=== PATIENT | female | born 1955 | race Caucasian/White ===

== ENCOUNTER 2017-03-09 17:21 | Emergency (ER) | payer MEDICARE, MEDICAID ==
[~2017-03-09] VITALS: Ht 165.1 cm; Wt 68.9 kg
[~2017-03-09 17:21] MED LIST: AMLO10TA PO; ASPI-586 PO; BACL10TA PO; BUME2TAB3 PO; CARV25TA PO; CLON0.1T PO; DIAZ5TAB PO; FOLI0.8T7 PO; HYDR-3923 PO; HYDR25TA4 PO; LEVO25TA5 PO; LEVO75TA6 PO; LOSA50TA6 PO; OXYC-197 PO; PANT40TA3 PO; PRAV40TA2 PO; PRD20T PO; SEVE800T7 PO; SIMV20TA3 PO; SIMV5TAB6 PO; VIT1TABL52 PO
[2017-03-09] MEDS ORDERED: RT-ALBUTEROL/IPRATROPIUM 3 ML (DUONEB) VIAL INH ONE ×2 (17:30)
--- NOTE | 2017-03-09 17:35 | ED General ---
General Stated Complaint: SOA Source of Information: Patient Exam Limitations: No Limitations History of Present Illness Time Seen by Provider: 17:20 Initial Comments Here with report of shortness of air, fever, cough and difficulty with breathing. This started this morning. She woke up and noted her oxygen saturation was at 64 percent. She did a breathing treatment and use her oxygen and this did improve. She saw her Dr. today at 1030 and he put her on some sort of antibiotic. She is not sure what that is. Had increasing respiratory difficulty this afternoon and EMS was called and ultimately brought her to the ER. She does have end-stage renal disease and she is on dialysis on Monday/ Monday and Monday. Her Dr. for renal problems in his "[place]" at [facility] in [place], [place]. Timing/Duration: 12-24 Hours Severity: Moderate Associated Systoms: No Chest Pain, Cough, Fever/Chills, No Nausea/Vomiting, Shortness of Air, Weakness Allergies and Home Medications Allergies Coded Allergies: morphine (Verified Allergy, Severe, swelling, 01/11/16) Home Medications Amlodipine Besylate 10 Mg Tablet, 10 MG PO DAILY, (Reported) Carvedilol 25 Mg Tablet, 25 MG PO BID, (Reported) Clonidine HCl 0.1 Mg Tablet, 0.1 MG PO DAILY, (Reported) Furosemide 80 Mg Tablet, 80 MG PO BID, (Reported) Hydralazine HCl 25 Mg Tablet, 25 MG PO TID, (Reported) Levofloxacin 500 Mg Tablet, 500 MG PO Q48H, (Reported) Levothyroxine Sodium 25 Mcg Tablet, 25 MCG PO DAILY, (Reported) Oxycodone HCl/Acetaminophen 1 Each Tablet, 1-2 EACH PO Q4H PRN for PAIN, #10 Prescribed by: EDUIN BIRD on 08/12/16 1048 Pravastatin Sodium 40 Mg Tablet, 40 MG PO DAILY, (Reported) Prednisone 20 Mg Tab, 40 MG PO DAILY, #10 Ref 0 Prescribed by: AKASH PINEDA on 03/09/17 1827 Vitamin B Comp W-C/FA/Zn Cit 1 Each Tablet, 1 EACH PO DAILY, (Reported) Constitutional: see HPI, chills, fever, weakness EENTM: nose congestion, No throat pain Respiratory: cough, dyspnea on exertion, phlegm, short of breath Cardiovascular: no symptoms reported Gastrointestinal: No abdominal pain, No nausea, No vomiting Genitourinary: no symptoms reported Musculoskeletal: no symptoms reported Skin: no symptoms reported All Other Systems Reviewed Negative Unless Noted: Yes Past Retiywv-Vdckxc-Ferovb Hx Patient Social History Alcohol Use: Denies Use Recreational Drug Use: No Smoking Status: Current Everyday Smoker Type Used: Cigarettes Recent Hopitalizations: Yes (at [facility]) Immunizations Up To Date Tetanus Booster (TDap): Unknown Seasonal Allergies Seasonal Allergies: No Surgeries HX Surgeries: Yes (BACK) Respiratory Hx Respiratory Disorders: Yes (tobaccoism, chronic hypoxia on 2 L by nasal cannula) Cardiovascular Hx Cardiac Disorders: Yes Cardiac Disorders: Hypertension Neurological Hx Neurological Disorders: No Reproductive System Hx Reproductive Disorders: No Sexually Transmitted Disease: No HIV/AIDS: No Genitourinary Hx Genitourinary Disorders: Yes Genitourinary Disorders: Renal Failure, Dialysis Gastrointestinal Hx Gastrointestinal Disorders: No Musculoskeletal Hx Musculoskeletal Disorders: Yes Musculoskeletal Disorders: Back Injury, Chronic Back Pain Endocrine Hx Endocrine Disorders: No HEENT HX ENT Disorders: No Cancer Hx Cancer: No Psychosocial Hx Psychiatric Problems: Yes Behavioral Health Disorders: Depression Integumentary HX Skin/Integumentary Disorder: No Blood Transfusions Hx Blood Disorders: No Adverse Reaction to a Blood Tr: No Reviewed Nursing Assessment Reviewed/Agree w Nursing PMH: Yes Family Medical History Significant Family History: No Pertinent Family Hx Family Medial History: Cardiovascular disease 19 MOTHER, Onset:Unknown Diabetes mellitus 19 MOTHER, Onset:Unknown FH: COPD (chronic obstructive pulmonary disease) G8 SISTER, Onset:Unknown Physical Exam-Suspected Sepsis Physical Exam Vital Signs Vital Sign - Last 12Hours 03/09/17 03/09/17 17:21 17:42 Temp 100.5 Pulse 96 Resp 24 B/P (MAP) 173/69 Pulse Ox 97 O2 Delivery Simple Mask O2 Flow Rate 10.00 FiO2 99 Capillary Refill : General Appearance: No Apparent Distress, WD/WN HEENT: PERRL/EOMI, Pharynx Normal Neck: Non Tender, Supple Respiratory: Expiration, Wheezing Cardiovascular: Regular Rate, Rhythm, No Murmur Gastrointestinal: Non Tender, Soft Back: Normal Inspection, No CVA Tenderness, No Vertebral Tenderness Extremity: Normal Range of Motion, Non Tender Neurologic/Psychiatric: Alert, Oriented x3 Skin: normal color, warm/dry Focused Exam Lactic Acid Level Laboratory Tests Test 03/09/17 17:25 Lactic Acid Level 0.61 MMOL/L (0.50-2.00) Progress/Results/Core Measures Suspected Sepsis SIRS Temperature: Pulse: Respiratory Rate: Laboratory Tests 03/09/17 17:25: White Blood Count 6.5 Blood Pressure / Mean: Laboratory Tests 03/09/17 17:25: Creatinine 3.16H, INR Comment 1.6H, Platelet Count 205, Total Bilirubin 1.0 Results/Orders Lab Results Laboratory Tests Test 03/09/17 17:25 Range/Units White Blood Count 6.5 4.3-11.0 10^3/uL Red Blood Count 3.96 L 4.35-5.85 10^6/uL Hemoglobin 11.9 11.5-16.0 G/DL Hematocrit 37 35-52 % Mean Corpuscular Volume 93 80-99 FL Mean Corpuscular Hemoglobin 30 25-34 PG Mean Corpuscular Hemoglobin Concent 32 32-36 G/DL Red Cell Distribution Width 15.5 H 10.0-14.5 % Platelet Count 205 130-400 10^3/uL Mean Platelet Volume 11.4 H 7.4-10.4 FL Neutrophils (%) (Auto) 61 42-75 % Lymphocytes (%) (Auto) 18 12-44 % Monocytes (%) (Auto) 19 H 0-12 % Eosinophils (%) (Auto) 1 0-10 % Basophils (%) (Auto) 1 0-10 % Neutrophils # (Auto) 3.9 1.8-7.8 X 10^3 Lymphocytes # (Auto) 1.2 1.0-4.0 X 10^3 Monocytes # (Auto) 1.3 H 0.0-1.0 X 10^3 Eosinophils # (Auto) 0.1 0.0-0.3 10^3/uL Basophils # (Auto) 0.0 0.0-0.1 10^3/uL Neutrophils % (Manual) 65 % Lymphocytes % (Manual) 30 % Monocytes % (Manual) 2 % Eosinophils % (Manual) 1 % Basophils % (Manual) 1 % Band Neutrophils 1 % Blood Morphology Comment NORMAL Prothrombin Time 18.3 H 12.2-14.7 SEC INR Comment 1.6 H 0.8-1.4 Activated Partial Thromboplast Time 38 H 24-35 SEC Sodium Level 136 135-145 MMOL/L Potassium Level 4.5 3.6-5.0 MMOL/L Chloride Level 97 L 98-107 MMOL/L Carbon Dioxide Level 26 21-32 MMOL/L Anion Gap 13 5-14 MMOL/L Blood Urea Nitrogen 35 H 7-18 MG/DL Creatinine 3.16 H 0.60-1.30 MG/DL Estimat Glomerular Filtration Rate 15 BUN/Creatinine Ratio 11 Glucose Level 92 70-105 MG/DL Lactic Acid Level 0.61 0.50-2.00 MMOL/L Calcium Level 8.8 8.5-10.1 MG/DL Total Bilirubin 1.0 0.1-1.0 MG/DL Aspartate Amino Transf (AST/SGOT) 54 H 5-34 U/L Alanine Aminotransferase (ALT/SGPT) 36 0-55 U/L Alkaline Phosphatase 188 H 40-136 U/L Total Protein 6.9 6.4-8.2 G/DL Albumin 3.8 3.2-4.5 G/DL My Orders Orders - AKASH PINEDA MD Cbc With Automated Diff (03/09/17 17:) Comprehensive Metabolic Panel (03/09/17 17:27) Lactic Acid Analyzer (03/09/17 17:27) Blood Culture (03/09/17 17:27) Sputum Culture (03/09/17 17:27) Ua Culture If Indicated (03/09/17:27) Protime With Inr (03/09/17 17:27) Partial Thromboplastin Time (03/09/17 17:27) Chest 1 View, Ap/Pa Only (03/09/17:27) O2 (03/09/17 17:27) Saline Lock/Iv-Start (03/09/17 17:27) Saline Lock/Iv-Start (03/09/17 17:27) Vital Signs Adult Sepsis Patie Q1HR (03/09/17 17:27) Remove Rings In Anticipation O (03/09/17 17:27) Albuterol/Ipra Inhalation Soln (Duoneb I (03/09/17 17:30) Svn Sm Volume Nebulizer Rt-Rfs (03/09/17 17:26) Albuterol/Ipra Inhalation Soln (Duoneb I (03/09/17 17:30) Svn Sm Volume Nebulizer Rt-Rfs (03/09/17 17:27) Manual Differential (03/09/17 17:25) Acetaminophen Tablet (Tylenol Tablet) (03/09/17 18:00) Prednisone Tablet (Deltasone Tablet) (03/09/17 18:30) Medications Given in ED Current Medications Medications Dose Ordered Sig/Martin Route Start Time Stop Time Status Last Admin Dose Admin Acetaminophen 1,000 mg ONCE ONCE PO 03/09/17 18:00 03/09/17 18:01 DC 03/09/17 18:07 1,000 MG Albuterol/ Ipratropium 3 ml ONCE ONCE INH 03/09/17 17:30 03/09/17 17:31 DC 03/09/17 17:28 3 ML Vital Signs/I&O Vital Sign - Last 12Hours 03/09/17 03/09/17 03/09/17 03/09/17 17:21 17:29 17:42 18:07 Temp 100.5 100.8 Pulse 96 Resp 24 B/P (MAP) 173/69 Pulse Ox 97 99 O2 Delivery Simple Mask Nonrebreather O2 Flow Rate 10.00 4.00 10.00 FiO2 99 Capillary Refill : Progress Note : Progress Note Seen and evaluated. IV by EMS. Labs, chest x-ray, blood cultures and lactic acid ordered. Duo neb ordered. Monitor patient. Patient did receive Solu- Medrol 125 mg IV by EMS as well as an albuterol neb. 1735: Patient states that she is having shortness of breath and O2 sats are declining on nasal cannula that was increased to 5 L. Placed on facemask nonrebreather and O2 sats did improve to 99 percent. Monitor patient. Patient eventually moved to [facility] and states that this has made a significant difference for her. Monitor patient. 1815: Patient is doing much better. Labs and x-ray reviewed. No significant findings other than expected related to her end-stage renal disease. Patient would like to try return to her nasal cannula and see if she tolerates this because ultimately she would like to go home. She is on Levaquin. We will add steroids orally and have her continue her current regimen of dialysis and antibiotics if she tolerates. 1829: Patient states that she is feeling much better and would like to go home. Redness on 40 mg by mouth. Her sister is going to get her oxygen take. Discharged home with return precautions. Patient verbalize understanding instructions and agreement with plan. Departure Impression Impression: Primary Impression: COPD with acute exacerbation Departure-Patient Inst. Referrals: WILVER SIMENTAL MD (PCP/Family) Primary Care Physician Patient Instructions: Chronic Bronchitis (DC) Add. Discharge Instructions: Continue home medications as directed. Follow-up with your Dr. in a few days for recheck. Continue dialysis as scheduled. Return for worse pain, fever, vomiting, weakness, rhythm problems or other concerns as needed. Scripts Prednisone (Prednisone) 20 Mg Tab 40 MG PO DAILY, #10 TAB 0 Refills Prov: AKASH PINEDA MD 03/09/17 AKASH PINEDA MD Mar 09, 2017 17:35
[2017-03-09 17:36] LABS: BASOPHILS % (AUTO) 1 % (0-10); EOSINOPHILS # (AUTO) 0.1 10^3/uL (0.0-0.3); EOSINOPHILS % (AUTO) 1 % (0-10); LYMPHOCYTES # (AUTO) 1.2 X 10^3 (1.0-4.0); LYMPHOCYTES % (AUTO) 18 % (12-44); MEAN CORPUSCULAR HEMOGLOBIN 30 PG (25-34); MEAN CORPUSCULAR HGB CONC 32 G/DL (32-36); MEAN CORPUSCULAR VOLUME 93 FL (80-99); MEAN PLATELET VOLUME 11.4 FL (7.4-10.4); MONOCYTES # (AUTO) 1.3 X 10^3 (0.0-1.0); MONOCYTES % (AUTO) 19 % (0-12); NEUTROPHILS # (AUTO) 3.9 X 10^3 (1.8-7.8); NEUTROPHILS % (AUTO) 61 % (42-75); PLATELET COUNT 205 10^3/uL (130-400); RED BLOOD COUNT 3.96 10^6/uL (4.35-5.85); RED CELL DISTRIBUTION WIDTH 15.5 % (10.0-14.5); WHITE BLOOD COUNT 6.5 10^3/uL (4.3-11.0)
[2017-03-09 17:53] LABS: INR 1.6 (0.8-1.4); PROTHROMBIN TIME PATIENT 18.3 SEC (12.2-14.7)
[2017-03-09] MEDS ORDERED: FURO80TA3 PO (17:56)
[2017-03-09] MEDS ORDERED: LEVO500T80 PO (17:56)
--- NOTE | 2017-03-09 17:57 | Diagnostic Imaging Report ---
INDICATION: Congestive failure. Comparison with 08/07/2016. FINDINGS: Bilateral alveolar infiltrates are noted throughout both lungs, more prominent in the lung bases. There are bilateral pleural effusions. The heart is enlarged. No evidence of pneumothorax. There is bilateral pleural effusion, larger on the left. IMPRESSION: Findings are similar to previous exam with overall pattern consistent with congestive failure. Dictated by: Dictated on workstation # [id number]
[2017-03-09 17:58] LABS: BAND NEUTROPHILS 1 %; BASOPHILS % (MANUAL) 1 %; EOSINOPHILS % (MANUAL) 1 %; LYMPHOCYTES % (MANUAL) 30 %; NEUTROPHILS % (MANUAL) 65 %
[2017-03-09 18:00] LABS: ALBUMIN 3.8 G/DL (3.2-4.5); CALCIUM 8.8 MG/DL (8.5-10.1); CREATININE SERUM 3.16 MG/DL (0.60-1.30); POTASSIUM 4.5 MMOL/L (3.6-5.0); TOTAL PROTEIN 6.9 G/DL (6.4-8.2)
[2017-03-09] MEDS ORDERED: ACETAMINOPHEN 500 MG TAB (TYLENOL) PO ONE (18:00)
[2017-03-09] MEDS ORDERED: PRD20T PO (18:27)
[2017-03-09] MEDS ORDERED: predniSONE 20 MG TAB PO ONE (18:30)
[2017-03-09 19:00] VITALS: BP 150/63
== END 2017-03-09 19:00 | disposition home or self-care (01) ==
LOC: EDUNIT# 17:21 → ER 17:24
DX: J44.1 Chronic obstructive pulmonary disease with (acute) exacerbation (principal); I12.0 Hypertensive chronic kidney disease with stage 5 chronic kidney disease or end stage renal disease; N18.6 End stage renal disease; F17.210 Nicotine dependence, cigarettes, uncomplicated; Z99.81 Dependence on supplemental oxygen
CPT/HCPCS: 36415; 71010; 80053; 83605; 85007; 85027; 85610; 85730; 87040; 94640

== ENCOUNTER → 2017-07-21 | Outpatient (CLI) | payer MEDICARE, MEDICAID ==
[~2017-07-21] MED LIST changes: +FURO80TA3 PO; +LEVO500T80 PO
--- NOTE | 2017-07-21 14:20 | Diagnostic Imaging Report ---
PROCEDURE: CT chest without contrast. TECHNIQUE: Multiple contiguous axial images were obtained through the chest without the use of intravenous contrast. INDICATION: History of chronic restrictive lung disease. Renal failure. COMPARISON: 11/01/2016. FINDINGS: There is a small left basilar pleural effusion today. No significant effusion is seen on the right. Mild ground-glass infiltrate noted bilaterally. There is interstitial lung disease present bilaterally as well, more prominent on the left. There is loculated fluid in the major fissure. No masses have developed. No evidence of bronchiectasis. No evidence of cystic bullous changes. The aorta is atherosclerotic without evidence of aneurysm. The aortic root measures 3.6 cm. No obvious mediastinal or hilar adenopathy of pathologic size, though lack of IV contrast limits sensitivity. No bony lesions demonstrated. IMPRESSION: 1. There has been decrease in pleural effusions with small residual left basilar effusion. 2. Decrease in infiltrates previously reported with mild interstitial lung disease and mild ground-glass appearance remaining. 3. Continued cardiomegaly and atherosclerotic change of the aorta. In light of the patient's history, mild chronic pulmonary edema is likely. No findings to indicate acute infiltrates. Dictated by: Dictated on workstation # [id number]
== END ==
LOC: RAD 11:28
PROVIDERS: ATTEND Nurse Practitioner Family
DX: J90 Pleural effusion, not elsewhere classified (principal); I51.7 Cardiomegaly; I70.0 Atherosclerosis of aorta; N19 Unspecified kidney failure
CPT/HCPCS: 71250

== ENCOUNTER 2018-04-08 18:23 | Emergency (ER) | payer MEDICARE, MEDICAID ==
[~2018-04-08] VITALS: Ht 160 cm; Wt 63.5 kg
--- OUTSIDE RECORDS SUMMARY | 2018-04-08 18:29 | XMS REPORT ---
Author Author WILVER SIMENTAL Organization [facility] Address [address] [place] [address] Care Team Providers Care Credit Associate Name Role Phone WILVER SIMENTAL Unavailable PROBLEMS Type Condition ICD9-CM Code ENX33-BF Code Onset Dates Condition Status SNOMED Code Problem Neuropathy G62.9 Active 114186771 Problem Hypothyroidism, unspecified type E03.9 Active 25293463 Problem Restrictive lung disease J98.4 Active 49395570 Problem Kidney failure N19 Active 28003269 Problem Chronic kidney disease, stage 4, severely decreased GFR N18.4 Active 275029421 Problem Pain in right leg M79.604 Active 15162952 ALLERGIES No Information ENCOUNTERS Encounter Location Date Diagnosis [place] [id number] [place] [address] 01791- 6998 March, [place] [id number] [place] [address] 01371- 7652 Feb, Restrictive lung disease J98.4 ; Hypothyroidism, unspecified type E03.9 and Neuropathy G62.9 [facility] [id number] [place] [address] 82278- 5474 Nov, Pain in right leg M79.604 [facility] [id number] [place] [address] 76970- 4776 Nov, [facility] [id number] [place] [address] 87651- 8751 Nov, Dysuria R30.0 and Acute cystitis without hematuria N30.00 [place] [id number] [place] [address] 26195- 0842 Nov, Pain in right leg M79.604 [place] [address] [address]- [address] Sep, [facility] [id number] [place] [address] 21113- 4576 Jul, Neuropathy G62.9 [facility] [id number] [place] [address] 00504- 4407 14 Jul, 2017 Pain in right leg M79.604 [facility] [id number] [place] [address] 13663- 2453 Jul, [facility] [id number] [place] [address] 59199- 8997 Apr, [facility] [id number] [place] [address] 87659- 1269 Feb, Bronchitis J40 and Chronic kidney disease, stage 4, severely decreased GFR N18.4 [facility] [id number] [place] [address] 93990- 9068 Jan, Nausea and vomiting, intractability of vomiting not specified, unspecified vomiting type R11.2 [facility] [id number] [place] [address] 39204- 3458 Jan, Pain in right leg M79.604 [facility] [id number] [place] [address] 28184- 6906 Jan, Hypothyroidism, unspecified type E03.9 [facility] [id number] [place] [address] 08055- 9270 Jan, Pain in right leg M79.604 [facility] [id number] [place] [address] 46982- 4524 Dec, Acute non-recurrent maxillary sinusitis J01.00 [facility] [id number] [place] [address] 70862- 7546 Dec, [facility] [id number] [place] [address] 05675- 3558 Dec, Chronic kidney disease, stage 4, severely decreased GFR N18.4 [facility] [address] [address]- 4181 Oct, [facility] [id number] [place] [address] 97819 -4548 Oct, Shortness of breath R06.02 [facility] [id number] [place] [address] 59978- 6419 Oct, [facility] [id number] [place] [address] 42514- 5657 Oct, [facility] [id number] [place] [address] 24871- 2307 Sep, Pain in right leg M79.604 and Restrictive lung disease J98.4 [facility] [id number] [place] [address] 51915- 0770 Sep, [facility] [id number] [place] [address] 34737- 0330 Aug, Restrictive lung disease J98.4 and Acute left eye pain H57.12 [facility] [id number] [place] [address] 06257- 0105 Aug, [facility] [id number] [place] [address] 02994- 4319 Aug, [facility] [address] [address]- 6998 Jun, [facility] [address] [address]- 1377 Jun, [facility] [id number] [place] [address] 27155- 4158 Jun, [facility] [id number] [place] [address] 20441- 6589 Jun, [facility] [address] [address]- 7024 Jun, Restrictive lung disease J98.4 and Pain in right leg M79.604 [facility] [address] [facility] [id number] [place] [address]- 0788 Jun, [facility] [address] [facility] [id number] [place] [address]- 8066 Jun, [facility] [address] [place] [address] [id number] [place] [address]- 0017 May, Restrictive lung disease J98.4 and Kidney failure N19 [facility] [address] [facility] [id number] [place] [address]- 1198 May, [facility] [address] [facility] [id number] [place] [address], [place] [address]- 4102 May, [facility] [address] [place] [id number] [place] [address]- 4473 Apr, [facility] [id number] [place] [address], [place] [address]- 1861 Dec, [facility] [id number] [place] [address]- 9788 Dec, [facility] [address] [place] [place] [address]- 0488 Aug, [facility] [id number] [place] [address]- 0894 14 Feb, 2015 [facility] [address] [place] [place] [address]- 5327 Feb, [facility] [address] [facility] [id number] [address]- 1557 18 Jan, 2015 [facility] [id number] [place] [place] [address]- 2282 18 Jan, 2015 [facility] [address] [facility] [id number] [place] [address]- 3466 17 Jan, 2015 [facility] [address] 4723 14 Jan, 2015 [facility] [place] [facility] [address] [id number] [place] [address]- 4067 13 Jan, 2015 [facility] [place] [facility] [address] [id number] [place] [address]- 2149 13 Jan, 2015 [facility] [place] [facility] [address] [id number] [place] [address]- 9620 11 Jan, 2015 [facility] [place] [facility] [address] [id number] [place] [address]- 0848 11 Jan, 2015 [facility] [place] [facility] [address] [id number] [place] [address]- 4019 10 Jan, 2015 [facility] [place] [facility] [address] [id number] [place] [address]- 5888 10 Jan, 2015 [facility] [place] [facility] [address] [facility] [id number] [place] [address]- 0000 Jan, [facility] [place] [facility] [address] [id number] [place] [address]- 0892 Dec, [facility] [place] [facility] [address] [id number] [place] [address]- 1251 Dec, [facility] [place] [facility] [address] [id number] [place] [address]- 8346 Dec, [facility] [place] [facility] [address] [id number] [place] [address]- 9974 Dec, [facility] [place] [facility] [address] [id number] [place] [address]- 1466 Dec, [facility] [place] [facility] [address] [id number] [place] [address]- 7347 Dec, [facility] [place] [facility] [address] [id number] [place] [address]- 1030 Nov, [facility] [place] [facility] [address] [id number] [place] [address]- 1577 Nov, [facility] [place] [facility] [address] [id number] [place] [address]- 0758 Oct, [facility] [place] [facility] [address] [id number] [place] [address]- 3098 Oct, [facility] [place] [facility] [address] [id number] [place] [address]- 1236 Oct, [facility] [place] [facility] [address] [id number] [place] [address]- 1896 Oct, [facility] [place] [facility] [address] [id number] [place] [address]- 5146 Oct, [facility] [place] [facility] [address] [id number] [place] [address]- 8439 Oct, [facility] [place] [facility] [address] [id number] [place] [address]- 4295 Oct, [facility] [place] [facility] [address] [id number] [place] [address]- 7306 Oct, [facility] [place] [facility] [address] [id number] [place] [address]- 0352 Jul, [facility] [place] [facility] [address] [id number] [place] [address]- 2816 Jul, [facility] [place] [facility] [address] [id number] [place] [address]- 6781 Jul, [facility] [place] [facility] [address] [id number] [place] [address] 2546 Jul, [facility] [place] [facility] [address] [id number] [place] [address]- 4156 Jul, [facility] [place] [facility] [address] [id number] [place] [address]- 1721 Jun, [facility] [place] [facility] [address] [id number] [place] [address]- 6086 May, [facility] [place] [facility] [address] [id number] [place] [address]- 8776 May, [facility] [place] [facility] [address] [id number] [place] [address]- 0679 May, [facility] [place] [facility] [address] [id number] [place] [address]- 4379 Feb, [facility] [place] [facility] [address] [id number] [place] 0434 Feb, [facility] [place] [facility] [address] [id number] [place] [address]- 2310 Feb, [facility] [place] [facility] [address] [id number] [place] [address]- 6454 Feb, [facility] [place] [facility] [address] [id number] [place] [address]- 0325 Feb, [facility] [place] [facility] [address] [id number] [place] [address]- 0542 Feb, [facility] [place] [facility] [address] [id number] [place] [address]- 2827 Feb, [facility] [place] [facility] [address] [id number] [place] [address]- 4146 Feb, [facility] [place] [facility] [address] [id number] [place] [address]- 4728 Feb, [facility] [place] [facility] [address] [id number] [place] [address]- 3307 Feb, [facility] [place] [facility] [address] [id number], [place] [address]- 6514 Aug, [facility] [place] [facility] [address] [id number] [place] [address]- 0648 Aug, [facility] [place] [facility] [address] [id number] [place] [address]- 1476 Aug, [facility] [place] [facility] [address] [id number] [address]- 0426 Aug, [facility] [place] [facility] [address] [id number], [place] [address]- 4738 Jan, [facility] [address] [id number] [place] [address]- 5862 Dec, [facility] [place] [facility] [address] [facility] [id number] [place] [address]- 6688 Aug, [facility] [place] [facility] [address] [facility] [id number] [place] [address]- 5277 May, [facility] [place] [facility] [address] [id number] [place] [address]- 7679 Apr, [facility] [place] [facility] [address] [facility] [id number] [place] [address], [place] [address]- 4672 Apr, [facility] [place] [facility] [address] [facility] [id number] [place] [address]- 7998 Apr, [facility] [address] [address]- 5653 Apr, [facility] [place] [facility] [address] [facility] [id number] [place] [address]- 6610 Nov, [facility] [place] [facility] [id number] [place] [place] [address]- 4311 Oct, [facility] [place] [facility] [id number] [place] [place] [address]- 1617 Oct, [facility] [place] [facility] [id number] [address]- 2593 Oct, [facility] [place] [facility] [address] [facility] [id number], [place] [address]- 9864 Sep, [facility] [place] [facility] [address] [facility] [id number] [place] [address]- 7176 Sep, [facility] [place] [facility] [address] [facility] [id number] [place] [address]- 8039 Sep, [facility] [place] [facility] [id number] [place] [place] [address]- 7234 Apr, [facility] [place] [facility] [address] [facility] [id number] [place] [address]- 6816 Sep, [facility] [address] [facility] [id number], [place] [address]- 0475 Jan, [facility] [id number] [address]- 8110 Aug, [facility] [address] [facility] [id number], [place] [address]- 6280 Aug, [facility] [address] [facility] [id number][place]- 6080 May, IMMUNIZATIONS No Known Immunizations SOCIAL HISTORY Never Assessed REASON FOR VISIT Requests return call PLAN OF CARE VITAL SIGNS MEDICATIONS Unknown Medications RESULTS No Results PROCEDURES No Known procedures INSTRUCTIONS MEDICATIONS ADMINISTERED No Known Medications MEDICAL (GENERAL) HISTORY Type Description Date Medical History kidney failure-dialysis Medical History hypertension Surgical History tracheotomy Surgical History fistula left wrist Surgical History back surgery Surgical History port right chest Hospitalization History pneumonia Hospitalization History fluid around lungs 2015
--- OUTSIDE RECORDS SUMMARY | 2018-04-08 18:30 | XMS REPORT ---
Author Author SEFERINO EGAN [facility] Address [address] [place] [address] Care Team Providers Care Customer Support Engineer Name Role Phone JIGNESHSEFERINO Unavailable PROBLEMS Type Condition ICD9-CM Code PEM07-HZ Code Onset Dates Condition Status SNOMED Code Problem Neuropathy G62.9 Active 481592575 Problem Hypothyroidism, unspecified type E03.9 Active 54877291 Problem Restrictive lung disease J98.4 Active 13256117 Problem Kidney failure N19 Active 44651977 Problem Chronic kidney disease, stage 4, severely decreased GFR N18.4 Active 735756423 Problem Pain in right leg M79.604 Active 00279916 ALLERGIES No Information ENCOUNTERS Encounter Location Date Diagnosis [place] [id number] [place] [address]- [address] March, [place] [address] [address] Feb, Restrictive lung disease J98.4 ; Hypothyroidism, unspecified type E03.9 and Neuropathy G62.9 [facility] [id number] [place] [address] 26412- 1019 Nov, Pain in right leg M79.604 [facility] [id number] [place] [address] 20562- 2162 Nov, [facility] [id number] [place] [address] 35715- 2235 Nov, Dysuria R30.0 and Acute cystitis without hematuria N30.00 [facility] [id number] [place] [address] 03959- 6563 Nov, Pain in right leg M79.604 [place] [address] [address]- 49[address] Sep, [facility] [id number] [place] [address] 04079- 3746 Jul, Neuropathy G62.9 [facility] [id number] [place] [address] 89643- 6287 14 Jul, 2017 Pain in right leg M79.604 [facility] [address] [address]- 8432 Jul, [facility] [address] 45888- 7615 Apr, [facility] [address] [address]- 3028 Feb, Bronchitis J40 and Chronic kidney disease, stage 4, severely decreased GFR N18.4 [facility] [address] [address]- 4430 Jan, Nausea and vomiting, intractability of vomiting not specified, unspecified vomiting type R11.2 [facility] [address] 8[address]- 5753 Jan, Pain in right leg M79.604 [facility] [address] 0[address]77- 9635 Jan, Hypothyroidism, unspecified type E03.9 [facility] [id number] [place] [address] 47294- 0320 Jan, Pain in right leg M79.604 [facility] [id number] [place] [address] 70675- 7090 Dec, Acute non-recurrent maxillary sinusitis J01.00 [facility] [address] 50431- 0742 Dec, [facility] [id number] [place] [address] 90927- 3131 Dec, Chronic kidney disease, stage 4, severely decreased GFR N18.4 [facility] [address] [facility] [id number] [address] Oct, [facility] [id number] [place] [address] 08516 -4016 Oct, Shortness of breath R06.02 [facility] [address] [address] 4786 Oct, [facility] [id number] [place] [address] 92261- 9012 Oct, [facility] [id number] [place] [address] 26806- 2163 Sep, Pain in right leg M79.604 and Restrictive lung disease J98.4 [facility] [id number] [place] [address] 58987- 0737 Sep, [facility] [id number] [place] [address] 10366- 1135 Aug, Restrictive lung disease J98.4 and Acute left eye pain H57.12 [facility] [id number] [place] [address] 73469- 6058 Aug, [facility] [address] [address] 8387 Aug, [facility] [address] [address]- 5279 Jun, [facility] [address] [address]- 2580 Jun, [facility] [address] [address]- 6163 Jun, [facility] [address] [address]- 0206 Jun, [facility] [address] [address]- 4806 Jun, Restrictive lung disease J98.4 and Pain in right leg M79.604 [facility] [address] [place] [address]- 2012 Jun, [facility] [address] [place] [address]- 9856 Jun, [facility] [id number] [place] [address]- 4859 May, 2016 Restrictive lung disease J98.4 and Kidney failure N19 [facility] [id number] [place] [address], [place] [address]- 7243 May, [facility] [id number] [place] [address], [place] [address]- 7279 May, 2015 [facility] [id number] [place] [address]- 2446 Apr, [facility] [id number] [place] [address], [place] [address]- 8914 Dec, [facility] [address] [place] [address]- 2294 Dec, [facility] [id number] [place] [address], [place] [address]- 1875 Aug, [facility] [address] [place] [address]- 6721 14 Feb, 2015 [facility] [address] [place] [address]- 9018 Feb, [facility] [address] [address]- 3199 18 Jan, 2015 [facility] [id number] [place] [address]- 8046 18 Jan, 2015 [facility] [address] [place] [address]- 0599 17 Jan, 2015 [facility] [address] [address]- 5591 14 Jan, 2015 [facility] [place] [facility] [address] [id number] [place] [address]- 8252 13 Jan, 2015 [facility] [place] [facility] [address] [id number] [place] [address]- 6506 13 Jan, 2015 [facility] [place] [facility] [address] [id number] [place] [address]- 1452 11 Jan, 2015 [facility] [place] [facility] [address] [id number] [place] [address]- 0526 11 Jan, 2015 [facility] [place] [facility] [address] [id number] [place] [address]- 8815 10 Jan, 2015 [facility] [place] [facility] [address] [id number] [place] [address]- 4386 10 Jan, 2015 [facility] [place] [facility] [address] [facility] [id number] [place] [address]- 7906 Jan, [facility] [place] [facility] [address] [id number] [place] [address]- 7553 Dec, [facility] [place] [facility] [address] [id number] [place] [address]- 7967 Dec, [facility] [place] [facility] [address] [id number] [place] [address]- 6001 Dec, [facility] [place] [facility] [address] [id number] [place] [address]- 9036 Dec, [facility] [place] [facility] [address] [id number] [place] [address]- 4986 Dec, [facility] [place] [facility] [address] [id number] [place] [address]- 6496 Dec, [facility] [place] [facility] [address] [id number] [place] [address]- 3026 Nov, [facility] [place] [facility] [address] [id number] [place] [address]- 6706 Nov, [facility] [place] [facility] [address] [id number] [place] [address]- 2182 Oct, [facility] [place] [facility] [address] [id number] [place] [address]- 0606 Oct, [facility] [place] [facility] [address] [id number] [place] [address]- 3566 Oct, [facility] [place] [facility] [address] [id number] [place] [address]- 5981 Oct, [facility] [place] [facility] [address] [id number] [place] [address]- 5941 Oct, [facility] [place] [facility] [address] [id number] [place] [address]- 9370 Oct, [facility] [place] [facility] [address] [id number] [place] [address]- 2583 Oct, [facility] [place] [facility] [address] [id number] [place] [address]- 9812 Oct, [facility] [place] [facility] [address] [id number] [place] [address]- 3863 Jul, [facility] [place] [facility] [address] [id number] [place] [address]- 5634 Jul, [facility] [place] [facility] [address] [id number] [place] [address]- 7726 Jul, [facility] [place] [facility] [address] [id number] [place] [address] 2546 Jul, [facility] [place] [facility] [address] [id number] [place] [address]- 4270 29 Jul, 2014 [facility] [place] [facility] [address] [id number] [place] [address]- 2103 Jun, [facility] [place] [facility] [address] [id number] [place] [address]- 4387 May, [facility] [place] [facility] [address] [id number] [place] [address]- 3503 May, [facility] [place] [facility] [address] [id number] [place] [address]- 3362 May, [facility] [place] [facility] [address] [id number] [place] [address]14 Feb, [facility] [place] [facility] [address] [id number] [place] [address]- 9934 Feb, [facility] [place] [facility] [address] [id number] [place] [address]- 6180 Feb, [facility] [place] [facility] [address] [id number] [place] [address]- 3690 Feb, [facility] [place] [facility] [address] [id number] [place] [address]- 6678 Feb, [facility] [place] [facility] [address] [id number] [place] [address]- 2041 Feb, [facility] [place] [facility] [address] [id number] [place] [address]- 3646 Feb, [facility] [place] [facility] [address] [id number] [place] [address]- 3607 Feb, [facility] [place] [facility] [address] [id number] [place] [address]- 4604 Feb, [facility] [place] [facility] [address] [id number] [place] [address]- 4752 Feb, [facility] [place] [facility] [address] [id number] [place] [address]- 3105 Aug, [facility] [place] [facility] [address] [id number] [place] [address]- 4399 Aug, [facility] [place] [facility] [address] [id number] [place] [address]- 9079 Aug, [facility] [place] [facility] [address] [id number] [place] [address]- 9422 Aug, [facility] [place] [facility] [address] [id number] [address]- 9723 Jan, [facility] [place] [facility] [address] [id number] [place] [address]- 1302 Dec, [facility] [place] [facility] [address] [id number] [place] [address]- 2895 Aug, [facility] [place] [facility] [address] [id number] [place] [address]- 2484 May, [facility] [place] [facility] [address] [id number] [place] [address]- 0175 Apr, [facility] [place] [facility] [address] [id number] [place] [address]- 8540 Apr, [facility] [place] [facility] [address] [id number] [place] [address]- 2864 Apr, [facility] [place] [facility] [address] [facility] [id number] [place] [address]- 2888 Apr, [facility] [place] [facility] [address] [facility] [id number] [place] [address]- 4438 Nov, [facility] [place] [facility] [address] [id number] [place] [address]- 9916 Oct, [facility] [place] [facility] [address] [facility] [id number] [place] [address]- 9886 Oct, [facility] [place] [facility] [address] [facility] [id number] [place] [address]- 8517 Oct, [facility] [place] [facility] [address] [id number] [place] [address]- 2832 Sep, [facility] [place] [facility] [address] [id number] [place] [address]- 4525 Sep, [facility] [place] [facility] [address] [facility] [id number] [place] [address]- 5593 Sep, [facility] [place] [facility] [address] [facility] [id number] [place] [address]- 5479 Apr, [facility] [place] [facility] [address] [facility] [id number] [place] [address]- 2546 Sep, [facility] [address] [facility] [id number] [place] [address]- 5456 Jan, [facility] [id number] [address]- 2546 Aug, [facility] [address] [facility] [id number] [place] [address]- 2546 Aug, [facility] [address] [facility] [id number] [place] [address]- 4394 May, IMMUNIZATIONS No Known Immunizations SOCIAL HISTORY Never Assessed REASON FOR VISIT Requesting return call PLAN OF CARE VITAL SIGNS MEDICATIONS Medication Instructions Dosage Frequency Start Date End Date Duration Status Oxycodone HCl 20 mg Orally every 6 hrs as needed 1 tablet Jul, 28 days Active RESULTS No Results PROCEDURES No Known procedures INSTRUCTIONS MEDICATIONS ADMINISTERED No Known Medications MEDICAL (GENERAL) HISTORY Type Description Date Medical History kidney failure-dialysis Medical History hypertension Surgical History tracheotomy Surgical History fistula left wrist Surgical History back surgery Surgical History port right chest Hospitalization History pneumonia Hospitalization History fluid around lungs 2015
--- OUTSIDE RECORDS SUMMARY | 2018-04-08 18:30 | XMS REPORT ---
Author Author WILVER SIMENTAL [facility] Address [address] [place] [address] Care Team Providers Care Body Repairer Name Role Phone WILVER SIMENTAL Unavailable PROBLEMS Type Condition ICD9-CM Code [id number] Code Onset Dates Condition Status SNOMED Code Problem Hypothyroidism, unspecified type E03.9 Active 94487258 Problem Chronic kidney disease, stage 4, severely decreased GFR N18.4 Active 855725553 Problem Kidney failure N19 Active 66529233 Problem Pain in right leg M79.604 Active 14820128 Problem Restrictive lung disease J98.4 Active 07371211 ALLERGIES Substance Reaction Event Type Date Status Morphine Sulfate Unknown Drug Allergy Dec, Active SOCIAL HISTORY Never Assessed PLAN OF CARE Activity Details Follow Up prn Reason: VITAL SIGNS Height 67 in 2016-12-15 Weight 150.35 lbs 2016-12-15 Temperature 97.9 degrees Fahrenheit 2016-12-15 Heart Rate 80 bpm 2016-12-15 Respiratory Rate 24 2016-12-15 BMI 23.55 kg/m2 2016-12-15 Blood pressure systolic 170 mmHg 2016-12-15 Blood pressure diastolic 70 mmHg 2016-12-15 MEDICATIONS Medication Instructions Dosage Frequency Start Date End Date Duration Status Clonidine HCl 0.1 MG Orally Once a day 1 tablet 24h 30 Active Pravachol 40 mg Orally -MUST SEE DR. SIMENTAL FOR REFILLS Once a day 1 tablet 24h 30 Active Oxygen 2 L/NC as directed May, Active HydrALAZINE HCl 25 MG TAKE ONE TABLET BY MOUTH EVERY 8 HOURS 30 Active HydrOXYzine HCl 25 MG Orally every 6 hr prn itching 1 tablet as needed Active Nephro-Karina 0.8 MG Orally Once a day 1 tablet 24h Apr, Active Carvedilol 25 MG TAKE ONE TABLET BY MOUTH TWICE DAILY 30 Active Advair Diskus 250-50 MCG/DOSE Inhalation Twice a day 1 puff 12h Active Furosemide 80 MG Orally Once a day 1 tablet 24h Active tramadol 50 mg take 1 tablet (50 mg) by oral route every 4-6 hours as needed PRN pain 13 Jan, 2015 Active Amoxicillin 500 MG Orally 3 times a day 1 capsule 8h Dec, Dec, 07 days Active Carvedilol 25 Orally 2 times a day 1 tablet 12h Active Renvela 800 MG Orally Three times a day 1 tablet with meals 8h Active Valium 5 mg Orally Twice a day 1 tablet as needed 12h 23 Apr, 2016 Active Amlodipine Besylate 10 mg Orally Once a day 1 tablet 24h 30 Active Pantoprazole Sodium 40 MG TAKE ONE TABLET BY MOUTH ONCE DAILY BEFORE BREAKFAST 30 Active Oxycodone HCl 20 mg Orally every 6 hrs 1 tablet as needed 6h Active Cefuroxime Axetil 250 MG Orally Twice a day 1 tablet 12h Active Levothyroxine Sodium 25 MCG Orally Once a day 1 tablet 24h 30 Active RESULTS No Results PROCEDURES Procedure Date Ordered Result Body Site [facility] VISIT ESTABLISHED PATIENT Dec 15, 2016 IMMUNIZATIONS No Known Immunizations MEDICAL (GENERAL) HISTORY Type Description Date Medical History kidney failure-dialysis Medical History hypertension Surgical History tracheotomy Surgical History fistula left wrist Surgical History back surgery Surgical History port right chest Hospitalization History pneumonia Hospitalization History fluid around lungs 2015
--- OUTSIDE RECORDS SUMMARY | 2018-04-08 18:30 | XMS REPORT ---
Author Author WILVER SIMENTAL [facility] Address [address] [place] [address] Care Team Providers Care Air Conditioning Mechanic Name Role Phone WILVER SIMENTAL Unavailable PROBLEMS Type Condition ICD9-CM Code [id number] Code Onset Dates Condition Status SNOMED Code Problem Hypothyroidism, unspecified type E03.9 Active 88005205 Problem Chronic kidney disease, stage 4, severely decreased GFR N18.4 Active 990009476 Problem Kidney failure N19 Active 02818884 Problem Pain in right leg M79.604 Active 91953524 Problem Restrictive lung disease J98.4 Active 98833347 ALLERGIES Unknown Allergies SOCIAL HISTORY No smoking Hx information available PLAN OF CARE VITAL SIGNS MEDICATIONS Unknown Medications RESULTS No Results PROCEDURES No Known procedures IMMUNIZATIONS No Known Immunizations
--- OUTSIDE RECORDS SUMMARY | 2018-04-08 18:30 | XMS REPORT ---
Author Author WILVER SIEMNTAL [facility] Address [address] [place] [address] Care Team Providers Care Keyliner Name Role Phone WILVER SIMENTAL Unavailable PROBLEMS Type Condition ICD9-CM Code [id number] Code Onset Dates Condition Status SNOMED Code Problem Neuropathy G62.9 Active 896794693 Problem Hypothyroidism, unspecified type E03.9 Active 44458610 Problem Restrictive lung disease J98.4 Active 15803196 Problem Kidney failure N19 Active 46859318 Problem Chronic kidney disease, stage 4, severely decreased GFR N18.4 Active 755127973 Problem Pain in right leg M79.604 Active 15285108 ALLERGIES No Information SOCIAL HISTORY Never Assessed PLAN OF CARE VITAL SIGNS MEDICATIONS Medication Instructions Dosage Frequency Start Date End Date Duration Status Levothyroxine Sodium 25 MCG Orally Once a day 1 tablet 24h 30 Active Clonidine HCl 0.1 MG Orally Once a day 1 tablet 24h 30 Active RESULTS No Results PROCEDURES No Known procedures IMMUNIZATIONS No Known Immunizations MEDICAL (GENERAL) HISTORY Type Description Date Medical History kidney failure-dialysis Medical History hypertension Surgical History tracheotomy Surgical History fistula left wrist Surgical History back surgery Surgical History port right chest Hospitalization History pneumonia Hospitalization History fluid around lungs 2015
--- OUTSIDE RECORDS SUMMARY | 2018-04-08 18:30 | XMS REPORT ---
Author Author WILVER SIMENTAL [facility] Address [address] [place] [address] Care Team Providers Care Border Patrol Officer Name Role Phone WILVER SIMENTAL Unavailable PROBLEMS Type Condition ICD9-CM Code [id number] Code Onset Dates Condition Status SNOMED Code Problem Neuropathy G62.9 Active 049669785 Problem Hypothyroidism, unspecified type E03.9 Active 39201971 Problem Restrictive lung disease J98.4 Active 15245402 Problem Kidney failure N19 Active 46722128 Problem Chronic kidney disease, stage 4, severely decreased GFR N18.4 Active 362057487 Problem Pain in right leg M79.604 Active 48765011 ALLERGIES Substance Reaction Event Type Date Status Morphine Sulfate Unknown Drug Allergy Jul, Active ENCOUNTERS Encounter Location Date Diagnosis [place] [id number] [address] March, [place] [address] [address] Feb, Restrictive lung disease J98.4 ; Hypothyroidism, unspecified type E03.9 and Neuropathy G62.9 [place] [address] [place] [id number] [place] [address]- 4441 Nov, Pain in right leg M79.604 [facility] [address] [place] [id number] [place] [address] 28107- 3029 Nov, [facility] [address] [address] Nov, Dysuria R30.0 and Acute cystitis without hematuria N30.00 [facility] [address] [place] [id number] [place] [address] 20940- 5050 Nov, Pain in right leg M79.604 [facility] [address] [place] [id number] [place] [address] 83796- 5920 Sep, [facility] [address] [address]- [address] 25 Jul, 2017 Neuropathy G62.9 [facility] [address] [address]- [address] 14 Jul, 2017 Pain in right leg M79.604 [facility] [address] [address]- [address] Jul, [facility] [address] [address]- [address] Apr, [facility] [address] [address]- [address] Feb, Bronchitis J40 and Chronic kidney disease, stage 4, severely decreased GFR N18.4 [facility] [address] 04[address]- 58[address] Jan, Nausea and vomiting, intractability of vomiting not specified, unspecified vomiting type R11.2 [facility] [address] [address]- 2699 Jan, Pain in right leg M79.604 [facility] [address] [place] [id number] [place] [address] 72176- 7869 Jan, Hypothyroidism, unspecified type E03.9 [facility] [address] [place] [id number] [place] [address] 51339- 9225 Jan, Pain in right leg M79.604 [facility] [address] [place] [id number] [place] [address] 58351- 2687 Dec, Acute non-recurrent maxillary sinusitis J01.00 [facility] [address] [place] [id number] [place] [address] 82052- 3759 Dec, [facility] [address] 33874- [address] Dec, Chronic kidney disease, stage 4, severely decreased GFR N18.4 [facility] [id number] [place] [address] 56975- 5345 Oct, [facility] [id number] [place] [address] 47631 -4349 Oct, Shortness of breath R06.02 [facility] [address] [place] [id number] [place] [address] 80912- 6211 Oct, [facility] [address] [place] [id number] [place] [address] 91821- 4414 Oct, [facility] [address] [place] [id number] [place] [address] 60250- 1256 Sep, Pain in right leg M79.604 and Restrictive lung disease J98.4 [facility] [address] [place] [id number] [place] [address] 88069- 5655 Sep, [facility] [address] [place] [id number] [place] [address] 06298- 0829 Aug, Restrictive lung disease J98.4 and Acute left eye pain H57.12 [facility] [address] [place] [id number] [place] [address] 46481- 4007 Aug, [facility] [id number] [place] [address] 07448- 8343 Aug, [facility] [id number] [place] [address] 97856- 4051 Jun, [facility] [address] [place] [id number] [place] [address] 68617- 9548 Jun, [facility] [address] [place] [id number] [place] [address] 77693- 1623 Jun, [facility] [id number] [place] [address] 03037- 0255 Jun, [facility] [address] [place] [id number] [place] [address] 28851- 0151 Jun, Restrictive lung disease J98.4 and Pain in right leg M79.604 [facility] [address] [address] 6[address] Jun, [facility] [address] [address] 9[address] Jun, [facility] [address] [place] [id number] [place] [address] 32454- 4479 May, Restrictive lung disease J98.4 and Kidney failure N19 [facility] [address] [place] [id number] [place] [address] 42353- 8890 May, [facility] [address] [place] [id number] [place] [address] 12128- 8087 May, [facility] [address] [place] [id number] [place] [address] 18222- 3942 Apr, [facility] [address] [place] [id number] [place] [address] 42312- 8867 Dec, [facility] [address] [address]- 7333 Dec, [facility] [address] [address]- 5140 Aug, [facility] [address] [address]- 1370 14 Feb, 2015 [facility] [address] [address]- 0561 Feb, [facility] [address] [place] [id number] [address]- 0290 Jan, [facility] [address] [place] [id number] [address] 5[address] 18 Jan, 2015 [facility] [address] [address]- 1770 17 Jan, 2015 [facility] [address] [place] [id number] [place] [address]- 7008 14 Jan, 2015 [facility] [place] [facility] [address] [id number] [place] [address]- 3447 13 Jan, 2015 [facility] [place] [facility] [address] [id number] [place] [address]- 6866 13 Jan, 2015 [facility] [place] [facility] [address] [id number] [place] [address]- 7606 11 Jan, 2015 [facility] [place] [facility] [address] [id number] [place] [address]- 6646 11 Jan, 2015 [facility] [place] [facility] [address] [id number] [place] [address]- 5192 10 Jan, 2015 [facility] [place] [facility] [address] [id number] [place] [address]- 8257 10 Jan, 2015 [facility] [place] [facility] [address] [id number] [place] [address]- 2870 03 Jan, 2015 [facility] [place] [facility] [address] [id number] [place] [address]- 6152 Dec, [facility] [place] [facility] [address] [id number] [place] [address]- 8975 Dec, [facility] [place] [facility] [address] [facility] [id number] [place] [address]- 0690 Dec, [facility] [place] [facility] [address] [id number] [place] [address] 2546 Dec, [facility] [place] [facility] [address] [id number] [place] [address] 2543 Dec, [facility] [place] [facility] [address] [id number] [place] [address]- 4021 Dec, [facility] [place] [facility] [address] [id number] [place] [address]- 7606 Nov, [facility] [place] [facility] [address] [id number] [place] [address] Nov, [facility] [place] [facility] [address] [id number] [place] [address]- 4101 Oct, [facility] [place] [facility] [address] [id number] [place] [address]- 8771 Oct, [facility] [place] [facility] [address] [id number] [place] [address]- 2402 Oct, [facility] [place] [facility] [address] [id number] [place] [address]- 1455 Oct, [facility] [place] [facility] [address] [id number] [place] [address]- 8493 Oct, [facility] [place] [facility] [address] [id number] [place] [address]- 1212 Oct, [facility] [place] [facility] [address] [id number] [place] [address]- 3891 Oct, [facility] [place] [facility] [address] [id number] [place] [address]- 0669 Oct, [facility] [place] [facility] [address] [id number] [place] [address]- 6792 Jul, [facility] [place] [facility] [address] [id number] [place] [address]- 0178 Jul, [facility] [place] [facility] [address] [id number] [place] [address]- 3660 Jul, [facility] [place] [facility] [address] [id number] [place] [address]- 2180 Jul, [facility] [place] [facility] [address] [id number] [place] [address]- 0207 Jul, [facility] [place] [facility] [address] [id number] [place] [address]- 9428 Jun, [facility] [place] [facility] [address] [id number] [place] [address]- 4934 May, [facility] [place] [facility] [address] [id number] [place] [address]- 7764 May, [facility] [place] [facility] [address] [id number] [place] [address]- 3210 May, [facility] [place] [facility] [address] [id number] [place] [address]- 8149 Feb, [facility] [place] [facility] [address] [id number] [place] [address]- 9897 Feb, [facility] [place] [facility] [address] [id number] [place] [address]- 7308 Feb, [facility] [place] [facility] [address] [id number] [place] [address]- 7001 Feb, [facility] [place] [facility] [address] [id number] [place] [address]- 4140 Feb, [facility] [place] [facility] [address] [id number] [place] [address]- 4997 Feb, [facility] [place] [facility] [address] [id number] [place] [address]- 7317 Feb, [facility] [place] [facility] [address] [id number] [place] [address]- 9961 Feb, [facility] [place] [facility] [address] [id number] [place] [address]- 7367 Feb, [facility] [place] [facility] [address] [id number] [place] [address]- 3590 Feb, [facility] [place] [facility] [address] [id number] [place] [address]- 4485 Aug, [facility] [place] [facility] [address] [id number] [place] [address]- 7683 Aug, [facility] [place] [facility] [address] [id number] [place] [address]- 3702 Aug, [facility] [place] [facility] [address] [id number] [place] [address]- 3833 Aug, [facility] [place] [facility] [address] [id number] [place] [address]- 7372 Jan, [facility] [place] [facility] [address] [id number] [place] [address]- 8787 Dec, [facility] [place] [facility] [address] [id number] [place] [address]- 0543 Aug, [facility] [place] [facility] [address] [id number] [place] [address]- 1381 May, [facility] [place] [facility] [address] [id number] [place] [address]- 1756 Apr, [facility] [place] [facility] [address] [id number] [place] [address]- 7513 Apr, [facility] [place] [facility] [address] [id number] [place] [address]- 3817 Apr, [facility] [place] [facility] [address] [id number] [place] [address]- 0976 Apr, [facility] [place] [facility] [address] [id number] [place] [address]- 3135 Nov, [facility] [place] [facility] [address] [id number] [place] [address]- 5415 Oct, [facility] [place] [facility] [address] [id number] [place] [address]- 1301 Oct, [facility] [place] [facility] [address] [id number] [place] [address]- 5156 Oct, [facility] [place] [facility] [address] [id number] [place] [address]- 9038 Sep, [facility] [place] [facility] [address] [id number] [place] [address]- 8717 Sep, [facility] [place] [facility] [address] [id number] [place] [address]- 5362 Sep, [facility] [place] [facility] [address] [id number] [place] [address]- 7974 Apr, [facility] [address] [facility] [id number] [place] [address]- 8716 Sep, [facility] [address] [facility] [id number] [address]- 8816 Jan, [facility] [address] [facility] [id number], [place] [address]- 9976 Aug, [facility] [address] [facility] [id number], [place] [address]- 0426 Aug, [facility] [address] [facility] [id number], [place] [address]- 5101 May, IMMUNIZATIONS No Known Immunizations SOCIAL HISTORY Never Assessed REASON FOR VISIT Pain management (chronic) needs refill on oxycodone, having numbness in zara legs since last year, reports getting worse., CBrumbackRN PLAN OF CARE Activity Details Follow Up 4 Months Reason: VITAL SIGNS Height 67 in 2017-08-07 Weight 172.0 lbs 2017-08-07 Temperature 98.6 degrees Fahrenheit 2017-08-07 Heart Rate 76 bpm 2017-08-07 Respiratory Rate 22 2017-08-07 BMI 26.94 kg/m2 2017-08-07 Blood pressure systolic 176 mmHg 2017-08-07 Blood pressure diastolic 76 mmHg 2017-08-07 MEDICATIONS Medication Instructions Dosage Frequency Start Date End Date Duration Status Clonidine HCl 0.1 TAKE ONE TABLET BY MOUTH DAILY 30 Active Zofran ODT 4 MG Orally every 4 hrs 1 tablet on the tongue and allow to dissolve 4h Jan, 30 day(s) Active Advair Diskus 250-50 MCG/DOSE Inhalation Twice a day 1 puff 12h Active Carvedilol 25 TAKE ONE TABLET BY MOUTH TWICE A DAY 30 Active Nephro-Karina 0.8 MG Orally Once a day 1 tablet 24h Apr, Active Carvedilol 25 MG TAKE ONE TABLET BY MOUTH TWICE DAILY 30 Active Albuterol Sulfate (2.5 MG/3ML) 0.083% Inhalation Three times a day 3 ml 8h Feb, 0 days Active Pantoprazole Sodium 40 MG TAKE ONE TABLET BY MOUTH ONCE DAILY BEFORE BREAKFAST 30 Active Cefuroxime Axetil 250 MG Orally Twice a day 1 tablet 12h Active Pravachol 40 mg Orally -MUST SEE DR. SIMENTAL FOR REFILLS Once a day 1 tablet 24h 30 Active Furosemide 80 MG Orally Once a day 1 tablet 24h Active Oxygen 2 L/NC as directed May, Active HydrALAZINE HCl 25 TAKE ONE TABLET BY MOUTH EVERY 8 HOURS 30 Active Levothyroxine Sodium 25 MCG Orally Once a day 1 tablet 24h 30 Active Oxycodone HCl 20 mg Orally every 6 hrs as needed 1 tablet 15 Jul, 2017 28 days Active Amlodipine Besylate 10 TAKE ONE TABLET BY MOUTH DAILY 30 Active HydrOXYzine HCl 25 MG Orally every 6 hr prn itching 1 tablet as needed Active Valium 5 mg Orally Twice a day 1 tablet as needed 12h Apr, 30 days Active Pravastatin Sodium 40 TAKE ONE TABLET BY MOUTH DAILY 30 Active Renvela 800 MG Orally Three times a day 1 tablet with meals 8h Active RESULTS No Results PROCEDURES Procedure Date Ordered Result Body Site [facility] VISIT ESTABLISHED PATIENT Aug 07, 2017 INSTRUCTIONS MEDICATIONS ADMINISTERED No Known Medications MEDICAL (GENERAL) HISTORY Type Description Date Medical History kidney failure-dialysis Medical History hypertension Surgical History tracheotomy Surgical History fistula left wrist Surgical History back surgery Surgical History port right chest Hospitalization History pneumonia Hospitalization History fluid around lungs 2015
--- OUTSIDE RECORDS SUMMARY | 2018-04-08 18:30 | XMS REPORT ---
Author Author WILVER SIMENTAL Organization [facility] Address [address] [place] [address] Care Team Providers Care Shank Sorter Name Role Phone WILVER SIMENTAL Unavailable PROBLEMS Type Condition ICD9-CM Code [id number] Code Onset Dates Condition Status SNOMED Code Problem Neuropathy G62.9 Active 075775616 Problem Hypothyroidism, unspecified type E03.9 Active 79646689 Problem Restrictive lung disease J98.4 Active 72841969 Problem Kidney failure N19 Active 89931739 Problem Chronic kidney disease, stage 4, severely decreased GFR N18.4 Active 853969231 Problem Pain in right leg M79.604 Active 50712671 ALLERGIES No Information SOCIAL HISTORY Never Assessed PLAN OF CARE VITAL SIGNS MEDICATIONS Medication Instructions Dosage Frequency Start Date End Date Duration Status Valium 5 mg Orally Twice a day 1 tablet as needed 12h Apr, 30 days Active Oxycodone HCl 20 mg Orally every 6 hrs 1 tablet as needed 6h Jan, Jan, 28 days Active RESULTS No Results PROCEDURES No Known procedures IMMUNIZATIONS No Known Immunizations MEDICAL (GENERAL) HISTORY Type Description Date Medical History kidney failure-dialysis Medical History hypertension Surgical History tracheotomy Surgical History fistula left wrist Surgical History back surgery Surgical History port right chest Hospitalization History pneumonia Hospitalization History fluid around lungs 2015
--- OUTSIDE RECORDS SUMMARY | 2018-04-08 18:31 | XMS REPORT ---
Author Author WILVER SIMENTAL [facility] Address [address] [place] [address] Care Team Providers Care Road Oiling Truck Driver Name Role Phone WILVER SIMENTAL Unavailable PROBLEMS Type Condition ICD9-CM Code [id number] Code Onset Dates Condition Status SNOMED Code Problem Hypothyroidism, unspecified type E03.9 Active 85856884 Problem Chronic kidney disease, stage 4, severely decreased GFR N18.4 Active 145596246 Problem Kidney failure N19 Active 77984353 Problem Pain in right leg M79.604 Active 69017246 Problem Restrictive lung disease J98.4 Active 57517854 ALLERGIES Unknown Allergies SOCIAL HISTORY No smoking Hx information available PLAN OF CARE VITAL SIGNS MEDICATIONS Medication Instructions Dosage Frequency Start Date End Date Duration Status Amlodipine Besylate 10 mg Orally Once a day 1 tablet 24h 30 Active HydrOXYzine HCl 25 MG Orally every 6 hr prn itching 1 tablet as needed Active RESULTS No Results PROCEDURES No Known procedures IMMUNIZATIONS No Known Immunizations
--- OUTSIDE RECORDS SUMMARY | 2018-04-08 18:31 | XMS REPORT ---
Author Author WILVER SIMENTAL Organization [facility] Address [address] [place] [address] Care Team Providers Care Flight Attendant Ramp Name Role Phone WILVER SIMENTAL Unavailable PROBLEMS Type Condition ICD9-CM Code [id number] Code Onset Dates Condition Status SNOMED Code Problem Neuropathy G62.9 Active 404577826 Problem Hypothyroidism, unspecified type E03.9 Active 35199362 Problem Restrictive lung disease J98.4 Active 76767831 Problem Kidney failure N19 Active 54628660 Problem Chronic kidney disease, stage 4, severely decreased GFR N18.4 Active 033195322 Problem Pain in right leg M79.604 Active 87657177 ALLERGIES No Information SOCIAL HISTORY Never Assessed PLAN OF CARE VITAL SIGNS MEDICATIONS Medication Instructions Dosage Frequency Start Date End Date Duration Status Zofran ODT 4 MG Orally every 4 hrs 1 tablet on the tongue and allow to dissolve 4h Jan, 30 day(s) Active RESULTS No Results PROCEDURES No Known procedures IMMUNIZATIONS No Known Immunizations MEDICAL (GENERAL) HISTORY Type Description Date Medical History kidney failure-dialysis Medical History hypertension Surgical History tracheotomy Surgical History fistula left wrist Surgical History back surgery Surgical History port right chest Hospitalization History pneumonia Hospitalization History fluid around lungs 2015
--- OUTSIDE RECORDS SUMMARY | 2018-04-08 18:31 | XMS REPORT ---
Author Author WILVER SIMENTAL Organization [facility] Address [address] [place] [address] Care Team Providers Care Candle Molder Name Role Phone WILVER SIMENTAL Unavailable PROBLEMS Type Condition ICD9-CM Code [id number] Code Onset Dates Condition Status SNOMED Code Problem Neuropathy G62.9 Active 106691790 Problem Hypothyroidism, unspecified type E03.9 Active 61890522 Problem Restrictive lung disease J98.4 Active 06710945 Problem Kidney failure N19 Active 91060492 Problem Chronic kidney disease, stage 4, severely decreased GFR N18.4 Active 044099219 Problem Pain in right leg M79.604 Active 61521258 ALLERGIES No Information SOCIAL HISTORY Never Assessed PLAN OF CARE VITAL SIGNS MEDICATIONS Medication Instructions Dosage Frequency Start Date End Date Duration Status Oxycodone HCl 20 mg Orally every 6 hrs 1 tablet as needed 6h 28 days Active Valium 5 mg Orally Twice a day 1 tablet as needed 12h Apr, 30 days Active RESULTS No Results PROCEDURES No Known procedures IMMUNIZATIONS No Known Immunizations MEDICAL (GENERAL) HISTORY Type Description Date Medical History kidney failure-dialysis Medical History hypertension Surgical History tracheotomy Surgical History fistula left wrist Surgical History back surgery Surgical History port right chest Hospitalization History pneumonia Hospitalization History fluid around lungs 2015
--- OUTSIDE RECORDS SUMMARY | 2018-04-08 18:31 | XMS REPORT ---
Author Author WILVER SIMENTAL [facility] Address [address] [place] [address] Care Team Providers Care Jacker Name Role Phone WILVER SIMENTAL Unavailable PROBLEMS Type Condition ICD9-CM Code [id number] Code Onset Dates Condition Status SNOMED Code Problem Neuropathy G62.9 Active 399371882 Problem Hypothyroidism, unspecified type E03.9 Active 81499467 Problem Restrictive lung disease J98.4 Active 44974128 Problem Kidney failure N19 Active 91095859 Problem Chronic kidney disease, stage 4, severely decreased GFR N18.4 Active 995696952 Problem Pain in right leg M79.604 Active 23800015 ALLERGIES No Information SOCIAL HISTORY Never Assessed PLAN OF CARE VITAL SIGNS MEDICATIONS No Known Medications RESULTS No Results PROCEDURES No Known procedures IMMUNIZATIONS No Known Immunizations MEDICAL (GENERAL) HISTORY Type Description Date Medical History kidney failure-dialysis Medical History hypertension Surgical History tracheotomy Surgical History fistula left wrist Surgical History back surgery Surgical History port right chest Hospitalization History pneumonia Hospitalization History fluid around lungs 2015
--- NOTE | 2018-04-08 18:39 | ED Dyspnea ---
General Stated Complaint: SOA Source of Information: Patient, Old Records (ALL PMH IS FROM OLD RECORDS, PT IS NOT ANSWERING QUESTIONS) History of Present Illness Date Seen by Provider: April 08, 2018 Time Seen by Provider: 18:25 Initial Comments PT ARRIVES VIA EMS FROM HOME C/O SHORTNESS OF BREATH X 3 DAYS PT IS ON DIALYSIS AND HAD DIALYSIS ON MONDAY NO CHEST PAIN NO FEVER/SWEATS/CHILLS MILD NON-PRODUCTIVE COUGH PT NORMALLY WEARS O2 AT 3L/NC, EMS PLACED ON NRB AND [facility] NEB TREATMENT IS IN PROGRESS. PT STATES HER LAST NEB TREATMENT WAS AT 1400 TODAY 1826--PT IS REFUSING ALL CARE, REFUSES VITALS AND DEMANDS TO BE TRANSFERRED TO [facility]. PT IS REFUSING TO ANSWER ANY OTHER QUESTIONS. PT EXTREMELY HOSTILE , BELLIGERENT AND YELLING, AND STATES THIS IS A "[facility]" AND "NOBODY KNOWS WHAT THEY ARE DOING HERE" "THEY DON'T HAVE REAL DOCTORS HERE" 1827--CALLING [facility]. THEY WILL CALL BACK 1832--PT NOW SIGNING OUT AMA, STATES HER SON IS HERE AND HE WILL DRIVE HER TO [facility] 1835--[facility] ABOVE PCP: DR. SIMENTAL, [facility] Allergies and Home Medications Allergies Coded Allergies: morphine (Verified Allergy, Severe, swelling, 01/11/16) Home Medications Amlodipine Besylate 10 Mg Tablet, 10 MG PO DAILY, (Reported) Carvedilol 25 Mg Tablet, 25 MG PO BID, (Reported) Clonidine HCl 0.1 Mg Tablet, 0.1 MG PO DAILY, (Reported) Furosemide 80 Mg Tablet, 80 MG PO BID, (Reported) Hydralazine HCl 25 Mg Tablet, 25 MG PO TID, (Reported) Levofloxacin 500 Mg Tablet, 500 MG PO Q48H, (Reported) Levothyroxine Sodium 25 Mcg Tablet, 25 MCG PO DAILY, (Reported) Oxycodone HCl/Acetaminophen 1 Each Tablet, 1-2 EACH PO Q4H PRN for PAIN Prescribed by: EDUIN BIRD on 08/12/16 1048 Pravastatin Sodium 40 Mg Tablet, 40 MG PO DAILY, (Reported) Prednisone 20 Mg Tab, 40 MG PO DAILY Prescribed by: AKASH PINEDA on 03/09/171826 Vitamin B Comp W-C/FA/Zn Cit 1 Each Tablet, 1 EACH PO DAILY, (Reported) Patient Home Medication List Home Medication List Reviewed: Yes Constitutional: other (UNABLE TO OBTAIN) Past Ltzhqjm-Ujfyyd-Zlqvvy Hx Patient Social History Type Used: Cigarettes Former Smoker, Quit: Jan 10, 2016 Recent Hopitalizations: Yes (at [facility] in [place]) Immunizations Up To Date Tetanus Booster (TDap): Unknown Seasonal Allergies Seasonal Allergies: No Past Medical History Tracheostomy Hypertension Reproductive Disorders: No Sexually Transmitted Disease: No HIV/AIDS: No Renal Failure, Dialysis Back Injury, Chronic Back Pain Depression Adverse Reaction/Blood Tranf: No Family Medical History Cardiovascular disease 19 MOTHER, Onset:Unknown Diabetes mellitus 19 MOTHER, Onset:Unknown FH: COPD (chronic obstructive pulmonary disease) G8 SISTER, Onset:Unknown No Pertinent Family Hx Physical Exam Vital Signs Vital Signs - First Documented 04/08/18 18:25 Pulse 100 Resp 30 Pulse Ox 94 O2 Delivery Simple Mask Capillary Refill : General Appearance: WD/WN, Mild Distress (MILDLY DYSPNEIC, TALKING IN 3-5 WORD SENTENCES. PT VERY HOSTILE ON ARRIVAL. PT IS REFUSING ALL CARE, RIPPED OFF BP CUFF AND REFUSING EVEN VITAL SIGNS) Respiratory: Accessory Muscle Use, Decreased Breath Sounds (IN BASES), Respiratory Distress (MILD) Cardiovascular: Regular Rate, Rhythm, No Murmur Progress/Results/Core Measures Results/Orders Vital Signs/I&O 04/08/18 18:25 Pulse 100 Resp 30 B/P (MAP) Pulse Ox 94 O2 Delivery Simple Mask Departure Impression Primary Impression: LEFT AMA Disposition: 07 AGAINST MEDICAL ADVICE Condition: Against Medical Advice Departure-Patient Inst. Referrals: WILVER SIMENTAL MD (PCP/Family) Primary Care Physician ZIGGY NIX DO April 08, 2018 18:39
== END 2018-04-08 18:34 | disposition left against medical advice (07) ==
LOC: EDUNIT# 18:23 → ER 18:24
DX: R06.02 Shortness of breath (principal); I12.0 Hypertensive chronic kidney disease with stage 5 chronic kidney disease or end stage renal disease; N18.6 End stage renal disease; F32.9 Major depressive disorder, single episode, unspecified; Z99.2 Dependence on renal dialysis; Z87.891 Personal history of nicotine dependence; Z79.52 Long term (current) use of systemic steroids; Z88.5 Allergy status to narcotic agent
CPT/HCPCS: 99283

== ENCOUNTER → 2018-07-13 | Outpatient (CLI) | payer MEDICARE, MEDICAID ==
[~2018-07-13] MED LIST changes: -OXYC-197 PO; +OXYC1TAB87 PO
== END ==
LOC: PULM 09:52
PROVIDERS: ATTEND Nurse Practitioner Family
DX: J43.9 Emphysema, unspecified (principal)
CPT/HCPCS: 94761

== ENCOUNTER → 2018-07-18 | Outpatient (CLI) | payer MEDICARE, MEDICAID ==
--- NOTE | 2018-07-18 17:31 | Diagnostic Imaging Report ---
PROCEDURE: CT chest without contrast. TECHNIQUE: Multiple contiguous axial images were obtained through the chest without the use of intravenous contrast. INDICATION: Hypoxemia. FINDINGS: There are emphysematous changes in the lungs. There is some consolidation in the right middle lobe that could be atelectasis versus infiltrate. There is some linear atelectasis in the lingular segment of the left upper lobe. There is minimal linear atelectasis at the left lateral lung base. There is a tiny left pleural effusion. There is calcific atherosclerosis of the aorta. There is no hilar or mediastinal lymphadenopathy. There are some tiny stones layering in the dependent portion of the gallbladder, and there is bilateral renal atrophy. IMPRESSION: COPD. Scattered areas of atelectasis. Atherosclerosis. No acute abnormality is seen. Dictated by: Dictated on workstation # [id number]
== END ==
LOC: RAD 11:24
PROVIDERS: ATTEND Nurse Practitioner Family
DX: J43.9 Emphysema, unspecified (principal); I70.0 Atherosclerosis of aorta; J98.4 Other disorders of lung
CPT/HCPCS: 71250

== ENCOUNTER 2018-10-01 10:21 | Outpatient (RCR) | payer MEDICARE, MEDICAID ==
[~2018-10-01] VITALS: Ht 165.1 cm; Wt 83.9 kg
[2018-10-01 10:38] VITALS: BP 130/60
--- NOTE | 2018-10-01 11:32 | Pulmonary Rehab Eval/Txmt Plan ---
Pulmonary Rehab Initial Eval Information Paper Evaluation Completed: No Date: Oct 01, 2018 Therapist: SAVAGE AYOUB Diagnosis: RLD/EMPHYSEMA Referring Physician: TERESITA GALARZA APRN Primary Insurance: MEDICARE Secondary Insurance: MEDICAID Chief Complaint: SOA Marital Status: Pulmonary Rehab Treatment Plan Treatment P Treatment Periord: Initial Diagnosis Diagnosis: EMPHYSEMA/RLD Date: Oct 01, 2018 Barriers to Learning Barriers: None Assessment/Problems Exercise: Deconditioning, Decreased Exer Tolerance, No Regular Exercise, Sedentary Type: AEROBIC Frequency: 2 X WEEK Duration: 1 HR, EXERCISE PER PTS MAVERICK Barriers to Exercise: PT HAS BACK PAIN; HX OF BACK SURGERY Initial MET Level: 1 Aerobic Exercise/Goals Freq: time per week minus WI: 2 Intensity: 1 Type: Arm Ergometry, Bike, Scifi/Nustep, Treadmill, Walking KATIE SOLANO DO Oct 01, 2018 11:32
[2018-11-01 10:00] VITALS: BP 130/50
[2018-11-01 10:32] VITALS: BP 145/55
[2018-11-15 09:45] VITALS: BP 150/70
[2018-11-15 10:30] VITALS: BP 147/78
[2018-11-27 09:55] VITALS: BP 130/60
[2018-11-27 10:25] VITALS: BP 139/60
== END 2018-12-30 | disposition home or self-care (01) ==
LOC: PULM 10:21
PROVIDERS: ATTEND Nurse Practitioner Family
DX: J18.9 Pneumonia, unspecified organism (principal); J43.9 Emphysema, unspecified; R06.00 Dyspnea, unspecified; R09.02 Hypoxemia; J98.4 Other disorders of lung; N19 Unspecified kidney failure

== ENCOUNTER → 2018-10-01 | Outpatient (CLI) | payer MEDICARE, MEDICAID ==
--- NOTE | 2018-10-01 12:54 | Diagnostic Imaging Report ---
EXAMINATION: PA and lateral Chest at 11:56 a.m. INDICATION: Pneumonia. FINDINGS: The prior CT chest exam of 07/18/2018 noted chronic pulmonary disease and scattered areas of atelectasis. On this exam, there still appears to be a few patchy alveolar/interstitial infiltrates involving both lungs, particularly the left upper lobe, right middle lobe, and left lung base. These findings may well be chronic. There is also long-standing blunting of the left costophrenic angle. This is probably related to pleural thickening. There is no acute abnormality identified. The mediastinum is not widened. The heart is enlarged but stable. The osseous structures are intact. There is a metallic Life Alert badge overlying the mid thorax on the initial PA view. IMPRESSION: 1. There is chronic pulmonary disease, but there is no sign of an acute cardiopulmonary abnormality. 2. If clinical concern regarding an acute abnormality persists and further imaging is desired, then repeat CT chest exam would be recommended. Dictated by: Dictated on workstation # [id number]
== END ==
LOC: RAD 10:27
PROVIDERS: ATTEND Nurse Practitioner Family
DX: J18.9 Pneumonia, unspecified organism (principal); J98.4 Other disorders of lung; J43.9 Emphysema, unspecified; N19 Unspecified kidney failure
CPT/HCPCS: 71046

== ENCOUNTER → 2019-03-04 | Outpatient (CLI) | payer MEDICARE, MEDICAID ==
[~2019-03-04] MED LIST changes: +RT-ALBUTEROL SULF 2.5 MG/3 ML PRE-MIX VIAL INH ONE
--- NOTE | 2019-03-04 13:28 | Diagnostic Imaging Report ---
PROCEDURE: CT chest without contrast. TECHNIQUE: Multiple contiguous axial images were obtained through the chest without the use of intravenous contrast. Auto Exposure Controls were utilized during the CT exam to meet ALARA standards for radiation dose reduction. INDICATION: Difficulty breathing. COMPARISON: Comparison is made with prior CT chest from 07/18/2018. FINDINGS: No axillary lymphadenopathy is seen. Hilar and mediastinal evaluation is limited without intravenous contrast. There appear to be prominent lymph nodes in the mediastinum AP window and right paratracheal region. There may also be some mild subcarinal fullness. CT chest with contrast would be useful for further evaluation. There are coronary arterial calcifications. No pericardial or pleural fluid is seen on today's exam. There are regions of parenchymal scarring or atelectasis in the left upper lobe and lingula as well as the right middle lobe and left lower lobe. No parenchymal mass or nodule is seen. There are some centrilobular emphysematous changes in both lungs. Upper abdomen does show some small stones in the gallbladder. IMPRESSION: 1. Findings suggestive of mediastinal lymphadenopathy, similar to prior CT from 07/18/2018. This is difficult to characterize without intravenous contrast. Postcontrast study would be useful if patient is clinically able. 2. Areas of parenchymal scarring or atelectasis as well as background emphysematous changes. No other significant abnormality is seen. Dictated by: Dictated on workstation # [id number]
== END ==
LOC: RT 11:14
PROVIDERS: ATTEND Nurse Practitioner Family
DX: J43.9 Emphysema, unspecified (principal); R09.02 Hypoxemia; R06.00 Dyspnea, unspecified; J98.4 Other disorders of lung; N19 Unspecified kidney failure
CPT/HCPCS: 71250; 94060; 94729

== ENCOUNTER 2019-03-18 14:21 | Emergency (ER) | payer MEDICARE, MEDICAID ==
[~2019-03-18] VITALS: Ht 165.1 cm; Wt 83.5 kg
[~2019-03-18 14:21] MED LIST changes: -RT-ALBUTEROL SULF 2.5 MG/3 ML PRE-MIX VIAL INH ONE
--- OUTSIDE RECORDS SUMMARY | 2019-03-18 14:25 | XMS REPORT | Clinical Summary ---
Author Author [facility] Organization [facility] Address Unknown Phone Unavailable Care Team Providers Care Hot Pipe Gauger Name Role Phone Fermín Salmon MD PCP Allergies Active Allergy Reactions Severity Noted Date Comments Morphine Anaphylaxis High 01/13/2016 Current Medications Prescription Sig. Disp. Refills Start End Date Status Date multiple vitamins B Take 1 tablet by mouth Active complex with C every evening. (NEPHRO-ITALIA) 0.8 mg tablet hydrALAZINE (APRESOLINE) Take 25 mg by mouth 2 Active 25 MG tablet (two) times a day. cloNIDine HCl (CATAPRES) Take 0.1 mg by mouth Active 0.1 mg tablet daily. amLODIPine (NORVASC) 10 Take 10 mg by mouth Active MG tablet daily. carvedilol (COREG) 25 MG Take 25 mg by mouth 2 Active tablet (two) times a day with meals. furosemide (LASIX) 80 MG Take 80 mg by mouth 2 Active tablet (two) times a day. pravastatin (PRAVACHOL) Take 40 mg by mouth Active 40 MG tablet daily. levothyroxine (SYNTHROID, Take 25 mcg by mouth Active LEVOTHROID) 25 MCG tablet daily. oxyCODONE (ROXICODONE) 20 Take 20 mg by mouth every Active mg immediate release 6 (six) hours as needed tablet for pain. hydrOXYzine (ATARAX) 25 Take 25 mg by mouth every Active MG tablet 8 (eight) hours as needed for itching. tiotropium (SPIRIVA) 18 Place 18 mcg into inhaler Active mcg inhalation capsule and inhale daily. budesonide-formoterol Inhale 2 puffs 2 (two) Active (SYMBICORT) 160-4.5 times a day. mcg/actuation inhaler Active Problems Patient Care Coordination Note Ms. Schumacher is a 60 year old female admitted on 01/12/2016 with acute respiratory failure for V-V ECMO evaluation 12/15 influenza A. She has had a prolonged and complicated course detailed below: Respiratory: Initially transferred intubated, however she continued to have worsening respiratory status requiring being placed in prone position. Gradually , oxygenation status improved and V-V ECMO not required. Flolan initiated. Gradually, oxygenation status improved and was able to be placed in a supine position and flolan weaned off. Failed multiple SBT's requiring tracheostomy on 01/28/16. It is thought her difficulty weaning from the vent was related to ARDS as well as volume overload, for which dialysis was effective. She also had a L thoracentesis on 03/25 (1400ml) and R on 03/27 (800ml) which helped. Anxiety has also been a barrier and scheduled benzodiazepines were added. The patient had her trach downsized and was decanulated 04/16 w/o complication. The trach site looked to be healing well. CV: pt did experience cardiac arrest on 02/23 after she pulled out her trach. She achieved ROSC and the trach was replaced. Echo obtained on 03/24 was normal. Following the code event she had some duskiness to her great toe and 5th toe on the L. Her 5th toe has been black and necrotic, though is well demarcated with no evidence of cellulitis. Renal: On 01/14/16 she developed acute on chronic renal failure and HD was initiated. She was discontinued on HD after some time, in hopes that her renal function would be adequate, however she developed worsening edema and uremia, and was resumed on HD on 03/20. She currently has a temporary HD catheter in her R IJ placed by IR on 03/19, pulled On 04/11 as a tunneled line was placed 04/12. She is now ESRD and will continue dialysis as outpatient. She underwent AV fistula placement on 04/13, per vascular. ID: She completed her course of Tamiflu. The week of 02/08/2016, she developed worsening leukocytosis. Sputum cultures sent and antibiotics initiated. Cultures have remained negative but antibiotics were continued for a full 7 days. Following her cardiac arrest on 02/23 and transfer to ICU, she remained hypotensive and she appeared to be in septic shock requiring aggressive fluid replacement and subsequent vasopressor therapy.She has been treated for multiple infections including E. Coli UTI, shyam UTI, and MDR enterobacter pneumonia, as well as culture negative VAP. On 03/28 she developed hypoxia and leukocytosis, and was again treated with broad spectrum antibiotics for suspected VAP. Cultures were negative. Antibiotics have since been discontinued and she continues to show no evidence of infection. GI: peg tube was placed on 02/14 by GI and she had been tolerating goal feeds of nepro at 35ml/hr continuous. She does have some loose stools because of the TF. C diff was tested in early March and was negative, diarrhea was likely related to TF and has since resolved. On 04/08 she passed a swallow study, and per pulm she is allowed to eat if she is alert and oriented, and should remain NPO after 4pm. As of 04/09, she had been refusing TF, so will start a calorie count and reassess the need for TF over the next few days. Her tube feeds have been discontinued and she is taking a PO now. Psych: had been quite frustrated and anxious with not being able to wean from vent or communicate. She is on zoloft, and initially xanax was PRN, however pt was having significant panic attacks while off CMV contributing to SBT failures. We scheduled xanax and she improved greatly, and on 04/08 we switched xanax to scheduled diazepam for a longer-acting effect. She is now anxious to discharge from the hospital and has been unrealistic in her expectations: she needs to be accepted to an outpatient dialysis center and needs to be stronger before that can be accomplished on an outpatient basis. Heme: received 2 units PRBCs on 02/23 for acute blood loss anemia due to hemoperitoneum, likely from spleen lac following CPR. Surgery was consulted and managed conservatively given her co-morbidities. She continues on epo per nephrology for anemia of chronic disease/ESRD Ophtho- consulted for L eye pain and saw ophtho on 02/21. She was diagnosed with HSV epthelitis, and completed a course of acyclovir for this. Endo- thyroid studies done on 03/17 showed a TSH of 16. Endo was consulted, thought it was likely sick euthyroid, and to follow TFTs. TFTs were again repeated on 03/31 and showed TSH of 22 and normal FT4. A trial of levothyroxine was started, given her difficulty weaning the vent. Repeat TFTs showed improvement on levothyroxine. She is currently on 37.5mcg daily IV (Tube feeds interfere with absorption) ; studies were normal on 04/15 and follow up is recommended in 1 month. Will be discharged to the Rehab floor. Problem Noted Date Acquired hypothyroidism 11/28/2017 Discharge planning issues 04/18/2016 Elevated TSH 03/31/2016 Last Assessment & Plan: Sick-euthyroid Continue levothyroxine 75 mcg qd; recheck TFTs in 1 month Lt4 tablet should be administered 2 hours after TF are switched off and she should not eat for 30 min after tablet is ingested to allow adequate absorption. Trash foot ([facility]) 03/07/2016 Last Assessment & Plan: Small necrotic area on 5th toe, L. Minimal duskiness to great toe also Continue to monitor Anxiety 03/07/2016 Last Assessment & Plan: Continues to have intermittent anxiety and delirium. Continue zyprexa Continue fluoxetine. The scheduled benzodiazapine will make only at night and as needed Hypertension 03/07/2016 Last Assessment & Plan: Will increase amlodipine to 10 mg. Continue coreg 25 mg BID for now ESRD (end stage renal disease) on dialysis ([facility]) 02/28/2016 Last Assessment & Plan: - Temp hemodialysis cath placed 03/19 and she received dialysis since then. 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 Continue epo per nephrology Acute respiratory failure with hypoxia ([facility]) 01/12/2016 Last Assessment & Plan: Her Tracheostomy is off, she was On trach shield and later on Nasal Canula Resolved Problems Problem Noted Date Resolved Date G tube feedings ([facility]) 04/08/2016 04/18/2016 VAP (ventilator-associated pneumonia) ([facility]) 03/18/2016 04/11/2016 Last Assessment & Plan: improving Started vanc/haylie/cipro on 03/23, narrowed to levaquin, d/c on 03/30 due to rash. Wbc conitnues to trend down Candidal urinary tract infection 03/12/2016 04/04/2016 Rash 03/11/2016 03/14/2016 Last Assessment & Plan: - Unclear source of rash - Possibly from cipro, last day yesterday - Appears to be resolving - gonzalo Wheeler prn - Monitor Delirium 03/09/2016 04/12/2016 Hyponatremia 03/07/2016 04/12/2016 Last Assessment & Plan: Volume overload vs diuretics vs SIADH Improving steadily Abdominal pain 02/26/2016 03/07/2016 Bradycardia 02/25/2016 02/25/2016 Hemoperitoneum 02/25/2016 03/07/2016 Hypertension 02/25/2016 03/07/2016 E. coli UTI 02/24/2016 03/12/2016 Hypotension 02/24/2016 02/25/2016 Sepsis ([facility]) 02/24/2016 04/12/2016 Lactic acidosis 02/24/2016 02/25/2016 Hyperglycemia 02/24/2016 02/25/2016 Leukocytosis 02/21/2016 04/18/2016 Last Assessment & Plan: Encephalopathy, metabolic 02/09/2016 03/07/2016 Last Assessment & Plan: Continue Zypexa nightly improving Influenza, pneumonia 01/13/2016 02/24/2016 Hypervolemia 01/13/2016 02/24/2016 Oliguria 01/13/2016 02/24/2016 ARDS (adult respiratory distress syndrome) ([facility]) 01/13/2016 02/24/2016 Sepsis ([facility]) 01/13/2016 02/20/2016 Last Assessment & Plan: Finish 10 day course of vanc / zosyn D 10 today Thrombocytopenia ([facility]) 01/13/2016 02/24/2016 Community acquired pneumonia 01/12/2016 02/21/2016 Last Assessment & Plan: Completed 10 day course of zosyn Completed tamiflu course Family History Medical History Relation Name Comments Diabetes type II Brother Heart attack Maternal Grandfather Diabetes type II Maternal Grandmother Diabetes type II Mother COPD Sister Emphysema Sister Relation Name Status Comments Brother Alive Brother Alive Father Alive unknown health history Maternal Grandfather Maternal Grandmother Mother Paternal Grandfather unknown health history Paternal Grandmother unknown health history Sister Alive Sister Son Social History Tobacco Use Types Packs/Day Years Used Date Former Smoker Cigarettes 0.5 45 1970 - 01/12/2016 Smokeless Tobacco: Never Used Tobacco Cessation: Counseling Given: No Alcohol Use Drinks/Week oz/Week Comments No 0 Standard 0.0 drinks or equivalent Sex Assigned at Date Recorded Not on file Last Filed Vital Signs Vital Sign Reading Time Taken Blood Pressure 155/72 11/28/2017 10:02 AM GLACIOLOGIST Pulse 70 11/28/2017 10:02 AM GLACIOLOGIST Temperature 36.1 C (97 F) 11/28/2017 10:02 AM GLACIOLOGIST Respiratory Rate 18 11/28/2017 10:02 AM GLACIOLOGIST Oxygen Saturation 95% 11/28/2017 10:02 AM GLACIOLOGIST Inhaled Oxygen - - Concentration Weight 82.1 kg (181 lb) 11/28/2017 10:02 AM GLACIOLOGIST Height 168.9 cm (5' 6.5") 11/28/2017 10:02 AM GLACIOLOGIST Body Mass Index 28.78 11/28/2017 10:02 AM GLACIOLOGIST Plan of Treatment Health Maintenance Due Date Last Done Comments Medicare Annual Wellness 1955 Td # 1955 Cervical Cancer Screening 1976 via Pap Smear Colorectal Screening via 2005 Colonoscopy Mammogram Screening 2005 Zoster Vaccine# (1 of 2) 2005 Influenza Vaccine (Season 09/13/2019 Ended) Hepatitis C Screen Completed 03/08/2016 Implants Implanted Type Area Fisher Lobster Device Expiration Model / Identifier Date Serial / Lot Implant Tube Trach 8.0mm Cuffed Low Non-Tissue COVIDIEN 07/12/2020 8DCT / Pressure Disp Cannula Zacarias (Bx/1) Implant MALLINCKRODT / 8dct - [id number] [id number] Implanted: Qty: 1 on 01/28/2016 by Dayana Mathew MD Implant Catheter Dialysis Dl Non-Tissue COVIDIEN [id number] Palindrome Precision Sapphire Implant P / 14.5fr 19cm [id number] - [id number] / Implanted: Qty: 1 on 02/04/2016 Peg Ponsky Kit Safety 20fr Pull Non-Tissue BARD 05/12/2017 [id number] / Method W/Snare [id number] - [id number] Implant PERIPHERIAL [id number] / Implanted: Qty: 1 on 02/15/2016 by VASCULAR [id number] Brittni Mcneil MD Implant Catheter Dialysis Dl Non-Tissue COVIDIEN [id number] Palindrome Precision Sapphire Implant P / 14.5fr 19cm [id number] - [id number] / Implanted: Qty: 1 on 04/12/2016 Results Not on filefrom Last 3 Months
--- OUTSIDE RECORDS SUMMARY | 2019-03-18 14:26 | XMS REPORT ---
Author Author Migration, Doctor Organization [facility] Address Unknown Phone Unavailable Care Team Providers Care Pump Servicer Name Role Phone Migration, Doctor Unavailable Unavailable PROBLEMS Type Condition ICD9-CM Code GHF35-YV Code Onset Dates Condition Status SNOMED Code Problem Kidney failure N19 Active 16806219 Problem Neuropathy G62.9 Active 078071863 Problem Essential hypertension I10 Active 79954752 Problem Restrictive lung disease J98.4 Active 29346488 Problem Pain in right leg M79.604 Active 93949495 Problem Chronic kidney disease, stage 4, severely decreased GFR N18.4 Active 909900714 Problem Hypothyroidism, unspecified type E03.9 Active [id number] ALLERGIES No Information ENCOUNTERS Encounter Location Date Diagnosis [facility] [id number] [place] [address] 93633- 7316 Feb, [facility] [id number] [place] [address] 86792- 9244 Jan, [facility] [id number] [place] [address] 93969- 7309 Jan, Neuropathy G62.9 [facility] [id number] [place] [address] 82344- 9784 Nov, Neuropathy G62.9 [facility] [id number] [place] [address] 26468- 8103 Oct, Neuropathy G62.9 [facility] [id number] [place] [address] 06587- 8125 Sep, [facility] [id number] [place] [address] 20017- 9647 Aug, [facility] [id number] [place] [address] 08624- 4425 Aug, Kidney failure N19 [facility] [id number] [place] [address] 4574 Jul, Kidney failure N19 ; Restrictive lung disease J98.4 ; Neuropathy G62.9 and Essential hypertension I10 [facility] [id number] [place] [address] 47595- 1543 Jun, Restrictive lung disease J98.4 [facility] [id number] [place] [address] 28287- 4250 Jun, [facility] [id number] [place] [address] 68643- 2069 Jun, [facility] [id number] [place] [address] 19774- 6854 May, [facility] [id number] [place] [address] 28771- 1533 May, [facility] [id number] [place] [address] 20448- 0145 May, Nausea and vomiting, intractability of vomiting not specified, unspecified vomiting type R11.2 [facility] [id number] [place] [address] 93586- 4270 May, Restrictive lung disease J98.4 [facility] [id number] [place] [address] 10743- 8066 May, [facility] [id number] [place] [address] 38484- 4306 May, [facility] [id number] [place] [address] 09333- 2803 Apr, Chronic kidney disease, stage 4, severely decreased GFR N18.4 and Essential hypertension I10 [facility] [id number] [place] [address] 99136- 0691 March, [facility] [id number] [place] [address] 27312- 8846 March, [facility] [id number] [place] [address] 28290- 7280 March, Medicare annual wellness visit, initial Z00.00 ; Chronic kidney disease, stage 4, severely decreased GFR N18.4 ; Hypothyroidism, unspecified type E03.9 and Neuropathy G62.9 [facility] [id number] [place] [address] 36678- 6335 Feb, Restrictive lung disease J98.4 ; Hypothyroidism, unspecified type E03.9 and Neuropathy G62.9 [address] [address] 46314- 7762 Nov, Pain in right leg M79.604 [address] 78686- 4010 Nov, [address] [address] 52649- 9706 Nov, Dysuria R30.0 and Acute cystitis without hematuria N30.00 [address] [address] 82220- 2771 Nov, Pain in right leg M79.604 [address] [place] [address] 78613- 8779 Sep, [facility] [id number] [place] [address] 37384- 9085 Jul, Neuropathy G62.9 [facility] [id number] [place] [address] 07847- 2126 Jul, Pain in right leg M79.604 [facility] [facility] [id number] [place] [address] 72055- 3203 Jul, [address] [address] 38492- 8395 Apr, [facility] [facility] [id number] [place] [address] 04805- 4082 Feb, Bronchitis J40 and Chronic kidney disease, stage 4, severely decreased GFR N18.4 [facility] [facility] [id number] [place] [address] 17646- 9515 Jan, Nausea and vomiting, intractability of vomiting not specified, unspecified vomiting type R11.2 [facility] [facility] [id number] [place] [address] 96045- 7169 Jan, Pain in right leg M79.604 [address] [place] [address] 10721- 2147 Jan, Hypothyroidism, unspecified type E03.9 [facility] [id number] [place] [address] 65721- 9209 Jan, Pain in right leg M79.604 [address] [place] [address] 06310- 3893 Dec, Acute non-recurrent maxillary sinusitis J01.00 [address] [address] 28351- 7171 Dec, [facility] [id number] [place] [address] 81294- 7485 Dec, Chronic kidney disease, stage 4, severely decreased GFR N18.4 [facility] [facility] [id number] [place] [address] 39704- 6281 Oct, [facility] [id number] [place] [address] 37648 -0392 Oct, Shortness of breath R06.02 [address] [id number] [place] [address] 72354- 4477 Oct, [address] [address] 25927- 4479 Oct, [facility] [facility] [id number] [place] [address] 88451- 8614 Sep, Pain in right leg M79.604 and Restrictive lung disease J98.4 [address] [address] 85574- 0835 Sep, [facility] [address] [address]- 3159 Aug, Restrictive lung disease J98.4 and Acute left eye pain H57.12 [facility] [address] [address]- 8929 Aug, [facility] [id number] [place] [address] 69252- 5121 Aug, [facility] [address] [address]- 7769 Jun, [facility] [id number] [place] [address], [place] [address]- 6093 Jun, [facility] [address], [place] [address]- 3204 Jun, [facility] [id number] [place] [address] 24869- 3379 Jun, [facility] [address] [address]- 4796 Jun, Restrictive lung disease J98.4 and Pain in right leg M79.604 [facility] [address] [address]- 0422 Jun, [facility] [address] [address]- 3948 Jun, [facility] [address], [place] [address]- 7312 May, Restrictive lung disease J98.4 and Kidney failure N19 [facility] [address] [address]- 1628 May, [facility] [address] [place] [address]- 9904 May, [facility] [address] [address]- 5412 Apr, [facility] [place] [facility] [address] [id number] [place] [address]- 4084 Dec, [facility] [place] [facility] [address] [id number] [place] [address]- 8914 Dec, [facility] [place] [facility] [address] [id number] [place] [address]- 3466 08 Aug, 2015 [facility] [place] [facility] [address] [id number] [place] [address]- 9838 14 Feb, 2015 [facility] [place] [facility] [address] [id number] [place] [address]- 0260 Feb, [facility] [place] [facility] [address] [id number] [place] [address]- 2716 18 Jan, 2015 [facility] [place] [facility] [address] [id number] [place] [address]- 5594 18 Jan, 2015 [facility] [place] [facility] [address] [id number] [place] [address]- 6226 17 Jan, 2015 [facility] [place] [facility] [address] [id number] [place] [address]- 2420 14 Jan, 2015 [facility] [place] [facility] [address] [id number] [place] [address]- 0905 13 Jan, 2015 [facility] [place] [facility] [address] [id number] [place] [address]- 7583 13 Jan, 2015 [facility] [place] [facility] [address] [id number] [place] [address]- 1911 11 Jan, 2015 [facility] [place] [facility] [address] [id number] [place] [address]- 2820 11 Jan, 2015 [facility] [place] [facility] [address] [id number] [place] [address]- 3138 10 Jan, 2015 [facility] [place] [facility] [address] [id number] [place] [address]- 4123 10 Jan, 2015 [facility] [place] [facility] [address] [id number] [place] [address]- 2026 Jan, [facility] [place] [facility] [address] [id number] [place] [address]- 1536 Dec, 2014 [facility] [place] [facility] [address] [id number] [place] [address] 2546 Dec, 2014 [facility] [place] [facility] [address] [id number] [place] [address]- 4976 Dec, 2014 [facility] [place] [facility] [address] [id number] [place] [address]- 3346 Dec, [facility] [place] [facility] [address] [id number] [place] [address]- 3516 Dec, [facility] [place] [facility] [address] [facility] [id number] [place] [address]- 8096 Dec, [facility] [place] [facility] [address] [facility] [id number] [place] [address]- 9213 Nov, [facility] [place] [facility] [address] [id number] [place] [address]- 0438 Nov, [facility] [place] [facility] [address] [facility] [id number] [place] [address]- 0033 Oct, [facility] [place] [facility] [address] [facility] [id number] [place] [address]- 3736 Oct, [facility] [place] [facility] [address] [id number] [place] [address]- 8326 Oct, [facility] [place] [facility] [address] [id number] [place] [address] 2546 Oct, [facility] [place] [facility] [address] [id number] [place] [address]- 9186 Oct, [facility] [place] [facility] [address] [facility] [id number] [place] [address]- 2546 Oct, [facility] [place] [facility] [address] [facility] [id number] [place] [address]- 0158 Oct, [facility] [place] [facility] [address] [id number] [place] [address]- 9866 Oct, [facility] [place] [facility] [address] [id number] [place] [address]- 5415 Jul, [facility] [place] [facility] [address] [id number] [place] [address]- 0898 Jul, [facility] [place] [facility] [address] [id number] [place] [address]- 2035 Jul, [facility] [place] [facility] [address] [id number] [place] [address]- 5011 Jul, [facility] [place] [facility] [address] [id number] [place] [address]- 9513 Jul, [facility] [place] [facility] [address] [id number] [place] [address]- 9118 Jun, [facility] [place] [facility] [address] [id number] [place] [address]- 8736 May, [facility] [place] [facility] [address] [id number] [place] [address]- 6647 May, [facility] [place] [facility] [address] [id number] [place] [address]- 1197 May, [facility] [place] [facility] [address] [id number] [place] [address]- 7385 Feb, [facility] [place] [facility] [address] [id number] [address]- 3331 Feb, [facility] [place] [facility] [address] [id number] [place] [address]- 2466 Feb, [facility] [place] [facility] [address] [id number] [place] [address]- 3204 Feb, [facility] [place] [facility] [address] [id number] [place] [address]- 3052 Feb, [facility] [place] [facility] [address] [id number] [place] [address]- 6319 Feb, [facility] [place] [facility] [address] [id number] [place] [address]- 6440 Feb, [facility] [place] [facility] [address] [id number] [place] [address]- 9979 Feb, [facility] [place] [facility] [address] [id number] [place] [address]- 8181 Feb, [facility] [place] [facility] [address] [id number] [place] [address]- 1151 Feb, [facility] [place] [facility] [address] [id number] [place] 8232 Aug, [facility] [place] [facility] [address] [id number] [place] [address]- 0484 Aug, [facility] [place] [facility] [address] [id number] [place] [address]- 7835 Aug, [facility] [place] [facility] [address] [id number] [place] [address]- 7220 Aug, [facility] [place] [facility] [address] [id number] [place] [address]- 7491 Jan, [facility] [place] [facility] [address] [facility] [id number] [place] [address]- 9050 Dec, [facility] [place] [facility] [address] [id number] [place] [address]- 0608 Aug, [facility] [place] [facility] [address] [id number] [place] [address]- 8040 May, [facility] [place] [facility] [address] [id number] [place] [address]- 8953 Apr, [facility] [place] [facility] [address] [id number] [place] [address]- 5424 Apr, [facility] [place] [facility] [address] [id number] [place] [address]- 6354 Apr, [facility] [address], [place] [address]- 4064 Apr, [facility] [address], [place] [address]- 8040 Nov, [facility] [address], [place] [address]- 7290 Oct, [facility] [id number] [place] [address] 30290- 3308 Oct, [facility] [address], [place] [address]- 5729 Oct, [facility] [id number] [place] [address] 54377- 6066 Sep, [facility] [address], [place] [address]- 9064 Sep, [facility] [address], [place] [address]- 1608 Sep, [facility] [address], [place] [address]- 3292 Apr, [facility] [address], [place] [address]- 5985 Sep, [facility] [address], [place] [address]- 9588 Jan, [facility] [address] [address]- 6778 Aug, [facility] [id number] [address]- 4440 Aug, [facility] [address] 4944 May, IMMUNIZATIONS No Known Immunizations SOCIAL HISTORY Never Assessed REASON FOR VISIT [place] [place] VITAL SIGNS MEDICATIONS Unknown Medications RESULTS No Results PROCEDURES No Known procedures INSTRUCTIONS MEDICATIONS ADMINISTERED No Known Medications MEDICAL (GENERAL) HISTORY Type Description Date Medical History kidney failure-dialysis Medical History hypertension Medical History Pneumonia 2018 Surgical History tracheotomy Surgical History fistula left wrist Surgical History back surgery Surgical History port right chest Hospitalization History pneumonia Hospitalization History fluid around lungs 2015 Hospitalization History [place] 04/16-04/17 Hospitalization History pneumomia and infection 07/31
--- OUTSIDE RECORDS SUMMARY | 2019-03-18 14:26 | XMS REPORT ---
Author Author Migration, Doctor Organization [facility] Address Unknown Phone Unavailable Care Team Providers Care Construction Equipment Operator Name Role Phone Migration, Doctor Unavailable Unavailable PROBLEMS Type Condition ICD9-CM Code MLT46-VA Code Onset Dates Condition Status SNOMED Code Problem Kidney failure N19 Active 53881045 Problem Neuropathy G62.9 Active 773647813 Problem Essential hypertension I10 Active 83388217 Problem Restrictive lung disease J98.4 Active 22523150 Problem Pain in right leg M79.604 Active 15938563 Problem Chronic kidney disease, stage 4, severely decreased GFR N18.4 Active 956662537 Problem Hypothyroidism, unspecified type E03.9 Active 04214374 ALLERGIES No Information ENCOUNTERS Encounter Location Date Diagnosis [facility] [id number] [place] [address] 14720- 7129 Feb, [facility] [id number] [place] [address] 49288- 9993 Jan, [facility] [id number] [place] [address] 52444- 2556 Jan, Neuropathy G62.9 [facility] [id number] [place] [address] 11220- 4302 Nov, Neuropathy G62.9 [facility] [id number] [place] [address] 88666- 0241 Oct, Neuropathy G62.9 [facility] [id number] [place] [address] 53403- 6169 Sep, [facility] [id number] [place] [address] 72469- 5119 Aug, [facility] [id number] [place] [address] 83849- 9161 Aug, Kidney failure N19 [facility] [id number] [place] [address]- 8025 Jul, Kidney failure N19 ; Restrictive lung disease J98.4 ; Neuropathy G62.9 and Essential hypertension I10 [facility] [id number] [place] [address] 36802- 2093 Jun, Restrictive lung disease J98.4 [facility] [id number] [place] [address] 16572- 6330 Jun, [facility] [id number] [place] [address] 35341- 2512 Jun, [facility] [id number] [place] [address] 37477- 4681 May, [facility] [id number] [place] [address] 97521- 0065 May, [facility] [id number] [place] [address] 84160- 4316 May, Nausea and vomiting, intractability of vomiting not specified, unspecified vomiting type R11.2 [facility] [id number] [place] [address] 21441- 5054 May, Restrictive lung disease J98.4 [facility] [id number] [place] [address] 68866- 2039 May, [facility] [id number] [place] [address] 89701- 9676 May, [facility] [id number] [place] [address] 57020- 4593 Apr, Chronic kidney disease, stage 4, severely decreased GFR N18.4 and Essential hypertension I10 [facility] [id number] [place] [address] 37670- 6298 March, [facility] [id number] [place] [address] 01402- 0481 March, [facility] [id number] [place] [address] 04677- 8698 March, Medicare annual wellness visit, initial Z00.00 ; Chronic kidney disease, stage 4, severely decreased GFR N18.4 ; Hypothyroidism, unspecified type E03.9 and Neuropathy G62.9 [facility] [id number] [place] [address] 33854- 5029 Feb, Restrictive lung disease J98.4 ; Hypothyroidism, unspecified type E03.9 and Neuropathy G62.9 [address] 53476- 9669 Nov, Pain in right leg M79.604 [address] 57592- 1580 Nov, [address] 85680- 8507 Nov, Dysuria R30.0 and Acute cystitis without hematuria N30.00 [address] 47107- 4501 Nov, Pain in right leg M79.604 [address] 81894- 7548 Sep, [id number] [place] [address] 11764- 1213 Jul, Neuropathy G62.9 [address] [id number] [place] [address] 69698- 7103 Jul, Pain in right leg M79.604 [place] [id number] [place] [address] 89062- 3887 Jul, [address] 86450- 3067 Apr, [id number] [place] [address] 12353- 3792 Feb, Bronchitis J40 and Chronic kidney disease, stage 4, severely decreased GFR N18.4 [address] [id number] [place] [address] 62516- 4312 Jan, Nausea and vomiting, intractability of vomiting not specified, unspecified vomiting type R11.2 [place] [id number] [place] [address] 24103- 1439 Jan, Pain in right leg M79.604 [address] 55727- 1543 Jan, Hypothyroidism, unspecified type E03.9 [address] [id number] [place] [address] 78767- 3143 Jan, Pain in right leg M79.604 [address] 12387- 1972 Dec, Acute non-recurrent maxillary sinusitis J01.00 [address] 29449- 5726 Dec, [id number] [place] [address] 12899- 0565 Dec, Chronic kidney disease, stage 4, severely decreased GFR N18.4 [address] [id number] [place] [address] 29759- 3807 Oct, [facility] [id number] [place] [address] 85982 -0943 Oct, Shortness of breath R06.02 [address] [id number] [place] [address] 24310- 6482 Oct, [address] 79113- 7504 Oct, [id number] [place] [address] 53426- 5334 Sep, Pain in right leg M79.604 and Restrictive lung disease J98.4 [address] 71414- 3652 Sep, [facility] [address] [place] [address]- 0728 Aug, Restrictive lung disease J98.4 and Acute left eye pain H57.12 [facility] [address] [place] [address]- 3402 Aug, [facility] [id number] [place] [address] 85737- 2277 Aug, [facility] [address], [place] [address]- 3298 Jun, [facility] [id number] [place] [address], [place] [address]- 5926 Jun, [facility] [address], [place] [address]- 4251 Jun, [facility] [id number] [place] [address] 96198- 4722 Jun, [facility] [address], [place] [address]- 7892 Jun, Restrictive lung disease J98.4 and Pain in right leg M79.604 [facility] [address], [place] [address]- 2916 Jun, [facility] [address], [place] [address]- 1255 Jun, [facility] [address], [place] [address]- 5040 May, Restrictive lung disease J98.4 and Kidney failure N19 [facility] [address] [place] [address]- 1140 May, [facility] [address] [place] [address]- 7360 May, [facility] [address], [place] [address]- 9610 Apr, [facility] [place] [facility] [address] [id number] [place] [address]- 3396 Dec, [facility] [place] [facility] [address] [id number] [place] [address]- 3718 Dec, [facility] [place] [facility] [address] [id number] [place] [address]- 9320 08 Aug, 2015 [facility] [place] [facility] [address] [id number] [place] [address]- 3641 14 Feb, 2015 [facility] [place] [facility] [address] [id number] [place] [address]- 4331 Feb, [facility] [place] [facility] [address] [id number] [place] [address]- 1269 18 Jan, 2015 [facility] [place] [facility] [address] [id number] [place] [address]- 0505 18 Jan, 2015 [facility] [place] [facility] [address] [id number] [place] [address]- 3428 17 Jan, 2015 [facility] [place] [facility] [address] [id number] [place] [address]- 1360 14 Jan, 2015 [facility] [place] [facility] [address] [id number] [place] [address]- 3597 13 Jan, 2015 [facility] [place] [facility] [address] [id number] [place] [address]- 4265 13 Jan, 2015 [facility] [place] [facility] [address] [id number] [place] [address]- 7538 11 Jan, 2015 [facility] [place] [facility] [address] [id number] [place] [address]- 4027 11 Jan, 2015 [facility] [place] [facility] [address] [id number] [place] [address]- 9194 10 Jan, 2015 [facility] [place] [facility] [address] [id number] [place] [address]- 7773 10 Jan, 2015 [facility] [place] [facility] [address] [id number] [place] [address]- 0006 Jan, [facility] [place] [facility] [address] [id number] [place] [address]- 9286 Dec, 2014 [facility] [place] [facility] [address] [id number] [place] [address] 2546 Dec, 2014 [facility] [place] [facility] [address] [id number] [place] [address]- 3706 Dec, 2014 [facility] [place] [facility] [address] [id number] [place] [address]- 7776 Dec, [facility] [place] [facility] [address] [id number] [place] [address]- 5956 Dec, [facility] [place] [facility] [address] [facility] [id number] [place] [address]- 2556 Dec, [facility] [place] [facility] [address] [facility] [id number] [place] [address]- 5820 Nov, [facility] [place] [facility] [address] [id number] [place] [address]- 6734 Nov, [facility] [place] [facility] [address] [facility] [id number] [place] [address]- 7982 Oct, [facility] [place] [facility] [address] [facility] [id number] [place] [address]- 6646 Oct, [facility] [place] [facility] [address] [id number] [place] [address]- 5696 Oct, [facility] [place] [facility] [address] [id number] [place] [address] 2546 Oct, [facility] [place] [facility] [address] [id number] [place] [address]- 9826 Oct, [facility] [place] [facility] [address] [facility] [id number] [place] [address]- 2546 Oct, [facility] [place] [facility] [address] [facility] [id number] [place] [address]- 4624 Oct, [facility] [place] [facility] [address] [id number] [place] [address]- 0041 Oct, [facility] [place] [facility] [address] [id number] [place] [address]- 3585 Jul, [facility] [place] [facility] [address] [id number] [place] [address]- 8306 Jul, [facility] [place] [facility] [address] [id number] [place] [address]- 8534 Jul, [facility] [place] [facility] [address] [id number] [place] [address]- 9961 Jul, [facility] [place] [facility] [address] [id number] [place] [address]- 7317 Jul, [facility] [place] [facility] [address] [id number] [place] [address]- 6572 Jun, [facility] [place] [facility] [address] [id number] [place] [address]- 9128 May, [facility] [place] [facility] [address] [id number] [place] [address]- 5505 May, [facility] [place] [facility] [address] [id number] [place] [address]- 8539 May, [facility] [place] [facility] [address] [id number] [place] [address]- 6529 Feb, [facility] [place] [facility] [address] [id number] [address]- 2383 Feb, [facility] [place] [facility] [address] [id number] [place] [address]- 5083 Feb, [facility] [place] [facility] [address] [id number] [place] [address]- 8016 Feb, [facility] [place] [facility] [address] [id number] [place] [address]- 1971 Feb, [facility] [place] [facility] [address] [id number] [place] [address]- 5583 Feb, [facility] [place] [facility] [address] [id number] [place] [address]- 5273 Feb, [facility] [place] [facility] [address] [id number] [place] [address]- 0722 Feb, [facility] [place] [facility] [address] [id number] [place] [address]- 0608 Feb, [facility] [place] [facility] [address] [id number] [place] [address]- 1243 Feb, [facility] [place] [facility] [address] [id number] [place] 7440 Aug, [facility] [place] [facility] [address] [id number] [place] [address]- 1506 Aug, [facility] [place] [facility] [address] [id number] [place] [address]- 9419 Aug, [facility] [place] [facility] [address] [id number] [place] [address]- 8691 Aug, [facility] [place] [facility] [address] [id number] [place] [address]- 7400 Jan, [facility] [place] [facility] [address] [facility] [id number] [place] [address]- 8453 Dec, [facility] [place] [facility] [address] [id number] [place] [address]- 4212 Aug, [facility] [place] [facility] [address] [id number] [place] [address]- 9715 May, [facility] [place] [facility] [address] [id number] [place] [address]- 7352 Apr, [facility] [place] [facility] [address] [id number] [place] [address]- 2278 Apr, [facility] [place] [facility] [address] [id number] [place] [address]- 8615 Apr, [facility] [address] [facility] [id number], [place] [address]- 7604 Apr, [facility] [address] [facility] [id number], [place] [address]- 8163 Nov, [facility] [address] [facility] [id number], [place] [address]- 3822 Oct, [facility] [id number] [place] [address] 01243- 1988 Oct, [facility] [address] [facility] [id number], [place] [address]- 7625 Oct, [facility] [address], [place] [address]- 2635 Sep, [facility] [address], [place] [address]- 1644 Sep, [facility] [address], [place] [address]- 4956 Sep, [facility] [address], [place] [address]- 8197 Apr, [facility] [address], [place] [address]- 0475 Sep, [facility] [address], [place] [address]- 4068 Jan, [facility] [address], [place] [address]- 3603 Aug, [facility] [id number], [place] [address]- 9861 Aug, [facility] [address] 3818 May, IMMUNIZATIONS No Known Immunizations SOCIAL HISTORY Never Assessed REASON FOR VISIT EMR-[facility] [place] PLAN OF CARE VITAL SIGNS MEDICATIONS Medication Instructions Dosage Frequency Start Date End Date Duration Status Amoxicillin 500 mg 1 capsule by Oral route 3 times per day for 10 days Aug, Active PredniSONE 20 mg 1 tablet by Oral route 2 times per day for 5 day(s) Aug, Active tramadol 50 mg take 1 tablet (50 mg) by oral route every 4-6 hours as needed PRN pain Jan, Active RESULTS No Results PROCEDURES No Known procedures INSTRUCTIONS MEDICATIONS ADMINISTERED No Known Medications MEDICAL (GENERAL) HISTORY Type Description Date Medical History kidney failure-dialysis Medical History hypertension Medical History Pneumonia 2017 Surgical History tracheotomy Surgical History fistula left wrist Surgical History back surgery Surgical History port right chest Hospitalization History pneumonia Hospitalization History fluid around lungs 2015 Hospitalization History [place] 04/16-04/17 Hospitalization History pneumomia and infection 07/31
--- OUTSIDE RECORDS SUMMARY | 2019-03-18 14:26 | XMS REPORT ---
Author Author Migration, Doctor Organization [facility] Address Unknown Phone Unavailable Care Team Providers Care Route Inspector Name Role Phone Migration, Doctor Unavailable Unavailable PROBLEMS Type Condition ICD9-CM Code IME15-BA Code Onset Dates Condition Status SNOMED Code Problem Kidney failure N19 Active 59629526 Problem Restrictive lung disease J98.4 Active 87330772 Problem Essential hypertension I10 Active 65209661 Problem Dependence on renal dialysis Z99.2 Active 536537325 Problem Pain in right leg M79.604 Active 26204887 Problem Chronic kidney disease, stage 4, severely decreased GFR N18.4 Active 605119896 Problem Hypothyroidism, unspecified type E03.9 Active 76715569 Problem Neuropathy G62.9 Active [id number] ALLERGIES No Information ENCOUNTERS Encounter Location Date Diagnosis [facility] [id number] [place] [address] 04361- 9488 March, [facility] [id number] [place] [address] 12154- 1705 Feb, Neuropathy G62.9 and Dependence on renal dialysis Z99.2 [facility] [id number] [place] [address] 61660- 1167 Jan, [facility] [id number] [place] [address] 80550- 6589 Jan, Neuropathy G62.9 [facility] [id number] [place] [address] 03949- 4770 Nov, Neuropathy G62.9 [facility] [id number] [place] [address] 30024- 6652 Oct, Neuropathy G62.9 [facility] [id number] [place] [address] 45047- 3243 Sep, [facility] [id number] [place] [address] 80165- 0210 Aug, [facility] [id number] [place] [address] 52422- 6991 Aug, Kidney failure N19 [facility] [id number] [place] [address] 26791- 2807 Jul, Kidney failure N19 ; Restrictive lung disease J98.4 ; Neuropathy G62.9 and Essential hypertension I10 [facility] [id number] [place] [address] 18644- 3976 Jun, Restrictive lung disease J98.4 [facility] [id number] [place] [address] 16507- 4170 Jun, [facility] [id number] [place] [address] 78283- 3233 Jun, [facility] [id number] [place] [address] 89527- 7093 May, [facility] [id number] [place] [address] 23751- 5833 May, [facility] [id number] [place] [address] 92240- 5498 May, Nausea and vomiting, intractability of vomiting not specified, unspecified vomiting type R11.2 [facility] [id number] [place] [address] 24084- 7607 May, Restrictive lung disease J98.4 [facility] [id number] [place] [address] 98095- 4498 May, [facility] [id number] [place] [address] 67437- 3345 May, [facility] [id number] [place] [address] 04049- 2183 Apr, Chronic kidney disease, stage 4, severely decreased GFR N18.4 and Essential hypertension I10 [facility] [id number] [place] [address] 19873- 7054 March, [facility] [id number] [place] [address] 38293- 7750 March, [facility] [id number] [place] [address] 25619- 0990 March, Medicare annual wellness visit, initial Z00.00 ; Chronic kidney disease, stage 4, severely decreased GFR N18.4 ; Hypothyroidism, unspecified type E03.9 and Neuropathy G62.9 [facility] [id number] [place] [address] 76825- 3053 Feb, Restrictive lung disease J98.4 ; Hypothyroidism, unspecified type E03.9 and Neuropathy G62.9 [facility] [id number] [place] [address] 04485- 0527 Nov, Pain in right leg M79.604 [facility] [id number] [place] [address] 48969- 4105 Nov, [facility] [id number] [place] [address] 41974- 2312 Nov, Dysuria R30.0 and Acute cystitis without hematuria N30.00 [facility] [id number] [place] [address] 80859- 1056 Nov, Pain in right leg M79.604 [facility] [id number] [place] [address] 19305- 8757 Sep, [facility] [id number] [place] [address] 93292- 2962 Jul, Neuropathy G62.9 [facility] [id number] [place] [address] 43417- 2577 Jul, Pain in right leg M79.604 [facility] [id number] [place] [address] 16576- 2887 Jul, [facility] [id number] [place] [address] 20218- 6460 Apr, [facility] [id number] [place] [address] 16954- 7473 Feb, Bronchitis J40 and Chronic kidney disease, stage 4, severely decreased GFR N18.4 [facility] [id number] [place] [address] 18789- 0678 Jan, Nausea and vomiting, intractability of vomiting not specified, unspecified vomiting type R11.2 [facility] [id number] [place] [address] 08079- 0613 Jan, Pain in right leg M79.604 [facility] [address] 40714- 8615 Jan, Hypothyroidism, unspecified type E03.9 [facility] [id number] [place] [address] 01501- 4136 Jan, Pain in right leg M79.604 [facility] [id number] [place] [address] 16167- 6745 Dec, Acute non-recurrent maxillary sinusitis J01.00 [facility] [id number] [place] [address] 32729- 8397 Dec, [facility] [id number] [place] [address] 60651- 8862 Dec, Chronic kidney disease, stage 4, severely decreased GFR N18.4 [facility] [id number] [place] [address] 28316- 7903 Oct, [facility] [id number] [place] [address] 05118 -4975 Oct, Shortness of breath R06.02 [facility] [id number] [place] [address] 04576- 2737 Oct, [facility] [id number] [place] [address] 90878- 6141 Oct, [facility] [address] [address]- 3507 Sep, Pain in right leg M79.604 and Restrictive lung disease J98.4 [facility] [address] [address] 2546 Sep, [facility] [id number] [place] [address] 49330 2546 Aug, Restrictive lung disease J98.4 and Acute left eye pain H57.12 [facility] [address] [facility] [id number] [address]- 7910 Aug, [facility] [id number] [place] [address] 19752- 3025 Aug, [facility] [id number] [place] [address] 24271- 0716 Jun, [facility] [id number] [place] [address] 10098- 4160 Jun, [facility] [id number] [place] [address] 27488 2548 Jun, [facility] [address] [place] [address] 11005- 0809 Jun, [facility] [id number] [address]- 3862 Jun, Restrictive lung disease J98.4 and Pain in right leg M79.604 [facility] [address] [address] 2547 Jun, [facility] [id number] [address] 2540 Jun, [facility] [id number] [address]- 2541 May, Restrictive lung disease J98.4 and Kidney failure N19 [facility] [id number] [place] [address] 63439- 5342 May, [facility] [place] [facility] [address] [id number] [place] [address]- 1975 May, [facility] [place] [facility] [address] [id number] [place] [address]- 1459 Apr, [facility] [place] [facility] [address] [id number] [place] [address]- 4336 Dec, [facility] [place] [facility] [address] [id number] [place] [address]- 3250 Dec, [facility] [place] [facility] [address] [id number] [place] [address]- 1102 08 Aug, 2015 [facility] [place] [facility] [address] [id number] [place] [address]- 9353 14 Feb, 2015 [facility] [place] [facility] [address] [id number] [place] [address]- 0365 Feb, [facility] [place] [facility] [address] [id number] [place] [address]- 0896 18 Jan, 2015 [facility] [place] [facility] [address] [id number] [place] [address]- 4525 18 Jan, 2015 [facility] [place] [facility] [address] [id number] [place] [address]- 7414 17 Jan, 2015 [facility] [place] [facility] [address] [id number] [place] [address]- 2801 14 Jan, 2015 [facility] [place] [facility] [address] [id number] [place] [address]- 4058 13 Jan, 2015 [facility] [place] [facility] [address] [id number] [place] [address]- 7354 13 Jan, 2015 [facility] [place] [facility] [address] [id number] [place] [address]- 5526 11 Jan, 2015 [facility] [place] [facility] [address] [id number] [place] [address]- 6494 11 Jan, 2014 [facility] [place] [facility] [address] [id number] [place] [address]- 9611 Jan, [facility] [place] [facility] [address] [id number] [place] [address]- 3112 Jan, [facility] [place] [facility] [address] [id number] [place] [address]- 4433 Jan, [facility] [place] [facility] [address] [id number] [place] [address]- 1076 Dec, 2014 [facility] [place] [facility] [address] [id number] [place] [address]- 6237 Dec, [facility] [place] [facility] [address] [id number] [place] [address]- 8522 Dec, 2014 [facility] [place] [facility] [address] [id number] [place] [address]- 5550 Dec, [facility] [place] [facility] [address] [id number] [place] [address]- 5444 Dec, [facility] [place] [facility] [address] [id number] [place] [address]- 2808 Dec, [facility] [place] [facility] [id number] [place] [address]- 5129 Nov, [facility] [place] [facility] [address] [facility] [id number] [place] [address]- 0994 Nov, [facility] [place] [facility] [address] [id number] [place] [address]- 4524 Oct, [facility] [place] [facility] [address] [id number] [place] [address]- 0816 Oct, [facility] [place] [facility] [address] [id number] [place] [address]- 6621 Oct, [facility] [place] [facility] [address] [id number] [place] [address]- 6694 Oct, [facility] [place] [facility] [address] [facility] [id number] [place] [address]- 2215 Oct, [facility] [place] [facility] [address] [id number] [place] [address]- 2300 Oct, [facility] [place] [facility] [address] [id number] [place] [address]- 4275 Oct, [facility] [place] [facility] [address] [id number] [place] [address]- 9440 Oct, [facility] [place] [facility] [address] [id number] [place] [address]- 8719 Jul, [facility] [place] [facility] [address] [id number] [place] [address]- 9034 Jul, [facility] [place] [facility] [address] [id number] [place] [address]- 8665 Jul, [facility] [place] [facility] [address] [id number] [place] [address]- 8703 Jul, [facility] [place] [facility] [address] [id number] [place] [address]- 4625 Jul, [facility] [place] [facility] [address] [id number] [place] [address]- 4571 Jun, [facility] [place] [facility] [address] [id number] [place] [address]- 9057 May, [facility] [place] [facility] [address] [id number] [place] [address]- 1409 May, [facility] [place] [facility] [address] [id number] [address]- 6995 May, [facility] [place] [facility] [address] [id number] [place] [address]- 0808 Feb, [facility] [place] [facility] [address] [id number] [place] [address]- 4388 Feb, [facility] [place] [facility] [address] [id number] [place] [address]- 9355 Feb, [facility] [place] [facility] [address] [id number] [place] [address]- 1208 Feb, [facility] [place] [facility] [address] [id number] [place] [address]- 8043 Feb, [facility] [place] [facility] [address] [id number] [place] [address]- 1506 Feb, [facility] [place] [facility] [address] [id number] [place] [address]- 3349 Feb, [facility] [place] [facility] [address] [id number] [place] [address]- 8064 Feb, [facility] [place] [facility] [address] [id number] [place] [address]- 8476 Feb, [facility] [place] [facility] [address] [id number] [place] [address]- 8255 Feb, [facility] [place] [facility] [address] [id number] [place] [address]- 6788 Aug, [facility] [place] [facility] [address] [id number] [place] [address]- 5381 Aug, [facility] [place] [facility] [address] [facility] [id number] [place] [address]- 1857 Aug, [facility] [place] [facility] [address] [facility] [id number] [place] [address]- 5129 Aug, [facility] [place] [facility] [address] [id number] [place] [address]- 5602 Jan, [facility] [place] [facility] [address] [id number] [place] [address]- 5697 Dec, [facility] [place] [facility] [address] [id number] [place] [address]- 5969 Aug, [facility] [place] [facility] [address] [facility] [id number] [place] [address]- 7914 May, [facility] [place] [facility] [address] [facility] [id number] [place] [address]- 7417 Apr, [facility] [place] [facility] [address] [id number] [place] [address]- 2633 Apr, [facility] [place] [facility] [address] [id number] [place] [address]- 1499 Apr, [facility] [place] [facility] [address] [id number] [place] [address]- 5869 Apr, [facility] [place] [facility] [address] [id number] [place] [address]- 7756 Nov, [facility] [place] [facility] [address] [id number] [place] [address]- 3186 Oct, [facility] [place] [facility] [address] [id number] [place] [address]- 8071 Oct, [facility] [place] [facility] [address] [id number] [place] 2583 Oct, [facility] [place] [facility] [address] [id number] [place] [address]- 8425 Sep, [facility] [place] [facility] [address] [id number] [place] [address]- 0355 Sep, [facility] [place] [facility] [address] [id number] [place] [address]- 1768 Sep, [facility] [place] [facility] [address] [id number] [place] [address]- 4230 Apr, [facility] [place] [facility] [address] [id number] [place] [address]- 5151 Sep, [facility] [place] [facility] [address] [id number] [place] [address]- 2594 Jan, [facility] [place] [facility] [address] [id number] [place] [address]- 5269 Aug, [facility] [place] [facility] [address] [id number] [place] [address]- 2794 Aug, [facility] [place] [facility] [address] [id number] [place] [address]- 7267 May, IMMUNIZATIONS No Known Immunizations SOCIAL HISTORY Never Assessed REASON FOR VISIT EMR-[facility] PLAN OF CARE VITAL SIGNS MEDICATIONS Unknown [...] fluid around lungs 2015 Hospitalization History Pneumonia [facility] [place] 04/16-04/17 Hospitalization History pneumomia and infection 07/31
--- OUTSIDE RECORDS SUMMARY | 2019-03-18 14:27 | XMS REPORT ---
Author Author WILVER SIMENTAL Organization [facility] Address [address] [place] [address] Care Team Providers Care Manager Strategic Partnerships Name Role Phone WILVER SIMENTAL Unavailable PROBLEMS Type Condition ICD9-CM Code LNR02-KR Code Onset Dates Condition Status SNOMED Code Problem Kidney failure N19 Active 41508064 Problem Essential hypertension I10 Active 00258828 Problem Neuropathy G62.9 Active 352007211 Problem Pain in right leg M79.604 Active 43838092 Problem Restrictive lung disease J98.4 Active 02778901 Problem Hypothyroidism, unspecified type E03.9 Active 57900728 Problem Chronic kidney disease, stage 4, severely decreased GFR N18.4 Active [id number] ALLERGIES No Information ENCOUNTERS Encounter Location Date Diagnosis [facility] [id number] [place] [address] 62679- 1908 Aug, [facility] [id number] [place] [address] 50508- 9517 Aug, Kidney failure N19 [facility] [id number] [place] [address] 80942- 5936 Jul, Kidney failure N19 ; Restrictive lung disease J98.4 ; Neuropathy G62.9 and Essential hypertension I10 [facility] [id number] [place] [address] 49882- 9860 Jun, Restrictive lung disease J98.4 [facility] [id number] [place] [address] 58318- 0403 Jun, [facility] [id number] [place] [address] 16448- 3643 Jun, [facility] [id number] [place] [address] 07823- 9855 May, [place] [address] [address] 59[address] May, [facility] [id number] [place] [address] 17517- 5640 May, Nausea and vomiting, intractability of vomiting not specified, unspecified vomiting type R11.2 [facility] [id number] [place] [address] 76360- 8582 May, Restrictive lung disease J98.4 [facility] [id number] [place] [address] 57728- 4798 May, [place] [id number] [place] [address] 94760- 9300 May, [place] [id number] [place] [address] 66030- 2874 Apr, Chronic kidney disease, stage 4, severely decreased GFR N18.4 and Essential hypertension I10 [facility] [id number] [address] 4958 March, [facility] [id number] [place] [address] 55183- 0223 March, [facility] [id number] [place] [address] 81379- 0140 March, Medicare annual wellness visit, initial Z00.00 ; Chronic kidney disease, stage 4, severely decreased GFR N18.4 ; Hypothyroidism, unspecified type E03.9 and Neuropathy G62.9 [place] [address], [place] [address] 9217 Feb, Restrictive lung disease J98.4 ; Hypothyroidism, unspecified type E03.9 and Neuropathy G62.9 [place] [address], [place] [address] 7481 Nov, Pain in right leg M79.604 [place] [id number] [place] [address] 23520- 8781 Nov, [facility] [id number] [place] [address] 27989- 0870 Nov, Dysuria R30.0 and Acute cystitis without hematuria N30.00 [facility] [id number] [place] [address] 57673- 3054 Nov, Pain in right leg M79.604 [facility] [id number] [place] [address] 66702- 4831 Sep, [facility] [id number] [place] [address] 38726- 8015 Jul, Neuropathy G62.9 [facility] [id number] [place] [address] 35522- 3641 14 Jul, 2017 Pain in right leg M79.604 [facility] [id number] [place] [address] 84824- 0281 Jul, [facility] [id number] [place] [address] 26637- 7929 Apr, [facility] [id number] [place] [address] 55198- 5998 Feb, Bronchitis J40 and Chronic kidney disease, stage 4, severely decreased GFR N18.4 [facility] [id number] [place] [address] 55431- 1167 Jan, Nausea and vomiting, intractability of vomiting not specified, unspecified vomiting type R11.2 [facility] [id number] [place] [address] 65932- 2316 Jan, Pain in right leg M79.604 [facility] [id number] [place] [address] 17020- 6758 Jan, Hypothyroidism, unspecified type E03.9 [facility] [id number] [place] [address] 42900- 8053 Jan, Pain in right leg M79.604 [facility] [id number] [place] [address] 89988- 5481 Dec, Acute non-recurrent maxillary sinusitis J01.00 [facility] [id number] [place] [address] 97760- 5463 Dec, [facility] [id number] [place] [address] 88681- 2927 Dec, Chronic kidney disease, stage 4, severely decreased GFR N18.4 [facility] [id number] [place] [address] 31056- 4532 Oct, [facility] [id number] [place] [address] 68191 -3398 Oct, Shortness of breath R06.02 [facility] [id number] [place] [address] 56368- 9008 Oct, [facility] [id number] [place] [address] 10470- 5500 Oct, [facility] [id number] [place] [address] 82033- 1767 Sep, Pain in right leg M79.604 and Restrictive lung disease J98.4 [facility] [address] [place] [address] 20832- 9457 Sep, [facility] [id number] [place] [address] 20381- 2955 Aug, Restrictive lung disease J98.4 and Acute left eye pain H57.12 [facility] [id number] [place] [address] 45335- 9646 Aug, [facility] [id number] [place] [address] 94701- 0589 Aug, [facility] [id number] [place] [address] 19181- 0651 Jun, [facility] [id number] [place] [address] 88486- 5790 Jun, [facility] [address] [facility] [id number] [address]- [address] Jun, [facility] [address] [facility] [id number], [place] [address]- 5665 Jun, [facility] [address], [place] [address]- 2233 Jun, Restrictive lung disease J98.4 and Pain in right leg M79.604 [facility] [address] [facility] [id number], [place] [address]- [address] Jun, [facility] [address] [facility] [id number] [place] [address] 98986- 7012 Jun, [facility] [address], [place] [address]- 4589 May, Restrictive lung disease J98.4 and Kidney failure N19 [facility] [address], [place] [address]- [address] May, [facility] [id number], [place] [address]- [address] May, [facility] [address], [place] [address]- [address] Apr, [facility] [id number] [address]- [address]285 Dec, [facility] [id number] [address]- [address] Dec, [facility] [address] [facility] [id number], [place] [address]- [address] Aug, [facility] [address], [place] [address]- 0[address] Feb, [facility] [address], [place] [address]- 7467 Feb, [facility] [id number] [place] [address]- 7520 18 Jan, 2014 [facility] [place] [facility] [address] [id number] [place] [address]- 4015 18 Jan, 2014 [facility] [place] [facility] [address] [id number] [place] [address]- 2345 17 Jan, 2014 [facility] [place] [facility] [address] [id number] [place] [address]- 8379 14 Jan, 2014 [facility] [place] [facility] [address] [id number] [place] [address]- 7920 13 Jan, 2014 [facility] [place] [facility] [address] [id number] [place] [address]- 1672 13 Jan, 2014 [facility] [place] [facility] [address] [id number] [place] [address]- 8757 11 Jan, 2014 [facility] [place] [facility] [address] [id number] [place] [address]- 4761 11 Jan, 2014 [facility] [place] [facility] [address] [id number] [place] [address]- 5254 10 Jan, 2015 [facility] [place] [facility] [address] [id number] [place] [address]- 3844 10 Jan, 2014 [facility] [place] [facility] [address] [facility] [id number] [place] [address]- 4130 03 Jan, 2014 [facility] [place] [facility] [address] [id number] [place] [address]- 0684 26 Dec, 2014 [facility] [place] [facility] [address] [facility] [id number] [place] [address]- 8751 Dec, 2014 [facility] [place] [facility] [address] [id number] [place] [address]- 6226 23 Dec, 2014 [facility] [place] [facility] [address] [facility] [id number] [place] [address]- 4859 23 Dec, 2014 [facility] [place] [facility] [address] [facility] [id number] [place] 0027 Dec, [facility] [place] [facility] [address] [id number] [place] [address]- 8629 Dec, [facility] [place] [facility] [address] [id number] [place] [address]- 9521 Nov, [facility] [place] [facility] [address] [id number] [place] [address]- 6423 Nov, [facility] [place] [facility] [address] [id number] [place] [address]- 7659 Oct, [facility] [place] [facility] [address] [id number] [place] [address]- 1827 Oct, [facility] [place] [facility] [address] [id number] [place] [address]- 6515 Oct, [facility] [place] [facility] [address] [id number] [place] [address]- 9004 Oct, [facility] [place] [facility] [address] [id number] [place] [address]- 6923 Oct, [facility] [place] [facility] [address] [id number] [place] [address]- 4854 Oct, [facility] [place] [facility] [address] [id number] [place] [address]- 3431 Oct, [facility] [place] [facility] [address] [id number] [place] [address]- 7352 Oct, [facility] [place] [facility] [address] [id number], [place] [address]- 8312 Jul, [facility] [place] [facility] [address] [id number] [place] [address]- 3504 Jul, [facility] [place] [facility] [address] [id number] [place] [address]- 8019 Jul, [facility] [place] [facility] [address] [id number] [place] [address]- 4770 Jul, [facility] [place] [facility] [address] [id number] [place] [address]- 2493 Jul, [facility] [place] [facility] [address] [id number] [place] [address]- 5343 Jun, [facility] [place] [facility] [address] [id number] [place] [address]- 4591 May, [facility] [place] [facility] [address] [id number] [place] [address]- 7928 May, [facility] [place] [facility] [address] [id number] [place] [address]- 3829 May, [facility] [place] [facility] [address] [id number] [place] [address]- 4350 Feb, [facility] [place] [facility] [address] [id number] [place] [address]- 7612 Feb, [facility] [place] [facility] [address] [id number] [place] [address]- 3213 Feb, [facility] [place] [facility] [address] [id number] [place] [address]- 7871 Feb, [facility] [place] [facility] [address] [id number] [place] [address]- 6518 Feb, [facility] [place] [facility] [address] [id number] [place] [address]- 9101 Feb, [facility] [place] [facility] [address] [id number] [place] [address]- 4928 Feb, [facility] [place] [facility] [address] [id number] [place] [address]- 7313 Feb, [facility] [place] [facility] [address] [id number] [place] [address]- 5009 Feb, [facility] [place] [facility] [address] [id number] [place] [address]- 4228 Feb, [facility] [place] [facility] [address] [id number] [place] [address]- 8360 Aug, [facility] [place] [facility] [address] [id number] [place] [address]- 5492 Aug, [facility] [place] [facility] [address] [id number] [place] [address]- 3544 Aug, [facility] [place] [facility] [address] [id number] [place] [address]- 0302 Aug, [facility] [place] [facility] [address] [id number] [place] [address]- 7102 Jan, [facility] [place] [facility] [address] [id number] [place] [address]- 6949 Dec, [facility] [place] [facility] [address] [id number] [place] [address]- 7670 Aug, [facility] [place] [facility] [address] [id number] [place] [address]- 3570 May, [facility] [place] [facility] [address] [id number] [place] [address]- 9897 Apr, [facility] [place] [facility] [address] [id number] [place] [address]- 4117 Apr, [facility] [place] [facility] [address] [id number] [place] [address]- 3511 Apr, [facility] [place] [facility] [address] [id number] [place] [address]- 4152 Apr, [facility] [place] [facility] [address] [id number] [place] [address]- 1905 Nov, [facility] [place] [facility] [address] [id number] [place] [address]- 3274 Oct, [facility] [place] [facility] [address] [id number] [place] [address]- 4504 Oct, [facility] [place] [facility] [address] [id number] [place] [address]- 3121 Oct, [facility] [place] [facility] [address] [id number], [place] [address]- 9316 Sep, [facility] [id number], [place] [address]- 2074 Sep, [facility] [address], [place] [address]- 2546 Sep, [facility] [address], [place] [address] 2546 Apr, [facility] [address], [place] [address]- 2546 Sep, [facility] [address], [place] [address]- 9469 Jan, [facility] [address], [place] [address] 2546 Aug, [facility] [address], [place] [address]- 4976 Aug, [facility] [id number], [place] [address]- 4275 May, IMMUNIZATIONS No Known Immunizations SOCIAL HISTORY Never Assessed REASON FOR VISIT Medication refill request PLAN OF CARE VITAL SIGNS MEDICATIONS Medication Instructions Dosage Frequency Start Date End Date Duration Status HydrALAZINE HCl 25 TAKE ONE TABLET BY MOUTH EVERY 8 HOURS 30 Active Pantoprazole Sodium 40 MG TAKE ONE TABLET BY MOUTH ONCE DAILY BEFORE BREAKFAST 30 Active RESULTS No Results PROCEDURES No Known procedures INSTRUCTIONS MEDICATIONS ADMINISTERED No Known Medications MEDICAL (GENERAL) HISTORY Type Description Date Medical History kidney failure-dialysis Medical History hypertension Medical History Pneumonia 2017 Surgical History tracheotomy Surgical History fistula left wrist Surgical History back surgery Surgical History port right chest Hospitalization History pneumonia Hospitalization History fluid around lungs 2015 Hospitalization History [place] 04/16-04/17 Hospitalization History pneumomia and infection 07/31
--- OUTSIDE RECORDS SUMMARY | 2019-03-18 14:27 | XMS REPORT ---
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 Name Role Phone WILVER SIMENTAL Unavailable PROBLEMS Type Condition ICD9-CM Code OML03-YZ Code Onset Dates Condition Status SNOMED Code Problem Kidney failure N19 Active 02560912 Problem Essential hypertension I10 Active 57734323 Problem Neuropathy G62.9 Active 091714486 Problem Pain in right leg M79.604 Active 84639362 Problem Restrictive lung disease J98.4 Active 55029151 Problem Hypothyroidism, unspecified type E03.9 Active 95365265 Problem Chronic kidney disease, stage 4, severely decreased GFR N18.4 Active [id number] ALLERGIES No Information ENCOUNTERS Encounter Location Date Diagnosis [facility] [id number] [place] [address] 05076- 3810 Aug, [facility] [id number] [place] [address] 77682- 3315 Aug, Kidney failure N19 [facility] [id number] [place] [address] 18043- 6163 Jul, Kidney failure N19 ; Restrictive lung disease J98.4 ; Neuropathy G62.9 and Essential hypertension I10 [facility] [id number] [place] [address] 10526- 6947 Jun, Restrictive lung disease J98.4 [facility] [id number] [place] [address] 06805- 8341 Jun, [facility] [id number] [place] [address] 05495- 0289 Jun, [facility] [id number] [place] [address] 06241- 0026 May, [place] [address] [address] 1725 May, [facility] [id number] [place] [address] 18037- 4295 May, Nausea and vomiting, intractability of vomiting not specified, unspecified vomiting type R11.2 [facility] [id number] [place] [address] 62421- 6299 May, Restrictive lung disease J98.4 [facility] [id number] [place] [address] 38600- 6466 May, [place] [id number] [place] [address] 73074- 9855 May, [place] [id number] [place] [address] 55512- 9289 Apr, Chronic kidney disease, stage 4, severely decreased GFR N18.4 and Essential hypertension I10 [facility] [id number] [address] 0492 March, [facility] [id number] [place] [address] 50167- 6010 March, [facility] [id number] [place] [address] 09977- 0479 March, Medicare annual wellness visit, initial Z00.00 ; Chronic kidney disease, stage 4, severely decreased GFR N18.4 ; Hypothyroidism, unspecified type E03.9 and Neuropathy G62.9 [place] [address] [address] 7827 Feb, Restrictive lung disease J98.4 ; Hypothyroidism, unspecified type E03.9 and Neuropathy G62.9 [place] [address] [address]- 8346 Nov, Pain in right leg M79.604 [place] [address] [place] [address] 45641- 9130 Nov, [facility] [id number] [place] [address] 33886- 4032 Nov, Dysuria R30.0 and Acute cystitis without hematuria N30.00 [facility] [id number] [place] [address] 97402- 9071 Nov, Pain in right leg M79.604 [facility] [id number] [place] [address] 28293- 5050 Sep, [facility] [id number] [place] [address] 39144- 1274 Jul, Neuropathy G62.9 [facility] [id number] [place] [address] 72645- 4866 14 Jul, 2017 Pain in right leg M79.604 [facility] [id number] [place] [address] 28987- 7625 Jul, [facility] [id number] [place] [address] 79447- 1805 Apr, [facility] [id number] [place] [address] 32042- 7246 Feb, Bronchitis J40 and Chronic kidney disease, stage 4, severely decreased GFR N18.4 [facility] [id number] [place] [address] 88776- 7019 Jan, Nausea and vomiting, intractability of vomiting not specified, unspecified vomiting type R11.2 [facility] [id number] [place] [address] 24465- 0000 Jan, Pain in right leg M79.604 [facility] [id number] [place] [address] 39362- 3961 Jan, Hypothyroidism, unspecified type E03.9 [facility] [address] [place] [address] 17741- 4633 Jan, Pain in right leg M79.604 [facility] [id number] [place] [address] 28462- 0801 Dec, Acute non-recurrent maxillary sinusitis J01.00 [facility] [id number] [place] [address] 34788- 8686 Dec, [facility] [id number] [place] [address] 23798- 3991 Dec, Chronic kidney disease, stage 4, severely decreased GFR N18.4 [facility] [id number] [place] [address] 67679- 2670 Oct, [facility] [id number] [place] [address] 00984 -3056 Oct, Shortness of breath R06.02 [facility] [id number] [place] [address] 21650- 2790 Oct, [facility] [id number] [place] [address] 00182- 0039 Oct, [facility] [id number] [place] [address] 29260- 9819 Sep, Pain in right leg M79.604 and Restrictive lung disease J98.4 [facility] [address] [place] [address] 35848- 0484 Sep, [facility] [id number] [place] [address] 77842- 3782 Aug, Restrictive lung disease J98.4 and Acute left eye pain H57.12 [facility] [id number] [place] [address] 49189- 9316 Aug, [facility] [id number] [place] [address] 84252- 6024 Aug, [facility] [address] [place] [address] 25946- 6241 Jun, [facility] [id number] [place] [address] 92263- 2512 Jun, [facility] [address] [facility] [id number] [address]- 7722 Jun, [facility] [address] [facility]] [id number] [address]- 4667 Jun, [facility] [address] [address]- 3286 Jun, Restrictive lung disease J98.4 and Pain in right leg M79.604 [facility] [address] [facility]] [id number] [address]- 0074 Jun, [facility] [address] [facility]] [id number] [place] [address] 52779- 5081 Jun, [facility] [address], [place] [address]- 4454 May, Restrictive lung disease J98.4 and Kidney failure N19 [facility] [address] [address]- 8730 May, [facility] [id number] [address]- 8100 May, [facility] [address], [place] [address]- 2085 Apr, [facility] [id number] [address]- 4745 Dec, [facility] [id number] [address]- 6390 Dec, [facility] [address] [facility] [id number], [place] [address]- 6431 Aug, [facility] [address] [address]- 8134 Feb, [facility] [address] [address]- 6001 Feb, [facility] [id number] [address]- 3469 18 Jan, 2014 [facility] [place] [facility] [address] [id number] [place] [address]- 1276 18 Jan, 2014 [facility] [place] [facility] [address] [id number] [place] [address]- 5776 17 Jan, 2014 [facility] [place] [facility] [address] [id number] [place] [address]- 1415 14 Jan, 2014 [facility] [place] [facility] [address] [id number] [place] [address]- 5463 13 Jan, 2014 [facility] [place] [facility] [address] [id number] [place] [address]- 8556 13 Jan, 2014 [facility] [place] [facility] [address] [id number] [place] [address]- 4173 11 Jan, 2014 [facility] [place] [facility] [address] [id number] [place] [address]- 1912 11 Jan, 2014 [facility] [place] [facility] [address] [id number] [place] [address]- 8772 10 Jan, 2015 [facility] [place] [facility] [address] [id number] [place] [address]- 6173 10 Jan, 2014 [facility] [place] [facility] [address] [facility]] [id number] [place] [address]- 8427 03 Jan, 2014 [facility] [place] [facility] [address] [id number] [place] [address]- 5330 26 Dec, 2014 [facility] [place] [facility] [address] [facility] [id number] [place] [address]- 2690 Dec, 2014 [facility] [place] [facility] [address] [id number] [place] [address]- 7431 23 Dec, 2014 [facility] [place] [facility] [address] [facility] [id number] [place] [address]- 2821 23 Dec, 2014 [facility] [place] [facility] [address] [facility] [id number] [place] 5677 Dec, [facility] [place] [facility] [address] [id number] [place] [address]- 1335 Dec, [facility] [place] [facility] [address] [id number] [place] [address]- 1003 Nov, [facility] [place] [facility] [address] [id number] [place] [address]- 7118 Nov, [facility] [place] [facility] [address] [id number] [place] [address]- 4305 Oct, [facility] [place] [facility] [address] [id number] [place] [address]- 8980 Oct, [facility] [place] [facility] [address] [id number] [place] [address]- 7517 Oct, [facility] [place] [facility] [address] [id number] [place] [address]- 4398 Oct, [facility] [place] [facility] [address] [id number] [place] [address]- 9946 Oct, [facility] [place] [facility] [address] [id number] [place] [address]- 8328 Oct, [facility] [place] [facility] [address] [id number] [place] [address]- 4111 Oct, [facility] [place] [facility] [address] [id number] [place] [address]- 4127 Oct, [facility] [place] [facility] [address] [id number], [place] [address]- 8547 Jul, [facility] [place] [facility] [address] [id number] [place] [address]- 1895 Jul, [facility] [place] [facility] [address] [id number] [place] [address]- 2901 Jul, [facility] [place] [facility] [address] [id number] [place] [address]- 5999 Jul, [facility] [place] [facility] [address] [id number] [place] [address]- 9672 Jul, [facility] [place] [facility] [address] [id number] [place] [address]- 7071 Jun, [facility] [place] [facility] [address] [id number] [place] [address]- 1361 May, [facility] [place] [facility] [address] [id number] [place] [address]- 7497 May, [facility] [place] [facility] [address] [id number] [place] [address]- 0489 May, [facility] [place] [facility] [address] [id number] [place] [address]- 3854 Feb, [facility] [place] [facility] [address] [id number] [place] [address]- 4776 Feb, [facility] [place] [facility] [address] [id number] [place] [address]- 5474 Feb, [facility] [place] [facility] [address] [id number] [place] [address]- 7587 Feb, [facility] [place] [facility] [address] [id number] [place] [address]- 7856 Feb, [facility] [place] [facility] [address] [id number] [place] [address]- 3614 Feb, [facility] [place] [facility] [address] [id number] [place] [address]- 8583 Feb, [facility] [place] [facility] [address] [id number] [place] [address]- 4260 Feb, [facility] [place] [facility] [address] [id number] [place] [address]- 4241 Feb, [facility] [place] [facility] [address] [id number] [place] [address]- 6077 Feb, [facility] [place] [facility] [address] [id number] [place] [address]- 9332 Aug, [facility] [place] [facility] [address] [id number] [place] [address]- 2520 Aug, [facility] [place] [facility] [address] [id number] [place] [address]- 5058 Aug, [facility] [place] [facility] [address] [id number] [place] [address]- 0661 Aug, [facility] [place] [facility] [address] [id number] [place] [address]- 0003 Jan, [facility] [place] [facility] [address] [id number] [place] [address]- 6723 Dec, [facility] [place] [facility] [address] [id number] [place] [address]- 5994 Aug, [facility] [place] [facility] [address] [id number] [place] [address]- 8121 May, [facility] [place] [facility] [address] [id number] [place] [address]- 3841 Apr, [facility] [place] [facility] [address] [id number] [place] [address]- 3446 Apr, [facility] [place] [facility] [address] [id number] [place] [address]- 2719 Apr, [facility] [place] [facility] [address] [id number] [place] [address]- 4407 Apr, [facility] [place] [facility] [address] [id number] [place] [address]- 4966 Nov, [facility] [place] [facility] [address] [id number] [place] [address]- 6166 Oct, [facility] [place] [facility] [address] [id number] [place] [address]- 1925 Oct, [facility] [place] [facility] [address] [id number] [place] [address]- 0037 Oct, [facility] [place] [facility] [address] [id number], [place] [address]- 6886 Sep, [facility] [id number] [address]- 2575 Sep, [facility] [address], [place] [address] 2546 Sep, [facility] [address], [place] [address]- 7009 Apr, [facility] [address] [address]- 8211 Sep, [facility] [address] [address]- 9770 Jan, [facility] [address] [address]- 1764 Aug, [facility] [address] [address]- 8487 Aug, [facility] [id number] [address]- 9000 May, IMMUNIZATIONS No Known Immunizations SOCIAL HISTORY Never Assessed REASON FOR VISIT Requests return call PLAN OF CARE VITAL SIGNS MEDICATIONS Medication Instructions Dosage Frequency Start Date End Date Duration Status Amlodipine Besylate 10 MG TAKE ONE TABLET BY MOUTH DAILY Active RESULTS No Results PROCEDURES No Known procedures INSTRUCTIONS MEDICATIONS ADMINISTERED No Known Medications MEDICAL (GENERAL) HISTORY Type Description Date Medical History kidney failure-dialysis Medical History hypertension Medical History Pneumonia 2017 Surgical History tracheotomy Surgical History fistula left wrist Surgical History back surgery Surgical History port right chest Hospitalization History pneumonia Hospitalization History fluid around lungs 2015 Hospitalization History [place] 04/16-04/17 Hospitalization History pneumomia and infection 07/31
--- OUTSIDE RECORDS SUMMARY | 2019-03-18 14:27 | XMS REPORT ---
Author Author WILVER SIMENTAL Organization [facility] Address [address] [place] [address] Care Team Providers Care Area Secretary Name Role Phone WILVER SIMENTAL Unavailable PROBLEMS Type Condition ICD9-CM Code MRR31-BZ Code Onset Dates Condition Status SNOMED Code Problem Kidney failure N19 Active 26954506 Problem Essential hypertension I10 Active 79173799 Problem Neuropathy G62.9 Active 959463445 Problem Pain in right leg M79.604 Active 32659994 Problem Restrictive lung disease J98.4 Active 43554716 Problem Hypothyroidism, unspecified type E03.9 Active 55795762 Problem Chronic kidney disease, stage 4, severely decreased GFR N18.4 Active [id number] ALLERGIES No Information ENCOUNTERS Encounter Location Date Diagnosis [facility] [id number] [place] [address] 33795- 7552 Sep, [facility] [address] [address]- 3074 Aug, [facility] [id number] [place] [address] 84119- 8455 Aug, Kidney failure N19 [facility] [id number] [place] [address] 13583- 6624 Jul, Kidney failure N19 ; Restrictive lung disease J98.4 ; Neuropathy G62.9 and Essential hypertension I10 [facility] [id number] [place] [address] 25883- 7400 Jun, Restrictive lung disease J98.4 [facility] [id number] [place] [address] 03684- 9441 Jun, [facility] [id number] [place] [address] 89718- 4731 Jun, [place] [address] [address] 7076 May, [facility] [id number] [place] [address] 02990- 5623 May, [facility] [id number] [place] [address] 60279- 9286 May, Nausea and vomiting, intractability of vomiting not specified, unspecified vomiting type R11.2 [facility] [id number] [place] [address] 19240- 7858 May, Restrictive lung disease J98.4 [facility] [id number] [place] [address] 66003- 2387 May, [facility] [id number] [place] [address] 29258- 4283 May, [facility] [id number] [place] [address] 20437- 9601 Apr, Chronic kidney disease, stage 4, severely decreased GFR N18.4 and Essential hypertension I10 [facility] [id number] [place] [address] 60707- 2707 March, [facility] [id number] [place] [address] 62218- 2127 March, [facility] [id number] [place] [address] 26167- 5230 March, Medicare annual wellness visit, initial Z00.00 ; Chronic kidney disease, stage 4, severely decreased GFR N18.4 ; Hypothyroidism, unspecified type E03.9 and Neuropathy G62.9 [facility] [id number] [place] [address] 30835- 1718 Feb, Restrictive lung disease J98.4 ; Hypothyroidism, unspecified type E03.9 and Neuropathy G62.9 [facility] [address], [place] [address] 7024 Nov, Pain in right leg M79.604 [facility] [id number] [place] [address] 77227- 1979 Nov, [facility] [address] 22666- 5736 Nov, Dysuria R30.0 and Acute cystitis without hematuria N30.00 [facility] [address] 12781- 3233 Nov, Pain in right leg M79.604 [facility] [id number] [place] [address] 02458- 6352 Sep, [facility] [address] 07635- 6628 Jul, Neuropathy G62.9 [facility] [address] 45677- 8604 Jul, Pain in right leg M79.604 [facility] [id number] [place] [address] 68491- 6514 Jul, [facility] [id number] [place] [address] 46811- 9868 Apr, [facility] [id number] [place] [address] 85508- 9512 Feb, Bronchitis J40 and Chronic kidney disease, stage 4, severely decreased GFR N18.4 [facility] [id number] [place] [address] 85716- 6039 Jan, Nausea and vomiting, intractability of vomiting not specified, unspecified vomiting type R11.2 [facility] [id number] [place] [address] 10814- 2589 Jan, Pain in right leg M79.604 [facility] [id number] [place] [address] 00222- 7809 Jan, Hypothyroidism, unspecified type E03.9 [facility] [address] 21819- 9952 Jan, Pain in right leg M79.604 [facility] [id number] [place] [address] 00539- 8961 Dec, Acute non-recurrent maxillary sinusitis J01.00 [facility] [id number] [place] [address] 21590- 6431 Dec, [facility] [id number] [place] [address] 27017- 7499 Dec, Chronic kidney disease, stage 4, severely decreased GFR N18.4 [facility] [id number] [place] [address] 40657- 5411 Oct, [facility] [id number] [place] [address] 45962 -3806 Oct, Shortness of breath R06.02 [facility] [id number] [place] [address] 67269- 9532 Oct, [facility] [id number] [place] [address] 04193- 5197 Oct, [facility] [id number] [place] [address] 72284- 4841 Sep, Pain in right leg M79.604 and Restrictive lung disease J98.4 [facility] [id number] [place] [address] 65835- 2570 Sep, [facility] [id number] [place] [address] 87055- 0701 Aug, Restrictive lung disease J98.4 and Acute left eye pain H57.12 [facility] [id number] [place] [address] 58103- 3296 Aug, [facility] [id number] [place] [address] 23056- 2911 Aug, [facility] [id number] [place] [address] 81814- 0800 Jun, [facility] [address] [facility] [id number] [address] Jun, [facility] [address] [facility] [id number] [address]- 7523 Jun, [facility] [address], [place] [address]- 7023 Jun, [facility] [id number] [place] [address] 74212- 5066 Jun, Restrictive lung disease J98.4 and Pain in right leg M79.604 [facility] [id number] [place] [address] 19107- 1559 Jun, [facility] [id number] [place] [address] 54954- 9578 Jun, [facility] [id number] [place] [address] 85944- 5331 May, Restrictive lung disease J98.4 and Kidney failure N19 [facility] [address] [address]- 7325 May, [facility] [address] [address]- 3643 May, [facility] [address] [address]- 6461 Apr, [facility] [address], [place] [address]- 8717 Dec, [facility] [id number] [address]- 0327 Dec, [facility] [address], [place] [address]- 9051 Aug, [facility] [address] [address]- 0829 Feb, [facility] [id number] [place] [address]- 8178 13 Feb, 2014 [facility] [place] [facility] [address] [id number] [place] [address]- 9017 18 Jan, 2015 [facility] [place] [facility] [address] [id number] [place] 1279 18 Jan, 2014 [facility] [place] [facility] [address] [id number] [place] [address]- 2614 17 Jan, 2014 [facility] [place] [facility] [address] [id number] [place] [address]- 8953 14 Jan, 2015 [facility] [place] [facility] [address] [id number] [place] [address]- 4955 13 Jan, 2015 [facility] [place] [facility] [address] [id number] [place] [address]- 8968 13 Jan, 2015 [facility] [place] [facility] [address] [id number] [place] [address]- 5004 11 Jan, 2015 [facility] [place] [facility] [address] [id number] [place] [address]- 9222 11 Jan, 2015 [facility] [place] [facility] [address] [id number] [place] [address]- 7462 10 Jan, 2014 [facility] [place] [facility] [address] [facility] [id number] [place] [address]- 1055 10 Jan, 2015 [facility] [place] [facility] [address] [id number] [place] 9780 03 Jan, 2015 [facility] [place] [facility] [address] [id number] [place] [address]- 7063 Dec, [facility] [place] [facility] [address] [id number] [place] [address]- 5323 Dec, 2014 [facility] [place] [facility] [address] [id number] [place] [address]- 3680 Dec, [facility] [place] [facility] [address] [id number] [place] [address]- 2764 Dec, [facility] [place] [facility] [address] [id number] [place] [address]- 0365 Dec, [facility] [place] [facility] [address] [id number] [place] [address]- 0145 Dec, [facility] [place] [facility] [address] [id number] [place] [address]- 7048 Nov, [facility] [place] [facility] [address] [id number] [place] [address]- 0575 Nov, [facility] [place] [facility] [address] [id number] [place] [address]- 2945 Oct, [facility] [place] [facility] [address] [id number] [place] [address]- 6255 Oct, [facility] [place] [facility] [address] [id number] [place] [address]- 8158 Oct, [facility] [place] [facility] [address] [id number] [place] [address]- 6397 Oct, [facility] [place] [facility] [address] [id number] [place] [address]- 0719 Oct, [facility] [place] [facility] [address] [id number] [place] [address]- 2253 Oct, [facility] [place] [facility] [address] [id number] [place] [address]- 3654 Oct, [facility] [place] [facility] [address] [id number] [place] [address]- 9310 Oct, [facility] [place] [facility] [address] [id number] [place] [address]- 5495 Jul, [facility] [place] [facility] [address] [id number] [place] [address]- 4754 Jul, [facility] [place] [facility] [address] [id number] [place] [address]- 4668 Jul, [facility] [place] [facility] [address] [id number] [place] [address]- 0739 29 Jul, 2014 [facility] [place] [facility] [address] [id number] [place] [address]- 8027 29 Jul, 2014 [facility] [place] [facility] [address] [id number] [place] [address]- 4216 Jun, [facility] [place] [facility] [address] [id number] [place] [address]- 6827 May, [facility] [place] [facility] [address] [id number] [place] [address]- 8955 May, [facility] [place] [facility] [address] [id number] [place] [address]- 3753 May, [facility] [place] [facility] [address] [id number] [place] [address]- 6000 Feb, [facility] [place] [facility] [address] [id number] [place] [address]- 9861 Feb, [facility] [place] [facility] [address] [id number] [place] [address]- 9449 Feb, [facility] [place] [facility] [address] [id number] [place] [address]- 9128 Feb, [facility] [place] [facility] [address] [id number] [place] [address]- 2918 Feb, [facility] [place] [facility] [address] [id number] [place] [address]- 3241 Feb, [facility] [place] [facility] [address] [id number] [place] [address]- 2066 Feb, [facility] [place] [facility] [address] [id number] [place] [address]- 0554 Feb, [facility] [place] [facility] [address] [id number] [place] [address]- 0907 Feb, [facility] [place] [facility] [address] [id number] [place] [address]- 0657 Feb, [facility] [place] [facility] [address] [id number] [place] [address]- 1757 Aug, [facility] [place] [facility] [address] [id number] [place] [address]- 8674 Aug, [facility] [place] [facility] [address] [id number] [place] [address]- 0759 Aug, [facility] [place] [facility] [address] [id number] [place] [address]- 2110 Aug, [facility] [place] [facility] [address] [id number] [place] [address]- 0437 Jan, [facility] [place] [facility] [address] [id number] [place] [address]- 0506 Dec, [facility] [place] [facility] [address] [id number] [place] 2900 Aug, [facility] [place] [facility] [address] [id number] [place] [address]- 4781 May, [facility] [place] [facility] [address] [id number] [place] [address]- 8427 Apr, [facility] [place] [facility] [address] [id number] [place] [address]- 7857 Apr, [facility] [place] [facility] [address] [id number] [place] [address]- 9007 Apr, [facility] [place] [facility] [address] [id number] [place] [address]- 1664 Apr, [facility] [place] [facility] [address] [id number] [place] [address]- 3558 Nov, [facility] [place] [facility] [address] [id number] [place] [address]- 9008 Oct, [facility] [place] [facility] [address] [id number] [place] [address]- 4274 Oct, [facility] [place] [facility] [address] [id number] [address]- 6556 Oct, [facility] [id number] [address]- 7151 Sep, [facility] [address], [place] [address]- 2546 Sep, [facility] [address], [place] [address]- 2546 Sep, [facility] [address], [place] [address]- 2546 Apr, [facility] [address] [address]- 2546 Sep, [facility] [id number] [place] [address] 49437- 2546 Jan, [facility] [address], [place] [address]- 2546 Aug, [facility] [address], [place] [address]- 2546 Aug, [facility] [id number] [address]- 0895 May, IMMUNIZATIONS No Known Immunizations SOCIAL HISTORY Never Assessed REASON FOR VISIT Refill request PLAN OF CARE VITAL SIGNS MEDICATIONS Medication Instructions Dosage Frequency Start Date End Date Duration Status Clonidine HCl 0.1 MG Orally Twice a day 1 tablet 12h 30 days Active RESULTS No Results PROCEDURES No Known procedures INSTRUCTIONS MEDICATIONS ADMINISTERED No Known Medications MEDICAL (GENERAL) HISTORY Type Description Date Medical History kidney failure-dialysis Medical History hypertension Medical History Pneumonia 2018 Surgical History tracheotomy Surgical History fistula left wrist Surgical History back surgery Surgical History port right chest Hospitalization History pneumonia Hospitalization History fluid around lungs 2016 Hospitalization History [place] 04/16-04/17 Hospitalization History pneumomia and infection 07/31
--- OUTSIDE RECORDS SUMMARY | 2019-03-18 14:27 | XMS REPORT ---
Author Author WILVER SIMENTAL Organization [facility] Address [address] [place] [address] Care Team Providers Care Packing And Wrapping Supervisor Name Role Phone WILVER SIMENTAL Unavailable PROBLEMS Type Condition ICD9-CM Code JYD50-VY Code Onset Dates Condition Status SNOMED Code Problem Kidney failure N19 Active 09514609 Problem Essential hypertension I10 Active 18632634 Problem Neuropathy G62.9 Active 644940153 Problem Pain in right leg M79.604 Active 28007747 Problem Restrictive lung disease J98.4 Active 70648752 Problem Hypothyroidism, unspecified type E03.9 Active 50496129 Problem Chronic kidney disease, stage 4, severely decreased GFR N18.4 Active [id number] ALLERGIES No Information ENCOUNTERS Encounter Location Date Diagnosis [facility] [id number] [place] [address]136- 3644 Oct, Neuropathy G62.9 [facility] [address] [address] Sep, [facility] [id number] [place] [address] 88209- 2708 Aug, [facility] [id number] [place] [address] 87370- 5672 Aug, Kidney failure N19 [facility] [id number] [place] [address] 89266- 0817 Jul, Kidney failure N19 ; Restrictive lung disease J98.4 ; Neuropathy G62.9 and Essential hypertension I10 [facility] [id number] [place] [address] 73686- 0954 Jun, Restrictive lung disease J98.4 [facility] [id number] [place] [address] 35795- 7643 Jun, [facility] [address] [address] 7[address] Jun, [facility] [id number] [address] 74[address] May, [facility] [address] [address] 7[address] May, [facility] [id number] [place] [address] 17627- 6634 May, Nausea and vomiting, intractability of vomiting not specified, unspecified vomiting type R11.2 [facility] [id number] [place] [address] 47544- 8576 May, Restrictive lung disease J98.4 [facility] [address] [address] 59[address] May, [facility] [id number] [place] [address] 05178- 5947 May, [facility] [id number] [place] [address] 33468- 7358 Apr, Chronic kidney disease, stage 4, severely decreased GFR N18.4 and Essential hypertension I10 [facility] [address] [address] 97[address] March, [facility] [address] [address] March, [facility] [address] [address] March, Medicare annual wellness visit, initial Z00.00 ; Chronic kidney disease, stage 4, severely decreased GFR N18.4 ; Hypothyroidism, unspecified type E03.9 and Neuropathy G62.9 [facility] [id number] [address] Feb, Restrictive lung disease J98.4 ; Hypothyroidism, unspecified type E03.9 and Neuropathy G62.9 [facility] [id number] [place] [address] 36157- 1507 Nov, Pain in right leg M79.604 [facility] [id number] [place] [address] 44154- 5717 Nov, [facility] [id number] [place] [address] 91280- 3046 Nov, Dysuria R30.0 and Acute cystitis without hematuria N30.00 [facility] [id number] [place] [address] 86960- 1606 Nov, Pain in right leg M79.604 [facility] [address] 67014- 9866 Sep, [facility] [address] 84203- 8623 Jul, Neuropathy G62.9 [facility] [address] 88924- 2642 14 Jul, 2017 Pain in right leg M79.604 [facility] [id number] [place] [address] 54288- 8754 Jul, [facility] [id number] [place] [address] 86465- 7750 Apr, [facility] [id number] [place] [address] 37045- 9038 Feb, Bronchitis J40 and Chronic kidney disease, stage 4, severely decreased GFR N18.4 [facility] [id number] [place] [address] 72881- 7336 Jan, Nausea and vomiting, intractability of vomiting not specified, unspecified vomiting type R11.2 [facility] [id number] [place] [address] 21877- 4198 Jan, Pain in right leg M79.604 [facility] [address] 53208- 8474 Jan, Hypothyroidism, unspecified type E03.9 [facility] [id number] [place] [address] 51006- 2009 Jan, Pain in right leg M79.604 [facility] [id number] [place] [address] 84841- 5450 Dec, Acute non-recurrent maxillary sinusitis J01.00 [facility] [address] 51801- 0828 Dec, [facility] [address] 60257- 2942 Dec, Chronic kidney disease, stage 4, severely decreased GFR N18.4 [facility] [id number] [place] [address] 30197- 9773 Oct, [facility] [address] 6[address] -[address]3 Oct, Shortness of breath R06.02 [facility] [id number] [place] [address] 55636- 1230 Oct, [facility] [id number] [place] [address] 09438- 4183 Oct, [facility] [id number] [place] [address] 45881- 7983 Sep, Pain in right leg M79.604 and Restrictive lung disease J98.4 [facility] [id number] [place] [address] 94628- 7665 Sep, [facility] [id number] [place] [address] 82959- 4900 Aug, Restrictive lung disease J98.4 and Acute left eye pain H57.12 [facility] [id number] [place] [address] 62302- 2027 Aug, [facility] [id number] [place] [address] 84568- 2261 Aug, [facility] [address] [address]- 4664 Jun, [facility] [address] [address]- 8946 Jun, [facility] [address] [address]- 9153 Jun, [facility] [id number] [place] [address] 97756- 7448 Jun, [facility] [address] [place] [address] 26375- 5318 Jun, Restrictive lung disease J98.4 and Pain in right leg M79.604 [facility] [address] [address]- 2638 Jun, [facility] [address] [address]- 8494 Jun, [facility] [address] [address]- 6917 May, Restrictive lung disease J98.4 and Kidney failure N19 [facility] [address] [address]- 2719 May, [facility] [address] [address]- 4451 May, [facility] [address], [place] [address]- 3254 Apr, [facility] [address] [address]- 1397 Dec, [facility] [address] [address]- 3123 Dec, [facility] [address] [address]- 5338 Aug, [facility] [place] [facility] [id number] [place] [address]- 1661 14 Feb, 2014 [facility] [place] [facility] [address] [id number] [place] [address]- 3003 13 Feb, 2015 [facility] [place] [facility] [address] [id number] [place] [address]- 7571 18 Jan, 2015 [facility] [place] [facility] [address] [id number] [place] [address]- 6579 18 Jan, 2015 [facility] [place] [facility] [address] [id number] [place] [address]- 0554 17 Jan, 2015 [facility] [place] [facility] [address] [id number] [place] [address]- 4629 14 Jan, 2015 [facility] [place] [facility] [address] [id number] [place] [address]- 6093 13 Jan, 2015 [facility] [place] [facility] [address] [id number] [place] [address]- 6190 13 Jan, 2015 [facility] [place] [facility] [address] [id number] [place] [address]- 9629 11 Jan, 2015 [facility] [place] [facility] [address] [id number] [place] [address]- 0807 11 Jan, 2015 [facility] [place] [facility] [address] [id number] [place] [address]- 8821 10 Jan, 2015 [facility] [place] [facility] [address] [id number] [place] [address]- 3479 10 Jan, 2015 [facility] [place] [facility] [address] [id number] [place] [address]- 6694 03 Jan, 2015 [facility] [place] [facility] [address] [id number] [place] [address]- 4622 26 Dec, 2014 [facility] [place] [facility] [address] [id number] [place] [address]- 0346 26 Dec, 2014 [facility] [place] [facility] [address] [id number] [place] [address]- 3622 Dec, [facility] [place] [facility] [address] [id number] [place] [address]- 5917 Dec, [facility] [place] [facility] [address] [id number] [place] [address]- 0916 Dec, [facility] [place] [facility] [address] [id number] [place] [address]- 4636 Dec, [facility] [place] [facility] [address] [id number] [place] [address]- 8561 Nov, [facility] [place] [facility] [address] [id number] [place] [address]- 9927 Nov, [facility] [place] [facility] [address] [id number] [place] [address]- 8766 Oct, [facility] [place] [facility] [address] [id number] [place] [address]- 8371 Oct, [facility] [place] [facility] [address] [id number] [place] [address]- 8107 Oct, [facility] [place] [facility] [address] [id number] [place] [address]- 5804 Oct, [facility] [place] [facility] [address] [id number] [place] [address]- 5165 Oct, [facility] [place] [facility] [address] [id number] [place] [address]- 4987 Oct, [facility] [place] [facility] [address] [id number] [place] [address]- 0020 Oct, [facility] [place] [facility] [address] [id number] [place] [address]99 Oct, [facility] [place] [facility] [address] [id number] [place] [address] Jul, [facility] [place] [facility] [address] [id number] [place] [address]- 8758 Jul, [facility] [place] [facility] [address] [id number] [place] [address]- 4636 29 Jul, 2014 [facility] [address] [id number] [place] [address]- 9009 Jul, [facility] [place] [facility] [address] [id number] [place] [address]- 4506 29 Jul, 2014 [facility] [address] [id number] [place] [address]- 9552 Jun, [facility] [place] [facility] [address] [id number] [place] [address]- 0734 May, [facility] [address] [id number] [place] [address]- 9528 May, [facility] [address] [id number] [place] [address]- 6586 May, [facility] [place] [facility] [address] [id number] [place] [address]- 8644 Feb, [facility] [place] [facility] [address] [id number] [place] [address]- 4178 Feb, [facility] [place] [facility] [address] [id number] [place] [address]- 3764 Feb, [facility] [address] [id number] [place] [address]- 5868 Feb, [facility] [place] [facility] [address] [id number] [place] [address]- 5359 Feb, [facility] [place] [facility] [address] [id number] [place] [address]- 1675 Feb, [facility] [place] [facility] [address] [id number] [place] [address]- 4154 Feb, [facility] [place] [facility] [address] [id number] [place] [address]- 6032 Feb, [facility] [place] [facility] [address] [id number] [place] [address]- 7662 Feb, [facility] [place] [facility] [address] [id number] [place] [address]- 5193 Feb, [facility] [place] [facility] [address] [id number] [place] [address]- 5160 Aug, [facility] [place] [facility] [address] [id number] [place] [address]- 4624 Aug, [facility] [place] [facility] [address] [id number] [place] [address]- 5632 Aug, [facility] [place] [facility] [address] [id number] [place] [address]- 6947 Aug, [facility] [place] [facility] [address] [id number] [place] [address]- 0476 Jan, [facility] [place] [facility] [address] [facility] [id number] [place] [address]- 4228 Dec, [facility] [place] [facility] [address] [id number] [place] [address]- 7116 Aug, [facility] [place] [facility] [address] [id number] [place] [address]- 6181 May, [facility] [place] [facility] [address] [facility] [id number] [address]- 9336 Apr, [facility] [place] [facility] [address] [id number], [place] [address]- 9456 Apr, [facility] [place] [facility] [address] [id number] [address]- 7949 Apr, [facility] [place] [facility] [address] [id number] [place] [address]- 6124 Apr, [facility] [place] [facility] [address] [id number], [place] [address]- 6866 Nov, [facility] [place] [facility] [address] [facility] [id number], [place] [address]- 6836 Oct, [facility] [place] [facility] [address] [id number], [place] [address] 2546 Oct, [facility] [id number] [address]- 0956 Oct, [facility] [address] [address]- 6136 Sep, [facility] [address] [address]- 8126 Sep, [facility] [address], [place] [address]- 2546 Sep, [facility] [address] [address]- 1536 Apr, [facility] [address], [place] [address]- 2546 Sep, [facility] [address], [place] [address]- 9419 Jan, [facility] [address] [address]- 2069 Aug, [facility] [id number] [address]- 8429 Aug, [facility] [id number] [address]- 0261 May, IMMUNIZATIONS No Known Immunizations SOCIAL HISTORY Never Assessed REASON FOR VISIT Controlled refill PLAN OF CARE VITAL SIGNS MEDICATIONS Medication Instructions Dosage Frequency Start Date End Date Duration Status Oxycodone HCl 20 mg Orally every 6 hrs as needed 1 tablet Oct, 28 days Active RESULTS No Results PROCEDURES No Known procedures INSTRUCTIONS MEDICATIONS ADMINISTERED No Known Medications MEDICAL (GENERAL) HISTORY Type Description Date Medical History kidney failure-dialysis Medical History hypertension Medical History Pneumonia 2017 Surgical History tracheotomy Surgical History fistula left wrist Surgical History back surgery Surgical History port right chest Hospitalization History pneumonia Hospitalization History fluid around lungs 2015 Hospitalization History [place]neum[place] 04/16-04/17 Hospitalization History pneumomia and infection 07/31
--- OUTSIDE RECORDS SUMMARY | 2019-03-18 14:28 | XMS REPORT ---
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 Mechanic Name Role Phone WILVER SIMENTAL Unavailable PROBLEMS Type Condition ICD9-CM Code ATY27-QK Code Onset Dates Condition Status SNOMED Code Problem Kidney failure N19 Active 36679282 Problem Essential hypertension I10 Active 80896440 Problem Neuropathy G62.9 Active 015044414 Problem Pain in right leg M79.604 Active 43742156 Problem Restrictive lung disease J98.4 Active 16708900 Problem Hypothyroidism, unspecified type E03.9 Active 77207449 Problem Chronic kidney disease, stage 4, severely decreased GFR N18.4 Active 507493640 ALLERGIES Substance Reaction Event Type Date Status Morphine Sulfate Unknown Drug Allergy Jun, Active ENCOUNTERS Encounter Location Date Diagnosis [facility] [id number] [place] [address] 04998- 2829 Jul, Kidney failure N19 ; Restrictive lung disease J98.4 ; Neuropathy G62.9 and Essential hypertension I10 [facility] [id number] [place] [address] 52740- 4003 Jun, Restrictive lung disease J98.4 [facility] [id number] [place] [address] 33117- 0800 Jun, [facility] [id number] [place] [address] 55986- 3962 Jun, [facility] [id number] [place] [address] 52041- 7401 May, [facility] [id number] [place] [address] 50979- 5961 May, [facility] [id number] [place] [address] 04688- 6975 May, Nausea and vomiting, intractability of vomiting not specified, unspecified vomiting type R11.2 [facility] [id number] [place] [address] 58403- 5629 May, Restrictive lung disease J98.4 [facility] [id number] [place] [address] 77972- 7709 May, [facility] [id number] [place] [address] 46860- 4169 May, [facility] [id number] [place] [address] 77910- 9802 Apr, Chronic kidney disease, stage 4, severely decreased GFR N18.4 and Essential hypertension I10 [facility] [id number] [place] [address] 74693- 2990 March, [facility] [id number] [place] [address] 83062- 1172 March, [facility] [id number] [place] [address] 72257- 1976 March, Medicare annual wellness visit, initial Z00.00 ; Chronic kidney disease, stage 4, severely decreased GFR N18.4 ; Hypothyroidism, unspecified type E03.9 and Neuropathy G62.9 [facility] [id number] [place] [address] 50282- 8741 Feb, Restrictive lung disease J98.4 ; Hypothyroidism, unspecified type E03.9 and Neuropathy G62.9 [facility] [id number] [place] [address] 86736- 9851 Nov, Pain in right leg M79.604 [facility] [id number] [place] [address] 25038- 5101 Nov, [facility] [id number] [place] [address] 84709- 1355 Nov, Dysuria R30.0 and Acute cystitis without hematuria N30.00 [facility] [id number] [place] [address] 28869- 5733 Nov, Pain in right leg M79.604 [facility] [id number] [place] [address] 47561- 9051 Sep, [facility] [id number] [place] [address] 83796- 4937 Jul, Neuropathy G62.9 [facility] [id number] [place] [address] 22573- 4482 14 Jul, 2017 Pain in right leg M79.604 [facility] [id number] [place] [address] 22479- 2322 Jul, [facility] [id number] [place] [address] 60951- 8793 Apr, [facility] [address] 36366- 3869 Feb, Bronchitis J40 and Chronic kidney disease, stage 4, severely decreased GFR N18.4 [facility] [id number] [place] [address] 85365- 1448 Jan, Nausea and vomiting, intractability of vomiting not specified, unspecified vomiting type R11.2 [facility] [id number] [place] [address] 86678- 8876 Jan, Pain in right leg M79.604 [facility] [id number] [place] [address] 44703- 3540 Jan, Hypothyroidism, unspecified type E03.9 [facility] [id number] [place] [address] 49859- 9143 Jan, Pain in right leg M79.604 [facility] [id number] [place] [address] 86282- 5725 Dec, Acute non-recurrent maxillary sinusitis J01.00 [facility] [id number] [place] [address] 53284- 8354 Dec, [facility] [address] [address]- 2208 Dec, Chronic kidney disease, stage 4, severely decreased GFR N18.4 [facility] [address] [address]- 7806 Oct, [facility] [id number] [place] [address] 71564 -6620 Oct, Shortness of breath R06.02 [facility] [address] [place] [address] 53319- 3803 Oct, [facility] [id number] [place] [address] 38344- 7300 Oct, [facility] [id number] [place] [address] 48767- 5021 Sep, Pain in right leg M79.604 and Restrictive lung disease J98.4 [facility] [address] [address]- 9674 Sep, [facility] [id number] [place] [address] 28624- 8162 Aug, Restrictive lung disease J98.4 and Acute left eye pain H57.12 [facility] [address] [address]- 5574 Aug, [facility] [id number] [place] [address] 08341- 8671 Aug, [facility] [address] [address]- 2678 Jun, [facility] [id number] [place] [address] 90616- 7963 Jun, [facility] [address] [address]- 5884 Jun, [facility] [id number] [address]- 0221 Jun, [facility] [address] [place] [address]- 7868 Jun, Restrictive lung disease J98.4 and Pain in right leg M79.604 [facility] [id number] [address] 2546 Jun, [facility] [address] [address]- 8897 Jun, [facility] [id number] [address]- 1045 May, Restrictive lung disease J98.4 and Kidney failure N19 [facility] [address] [address]- 1176 May, [facility] [address] [address]- 8377 May, [facility] [address] [address]- 0011 Apr, [facility] [address] [address]- 8555 Dec, [facility] [address] [address]- 7381 Dec, [facility] [address] [address]- 6477 Aug, [facility] [address] [address]- 2541 Feb, [facility] [address] [address]- 7270 Feb, [facility] [id number] 6061 Jan, [facility] [address] 9770 Jan, [facility] [place] [facility] [address] [id number] [place] [address]- 1163 17 Jan, 2014 [facility] [place] [facility] [address] [id number] [place] [address]- 3990 14 Jan, 2014 [facility] [place] [facility] [address] [id number] [place] [address]- 3198 13 Jan, 2015 [facility] [place] [facility] [address] [id number] [place] [address]- 0554 13 Jan, 2014 [facility] [place] [facility] [address] [id number] [place] [address]- 6880 11 Jan, 2015 [facility] [place] [facility] [address] [id number] [place] [address]- 6994 11 Jan, 2015 [facility] [place] [facility] [address] [facility] [id number] [place] [address]- 2670 10 Jan, 2015 [facility] [place] [facility] [address] [id number] [place] [address]- 5555 10 Jan, 2015 [facility] [place] [facility] [address] [id number] [place] [address]- 7244 03 Jan, 2015 [facility] [place] [facility] [address] [id number] [place] [address]- 7214 26 Dec, 2014 [facility] [place] [facility] [address] [facility] [id number] [place] [address]- 8830 Dec, 2014 [facility] [place] [facility] [address] [id number] [place] [address]- 3397 Dec, 2014 [facility] [place] [facility] [address] [id number] [place] [address]- 4077 Dec, 2014 [facility] [place] [facility] [address] [id number] [place] [address]- 4404 Dec, 2014 [facility] [place] [facility] [address] [id number] [place] [address]- 1322 Dec, 2014 [facility] [place] [facility] [address] [id number] [place] [address]- 7092 Nov, [facility] [place] [facility] [address] [id number] [place] [address]- 9579 Nov, [facility] [place] [facility] [address] [id number] [place] [address]- 9198 Oct, [facility] [place] [facility] [address] [facility] [id number] [place] [address]- 7876 Oct, [facility] [place] [facility] [address] [id number] [place] [address]- 2372 Oct, [facility] [place] [facility] [address] [id number] [place] [address]- 2620 Oct, [facility] [place] [facility] [address] [id number] [place] [address]- 7852 Oct, [facility] [place] [facility] [id number] [address]- 1697 Oct, [facility] [place] [facility] [address] [id number] [place] [address]- 9793 Oct, [facility] [place] [facility] [address] [id number] [place] [address]- 0663 Oct, [facility] [place] [facility] [address] [facility] [id number] [place] [address]- 4427 Jul, [facility] [place] [facility] [address] [id number] [place] [address]- 7835 Jul, [facility] [place] [facility] [address] [id number] [address]- 3410 29 Jul, 2014 [facility] [place] [facility] [address] [id number] [place] [address]- 0319 Jul, [facility] [place] [facility] [address] [facility] [id number] [place] [address]- 9568 Jul, [facility] [place] [facility] [address] [facility] [id number] [place] [address]- 4095 Jun, [facility] [place] [facility] [address] [id number] [place] [address]- 8666 May, [facility] [place] [facility] [address] [id number] [place] [address]- 9647 May, [facility] [place] [facility] [address] [id number] [place] [address]- 6002 May, [facility] [place] [facility] [address] [id number] [place] [address]- 2170 Feb, [facility] [place] [facility] [address] [id number] [place] [address]- 9825 Feb, [facility] [place] [facility] [address] [id number] [place] [address]- 9510 Feb, [facility] [place] [facility] [address] [id number] [place] [address]- 9276 Feb, [facility] [place] [facility] [address] [id number] [place] [address]- 8293 Feb, [facility] [place] [facility] [address] [id number] [place] [address]- 9048 Feb, [facility] [place] [facility] [address] [id number] [place] [address]- 0136 Feb, [facility] [place] [facility] [address] [id number] [place] [address]- 5410 Feb, [facility] [place] [facility] [address] [id number] [place] [address]- 8970 Feb, [facility] [place] [facility] [address] [id number] [place] [address]- 7510 Feb, [facility] [place] [facility] [address] [id number] [place] [address]- 7240 Aug, [facility] [place] [facility] [address] [id number] [place] [address]- 5971 Aug, [facility] [place] [facility] [address] [id number] [place] [address]- 7146 Aug, [facility] [place] [facility] [address] [id number] [place] [address]- 9714 Aug, [facility] [place] [facility] [address] [id number] [place] [address]- 9184 Jan, [facility] [place] [facility] [address] [facility] [id number] [place] [address]- 3533 Dec, [facility] [place] [facility] [address] [id number] [place] [address]- 6213 Aug, [facility] [place] [facility] [address] [id number] [place] [address]- 5978 May, [facility] [place] [facility] [address] [id number] [place] [address]- 0673 Apr, [facility] [place] [facility] [address] [id number] [place] [address]- 4026 Apr, [facility] [place] [facility] [address] [id number] [place] [address]- 2626 Apr, [facility] [place] [facility] [address] [id number] [place] [address]- 9476 Apr, [facility] [place] [facility] [address] [facility] [id number] [place] [address]- 0481 Nov, [facility] [place] [facility] [address] [id number] [place] [address]- 2551 Oct, [facility] [place] [facility] [address] [id number], [place] [address]- 5315 Oct, [facility] [place] [facility] [address] [id number] [place] [address]- 3492 Oct, [facility] [place] [facility] [address] [facility] [id number] [place] [address]- 6204 Sep, [facility] [place] [facility] [address] [facility] [id number] [place] [address]- 9381 Sep, [facility] [place] [facility] [address] [facility] [id number] [place] [address]- 8516 Sep, [facility] [address] [facility] [id number], [place] [address]- 7125 Apr, [facility] [id number] [address]- 7991 Sep, [facility] [address] [facility] [id number], [place] [address]- 7135 Jan, [facility] [address] [facility] [id number], [place] [address]- 3854 Aug, [facility] [address] [facility] [id number] 1243 Aug, [facility] [address] [facility] [id number], [place] [address]- 8261 May, IMMUNIZATIONS No Known Immunizations SOCIAL HISTORY Never Assessed REASON FOR VISIT PT states that "messed up, and now he has to fix it". Refused jorge Fung PLAN OF CARE Activity Details Follow Up prn Reason: VITAL SIGNS MEDICATIONS Medication Instructions Dosage Frequency Start Date End Date Duration Status Albuterol Sulfate (2.5 MG/3ML) 0.083% Inhalation Three times a day 3 ml 8h Feb, 0 days Active Carvedilol 25 MG TAKE ONE TABLET BY MOUTH TWICE DAILY 30 Active Amlodipine Besylate 10 TAKE ONE TABLET BY MOUTH DAILY 30 Active Valium 5 mg Orally Twice a day 1 tablet as needed 12h Apr, 30 days Active Oxygen 2 L/NC as directed May, Active Levothyroxine Sodium 25 TAKE ONE TABLET BY MOUTH DAILY 30 Active HydrALAZINE HCl 25 TAKE ONE TABLET BY MOUTH EVERY 8 HOURS 30 Active Advair Diskus 250-50 MCG/DOSE Inhalation Twice a day 1 puff 12h Active Carvedilol 25 TAKE ONE TABLET BY MOUTH TWICE A DAY 30 Active Furosemide 80 MG Orally Once a day 2 tablet 24h Active Pravastatin Sodium 40 TAKE ONE TABLET BY MOUTH DAILY 90 Active Symbicort 160-4.5 MCG/ACT Inhalation Twice a day 2 puffs 12h Active Diazepam & Diet Manage Prod 5 MG Active HydrALAZINE HCl 25 MG Orally Three times a day 1 tablet with food 8h Active Pantoprazole Sodium 40 MG TAKE ONE TABLET BY MOUTH ONCE DAILY BEFORE BREAKFAST 30 Active Zofran ODT 4 MG Orally every 6 hrs 1 tablet on the tongue and allow to dissolve as needed 6h May, Active Oxycodone HCl 20 mg Orally every 6 hrs as needed 1 tablet Jul, 28 days Active Levothyroxine Sodium 25 MCG Orally Once a day 1 tablet 24h 30 Active Oxygen as directed May, Active HydrOXYzine HCl 25 MG Orally every 6 hr prn itching 1 tablet as needed Active Pravachol 40 mg Orally -MUST SEE DR. SIMENTAL FOR REFILLS Once a day 1 tablet 24h 30 Active Nephro-Karina 0.8 MG Orally Once a day 1 tablet 24h Apr, Active Clonidine HCl 0.1 Orally Twice a day 1 tablet 12h 30 Active RESULTS No Results PROCEDURES Procedure Date Ordered Result Body Site [facility] V[facility]IT ESTABLISHED PATIENT Jul 10, 2018 INSTRUCTIONS MEDICATIONS ADMINISTERED No Known Medications MEDICAL (GENERAL) HISTORY Type Description Date Medical History kidney failure-dialysis Medical History hypertension Medical History Pneumonia 2017 Surgical History tracheotomy Surgical History fistula left wrist Surgical History back surgery Surgical History port right chest Hospitalization History pneumonia Hospitalization History fluid around lungs 2015 Hospitalization History [place] 04/16-04/17 Hospitalization History pneumomia and infection 07/31
--- OUTSIDE RECORDS SUMMARY | 2019-03-18 14:28 | XMS REPORT ---
Author Author WILVER SIMENTAL Organization [facility] Address [address] [place] [address] Care Team Providers Care Ap Operator Name Role Phone WILEVR SIMENTAL Unavailable PROBLEMS Type Condition ICD9-CM Code QAY88-KN Code Onset Dates Condition Status SNOMED Code Problem Kidney failure N19 Active 14870188 Problem Essential hypertension I10 Active 07330493 Problem Neuropathy G62.9 Active 278511528 Problem Pain in right leg M79.604 Active 24647514 Problem Restrictive lung disease J98.4 Active 11054028 Problem Hypothyroidism, unspecified type E03.9 Active 32913769 Problem Chronic kidney disease, stage 4, severely decreased GFR N18.4 Active 287000736 ALLERGIES Substance Reaction Event Type Date Status Morphine Sulfate Unknown Drug Allergy Jul, Active ENCOUNTERS Encounter Location Date Diagnosis [facility] [id number] [place] [address] 15179- 8436 Jul, Kidney failure N19 ; Restrictive lung disease J98.4 ; Neuropathy G62.9 and Essential hypertension I10 [facility] [id number] [place] [address] 86138- 5454 Jun, Restrictive lung disease J98.4 [facility] [id number] [place] [address] 70257- 5472 Jun, [facility] [id number] [place] [address] 73471- 0863 Jun, [facility] [id number] [place] [address] 70326- 2464 May, [facility] [id number] [place] [address] 35920- 8202 May, [facility] [id number] [place] [address] 01194- 5520 May, Nausea and vomiting, intractability of vomiting not specified, unspecified vomiting type R11.2 [facility] [id number] [place] [address] 88125- 1242 May, Restrictive lung disease J98.4 [facility] [id number] [place] [address] 45420- 3466 May, [facility] [id number] [place] [address] 61087- 6558 May, [facility] [id number] [place] [address] 67685- 5785 Apr, Chronic kidney disease, stage 4, severely decreased GFR N18.4 and Essential hypertension I10 [facility] [id number] [place] [address] 72062- 6692 March, [facility] [id number] [place] [address] 95731- 6616 March, [facility] [id number] [place] [address] 51227- 0834 March, Medicare annual wellness visit, initial Z00.00 ; Chronic kidney disease, stage 4, severely decreased GFR N18.4 ; Hypothyroidism, unspecified type E03.9 and Neuropathy G62.9 [facility] [id number] [place] [address] 07603- 7046 Feb, Restrictive lung disease J98.4 ; Hypothyroidism, unspecified type E03.9 and Neuropathy G62.9 [facility] [id number] [place] [address] 84035- 3117 Nov, Pain in right leg M79.604 [facility] [id number] [place] [address] 78760- 4069 Nov, [facility] [id number] [place] [address] 44857- 7735 Nov, Dysuria R30.0 and Acute cystitis without hematuria N30.00 [facility] [id number] [place] [address] 77004- 0851 Nov, Pain in right leg M79.604 [facility] [id number] [place] [address] 52641- 1539 Sep, [facility] [id number] [place] [address] 12790- 2482 Jul, Neuropathy G62.9 [facility] [id number] [place] [address] 68219- 7542 14 Jul, 2017 Pain in right leg M79.604 [facility] [id number] [place] [address] 84917- 7312 Jul, [facility] [id number] [place] [address] 54222- 8775 Apr, [facility] [address] 92387- 6055 Feb, Bronchitis J40 and Chronic kidney disease, stage 4, severely decreased GFR N18.4 [facility] [id number] [place] [address] 12054- 6464 Jan, Nausea and vomiting, intractability of vomiting not specified, unspecified vomiting type R11.2 [facility] [id number] [place] [address] 93815- 1482 Jan, Pain in right leg M79.604 [facility] [id number] [place] [address] 30659- 3523 Jan, Hypothyroidism, unspecified type E03.9 [facility] [id number] [place] [address] 89066- 5205 Jan, Pain in right leg M79.604 [facility] [id number] [place] [address] 21010- 7107 Dec, Acute non-recurrent maxillary sinusitis J01.00 [facility] [id number] [place] [address] 92894- 9516 Dec, [facility] [address] [address]- 4457 Dec, Chronic kidney disease, stage 4, severely decreased GFR N18.4 [facility] [address] [address]- 0402 Oct, [facility] [id number] [place] [address] 62370 -7127 Oct, Shortness of breath R06.02 [facility] [id number] [place] [address] 04259- 8749 Oct, [facility] [id number] [place] [address] 76729- 1110 Oct, [facility] [id number] [place] [address] 76231- 5427 Sep, Pain in right leg M79.604 and Restrictive lung disease J98.4 [facility] [address] [address]- 5756 Sep, [facility] [id number] [place] [address] 69931- 4135 Aug, Restrictive lung disease J98.4 and Acute left eye pain H57.12 [facility] [address] [address]- 7422 Aug, [facility] [address] [place] [address] 40698- 0313 Aug, [facility] [address] [place] [address]- 8909 Jun, [facility] [id number] [place] [address] 42155- 2940 Jun, [facility] [address] [address]- 7117 Jun, [facility] [id number] [place] [address]- 9403 Jun, [facility] [address] [place] [address]- 5049 Jun, Restrictive lung disease J98.4 and Pain in right leg M79.604 [facility] [id number] [place] [address] 2546 Jun, [facility] [address] [place] [address]- 1957 Jun, [facility] [id number] [place] [address]- 0813 May, Restrictive lung disease J98.4 and Kidney failure N19 [facility] [address] [place] [address]- 2416 May, [facility] [address] [place] [address]- 2142 May, [facility] [address] [place] [address]- 0223 Apr, [facility] [address] [place] [address]- 1796 Dec, [facility] [address] [place] [address]- 5205 Dec, [facility] [address] [place] [address]- 9436 Aug, [facility] [address] [address]- 2549 Feb, [facility] [address] [place] [address]- 0691 Feb, [facility] [address] 4962 Jan, [facility] [address] 3081 Jan, [facility] [place] [facility] [address] [id number] [place] [address]- 6190 17 Jan, 2014 [facility] [place] [facility] [address] [id number] [place] [address]- 4076 14 Jan, 2014 [facility] [place] [facility] [address] [id number] [place] [address]- 8450 13 Jan, 2015 [facility] [place] [facility] [address] [id number] [place] [address]- 9411 13 Jan, 2014 [facility] [place] [facility] [address] [id number] [place] [address]- 2242 11 Jan, 2015 [facility] [place] [facility] [address] [id number] [place] [address]- 9236 11 Jan, 2015 [facility] [place] [facility] [address] [facility] [id number] [place] [address]- 4118 10 Jan, 2015 [facility] [place] [facility] [address] [id number] [place] [address]- 1073 10 Jan, 2015 [facility] [place] [facility] [address] [id number] [place] [address]- 1829 03 Jan, 2015 [facility] [place] [facility] [address] [id number] [place] [address]- 1003 26 Dec, 2014 [facility] [place] [facility] [address] [facility] [id number] [place] [address]- 9240 Dec, 2014 [facility] [place] [facility] [address] [id number] [place] [address]- 4116 Dec, 2014 [facility] [place] [facility] [address] [id number] [place] [address]- 4663 Dec, 2014 [facility] [place] [facility] [address] [id number] [place] [address]- 1016 Dec, 2014 [facility] [place] [facility] [address] [id number] [place] [address]- 1783 Dec, 2014 [facility] [place] [facility] [address] [id number] [place] [address]- 2436 Nov, [facility] [place] [facility] [address] [id number] [place] [address]- 1979 Nov, [facility] [place] [facility] [address] [id number] [place] [address]- 6772 Oct, [facility] [place] [facility] [address] [facility] [id number] [place] [address]- 6256 Oct, [facility] [place] [facility] [address] [id number] [place] [address]- 8704 Oct, [facility] [place] [facility] [address] [id number] [place] [address]- 3667 Oct, [facility] [place] [facility] [address] [id number] [place] [address]- 7926 Oct, [facility] [place] [facility] [id number] [place] [address]- 9363 Oct, [facility] [place] [facility] [address] [id number] [place] [address]- 2625 Oct, [facility] [place] [facility] [address] [id number] [place] [address]- 3394 Oct, [facility] [place] [facility] [address] [facility] [id number] [place] [address]- 0386 Jul, [facility] [place] [facility] [address] [id number] [place] [address]- 6714 Jul, [facility] [place] [facility] [address] [id number], [place] [address]- 0303 29 Jul, 2014 [facility] [place] [facility] [address] [id number] [place] [address]- 8589 Jul, [facility] [place] [facility] [address] [facility] [id number] [place] [address]- 3640 Jul, [facility] [place] [facility] [address] [facility] [id number] [place] [address]- 8754 Jun, [facility] [place] [facility] [address] [id number] [place] [address]- 2311 May, [facility] [place] [facility] [address] [id number] [place] [address]- 5091 May, [facility] [place] [facility] [address] [id number] [place] [address]- 5580 May, [facility] [place] [facility] [address] [id number] [place] [address]- 1264 Feb, [facility] [place] [facility] [address] [id number] [place] [address]- 4336 Feb, [facility] [place] [facility] [address] [id number] [place] [address]- 0820 Feb, [facility] [place] [facility] [address] [id number] [place] [address]- 7580 Feb, [facility] [place] [facility] [address] [id number] [place] [address]- 4022 Feb, [facility] [place] [facility] [address] [id number] [place] [address]- 6258 Feb, [facility] [place] [facility] [address] [id number] [place] [address]- 8416 Feb, [facility] [place] [facility] [address] [id number] [place] [address]- 2262 Feb, [facility] [place] [facility] [address] [id number] [place] [address]- 1860 Feb, [facility] [place] [facility] [address] [id number] [place] [address]- 5883 Feb, [facility] [place] [facility] [address] [id number] [place] [address]- 0814 Aug, [facility] [place] [facility] [address] [id number] [place] [address]- 0466 Aug, [facility] [place] [facility] [address] [id number] [place] [address]- 4046 Aug, [facility] [place] [facility] [address] [id number] [place] [address]- 9979 Aug, [facility] [place] [facility] [address] [id number] [place] [address]- 7550 Jan, [facility] [place] [facility] [address] [facility] [id number] [place] [address]- 8642 Dec, [facility] [place] [facility] [address] [id number] [place] [address]- 1327 Aug, [facility] [place] [facility] [address] [id number] [place] [address]- 2811 May, [facility] [place] [facility] [address] [id number] [place] [address]- 5027 Apr, [facility] [place] [facility] [address] [id number] [place] [address]- 7689 Apr, [facility] [place] [facility] [address] [id number] [place] [address]- 1751 Apr, [facility] [place] [facility] [address] [id number] [place] [address]- 1443 Apr, [facility] [place] [facility] [address] [facility] [id number] [place] [address]- 6545 Nov, [facility] [place] [facility] [address] [id number] [place] [address]- 5031 Oct, [facility] [place] [facility] [address] [id number], [place] [address]- 1027 Oct, [facility] [place] [facility] [address] [id number] [place] [address]- 2074 Oct, [facility] [place] [facility] [address] [facility] [id number] [place] [address]- 4544 Sep, [facility] [place] [facility] [address] [facility] [id number] [place] [address]- 8425 Sep, [facility] [place] [facility] [address] [facility] [id number], [place] [address]- 4556 Sep, [facility] [address] [facility] [id number], [place] [address]- 7846 Apr, [facility] [address] [place] [address]- 0717 Sep, [facility] [address] [facility] [id number], [place] [address]- 3968 Jan, [facility] [id number] [address]- 6987 Aug, [facility] [address] [facility] [id number], [place] [address]- 4929 Aug, [facility] [id number] 4859 May, IMMUNIZATIONS No Known Immunizations SOCIAL HISTORY Never Assessed REASON FOR VISIT via [facility] f/u last week Quiana ROBLES, hospitalized for pneumonia and infection Quiana ROBLES, wants to change some of pres but doesnt know names and just knows they dont work Quiana Robles PLAN OF CARE Activity Details Follow Up prn Reason: VITAL SIGNS Height 67 in 2018-08-07 Weight 187.17 lbs 2018-08-07 Temperature 97.8 degrees Fahrenheit 2018-08-07 Heart Rate 70 bpm 2018-08-07 Respiratory Rate 20 2018-08-07 Oximetry w/ oxygen:96 % 2018-08-07 BMI 29.31 kg/m2 2018-08-07 Blood pressure systolic 156 mmHg 2018-08-07 Blood pressure diastolic 60 mmHg 2018-08-07 MEDICATIONS Medication Instructions Dosage Frequency Start Date End Date Duration Status Diazepam & Diet Manage Prod 5 MG Active Levothyroxine Sodium 25 TAKE ONE TABLET BY MOUTH DAILY 30 Active Carvedilol 25 TAKE ONE TABLET BY MOUTH TWICE A DAY 30 Active Pravastatin Sodium 40 TAKE ONE TABLET BY MOUTH DAILY 90 Active HydrOXYzine HCl 25 MG by inhalation route q 6 hr prn itching 1 tab Active HydrALAZINE HCl 25 MG Orally Three times a day 1 tablet with food 8h Active Amlodipine Besylate 10 MG TAKE ONE TABLET BY MOUTH DAILY Active Carvedilol 25 MG TAKE ONE TABLET BY MOUTH TWICE DAILY 30 Active Zofran ODT 4 MG Orally every 6 hrs 1 tablet on the tongue and allow to dissolve as needed 6h May, Active Advair Diskus 250-50 MCG/DOSE Inhalation Twice a day 1 puff 12h Active Furosemide 80 MG Orally Once a day 2 tablet 24h Active HydrALAZINE HCl 25 TAKE ONE TABLET BY MOUTH EVERY 8 HOURS 30 Active Oxygen as directed May, Active Nephro-Karina 0.8 MG Orally Once a day 1 tablet 24h Apr, Active Pravachol 40 mg Orally -MUST SEE DR. SIMENTAL FOR REFILLS Once a day 1 tablet 24h 30 Active Oxycodone HCl 20 mg Orally every 6 hrs as needed 1 tablet Jul, 28 days Active Amlodipine Besylate 10 TAKE ONE TABLET BY MOUTH DAILY 30 Active Levothyroxine Sodium 25 MCG Orally Once a day 1 tablet 24h 30 Active Clonidine HCl 0.1 Orally Twice a day 1 tablet 12h 30 Active Albuterol Sulfate (2.5 MG/3ML) 0.083% Inhalation Three times a day 3 ml 8h Feb, Active Pantoprazole Sodium 40 MG TAKE ONE TABLET BY MOUTH ONCE DAILY BEFORE BREAKFAST 30 Active Oxygen 2 L/NC as directed May, Active Valium 5 mg Orally Twice a day 1 tablet as needed 12h Apr, 30 days Active RESULTS No Results PROCEDURES Procedure Date Ordered Result Body Site [facility] VISIT ESTABLISHED PATIENT Aug 07, 2018 INSTRUCTIONS MEDICATIONS ADMINISTERED No Known Medications MEDICAL (GENERAL) HISTORY Type Description Date Medical History kidney failure-dialysis Medical History hypertension Medical History Pneumonia 2017 Surgical History tracheotomy Surgical History fistula left wrist Surgical History back surgery Surgical History port right chest Hospitalization History pneumonia Hospitalization History fluid around lungs 2015 Hospitalization History [place]neumonia [address] [place] 04/16-04/17 Hospitalization History pneumomia and infection 07/31
--- OUTSIDE RECORDS SUMMARY | 2019-03-18 14:28 | XMS REPORT ---
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 Grain Operations Manager Name Role Phone WILVER SIMENTAL Unavailable PROBLEMS Type Condition ICD9-CM Code FCN93-CK Code Onset Dates Condition Status SNOMED Code Problem Kidney failure N19 Active 32714109 Problem Essential hypertension I10 Active 46511252 Problem Neuropathy G62.9 Active 693924622 Problem Pain in right leg M79.604 Active 07472399 Problem Restrictive lung disease J98.4 Active 47716654 Problem Hypothyroidism, unspecified type E03.9 Active 81748147 Problem Chronic kidney disease, stage 4, severely decreased GFR N18.4 Active [id number] ALLERGIES No Information ENCOUNTERS Encounter Location Date Diagnosis [place] [id number] [place] [address] 26957- 1264 Jul, Kidney failure N19 ; Restrictive lung disease J98.4 ; Neuropathy G62.9 and Essential hypertension I10 [facility] [id number] [place] [address] 88370- 3726 Jun, Restrictive lung disease J98.4 [facility] [id number] [place] [address] 36992- 6034 Jun, [facility] [id number] [place] [address] 93419- 2255 Jun, [facility] [address] [address]27- 4388 May, [place] [address] 06365- 2838 May, [facility] [id number] [place] [address] 96864- 0185 May, Nausea and vomiting, intractability of vomiting not specified, unspecified vomiting type R11.2 [facility] [id number] [place] [address] 65430- 0460 May, Restrictive lung disease J98.4 [facility] [id number] [place] [address] 86484- 0970 May, [facility] [id number] [place] [address] 75196- 6713 May, [place] [id number] [place] [address] 16784- 0915 Apr, Chronic kidney disease, stage 4, severely decreased GFR N18.4 and Essential hypertension I10 [place] [id number] [place] [address] 26312- 6043 March, [place] [id number] [place] [address] 85164- 7516 March, [place] [id number] [place] [address] 44724- 8352 March, Medicare annual wellness visit, initial Z00.00 ; Chronic kidney disease, stage 4, severely decreased GFR N18.4 ; Hypothyroidism, unspecified type E03.9 and Neuropathy G62.9 [place] [id number] [place] [address] 02031- 9735 Feb, Restrictive lung disease J98.4 ; Hypothyroidism, unspecified type E03.9 and Neuropathy G62.9 [place] [id number] [place] [address] 92284- 1025 Nov, Pain in right leg M79.604 [place] [id number] [place] [address] 27189- 5198 Nov, [place] [id number] [place] [address] 18516- 4862 Nov, Dysuria R30.0 and Acute cystitis without hematuria N30.00 [place] [id number] [place] [address] 90901- 8149 Nov, Pain in right leg M79.604 [facility] [address] [place] [address] 26071- 7075 Sep, [facility] [id number] [place] [address] 66614- 7584 Jul, Neuropathy G62.9 [facility] [id number] [place] [address] 410925- 8176 14 Jul, 2017 Pain in right leg M79.604 [facility] [id number] [place] [address] 16761- 0117 Jul, [facility] [id number] [place] [address] 66210- 6724 Apr, [facility] [id number] [place] [address] 90267- 3268 Feb, Bronchitis J40 and Chronic kidney disease, stage 4, severely decreased GFR N18.4 [facility] [id number] [place] [address] 16463- 2085 Jan, Nausea and vomiting, intractability of vomiting not specified, unspecified vomiting type R11.2 [facility] [id number] [place] [address] 34197- 6134 Jan, Pain in right leg M79.604 [facility] [id number] [place] [address] 19955- 9494 Jan, Hypothyroidism, unspecified type E03.9 [facility] [id number] [place] [address] 92557- 9873 Jan, Pain in right leg M79.604 [facility] [id number] [place] [address] 37282- 8780 Dec, Acute non-recurrent maxillary sinusitis J01.00 [facility] [id number] [place] [address] 98212- 4683 Dec, [facility] [address] [address]- 2680 Dec, Chronic kidney disease, stage 4, severely decreased GFR N18.4 [facility] [address] [place] [address] 64888- 1918 Oct, [facility] [id number] [place] [address] 88002 -7387 Oct, Shortness of breath R06.02 [facility] [id number] [place] [address] 98155- 9708 Oct, [facility] [id number] [place] [address] 98892- 1898 Oct, [facility] [address] [place] [address] 22215- 8272 Sep, Pain in right leg M79.604 and Restrictive lung disease J98.4 [facility] [id number] [place] [address] 95452- 9883 Sep, [facility] [id number] [place] [address] 43400- 0176 Aug, Restrictive lung disease J98.4 and Acute left eye pain H57.12 [facility] [address] [address]- 1194 Aug, [facility] [id number] [place] [address] 83282- 7480 Aug, [facility] [id number] [place] [address] 07422- 3938 Jun, [facility] [id number] [place] [address] 75903- 0892 Jun, [facility] [address] [address]- 9571 Jun, [facility] [id number] [place] [address] 93683- 3950 Jun, [facility] [address] [facility] [id number] [address]- 9187 Jun, Restrictive lung disease J98.4 and Pain in right leg M79.604 [facility] [address] [facility] [id number] [place] [address]- 0626 Jun, [facility] [address] [facility] [id number] [address]- 9471 Jun, [facility] [address] [facility] [id number] [address]- 1250 May, Restrictive lung disease J98.4 and Kidney failure N19 [facility] [address] [facility] [id number] [place] [address]- 8585 May, [facility] [id number] [address]- 7771 May, [facility] [address] [facility] [id number] [address]- 6385 Apr, [facility] [id number] [address]- 8568 Dec, [facility] [id number] [address]- 0780 Dec, [facility] [id number] [address]- 2730 Aug, [facility] [id number] [address]- 1009 Feb, [facility] [address] [facility] [id number] [address]- 5722 Feb, [facility] [id number] [address]- 1542 Jan, [facility] [id number] [address] 3186 Jan, [facility] [id number] [address]- 6172 17 Jan, 2015 [facility] [place] [facility] [address] [id number] [place] [address]- 8997 14 Jan, 2015 [facility] [place] [facility] [address] [id number] [place] [address]- 3224 13 Jan, 2015 [facility] [place] [facility] [address] [facility] [id number] [place] [address]- 1066 13 Jan, 2015 [facility] [place] [facility] [address] [facility] [id number] [place] [address]- 7204 11 Jan, 2015 [facility] [place] [facility] [address] [id number] [place] [address]- 3989 11 Jan, 2015 [facility] [place] [facility] [address] [facility] [id number] [place] [address]- 6428 10 Jan, 2015 [facility] [place] [facility] [address] [facility] [id number] [place] [address]- 1090 10 Jan, 2015 [facility] [place] [facility] [address] [facility] [id number] [place] [address]- 9335 Jan, [facility] [place] [facility] [id number] [place] [address]- 9274 Dec, [facility] [place] [facility] [address] [facility] [id number] [place] [address]- 2488 Dec, [facility] [place] [facility] [id number] [place] [address]- 3913 Dec, 2014 [facility] [place] [facility] [address] [facility] [id number] [place] [address]- 9371 Dec, 2014 [facility] [place] [facility] [address] [id number] [place] [address]- 5813 Dec, [facility] [place] [facility] [address] [facility] [id number] [place] 8188 Dec, 2014 [facility] [place] [facility] [address] [facility] [id number] [place] [address]- 4758 Nov, [facility] [place] [facility] [address] [id number] [place] [address]- 5428 Nov, [facility] [place] [facility] [address] [id number] [place] [address]- 4782 Oct, [facility] [place] [facility] [address] [id number] [place] [address]- 4658 Oct, [facility] [place] [facility] [address] [id number] [place] [address]- 1643 Oct, [facility] [place] [facility] [address] [id number] [place] [address]- 9453 Oct, [facility] [place] [facility] [address] [id number] [place] [address]- 6623 Oct, [facility] [place] [facility] [address] [id number] [place] [address]- 6101 Oct, [facility] [place] [facility] [address] [id number] [place] [address]- 1029 Oct, [facility] [place] [facility] [address] [id number] [place] [address]- 2861 Oct, [facility] [place] [facility] [address] [id number] [place] [address]- 4721 Jul, [facility] [place] [facility] [address] [id number] [place] [address]- 6820 29 Jul, 2014 [facility] [place] [facility] [address] [id number] [place] [address]- 7205 29 Jul, 2014 [facility] [place] [facility] [address] [id number] [place] [address]- 0698 Jul, [facility] [place] [facility] [address] [id number] [place] [address]- 4361 Jul, [facility] [place] [facility] [address] [id number] [place] [address]- 3920 Jun, [facility] [place] [facility] [address] [id number] [place] [address]- 5111 May, [facility] [place] [facility] [address] [id number] [place] [address]- 3129 May, [facility] [place] [facility] [address] [id number] [place] 2391 May, [facility] [place] [facility] [address] [id number] [place] [address]- 3929 Feb, [facility] [place] [facility] [address] [id number] [place] [address]- 4980 Feb, [facility] [place] [facility] [address] [id number] [place] [address]- 2265 Feb, [facility] [place] [facility] [address] [id number] [place] [address]- 9820 Feb, [facility] [place] [facility] [address] [id number] [place] [address]- 3377 Feb, [facility] [place] [facility] [address] [id number] [place] [address]- 7252 Feb, [facility] [place] [facility] [address] [id number] [place] [address]- 1720 Feb, [facility] [place] [facility] [address] [id number] [place] [address]- 2697 Feb, [facility] [place] [facility] [address] [id number] [place] [address]- 9773 Feb, [facility] [place] [facility] [address] [id number] [place] [address]- 5464 Feb, [facility] [place] [facility] [address] [id number] [place] [address]- 6663 Aug, [facility] [place] [facility] [address] [id number] [place] [address]- 5040 Aug, [facility] [place] [facility] [address] [id number] [place] [address]- 4087 Aug, [facility] [place] [facility] [address] [id number] [place] [address]- 1526 Aug, [facility] [place] [facility] [address] [id number] [place] [address]- 9594 Jan, [facility] [place] [facility] [address] [id number] [place] [address]- 4423 Dec, [facility] [place] [facility] [address] [id number] [place] [address]- 6443 Aug, [facility] [place] [facility] [address] [id number] [place] [address]- 4558 May, [facility] [place] [facility] [address] [id number] [place] [address]- 4498 Apr, [facility] [place] [facility] [address] [id number] [place] [address]- 0001 Apr, [facility] [place] [facility] [address] [id number] [place] [address]- 9974 Apr, [facility] [place] [facility] [address] [id number] [place] [address]- 9719 Apr, [facility] [place] [facility] [address] [id number] [place] [address]- 8950 Nov, [facility] [place] [facility] [address] [id number] [place] [address]- 8619 Oct, [facility] [place] [facility] [address] [id number] [place] [address]- 3094 Oct, [facility] [place] [facility] [address] [id number] [place] [address]- 8456 Oct, [facility] [place] [facility] [address] [id number] [place] [address]- 8509 Sep, [facility] [place] [facility] [address] [id number] [place] [address]- 8766 Sep, [facility] [place] [facility] [address] [id number] [place] [address]- 1698 Sep, [facility] [address] [facility] [id number] [address]- 2546 Apr, [facility] [address] [address]- 2546 Sep, [facility] [id number] [address]- 2546 Jan, [facility] [address] [address]- 2546 Aug, [facility] [id number] [address]- 9002 Aug, [facility] [id number] [address]- 1106 May, IMMUNIZATIONS No Known Immunizations SOCIAL HISTORY Never Assessed REASON FOR VISIT oxygen order PLAN OF CARE VITAL SIGNS MEDICATIONS No [...] fluid around lungs 2015 Hospitalization History [place] 04/16-04/17 Hospitalization History pneumomia and infection 07/31
--- OUTSIDE RECORDS SUMMARY | 2019-03-18 14:29 | XMS REPORT ---
Author Author WILVER SIMENTAL Organization [facility] Address [address] [place] [address] Care Team Providers [employer] Driver Name Role Phone WILVER SIMENTAL Unavailable PROBLEMS Type Condition ICD9-CM Code YAE30-XC Code Onset Dates Condition Status SNOMED Code Problem Kidney failure N19 Active 84254366 Problem Essential hypertension I10 Active 11000617 Problem Neuropathy G62.9 Active 237497553 Problem Pain in right leg M79.604 Active 15211489 Problem Restrictive lung disease J98.4 Active 91323547 Problem Hypothyroidism, unspecified type E03.9 Active 08427874 Problem Chronic kidney disease, stage 4, severely decreased GFR N18.4 Active [id number] ALLERGIES No Information ENCOUNTERS Encounter Location Date Diagnosis [facility] [id number] [place] [address] 62915- 2183 Jun, Restrictive lung disease J98.4 [facility] [id number] [place] [address] 70521- 0512 Jun, [facility] [id number] [place] [address] 36718- 0257 Jun, [facility] [id number] [place] [address] 91330- 2733 May, [facility] [id number] [place] [address] 68820- 5372 May, [facility] [address] [address]- [address] May, Nausea and vomiting, intractability of vomiting not specified, unspecified vomiting type R11.2 [facility] [id number] [place] [address] 70959- 8171 May, Restrictive lung disease J98.4 [facility] [address] [address] 9829 May, [facility] [address] [address] 2902 May, [facility] [address] [address] 1186 Apr, Chronic kidney disease, stage 4, severely decreased GFR N18.4 and Essential hypertension I10 [facility] [address] [address] 7085 March, [facility] [id number] [place] [address] 08415- 4657 March, [facility] [address] [address] 9[address] March, Medicare annual wellness visit, initial Z00.00 ; Chronic kidney disease, stage 4, severely decreased GFR N18.4 ; Hypothyroidism, unspecified type E03.9 and Neuropathy G62.9 [facility] [address] [address] Feb, Restrictive lung disease J98.4 ; Hypothyroidism, unspecified type E03.9 and Neuropathy G62.9 [facility] [address] [address] 7798 Nov, Pain in right leg M79.604 [facility] [address] [address]- 9307 Nov, [facility] [address] [address]- 4080 Nov, Dysuria R30.0 and Acute cystitis without hematuria N30.00 [facility] [address] [address] 5769 Nov, Pain in right leg M79.604 [facility] [address] [address] 5460 Sep, [facility] [id number] [place] [address] 92005- 2393 Jul, Neuropathy G62.9 [facility] [address] [address]- 6134 14 Jul, 2017 Pain in right leg M79.604 [facility] [id number] [place] [address] 35092- 6802 Jul, [facility] [address] 60467- 6204 Apr, [facility] [id number] [place] [address] 06784- 5238 Feb, Bronchitis J40 and Chronic kidney disease, stage 4, severely decreased GFR N18.4 [facility] [id number] [place] [address] 34127- 9144 Jan, Nausea and vomiting, intractability of vomiting not specified, unspecified vomiting type R11.2 [facility] [id number] [place] [address] 87767- 4504 Jan, Pain in right leg M79.604 [facility] [address] 05969- 6508 Jan, Hypothyroidism, unspecified type E03.9 [facility] [id number] [place] [address] 36851- 7102 Jan, Pain in right leg M79.604 [facility] [id number] [place] [address] 46941- 1588 Dec, Acute non-recurrent maxillary sinusitis J01.00 [facility] [address] 34277- 6334 Dec, [facility] [id number] [place] [address] 26298- 2576 Dec, Chronic kidney disease, stage 4, severely decreased GFR N18.4 [facility] [address] [address]- 8832 13 Oct, 2016 [facility] [id number] [place] [address] 12750 -9173 Oct, Shortness of breath R06.02 [facility] [address] [address]- 7057 Oct, [facility] [id number] [place] [address] 01563- 1435 Oct, [facility] [id number] [place] [address] 57746- 6441 Sep, Pain in right leg M79.604 and Restrictive lung disease J98.4 [facility] [address] [address]- 9963 Sep, [facility] [id number] [place] [address] 02446- 9752 Aug, Restrictive lung disease J98.4 and Acute left eye pain H57.12 [facility] [address] [address]- 8825 Aug, [facility] [address] [place] [address] 67130- 4487 Aug, [facility] [address] [address]- 4076 Jun, [facility] [address] [address]- 3659 Jun, [facility] [id number] [address]- 4619 Jun, [facility] [id number] [address]- 9155 Jun, [facility] [id number] [address]- 1261 Jun, Restrictive lung disease J98.4 and Pain in right leg M79.604 [facility] [address] [id number] [place] [address]- 3594 Jun, [facility] [place] [facility] [address] [facility] [id number] [place] [address]- 1104 Jun, [facility] [place] [facility] [address] [facility] [id number] [place] [address]- 4993 May, 2016 Restrictive lung disease J98.4 and Kidney failure N19 [facility] [place] [facility] [address] [id number] [place] [address]- 4675 May, [facility] [place] [facility] [address] [id number] [place] [address]- 0586 May, [facility] [place] [facility] [address] [facility] [id number] [place] [address]- 3970 Apr, [facility] [place] [facility] [id number] [place] [address]- 5815 Dec, [facility] [place] [facility] [address] [facility] [id number] [place] [address]- 6273 Dec, [facility] [place] [facility] [address] [facility] [id number] [place] [address]- 4852 Aug, [facility] [place] [facility] [id number] [place] [place] [address]- 2916 Feb, [facility] [place] [facility] [id number] [place] [address]- 8207 Feb, [facility] [place] [facility] [address] [facility] [id number] [place] [address]- 7682 18 Jan, 2015 [facility] [place] [facility] [address] [id number] [place] [address]- 7681 18 Jan, 2015 [facility] [place] [facility] [address] [facility] [id number] [place] 4943 17 Jan, 2015 [facility] [place] [facility] [id number] [place] [address]- 6449 14 Jan, 2015 [facility] [place] [facility] [address] [id number] [place] [address]- 7185 13 Jan, 2015 [facility] [place] [facility] [address] [id number] [place] [address]- 0459 13 Jan, 2015 [facility] [place] [facility] [address] [id number] [place] [address]- 2997 11 Jan, 2015 [facility] [place] [facility] [address] [id number] [place] [address]- 6295 11 Jan, 2015 [facility] [place] [facility] [address] [id number] [place] [address]- 7351 10 Jan, 2015 [facility] [place] [facility] [address] [id number] [place] [address]- 9328 Jan, [facility] [place] [facility] [address] [facility] [id number] [place] [address]- 8902 Jan, [facility] [place] [facility] [address] [id number] [place] [address]- 0165 Dec, [facility] [place] [facility] [address] [id number] [place] [address]- 3627 Dec, [facility] [place] [facility] [address] [facility] [id number] [place] [address]- 4481 Dec, [facility] [place] [facility] [address] [facility] [id number] [place] [address]- 3457 Dec, [facility] [place] [facility] [address] [id number] [place] [address]- 1671 Dec, [facility] [place] [facility] [address] [id number] [place] [address]- 4278 Dec, [facility] [place] [facility] [address] [id number] [place] [address]- 5105 Nov, [facility] [place] [facility] [address] [id number] [place] [address]- 7645 Nov, [facility] [place] [facility] [address] [facility] [id number] [place] [address]- 4939 Oct, [facility] [place] [facility] [address] [id number] [place] [address]- 9033 Oct, [facility] [place] [facility] [address] [id number] [place] [address]456 Oct, [facility] [place] [facility] [address] [id number] [place] [address]- 6763 Oct, [facility] [place] [facility] [address] [id number] [place] [address]555 Oct, [facility] [place] [facility] [address] [id number] [place] [address]- 1513 Oct, [facility] [place] [facility] [address] [id number] [place] [address]- 4003 Oct, [facility] [place] [facility] [address] [id number] [place] [address]- 0713 Oct, [facility] [place] [facility] [address] [id number] [place] [address]- 1542 Jul, [facility] [place] [facility] [address] [id number] [place] [address]- 1918 Jul, [facility] [place] [facility] [address] [id number] [place] [address]- 1092 Jul, [facility] [place] [facility] [address] [id number] [place] [address]- 0642 Jul, [facility] [place] [facility] [address] [id number] [place] [address]- 1361 Jul, [facility] [place] [facility] [address] [id number] [place] [address]- 3064 Jun, [facility] [place] [facility] [address] [id number] [place] [address]- 5498 May, [facility] [place] [facility] [address] [id number] [place] [address]- 8887 May, [facility] [place] [facility] [address] [id number] [place] [address]- 0180 May, [facility] [address] [id number] [place] [address]- 2217 Feb, [facility] [place] [facility] [address] [id number] [place] [address]- 0682 Feb, [facility] [address] [id number] [place] [address]- 1606 Feb, [facility] [place] [facility] [address] [id number] [place] [address]- 2673 Feb, [facility] [address] [id number] [place] [address]- 1674 Feb, [facility] [place] [facility] [address] [id number] [place] [address]- 3206 Feb, [facility] [place] [facility] [address] [id number] [place] [address]- 4797 Feb, [facility] [address] [id number] [place] [address]- 0096 Feb, [facility] [place] [facility] [address] [id number] [place] [address]- 6077 Feb, [facility] [address] [id number] [place] [address]- 9285 Feb, [facility] [place] [facility] [address] [id number] [place] [address]- 8138 Aug, [facility] [place] [facility] [address] [id number] [place] [address]- 3372 Aug, [facility] [place] [facility] [address] [id number] [place] [address]- 3957 Aug, [facility] [place] [facility] [address] [id number] [place] [address]- 3796 Aug, [facility] [place] [facility] [address] [id number] [place] [address]- 3303 Jan, [facility] [place] [facility] [address] [id number] [place] [address]- 2684 Dec, [facility] [place] [facility] [address] [id number] [place] [address]- 4156 Aug, [facility] [place] [facility] [address] [id number] [place] [address]- 8426 May, [facility] [place] [facility] [address] [id number] [place] [address]- 0916 Apr, [facility] [place] [facility] [address] [id number] [place] [address]- 0298 Apr, [facility] [place] [facility] [address] [id number] [place] [address]- 8146 Apr, [facility] [place] [facility] [address] [id number] [place] [address]- 2466 Apr, [facility] [place] [facility] [address] [id number] [place] [address]- 4806 Nov, [facility] [place] [facility] [address] [id number] [place] [address]- 1302 Oct, [facility] [place] [facility] [address] [facility] [id number] [address]- 7356 Oct, [facility] [place] [facility] [address] [facility] [id number], [place] [address]- 7606 Oct, [facility] [place] [facility] [address] [id number], [place] [address]- 4366 Sep, [facility] [place] [facility] [address] [id number] [place] [address]- 1410 Sep, [facility] [place] [facility] [address] [id number], [place] [address]- 6926 Sep, [facility] [place] [facility] [address] [facility] [id number], [place] [address]- 2896 Apr, [facility] [place] [facility] [address] [id number], [place] [address]- 2546 Sep, [facility] [address] [facility] [id number], [place] [address]- 4627 Jan, [facility] [address] [facility] [id number], [place] [address]- 1256 Aug, [facility] [address] [facility] [id number], [place] [address]- 9018 Aug, [facility] [address] [facility] [id number], [place] [address]- 5765 May, IMMUNIZATIONS No Known Immunizations SOCIAL HISTORY Never Assessed REASON FOR VISIT PLAN OF CARE VITAL SIGNS MEDICATIONS Unknown [...] fluid around lungs 2016 Hospitalization History Pneumonia Nikki TIJERINA 04/16-04/17
--- OUTSIDE RECORDS SUMMARY | 2019-03-18 14:29 | XMS REPORT ---
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 Name Role Phone WILVER SIMENTAL Unavailable PROBLEMS Type Condition ICD9-CM Code NCK34-YQ Code Onset Dates Condition Status SNOMED Code Problem Kidney failure N19 Active 73794681 Problem Essential hypertension I10 Active 30307874 Problem Neuropathy G62.9 Active 233860891 Problem Pain in right leg M79.604 Active 97531113 Problem Restrictive lung disease J98.4 Active 49493794 Problem Hypothyroidism, unspecified type E03.9 Active 19038124 Problem Chronic kidney disease, stage 4, severely decreased GFR N18.4 Active [id number] ALLERGIES No Information ENCOUNTERS Encounter Location Date Diagnosis [facility] [id number] [place] [address]7942- 9800 Jun, Restrictive lung disease J98.4 [facility] [id number] [place] [address] 03361- 7842 Jun, [facility] [id number] [place] [address] 40496- 0541 Jun, [facility] [id number] [place] [address] 99061- 3310 May, [facility] [id number] [place] [address] 49898- 8754 May, [facility] [address] [address]- [address] May, Nausea and vomiting, intractability of vomiting not specified, unspecified vomiting type R11.2 [facility] [id number] [place] [address] 24274- 8917 May, Restrictive lung disease J98.4 [facility] [address] [address] May, [facility] [address] [address] 7065 May, [facility] [address] [address] 8153 Apr, Chronic kidney disease, stage 4, severely decreased GFR N18.4 and Essential hypertension I10 [facility] [address] [address] 477[address] March, [facility] [id number] [place] [address] 23726- 5148 March, [facility] [address] [address] 6896 March, Medicare annual wellness visit, initial Z00.00 ; Chronic kidney disease, stage 4, severely decreased GFR N18.4 ; Hypothyroidism, unspecified type E03.9 and Neuropathy G62.9 [facility] [address] [address] Feb, Restrictive lung disease J98.4 ; Hypothyroidism, unspecified type E03.9 and Neuropathy G62.9 [facility] [address] [address] 2025 Nov, Pain in right leg M79.604 [facility] [address] [address] 5[address] Nov, [facility] [address] [address] 2768 Nov, Dysuria R30.0 and Acute cystitis without hematuria N30.00 [facility] [address] [address]- 4933 Nov, Pain in right leg M79.604 [facility] [address] [address]- 7096 Sep, [facility] [id number] [place] [address] 68824- 5890 Jul, Neuropathy G62.9 [facility] [address] 93274- 7105 14 Jul, 2017 Pain in right leg M79.604 [facility] [id number] [place] [address] 09112- 8888 Jul, [facility] [address] 20481- 9007 Apr, [facility] [id number] [place] [address] 32197- 8772 Feb, Bronchitis J40 and Chronic kidney disease, stage 4, severely decreased GFR N18.4 [facility] [id number] [place] [address] 06047- 8634 Jan, Nausea and vomiting, intractability of vomiting not specified, unspecified vomiting type R11.2 [facility] [id number] [place] [address] 79499- 3198 Jan, Pain in right leg M79.604 [facility] [address] 34090- 6512 Jan, Hypothyroidism, unspecified type E03.9 [facility] [id number] [place] [address] 42040- 8897 Jan, Pain in right leg M79.604 [facility] [id number] [place] [address] 83741- 5437 Dec, Acute non-recurrent maxillary sinusitis J01.00 [facility] [address] 55357- 3798 Dec, [facility] [id number] [place] [address] 03334- 6656 Dec, Chronic kidney disease, stage 4, severely decreased GFR N18.4 [facility] [address] [address]- 5133 13 Oct, 2016 [facility] [id number] [place] [address] 70761 -7462 Oct, Shortness of breath R06.02 [facility] [address] [address]- 9523 Oct, [facility] [id number] [place] [address] 93200- 7531 Oct, [facility] [id number] [place] [address] 01350- 6527 Sep, Pain in right leg M79.604 and Restrictive lung disease J98.4 [facility] [address] [address]- 8976 Sep, [facility] [id number] [place] [address] 48318- 7687 Aug, Restrictive lung disease J98.4 and Acute left eye pain H57.12 [facility] [address] [address]- 7003 Aug, [facility] [id number] [place] [address] 81698- 9408 Aug, [facility] [address] [address]- 0614 Jun, [facility] [address] [address]- 9900 Jun, [facility] [id number] [address]- 3025 Jun, [facility] [id number] [address]- 5912 Jun, [facility] [id number] [address]- 3044 Jun, Restrictive lung disease J98.4 and Pain in right leg M79.604 [facility] [address] [id number] [place] [address]- 0442 Jun, [facility] [place] [facility] [address] [facility] [id number] [place] [address]- 4159 Jun, [facility] [place] [facility] [address] [facility] [id number] [place] [address]- 1398 May, 2016 Restrictive lung disease J98.4 and Kidney failure N19 [facility] [place] [facility] [address] [id number] [place] [address]- 3513 May, [facility] [place] [facility] [address] [id number] [place] [address]- 5951 May, [facility] [place] [facility] [address] [facility] [id number] [place] [address]- 7427 Apr, [facility] [place] [facility] [id number] [place] [address]- 6359 Dec, [facility] [place] [facility] [address] [facility] [id number] [place] [address]- 8147 Dec, [facility] [place] [facility] [address] [facility] [id number] [place] [address]- 5926 Aug, [facility] [place] [facility] [id number] [place] [address]- 2230 Feb, [facility] [place] [facility] [id number] [place] [address]- 6584 Feb, [facility] [place] [facility] [address] [facility] [id number] [place] [address]- 0993 18 Jan, 2015 [facility] [place] [facility] [address] [id number] [place] [address]- 5074 18 Jan, 2015 [facility] [place] [facility] [address] [facility] [id number] [place] [address]26 17 Jan, 2015 [facility] [place] [facility] [id number] [place] [address]- 1499 14 Jan, 2015 [facility] [place] [facility] [address] [id number] [place] [address]- 5416 13 Jan, 2015 [facility] [place] [facility] [address] [id number] [place] [address]- 6820 13 Jan, 2015 [facility] [place] [facility] [address] [id number] [place] [address]- 0052 11 Jan, 2015 [facility] [place] [facility] [address] [id number] [place] [address]- 3522 11 Jan, 2015 [facility] [place] [facility] [address] [id number] [place] [address]- 9165 10 Jan, 2015 [facility] [place] [facility] [address] [id number] [place] [address]- 5094 Jan, [facility] [place] [facility] [address] [facility] [id number] [place] [address]- 8564 Jan, [facility] [place] [facility] [address] [id number] [place] [address]- 3775 Dec, [facility] [place] [facility] [address] [id number] [place] [address]- 6744 Dec, [facility] [place] [facility] [address] [facility] [id number] [place] [address]- 0985 Dec, [facility] [place] [facility] [address] [facility] [id number] [place] [address]- 4720 Dec, [facility] [place] [facility] [address] [id number] [place] [address]- 7090 Dec, [facility] [place] [facility] [address] [id number] [place] [address]- 7201 Dec, [facility] [place] [facility] [address] [id number] [place] [address]- 1660 Nov, [facility] [place] [facility] [address] [id number] [place] [address]- 9683 Nov, [facility] [place] [facility] [address] [facility] [id number] [place] [address]- 7558 Oct, [facility] [place] [facility] [address] [id number] [place] [address]- 6660 Oct, [facility] [place] [facility] [address] [id number] [place] [address]056 Oct, [facility] [place] [facility] [address] [id number] [place] [address]- 5442 Oct, [facility] [place] [facility] [address] [id number] [place] 9493 Oct, [facility] [place] [facility] [address] [id number] [place] [address]- 2428 Oct, [facility] [place] [facility] [address] [id number] [place] [address]- 6961 Oct, [facility] [place] [facility] [address] [id number] [place] [address]- 8086 Oct, [facility] [place] [facility] [address] [id number] [place] [address]- 4863 Jul, [facility] [place] [facility] [address] [id number] [place] [address]- 4670 Jul, [facility] [place] [facility] [address] [id number] [place] [address]- 9509 Jul, [facility] [place] [facility] [address] [id number] [place] [address]- 5506 Jul, [facility] [place] [facility] [address] [id number] [place] [address]- 1552 Jul, [facility] [place] [facility] [address] [id number] [place] [address]- 9484 Jun, [facility] [place] [facility] [address] [id number] [place] [address]- 6180 May, [facility] [place] [facility] [address] [id number] [place] [address]- 2497 May, [facility] [place] [facility] [address] [id number] [place] [address]- 6624 May, [facility] [address] [id number] [place] [address]- 9575 Feb, [facility] [place] [facility] [address] [id number] [place] [address]- 8084 Feb, [facility] [address] [id number] [place] [address]- 6997 Feb, [facility] [place] [facility] [address] [id number] [place] [address]- 6641 Feb, [facility] [address] [id number] [place] [address]- 2935 Feb, [facility] [place] [facility] [address] [id number] [place] [address]- 4448 Feb, [facility] [place] [facility] [address] [id number] [place] [address]- 6591 Feb, [facility] [address] [id number] [place] [address]- 2745 Feb, [facility] [place] [facility] [address] [id number] [place] [address]- 1415 Feb, [facility] [address] [id number] [place] [address]- 8605 Feb, [facility] [place] [facility] [address] [id number] [place] [address]- 2281 Aug, [facility] [place] [facility] [address] [id number] [place] [address]- 8389 Aug, [facility] [place] [facility] [address] [id number] [place] [address]- 7795 Aug, [facility] [place] [facility] [address] [id number] [place] [address]- 5819 Aug, [facility] [place] [facility] [address] [id number] [place] [address]- 6480 Jan, [facility] [place] [facility] [address] [id number] [place] [address]- 3667 Dec, [facility] [place] [facility] [address] [id number] [place] [address]- 0116 Aug, [facility] [place] [facility] [address] [id number] [place] [address]- 1216 May, [facility] [place] [facility] [address] [id number] [place] [address]- 1496 Apr, [facility] [place] [facility] [address] [id number] [place] [address]- 7766 Apr, [facility] [place] [facility] [address] [id number] [place] [address]- 9496 Apr, [facility] [place] [facility] [address] [id number] [place] [address]- 4976 Apr, [facility] [place] [facility] [address] [id number] [place] [address]- 3376 Nov, [facility] [place] [facility] [address] [id number] [place] [address]- 4544 Oct, [facility] [place] [facility] [address] [facility] [id number] [address]- 8546 Oct, [facility] [place] [facility] [address] [facility] [id number] [place] [address]- 9456 Oct, [facility] [place] [facility] [address] [id number] [address]- 2846 Sep, [facility] [place] [facility] [address] [id number] [place] [address]- 3808 Sep, [facility] [place] [facility] [address] [id number] [place] [address]- 9946 Sep, [facility] [place] [facility] [address] [facility] [id number] [address]- 7966 Apr, [facility] [place] [facility] [address] [id number] [place] [address]- 9186 Sep, [facility] [address] [facility] [id number] [address]- 1430 Jan, [facility] [address] [facility] [id number] [address]- 8080 Aug, [facility] [address] [facility] [id number] [address]- 6593 Aug, [facility] [address] [facility] [id number] [place] [address]234 May, IMMUNIZATIONS No Known Immunizations SOCIAL HISTORY [...]
--- OUTSIDE RECORDS SUMMARY | 2019-03-18 14:29 | XMS REPORT ---
Author Author WILVER SIMENTAL Organization [facility] Address [address] [place] [address] Care Team Providers Care Materials Planner Name Role Phone WILVER SIMENTAL Unavailable PROBLEMS Type Condition ICD9-CM Code ANC06-PL Code Onset Dates Condition Status SNOMED Code Problem Kidney failure N19 Active 48970478 Problem Essential hypertension I10 Active 19615444 Problem Neuropathy G62.9 Active 676232675 Problem Pain in right leg M79.604 Active 56100978 Problem Restrictive lung disease J98.4 Active 18805453 Problem Hypothyroidism, unspecified type E03.9 Active 65021161 Problem Chronic kidney disease, stage 4, severely decreased GFR N18.4 Active 146039521 ALLERGIES Substance Reaction Event Type Date Status Morphine Sulfate Unknown Drug Allergy May, Active ENCOUNTERS Encounter Location Date Diagnosis [facility] [id number] [place] [address] 42603- 1901 Jun, Restrictive lung disease J98.4 [facility] [id number] [place] [address] 10116- 7558 Jun, [facility] [id number] [place] [address] 56876- 0081 Jun, [facility] [id number] [place] [address] 72928- 9958 May, [facility] [id number] [place] [address] 75501- 0477 May, [facility] [id number] [place] [address] 34018- 2702 May, Nausea and vomiting, intractability of vomiting not specified, unspecified vomiting type R11.2 [facility] [id number] [place] [address] 82478- 3326 May, Restrictive lung disease J98.4 [facility] [address] [address] 7589 May, [facility] [address] [address] 9074 May, [facility] [address] [address] 2072 Apr, Chronic kidney disease, stage 4, severely decreased GFR N18.4 and Essential hypertension I10 [facility] [id number] [place] [address] 72190- 8924 March, [facility] [id number] [place] [address] 04170- 9342 March, [facility] [id number] [place] [address] 05328- 5562 March, Medicare annual wellness visit, initial Z00.00 ; Chronic kidney disease, stage 4, severely decreased GFR N18.4 ; Hypothyroidism, unspecified type E03.9 and Neuropathy G62.9 [facility] [id number] [place] [address] 15622- 2741 Feb, Restrictive lung disease J98.4 ; Hypothyroidism, unspecified type E03.9 and Neuropathy G62.9 [place] [address] [address]- 2352 Nov, Pain in right leg M79.604 [facility] [id number] [place] [address] 97908- 2967 Nov, [facility] [id number] [place] [address] 73955- 7771 Nov, Dysuria R30.0 and Acute cystitis without hematuria N30.00 [facility] [address] [address] 3836 Nov, Pain in right leg M79.604 [place] [id number] [place] [address] 18514- 1399 Sep, [facility] [id number] [place] [address] 04804- 5988 Jul, Neuropathy G62.9 [facility] [id number] [place] [address] 20972- 9963 14 Jul, 2017 Pain in right leg M79.604 [facility] [id number] [place] [address] 25040- 2374 Jul, [facility] [id number] [place] [address] 40848- 4316 Apr, [facility] [id number] [place] [address] 14292- 8823 Feb, Bronchitis J40 and Chronic kidney disease, stage 4, severely decreased GFR N18.4 [facility] [id number] [place] [address] 11434- 4611 Jan, Nausea and vomiting, intractability of vomiting not specified, unspecified vomiting type R11.2 [facility] [id number] [place] [address] 65550- 7508 Jan, Pain in right leg M79.604 [facility] [id number] [place] [address] 52889- 3383 Jan, Hypothyroidism, unspecified type E03.9 [facility] [id number] [place] [address] 16415- 5305 Jan, Pain in right leg M79.604 [facility] [id number] [place] [address] 19033- 0280 Dec, Acute non-recurrent maxillary sinusitis J01.00 [facility] [id number] [place] [address] 37269- 8642 Dec, [facility] [id number] [place] [address] 00870- 5902 Dec, Chronic kidney disease, stage 4, severely decreased GFR N18.4 [facility] [address] [address]- 4961 Oct, [facility] [id number] [place] [address] 97353 -4034 Oct, Shortness of breath R06.02 [facility] [id number] [place] [address] 95920- 8627 Oct, [facility] [id number] [place] [address] 59464- 2427 Oct, [facility] [id number] [place] [address] 20994- 2272 Sep, Pain in right leg M79.604 and Restrictive lung disease J98.4 [facility] [id number] [place] [address] 97271- 1624 Sep, [facility] [id number] [place] [address] 79217- 0218 Aug, Restrictive lung disease J98.4 and Acute left eye pain H57.12 [facility] [id number] [place] [address] 95763- 9376 Aug, [facility] [id number] [place] [address] 46269- 0008 Aug, [facility] [id number] [place] [address] 73094- 6624 Jun, [facility] [id number] [place] [address] 72711- 0857 Jun, [facility] [id number] [place] [address] 18493- 5556 Jun, [facility] [id number] [place] [address] 84160- 2227 Jun, [facility] [id number] [place] [address] 72543- 9274 Jun, Restrictive lung disease J98.4 and Pain in right leg M79.604 [facility] [address] [facility] [id number] [place] [address]- 0586 Jun, [facility] [address] [facility] [id number] [place] [address] 2546 Jun, [facility] [address] [facility] [id number] [place] [address]- 0267 May, Restrictive lung disease J98.4 and Kidney failure N19 [facility] [address] [facility] [id number] [place] [address] 2546 May, [facility] [address] [facility] [id number] [place] [address]- 9556 May, [facility] [address] [facility] [id number] [place] [address]- 3317 Apr, [facility] [id number] [address]- 2418 Dec, [facility] [address] [facility] [id number] [place] [address]- 3297 Dec, [facility] [id number] [address]- 1930 Aug, [facility] [id number] [address]- 2225 14 Feb, 2015 [facility] [id number] [address]- 5005 13 Feb, 2015 [facility] [address] [facility] [id number] [place] [address]- 5054 18 Jan, 2015 [facility] [address] [facility] [id number] [place] [address] 2546 18 Jan, 2015 [facility] [address] [facility] [id number] [place] [address] 2546 17 Jan, 2015 [facility] [id number] [address]- 3197 14 Jan, 2015 [facility] [place] [facility] [address] [id number] [place] [address]- 7726 13 Jan, 2015 [facility] [place] [facility] [address] [id number] [place] [address]- 5578 13 Jan, 2015 [facility] [place] [facility] [address] [id number] [place] [address]- 9110 11 Jan, 2015 [facility] [place] [facility] [address] [id number] [place] [address]- 3228 11 Jan, 2015 [facility] [place] [facility] [address] [id number] [place] [address]- 4128 10 Jan, 2015 [facility] [place] [facility] [address] [id number] [place] [address]- 3908 10 Jan, 2015 [facility] [place] [facility] [address] [id number] [place] [address]- 3408 Jan, [facility] [place] [facility] [address] [id number] [place] [address]- 4951 Dec, [facility] [place] [facility] [address] [id number] [place] [address]- 7923 Dec, [facility] [place] [facility] [address] [id number] [place] [address]- 4992 Dec, [facility] [place] [facility] [address] [id number] [place] [address]- 7927 Dec, [facility] [place] [facility] [address] [id number] [place] [address]- 3900 Dec, [facility] [place] [facility] [address] [id number] [place] [address]- 7966 Dec, [facility] [place] [facility] [address] [id number] [place] [address]- 1474 Nov, [facility] [place] [facility] [address] [id number] [place] [address]- 2192 Nov, [facility] [place] [facility] [address] [id number] [place] [address]- 1431 Oct, [facility] [place] [facility] [address] [id number] [place] [address]- 5066 Oct, [facility] [place] [facility] [address] [id number] [place] [address]- 0596 Oct, [facility] [place] [facility] [address] [id number] [place] [address]- 2840 Oct, [facility] [place] [facility] [address] [id number] [place] [address]- 1506 Oct, [facility] [place] [facility] [address] [id number] [place] [address]- 8341 Oct, [facility] [place] [facility] [address] [id number] [place] [address]- 3029 Oct, [facility] [place] [facility] [address] [id number] [place] [address]- 2478 Oct, [facility] [place] [facility] [address] [id number] [place] [address]- 4393 Jul, [facility] [place] [facility] [address] [id number] [place] [address]- 3860 Jul, [facility] [place] [facility] [address] [id number] [place] [address]- 6205 Jul, [facility] [place] [facility] [address] [id number] [place] [address] 2544 Jul, [facility] [place] [facility] [address] [id number] [place] [address]- 2542 Jul, [facility] [place] [facility] [address] [id number] [place] [address]- 3290 Jun, [facility] [place] [facility] [address] [id number] [place] [address]- 0426 May, [facility] [place] [facility] [address] [id number] [place] [address]- 5687 May, [facility] [place] [facility] [address] [id number] [place] [address]- 0932 May, [facility] [place] [facility] [address] [id number] [place] [address]- 2453 Feb, [facility] [place] [facility] [address] [id number] [place] [address]- 0938 Feb, [facility] [place] [facility] [address] [id number] [place] [address]- 7084 Feb, [facility] [place] [facility] [address] [id number] [place] [address]- 3391 Feb, [facility] [place] [facility] [address] [id number] [place] [address]- 9285 Feb, [facility] [place] [facility] [address] [id number] [place] [address]- 2582 Feb, [facility] [place] [facility] [address] [id number] [place] [address]- 2629 Feb, [facility] [place] [facility] [address] [id number] [place] [address]- 2556 Feb, [facility] [place] [facility] [address] [id number] [place] [address]- 0723 Feb, [facility] [place] [facility] [address] [id number] [place] [address]- 0263 Feb, [facility] [place] [facility] [address] [id number] [place] [address]- 7878 Aug, [facility] [place] [facility] [address] [id number] [place] [address]- 2616 Aug, [facility] [place] [facility] [address] [id number] [place] [address]- 1250 Aug, [facility] [place] [facility] [address] [id number] [place] 9767 Aug, [facility] [place] [facility] [address] [id number] [place] [address]- 7620 Jan, [facility] [address] [id number] [place] [address]- 4809 Dec, [facility] [place] [facility] [address] [id number] [place] [address]- 3243 Aug, [facility] [place] [facility] [address] [id number] [place] [address]- 3787 May, [facility] [place] [facility] [address] [id number] [place] [address]- 8221 Apr, [facility] [place] [facility] [address] [id number] [place] [address]- 1507 Apr, [facility] [place] [facility] [address] [id number] [place] [address]- 1691 Apr, [facility] [address] [facility] [id number] [place] [address]- 5643 Apr, [facility] [place] [facility] [address] [id number] [place] [address]- 7228 Nov, [facility] [place] [facility] [address] [id number] [place] [address]- 7635 Oct, [facility] [place] [facility] [address] [facility] [id number] [place] [address]- 1367 Oct, [facility] [place] [facility] [address] [id number] [place] [address]- 9685 Oct, [facility] [place] [facility] [address] [id number] [place] [address]- 8737 Sep, [facility] [place] [facility] [address] [id number] [place] [address]- 3233 Sep, [facility] [place] [facility] [address] [facility] [id number] [place] [address]- 7457 Sep, [facility] [place] [facility] [address] [facility] [id number] [place] [address]- 3089 17 Apr, 2011 [facility] [place] [facility] [address] [facility] [id number] [place] [address]- 9633 Sep, [facility] [address] [facility] [id number] [place] [address]- 3789 Jan, [facility] [address] [facility] [id number] [place] [address]- 2296 Aug, [facility] [address] [facility] [id number] [place] [address]- 5450 Aug, [facility] [address] [facility] [id number] [place] [address]- 9220 May, IMMUNIZATIONS No Known Immunizations SOCIAL HISTORY Never Assessed REASON FOR VISIT Oxygen Certification, Resting o2 on RA, Walking o2 on RA, Walking o2 on OxygenCBrumbackRN PLAN OF CARE Activity Details Follow Up Routine appt Reason: VITAL SIGNS Height 67 in 2018-05-29 Weight 183.42 lbs 2018-05-29 Temperature 98.5 degrees Fahrenheit 2018-05-29 Heart Rate 76 bpm 2018-05-29 Respiratory Rate 20 2018-05-29 Oximetry on room air:83 % 2018-05-29 BMI 28.72 kg/m2 2018-05-29 Blood pressure systolic 178 mmHg 2018-05-29 Blood pressure diastolic 70 mmHg 2018-05-29 MEDICATIONS Medication Instructions Dosage Frequency Start Date End Date Duration Status Valium 5 mg Orally Twice a day 1 tablet as needed 12h Apr, 30 days Active Levothyroxine Sodium 25 MCG Orally Once a day 1 tablet 24h 30 Active Amlodipine Besylate 10 TAKE ONE TABLET BY MOUTH DAILY 30 Active Symbicort 160-4.5 MCG/ACT Inhalation Twice a day 2 puffs 12h Active Advair Diskus 250-50 MCG/DOSE Inhalation Twice a day 1 puff 12h Active Levothyroxine Sodium 25 TAKE ONE TABLET BY MOUTH DAILY 30 Active Clonidine HCl 0.1 TAKE ONE TABLET BY MOUTH DAILY 30 Active Albuterol Sulfate (2.5 MG/3ML) 0.083% Inhalation Three times a day 3 ml 8h Feb, 0 days Active Oxygen 2 L/NC as directed May, Active Carvedilol 25 MG TAKE ONE TABLET BY MOUTH TWICE DAILY 30 Active Furosemide 80 MG Orally Once a day 2 tablet 24h Active HydrALAZINE HCl 25 MG Orally Three times a day 1 tablet with food 8h Active Pravastatin Sodium 40 TAKE ONE TABLET BY MOUTH DAILY 90 Active HydrALAZINE HCl 25 TAKE ONE TABLET BY MOUTH EVERY 8 HOURS 30 Active Pantoprazole Sodium 40 MG TAKE ONE TABLET BY MOUTH ONCE DAILY BEFORE BREAKFAST 30 Active Carvedilol 25 TAKE ONE TABLET BY MOUTH TWICE A DAY 30 Active Diazepam & Diet Manage Prod 5 MG Active Oxycodone HCl 20 mg Orally every 6 hrs as needed 1 tablet Jul, 28 days Active Nephro-Karina 0.8 MG Orally Once a day 1 tablet 24h 23 Apr, 2016 Active Pravachol 40 mg Orally -MUST SEE DR. SIMENTAL FOR REFILLS Once a day 1 tablet 24h 30 Active HydrOXYzine HCl 25 MG Orally every 6 hr prn itching 1 tablet as needed Active Oxygen as directed May, Active RESULTS No Results PROCEDURES Procedure Date Ordered Result Body Site [facility] VISIT ESTABLISHED PATIENT May 29, 2018 INSTRUCTIONS MEDICATIONS ADMINISTERED No Known Medications MEDICAL (GENERAL) HISTORY Type Description Date Medical History kidney failure-dialysis Medical History hypertension Medical History Pneumonia 2017 Surgical History tracheotomy Surgical History fistula left wrist Surgical History back surgery Surgical History port right chest Hospitalization History pneumonia Hospitalization History fluid around lungs 2015 Hospitalization History [place] 04/16-04/17
[2019-03-18] MEDS ORDERED: RT-ALBUTEROL/IPRATROPIUM 3 ML (DUONEB) VIAL ONE (14:30)
[2019-03-18] MEDS ORDERED: RT-ALBUTEROL SULF 2.5 MG/3 ML PRE-MIX VIAL ONE (14:30)
--- OUTSIDE RECORDS SUMMARY | 2019-03-18 14:30 | XMS REPORT ---
Author Author WILVER SIMENTAL Organization [facility] Address [address] [place] [address] Care Team Providers Care Livestock Showman Name Role Phone WILVER SIMENTAL Unavailable PROBLEMS Type Condition ICD9-CM Code LHF59-SS Code Onset Dates Condition Status SNOMED Code Problem Kidney failure N19 Active 11926356 Problem Essential hypertension I10 Active 23017434 Problem Neuropathy G62.9 Active 684300492 Problem Pain in right leg M79.604 Active 40507612 Problem Restrictive lung disease J98.4 Active 14073843 Problem Hypothyroidism, unspecified type E03.9 Active 77788511 Problem Chronic kidney disease, stage 4, severely decreased GFR N18.4 Active 208035604 ALLERGIES No Information ENCOUNTERS Encounter Location Date Diagnosis [facility] [id number] [place] [address] 93844- 0110 Jun, Restrictive lung disease J98.4 [facility] [id number] [place] [address] 71297- 2995 Jun, [facility] [id number] [place] [address] 28983- 0450 Jun, [facility] [id number] [place] [address] 70063- 2773 May, [facility] [id number] [place] [address] 02966- 3898 May, [facility] [address] [address]- [address] May, Nausea and vomiting, intractability of vomiting not specified, unspecified vomiting type R11.2 [facility] [id number] [place] [address] 04657- 8237 May, Restrictive lung disease J98.4 [facility] [address], [place] [address] May, [facility] [address] [address] 77[address] May, [facility] [address], [place] [address] 9370 Apr, Chronic kidney disease, stage 4, severely decreased GFR N18.4 and Essential hypertension I10 [facility] [address], [place] [address] 30[address] March, [facility] [id number] [place] [address] 23863- 2564 March, [facility] [address], [place] [address] 3[address] March, Medicare annual wellness visit, initial Z00.00 ; Chronic kidney disease, stage 4, severely decreased GFR N18.4 ; Hypothyroidism, unspecified type E03.9 and Neuropathy G62.9 [facility] [address], [place] [address] Feb, Restrictive lung disease J98.4 ; Hypothyroidism, unspecified type E03.9 and Neuropathy G62.9 [facility] [address], [place] [address] 64[address] Nov, Pain in right leg M79.604 [facility] [address], [place] [address] 4030 Nov, [facility] [address], [place] [address] 5[address] Nov, Dysuria R30.0 and Acute cystitis without hematuria N30.00 [facility] [address], [place] [address] 0682 Nov, Pain in right leg M79.604 [facility] [address], [place] [address] 0571 Sep, [facility] [id number] [place] [address] 81656- 5583 Jul, Neuropathy G62.9 [facility] [address] [address]27- 6723 14 Jul, 2017 Pain in right leg M79.604 [facility] [id number] [place] [address] 55106- 7385 Jul, [facility] [address] [address]- 8323 Apr, [facility] [id number] [place] [address] 12136- 9746 Feb, Bronchitis J40 and Chronic kidney disease, stage 4, severely decreased GFR N18.4 [facility] [id number] [place] [address] 11288- 8605 Jan, Nausea and vomiting, intractability of vomiting not specified, unspecified vomiting type R11.2 [facility] [id number] [place] [address] 57683- 9496 Jan, Pain in right leg M79.604 [facility] [address] 32855- 6383 Jan, Hypothyroidism, unspecified type E03.9 [facility] [id number] [place] [address] 49590- 9469 Jan, Pain in right leg M79.604 [facility] [id number] [place] [address] 50405- 8988 Dec, Acute non-recurrent maxillary sinusitis J01.00 [facility] [address] 68006- 9350 Dec, [facility] [id number] [place] [address] 55023- 3978 Dec, Chronic kidney disease, stage 4, severely decreased GFR N18.4 [facility] [address], [place] [address]- 8005 13 Oct, 2016 [facility] [id number] [place] [address] 34916 -2745 Oct, Shortness of breath R06.02 [facility] [address], [place] [address]- 0912 Oct, [facility] [id number] [place] [address] 96232- 7776 Oct, [facility] [address] [place] [address] 03745- 6423 Sep, Pain in right leg M79.604 and Restrictive lung disease J98.4 [facility] [address], [place] [address]- 0339 Sep, [facility] [id number] [place] [address] 47629- 3206 Aug, Restrictive lung disease J98.4 and Acute left eye pain H57.12 [facility] [address], [place] [address]- 6780 Aug, [facility] [id number] [place] [address] 18026- 6388 Aug, [facility] [address], [place] [address]- 1916 Jun, [facility] [address], [place] [address]- 7058 Jun, [facility] [id number] [address]- 4290 Jun, [facility] [id number] [address]- 0694 Jun, [facility] [id number] [address]- 9726 Jun, Restrictive lung disease J98.4 and Pain in right leg M79.604 [facility] [address] [id number] [place] [address]- 5789 Jun, [facility] [place] [facility] [address] [facility] [id number] [place] [address]- 5027 Jun, [facility] [place] [facility] [address] [facility] [id number] [place] [address]- 7380 May, 2016 Restrictive lung disease J98.4 and Kidney failure N19 [facility] [place] [facility] [address] [id number] [place] [address]- 4742 May, [facility] [place] [facility] [address] [id number] [place] [address]- 4490 May, [facility] [place] [facility] [address] [facility] [id number] [place] [address]- 1450 Apr, [facility] [place] [facility] [id number] [place] [address]- 1943 Dec, [facility] [place] [facility] [address] [facility] [id number] [place] [address]- 4656 Dec, [facility] [place] [facility] [address] [facility] [id number] [place] [address]- 7267 Aug, [facility] [place] [facility] [id number] [place] [address]- 5560 Feb, [facility] [place] [facility] [id number] [place] [address]- 7156 Feb, [facility] [place] [facility] [address] [facility] [id number] [place] [address]- 3988 18 Jan, 2015 [facility] [place] [facility] [address] [id number] [place] [address]- 4889 18 Jan, 2015 [facility] [place] [facility] [address] [facility] [id number] [place] [address]352 17 Jan, 2015 [facility] [place] [facility] [id number] [place] [address]- 6469 14 Jan, 2015 [facility] [place] [facility] [address] [id number] [place] [address]- 6367 13 Jan, 2015 [facility] [place] [facility] [address] [id number] [place] [address]- 1184 13 Jan, 2015 [facility] [place] [facility] [address] [id number] [place] [address]- 5505 11 Jan, 2015 [facility] [place] [facility] [address] [id number] [place] [address]- 8572 11 Jan, 2015 [facility] [place] [facility] [address] [id number] [place] [address]- 3858 10 Jan, 2015 [facility] [place] [facility] [address] [id number] [place] [address]- 4207 Jan, [facility] [place] [facility] [address] [facility] [id number] [place] [address]- 5731 Jan, [facility] [place] [facility] [address] [id number] [place] [address]- 0164 Dec, [facility] [place] [facility] [address] [id number] [place] [address]- 0093 Dec, [facility] [place] [facility] [address] [facility] [id number] [place] [address]- 0625 Dec, [facility] [place] [facility] [address] [facility] [id number] [place] [address]- 4206 Dec, [facility] [place] [facility] [address] [id number] [place] [address]- 6211 Dec, [facility] [place] [facility] [address] [id number] [place] [address]- 9379 Dec, [facility] [place] [facility] [address] [id number] [place] [address]- 3835 Nov, [facility] [place] [facility] [address] [id number] [place] [address]- 3066 Nov, [facility] [place] [facility] [address] [facility] [id number] [place] [address]- 9373 Oct, [facility] [place] [facility] [address] [id number] [place] [address]- 9266 Oct, [facility] [place] [facility] [address] [id number] [place] 7036 Oct, [facility] [place] [facility] [address] [id number] [place] [address]- 2674 Oct, [facility] [place] [facility] [address] [id number] [place] 0946 Oct, [facility] [place] [facility] [address] [id number] [place] [address]- 8024 Oct, [facility] [place] [facility] [address] [id number] [place] [address]- 4066 Oct, [facility] [place] [facility] [address] [id number] [place] [address]- 3293 Oct, [facility] [place] [facility] [address] [id number] [place] [address]- 3934 Jul, [facility] [place] [facility] [address] [id number] [place] [address]- 3500 Jul, [facility] [place] [facility] [address] [id number] [place] [address]- 9649 Jul, [facility] [place] [facility] [address] [id number] [place] [address]- 6184 Jul, [facility] [place] [facility] [address] [id number] [place] [address]- 1476 Jul, [facility] [place] [facility] [address] [id number] [place] [address]- 7695 Jun, [facility] [place] [facility] [address] [id number] [place] [address]- 1231 May, [facility] [place] [facility] [address] [id number] [place] [address]- 7742 May, [facility] [place] [facility] [address] [id number] [place] [address]- 8209 May, [facility] [address] [id number] [place] [address]- 2765 Feb, [facility] [place] [facility] [address] [id number] [place] [address]- 1165 Feb, [facility] [address] [id number] [place] [address]- 2697 Feb, [facility] [place] [facility] [address] [id number] [place] [address]- 0292 Feb, [facility] [address] [id number] [place] [address]- 0694 Feb, [facility] [place] [facility] [address] [id number] [place] [address]- 3781 Feb, [facility] [place] [facility] [address] [id number] [place] [address]- 8984 Feb, [facility] [address] [id number] [place] [address]- 6639 Feb, [facility] [place] [facility] [address] [id number] [place] [address]- 8579 Feb, [facility] [address] [id number] [place] [address]- 8085 Feb, [facility] [place] [facility] [address] [id number] [place] [address]- 4000 Aug, [facility] [place] [facility] [address] [id number] [place] [address]- 9876 Aug, [facility] [place] [facility] [address] [id number] [place] [address]- 4759 Aug, [facility] [place] [facility] [address] [id number] [place] [address]- 0014 Aug, [facility] [place] [facility] [address] [id number] [place] [address]- 0507 Jan, [facility] [place] [facility] [address] [id number] [place] [address]- 6327 Dec, [facility] [place] [facility] [address] [id number] [place] [address]- 3126 Aug, [facility] [place] [facility] [address] [id number] [place] [address]- 8576 May, [facility] [place] [facility] [address] [id number] [place] [address]- 0796 Apr, [facility] [place] [facility] [address] [id number] [place] [address]- 0239 Apr, [facility] [place] [facility] [address] [id number] [place] [address]- 4466 Apr, [facility] [place] [facility] [address] [id number] [place] [address]- 1246 Apr, [facility] [place] [facility] [address] [id number] [place] [address]- 2446 Nov, [facility] [place] [facility] [address] [id number] [place] [address]- 8832 Oct, [facility] [place] [facility] [address] [facility] [id number], [place] [address]- 5066 Oct, [facility] [place] [facility] [address] [facility] [id number], [place] [address]- 4686 Oct, [facility] [place] [facility] [address] [id number], [place] [address]- 3341 Sep, [facility] [place] [facility] [address] [id number] [place] [address]- 6313 Sep, [facility] [place] [facility] [address] [id number], [place] [address]- 9566 Sep, [facility] [place] [facility] [address] [facility] [id number], [place] [address]- 7556 Apr, [facility] [place] [facility] [address] [id number], [place] [address]- 2546 Sep, [facility] [address] [facility] [id number], [place] [address]- 2546 Jan, [facility] [address] [facility] [id number], [place] [address]- 2546 Aug, [facility] [address] [facility] [id number], [place] [address]- 2546 Aug, [facility] [address] [facility] [id number], [place] [address]- 5136 May, IMMUNIZATIONS No Known Immunizations SOCIAL HISTORY Never Assessed REASON FOR VISIT Vomiting PLAN OF CARE VITAL SIGNS MEDICATIONS Medication Instructions Dosage Frequency Start Date End Date Duration Status Zofran ODT 4 MG Orally every 6 hrs 1 tablet on the tongue and allow to dissolve as needed 6h May, Active RESULTS No Results PROCEDURES No Known procedures INSTRUCTIONS MEDICATIONS ADMINISTERED No Known Medications MEDICAL (GENERAL) HISTORY Type Description Date Medical History kidney failure-dialysis Medical History hypertension Medical History Pneumonia 2017 Surgical History tracheotomy Surgical History fistula left wrist Surgical History back surgery Surgical History port right chest Hospitalization History pneumonia Hospitalization History fluid around lungs 2016 Hospitalization History [place]neum[place] 04/16-04/17
--- OUTSIDE RECORDS SUMMARY | 2019-03-18 14:30 | XMS REPORT ---
Author Author WILVER SIMENTAL Organization [facility] Address [address] [place] [address] Care Team Providers Care Etcher Electrolytic Name Role Phone WILVER SIMENTAL Unavailable PROBLEMS Type Condition ICD9-CM Code [id number] Code Onset Dates Condition Status SNOMED Code Problem Kidney failure N19 Active 79219777 Problem Essential hypertension I10 Active 45616947 Problem Neuropathy G62.9 Active 703049751 Problem Pain in right leg M79.604 Active 74988619 Problem Restrictive lung disease J98.4 Active 69535322 Problem Hypothyroidism, unspecified type E03.9 Active 60846559 Problem Chronic kidney disease, stage 4, severely decreased GFR N18.4 Active [id number] ALLERGIES No Information ENCOUNTERS Encounter Location Date Diagnosis [facility] [id number] [place] [address] 62294- 1637 Jun, Restrictive lung disease J98.4 [facility] [id number] [place] [address] 52245- 8843 Jun, [facility] [id number] [place] [address] 27555- 1371 Jun, [facility] [id number] [place] [address] 72902- 4844 May, [facility] [id number] [place] [address] 64729- 1103 May, [facility] [address] [address]- [address] May, Nausea and vomiting, intractability of vomiting not specified, unspecified vomiting type R11.2 [facility] [id number] [place] [address] 85182- 4332 May, Restrictive lung disease J98.4 [facility] [address] [address] 8162 May, [facility] [address] [address] 6516 May, [facility] [address] [address] 4044 Apr, Chronic kidney disease, stage 4, severely decreased GFR N18.4 and Essential hypertension I10 [facility] [address] [address] 8[address] March, [facility] [id number] [place] [address] 35374- 0618 March, [facility] [address] [address] March, Medicare annual wellness visit, initial Z00.00 ; Chronic kidney disease, stage 4, severely decreased GFR N18.4 ; Hypothyroidism, unspecified type E03.9 and Neuropathy G62.9 [facility] [address] [address] Feb, Restrictive lung disease J98.4 ; Hypothyroidism, unspecified type E03.9 and Neuropathy G62.9 [facility] [address] [address] 9[address] Nov, Pain in right leg M79.604 [facility] [address] [address] 36[address] Nov, [facility] [address] [address] 8243 Nov, Dysuria R30.0 and Acute cystitis without hematuria N30.00 [facility] [address] [address] 5902 Nov, Pain in right leg M79.604 [facility] [address] [address] 9051 Sep, [facility] [id number] [place] [address] 74352- 1065 Jul, Neuropathy G62.9 [facility] [address] [address]- 8749 14 Jul, 2017 Pain in right leg M79.604 [facility] [id number] [place] [address] 84770- 3277 Jul, [facility] [address] [address]44- 6732 Apr, [facility] [id number] [place] [address] 25180- 2175 Feb, Bronchitis J40 and Chronic kidney disease, stage 4, severely decreased GFR N18.4 [facility] [id number] [place] [address] 22501- 4121 Jan, Nausea and vomiting, intractability of vomiting not specified, unspecified vomiting type R11.2 [facility] [id number] [place] [address] 41356- 4698 Jan, Pain in right leg M79.604 [facility] [address] [address]377- 5796 Jan, Hypothyroidism, unspecified type E03.9 [facility] [id number] [place] [address] 70978- 7124 Jan, Pain in right leg M79.604 [facility] [id number] [place] [address] 78496- 6708 Dec, Acute non-recurrent maxillary sinusitis J01.00 [facility] [address] 6[address]04- 9457 Dec, [facility] [id number] [place] [address] 92520- 2392 Dec, Chronic kidney disease, stage 4, severely decreased GFR N18.4 [facility] [address] [address]- 0848 13 Oct, 2016 [facility] [id number] [place] [address] 30500 -8069 Oct, Shortness of breath R06.02 [facility] [address] [address]- 5712 Oct, [facility] [id number] [place] [address] 38000- 6365 Oct, [facility] [address] [place] [address] 78129- 5112 Sep, Pain in right leg M79.604 and Restrictive lung disease J98.4 [facility] [address] [address]- 7423 Sep, [facility] [id number] [place] [address] 09253- 1108 Aug, Restrictive lung disease J98.4 and Acute left eye pain H57.12 [facility] [address] [address]- 0337 Aug, [facility] [id number] [place] [address] 05012- 9006 Aug, [facility] [address] [address]- 0241 Jun, [facility] [address] [address]- 5023 Jun, [facility] [id number] [address]- 4198 Jun, [facility] [id number] [address]- 6681 Jun, [facility] [id number] [address] 2008 Jun, Restrictive lung disease J98.4 and Pain in right leg M79.604 [facility] [address] [id number] [place] [address]- 6874 Jun, [facility] [place] [facility] [address] [facility] [id number] [place] [address]- 3712 Jun, [facility] [place] [facility] [address] [facility] [id number] [place] [address]- 2736 May, 2016 Restrictive lung disease J98.4 and Kidney failure N19 [facility] [place] [facility] [address] [id number] [place] [address]- 2446 May, [facility] [place] [facility] [address] [id number] [place] [address]- 2896 May, [facility] [place] [facility] [address] [facility] [id number] [place] [address]- 3610 Apr, [facility] [place] [facility] [id number] [address]- 1237 Dec, [facility] [place] [facility] [address] [facility] [id number] [place] [address]- 8419 Dec, [facility] [place] [facility] [address] [facility] [id number] [place] [address]- 0965 Aug, [facility] [place] [facility] [id number] [place] [address]- 6984 Feb, [facility] [place] [facility] [id number] [address]- 5328 Feb, [facility] [place] [facility] [address] [facility] [id number] [place] [address]- 6635 18 Jan, 2015 [facility] [place] [facility] [address] [id number] [place] [address]- 4800 18 Jan, 2015 [facility] [place] [facility] [address] [facility] [id number] [place] 0770 17 Jan, 2015 [facility] [place] [facility] [id number] [place] [address]- 5280 14 Jan, 2015 [facility] [place] [facility] [address] [id number] [place] [address]- 1571 13 Jan, 2015 [facility] [place] [facility] [address] [id number] [place] [address]- 5910 13 Jan, 2015 [facility] [place] [facility] [address] [id number] [place] [address]- 7707 11 Jan, 2015 [facility] [place] [facility] [address] [id number] [place] [address]- 3523 11 Jan, 2015 [facility] [place] [facility] [address] [id number] [place] [address]- 8702 10 Jan, 2015 [facility] [place] [facility] [address] [id number] [place] [address]- 4576 Jan, [facility] [place] [facility] [address] [facility] [id number] [place] [address]- 3187 Jan, [facility] [place] [facility] [address] [id number] [place] [address]- 4948 Dec, [facility] [place] [facility] [address] [id number] [place] [address]- 5662 Dec, [facility] [place] [facility] [address] [facility] [id number] [place] [address]- 0919 Dec, [facility] [place] [facility] [address] [facility] [id number] [place] [address]- 1055 Dec, [facility] [place] [facility] [address] [id number] [place] [address]- 9960 Dec, [facility] [place] [facility] [address] [id number] [place] [address]- 7025 Dec, [facility] [place] [facility] [address] [id number] [place] [address]- 0417 Nov, [facility] [place] [facility] [address] [id number] [place] [address]- 8614 Nov, [facility] [place] [facility] [address] [facility] [id number] [place] [address]- 9093 Oct, [facility] [place] [facility] [address] [id number] [place] [address]- 5795 Oct, [facility] [place] [facility] [address] [id number] [place] 3815 Oct, [facility] [place] [facility] [address] [id number] [place] [address]- 1839 Oct, [facility] [place] [facility] [address] [id number] [place] 6101 Oct, [facility] [place] [facility] [address] [id number] [place] [address]- 8901 Oct, [facility] [place] [facility] [address] [id number] [place] [address]- 9482 Oct, [facility] [place] [facility] [address] [id number] [place] [address]- 9556 Oct, [facility] [place] [facility] [address] [id number] [place] [address]- 3608 Jul, [facility] [place] [facility] [address] [id number] [place] [address]- 0294 Jul, [facility] [place] [facility] [address] [id number] [place] [address]- 9092 Jul, [facility] [place] [facility] [address] [id number] [place] [address]- 7017 Jul, [facility] [place] [facility] [address] [id number] [place] [address]- 5419 Jul, [facility] [place] [facility] [address] [id number] [place] [address]- 6861 Jun, [facility] [place] [facility] [address] [id number] [place] [address]- 4993 May, [facility] [place] [facility] [address] [id number] [place] [address]- 1786 May, [facility] [place] [facility] [address] [id number] [place] [address]- 6526 May, [facility] [address] [id number] [place] [address]- 0864 Feb, [facility] [place] [facility] [address] [id number] [place] [address]- 1495 Feb, [facility] [address] [id number] [place] [address]- 3344 Feb, [facility] [place] [facility] [address] [id number] [place] [address]- 8957 Feb, [facility] [address] [id number] [place] [address]- 4833 Feb, [facility] [place] [facility] [address] [id number] [place] [address]- 6824 Feb, [facility] [place] [facility] [address] [id number] [place] [address]- 2449 Feb, [facility] [address] [id number] [place] [address]- 5329 Feb, [facility] [place] [facility] [address] [id number] [place] [address]- 9872 Feb, [facility] [address] [id number] [place] [address]- 1079 Feb, [facility] [place] [facility] [address] [id number] [place] [address]- 1331 Aug, [facility] [place] [facility] [address] [id number] [place] [address]- 5751 Aug, [facility] [place] [facility] [address] [id number] [place] [address]- 5346 Aug, [facility] [place] [facility] [address] [id number] [place] [address]- 0897 Aug, [facility] [place] [facility] [address] [id number] [place] [address]- 7308 Jan, [facility] [place] [facility] [address] [id number] [place] [address]- 8672 Dec, [facility] [place] [facility] [address] [id number] [place] [address]- 5386 Aug, [facility] [place] [facility] [address] [id number] [place] [address]- 4506 May, [facility] [place] [facility] [address] [id number] [place] [address]- 2106 Apr, [facility] [place] [facility] [address] [id number] [place] [address]- 8620 Apr, [facility] [place] [facility] [address] [id number] [place] [address]- 0006 Apr, [facility] [place] [facility] [address] [id number] [place] [address]- 9516 Apr, [facility] [place] [facility] [address] [id number] [place] [address]- 6016 Nov, [facility] [place] [facility] [address] [id number] [place] [address]- 1812 Oct, [facility] [place] [facility] [address] [facility] [id number], [place] [address]- 5806 Oct, [facility] [place] [facility] [address] [facility] [id number], [place] [address]- 0576 Oct, [facility] [place] [facility] [address] [id number], [place] [address]- 2393 Sep, [facility] [place] [facility] [address] [id number] [place] [address]- 0860 Sep, [facility] [place] [facility] [address] [id number], [place] [address]- 9116 Sep, [facility] [place] [facility] [address] [facility] [id number], [place] [address]- 8236 Apr, [facility] [place] [facility] [address] [id number], [place] [address]- 2546 Sep, [facility] [address] [facility] [id number], [place] [address]- 0739 Jan, [facility] [address] [facility] [id number], [place] [address]- 2746 Aug, [facility] [address] [facility] [id number], [place] [address]- 6047 Aug, [facility] [address] [facility] [id number], [place] [address]- 3344 May, IMMUNIZATIONS No Known Immunizations SOCIAL HISTORY Never Assessed REASON FOR VISIT Requesting Oxygen tank PLAN OF CARE VITAL SIGNS MEDICATIONS Unknown [...]
--- OUTSIDE RECORDS SUMMARY | 2019-03-18 14:30 | XMS REPORT ---
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 Name Role Phone WILVER SIMENTAL Unavailable PROBLEMS Type Condition ICD9-CM Code QNM02-VE Code Onset Dates Condition Status SNOMED Code Problem Kidney failure N19 Active 12433653 Problem Essential hypertension I10 Active 46689921 Problem Neuropathy G62.9 Active 122364383 Problem Pain in right leg M79.604 Active 03823850 Problem Restrictive lung disease J98.4 Active 33347534 Problem Hypothyroidism, unspecified type E03.9 Active 36279933 Problem Chronic kidney disease, stage 4, severely decreased GFR N18.4 Active [id number] ALLERGIES No Information ENCOUNTERS Encounter Location Date Diagnosis [facility] [id number] [place] [address] 56647- 7831 Jun, Restrictive lung disease J98.4 [facility] [id number] [place] [address] 55685- 1746 Jun, [facility] [id number] [place] [address] 36398- 7444 Jun, [facility] [id number] [place] [address] 73287- 3464 May, [facility] [id number] [place] [address] 97106- 7295 May, [facility] [address] [address]- [address]046 May, Nausea and vomiting, intractability of vomiting not specified, unspecified vomiting type R11.2 [facility] [id number] [place] [address] 77703- 9128 May, Restrictive lung disease J98.4 [facility] [address] [address] 1878 May, [facility] [address] [address] 7[address] May, [facility] [address] [address] 3320 Apr, Chronic kidney disease, stage 4, severely decreased GFR N18.4 and Essential hypertension I10 [facility] [address] [address] March, [facility] [id number] [place] [address] 86314- 0068 March, [facility] [address], [place] [address] March, Medicare annual wellness visit, initial Z00.00 ; Chronic kidney disease, stage 4, severely decreased GFR N18.4 ; Hypothyroidism, unspecified type E03.9 and Neuropathy G62.9 [facility] [address] [address] Feb, Restrictive lung disease J98.4 ; Hypothyroidism, unspecified type E03.9 and Neuropathy G62.9 [facility] [address], [place] [address] Nov, Pain in right leg M79.604 [facility] [address], [place] [address] 2766 Nov, [facility] [address], [place] [address] 2563 Nov, Dysuria R30.0 and Acute cystitis without hematuria N30.00 [facility] [address], [place] [address] 2576 Nov, Pain in right leg M79.604 [facility] [address] [address] 3[address] Sep, [facility] [id number] [place] [address] 99407- 2254 Jul, Neuropathy G62.9 [facility] [address] 75336- 9069 14 Jul, 2017 Pain in right leg M79.604 [facility] [id number] [place] [address] 17176- 4532 Jul, [facility] [address] 47698- 4649 Apr, [facility] [id number] [place] [address] 59693- 2496 Feb, Bronchitis J40 and Chronic kidney disease, stage 4, severely decreased GFR N18.4 [facility] [id number] [place] [address] 63305- 2499 Jan, Nausea and vomiting, intractability of vomiting not specified, unspecified vomiting type R11.2 [facility] [id number] [place] [address] 31921- 5753 Jan, Pain in right leg M79.604 [facility] [address] 45488- 1360 Jan, Hypothyroidism, unspecified type E03.9 [facility] [id number] [place] [address] 68989- 8358 Jan, Pain in right leg M79.604 [facility] [id number] [place] [address] 35975- 8718 Dec, Acute non-recurrent maxillary sinusitis J01.00 [facility] [address] 00195- 2190 Dec, [facility] [id number] [place] [address] 55409- 4246 Dec, Chronic kidney disease, stage 4, severely decreased GFR N18.4 [facility] [address], [place] [address]- 0349 13 Oct, 2016 [facility] [id number] [place] [address] 06346 -7697 Oct, Shortness of breath R06.02 [facility] [address], [place] [address]- 3772 Oct, [facility] [id number] [place] [address] 12333- 6702 Oct, [facility] [id number] [place] [address] 89286- 8223 Sep, Pain in right leg M79.604 and Restrictive lung disease J98.4 [facility] [address], [place] [address]- 1063 Sep, [facility] [id number] [place] [address] 71101- 3500 Aug, Restrictive lung disease J98.4 and Acute left eye pain H57.12 [facility] [address] [address]- 2874 Aug, [facility] [id number] [place] [address] 49909- 4001 Aug, [facility] [address], [place] [address]- 8785 Jun, [facility] [address], [place] [address]- 6113 Jun, [facility] [id number] [address]- 7357 Jun, [facility] [id number] [address]- 4928 Jun, [facility] [id number] [address]- 6796 Jun, Restrictive lung disease J98.4 and Pain in right leg M79.604 [facility] [address] [id number] [place] [address]- 9579 Jun, [facility] [place] [facility] [address] [facility] [id number] [place] [address]- 8379 Jun, [facility] [place] [facility] [address] [facility] [id number] [place] [address]- 9362 May, 2016 Restrictive lung disease J98.4 and Kidney failure N19 [facility] [place] [facility] [address] [id number] [place] [address]- 6746 May, [facility] [place] [facility] [address] [id number] [place] [address]- 9675 May, [facility] [place] [facility] [address] [facility] [id number] [place] [address]- 4986 Apr, [facility] [place] [facility] [id number] [place] [address]- 2381 Dec, [facility] [place] [facility] [address] [facility] [id number] [place] [address]- 9973 Dec, [facility] [place] [facility] [address] [facility] [id number] [place] [address]- 6025 Aug, [facility] [place] [facility] [id number] [place] [address]- 9963 Feb, [facility] [place] [facility] [id number] [place] [address]- 7748 Feb, [facility] [place] [facility] [address] [facility] [id number] [place] [address]- 9860 18 Jan, 2015 [facility] [place] [facility] [address] [id number] [place] [address]- 6948 18 Jan, 2015 [facility] [place] [facility] [address] [facility] [id number] [place] 0698 17 Jan, 2015 [facility] [place] [facility] [id number] [place] [address]- 5868 14 Jan, 2015 [facility] [place] [facility] [address] [id number] [place] [address]- 3488 13 Jan, 2015 [facility] [place] [facility] [address] [id number] [place] [address]- 3249 13 Jan, 2015 [facility] [place] [facility] [address] [id number] [place] [address]- 9857 11 Jan, 2015 [facility] [place] [facility] [address] [id number] [place] [address]- 1997 11 Jan, 2015 [facility] [place] [facility] [address] [id number] [place] [address]- 1452 10 Jan, 2015 [facility] [place] [facility] [address] [id number] [place] [address]- 8280 Jan, [facility] [place] [facility] [address] [facility] [id number] [place] [address]- 3201 Jan, [facility] [place] [facility] [address] [id number] [place] [address]- 3314 Dec, [facility] [place] [facility] [address] [id number] [place] [address]- 2266 Dec, [facility] [place] [facility] [address] [facility] [id number] [place] [address]- 9802 Dec, [facility] [place] [facility] [address] [facility] [id number] [place] [address]- 4908 Dec, [facility] [place] [facility] [address] [id number] [place] [address]- 2998 Dec, [facility] [place] [facility] [address] [id number] [place] [address]- 1881 Dec, [facility] [place] [facility] [address] [id number] [place] [address]- 4362 Nov, [facility] [place] [facility] [address] [id number] [place] [address]- 0399 Nov, [facility] [place] [facility] [address] [facility] [id number] [place] [address]- 7346 Oct, [facility] [place] [facility] [address] [id number] [place] [address]- 2858 Oct, [facility] [place] [facility] [address] [id number] [place] 4719 Oct, [facility] [place] [facility] [address] [id number] [place] [address]- 5164 Oct, [facility] [place] [facility] [address] [id number] [place] 8951 Oct, [facility] [place] [facility] [address] [id number] [place] [address]- 6663 Oct, [facility] [place] [facility] [address] [id number] [place] [address]- 6742 Oct, [facility] [place] [facility] [address] [id number] [place] [address]- 3466 Oct, [facility] [place] [facility] [address] [id number] [place] [address]- 3638 Jul, [facility] [place] [facility] [address] [id number] [place] [address]- 6333 Jul, [facility] [place] [facility] [address] [id number] [place] [address]- 3687 Jul, [facility] [place] [facility] [address] [id number] [place] [address]- 1244 Jul, [facility] [place] [facility] [address] [id number] [place] [address]- 3970 Jul, [facility] [place] [facility] [address] [id number] [place] [address]- 3297 Jun, [facility] [place] [facility] [address] [id number] [place] [address]- 3228 May, [facility] [place] [facility] [address] [id number] [place] [address]- 7577 May, [facility] [place] [facility] [address] [id number] [place] [address]- 1130 May, [facility] [address] [id number] [place] [address]- 4477 Feb, [facility] [place] [facility] [address] [id number] [place] [address]- 4920 Feb, [facility] [address] [id number] [place] [address]- 5868 Feb, [facility] [place] [facility] [address] [id number] [place] [address]- 9225 Feb, [facility] [address] [id number] [place] [address]- 3070 Feb, [facility] [place] [facility] [address] [id number] [place] [address]- 3713 Feb, [facility] [place] [facility] [address] [id number] [place] [address]- 9938 Feb, [facility] [address] [id number] [place] [address]- 4171 Feb, [facility] [place] [facility] [address] [id number] [place] [address]- 8898 Feb, [facility] [address] [id number] [place] [address]- 2940 Feb, [facility] [place] [facility] [address] [id number] [place] [address]- 8607 Aug, [facility] [place] [facility] [address] [id number] [place] [address]- 0518 Aug, [facility] [place] [facility] [address] [id number] [place] [address]- 7354 Aug, [facility] [place] [facility] [address] [id number] [place] [address]- 5697 Aug, [facility] [place] [facility] [address] [id number] [place] [address]- 1103 Jan, [facility] [place] [facility] [address] [id number] [place] [address]- 7918 Dec, [facility] [place] [facility] [address] [id number] [place] [address]- 4776 Aug, [facility] [place] [facility] [address] [id number] [place] [address]- 1696 May, [facility] [place] [facility] [address] [id number] [place] [address]- 3706 Apr, [facility] [place] [facility] [address] [id number] [place] [address]- 2068 Apr, [facility] [place] [facility] [address] [id number] [place] [address]- 1436 Apr, [facility] [place] [facility] [address] [id number] [place] [address]- 0256 Apr, [facility] [place] [facility] [address] [id number] [place] [address]- 4766 Nov, [facility] [place] [facility] [address] [id number] [place] [address]- 7163 Oct, [facility] [place] [facility] [address] [facility] [id number], [place] [address]- 9276 Oct, [facility] [place] [facility] [address] [facility] [id number], [place] [address]- 2126 Oct, [facility] [place] [facility] [address] [id number], [place] [address]- 5462 Sep, [facility] [place] [facility] [address] [id number] [place] [address]- 7652 Sep, [facility] [place] [facility] [address] [id number], [place] [address]- 2366 Sep, [facility] [place] [facility] [address] [facility] [id number], [place] [address]- 5236 Apr, [facility] [place] [facility] [address] [id number], [place] [address]- 2546 Sep, [facility] [address] [facility] [id number], [place] [address]- 5933 Jan, [facility] [address] [facility] [id number], [place] [address]- 1924 Aug, [facility] [address] [facility] [id number], [place] [address]- 1029 Aug, [facility] [address] [facility] [id number], [place] [address]- 7853 May, IMMUNIZATIONS No Known Immunizations SOCIAL HISTORY Never Assessed REASON FOR VISIT O2 Recert PLAN OF CARE VITAL SIGNS MEDICATIONS Unknown [...]
--- OUTSIDE RECORDS SUMMARY | 2019-03-18 14:31 | XMS REPORT ---
Author Author WILVER SIMENTAL Organization [facility] Address [address] [place] [address] Care Team Providers Care Benefits Advisor Name Role Phone WILVER SIMENTAL Unavailable PROBLEMS Type Condition ICD9-CM Code [id number] Code Onset Dates Condition Status SNOMED Code Problem Kidney failure N19 Active 62526669 Problem Essential hypertension I10 Active 12289851 Problem Neuropathy G62.9 Active 320394858 Problem Pain in right leg M79.604 Active 31613620 Problem Restrictive lung disease J98.4 Active 78806368 Problem Hypothyroidism, unspecified type E03.9 Active 43359595 Problem Chronic kidney disease, stage 4, severely decreased GFR N18.4 Active [id number] ALLERGIES No Information ENCOUNTERS Encounter Location Date Diagnosis [facility] [id number] [place] [address] 48868- 8511 Jun, [facility] [address] 33121- 7288 May, [facility] [id number] [place] [address] 06050- 9178 May, [facility] [id number] [place] [address] 04511- 2624 May, Nausea and vomiting, intractability of vomiting not specified, unspecified vomiting type R11.2 [facility] [id number] [place] [address] 65022- 8077 May, Restrictive lung disease J98.4 [facility] [id number] [place] [address] 32141- 4273 May, [facility] [id number] [place] [address] 15395- 5047 May, [facility] [id number] [place] [address] 64508- 8242 Apr, Chronic kidney disease, stage 4, severely decreased GFR N18.4 and Essential hypertension I10 [facility] [id number] [place] [address] 94079- 2647 March, [facility] [id number] [place] [address] 26929- 4714 March, [facility] [id number] [place] [address] 56067- 5102 March, Medicare annual wellness visit, initial Z00.00 ; Chronic kidney disease, stage 4, severely decreased GFR N18.4 ; Hypothyroidism, unspecified type E03.9 and Neuropathy G62.9 [facility] [id number] [place] [address] 40362- 8018 Feb, Restrictive lung disease J98.4 ; Hypothyroidism, unspecified type E03.9 and Neuropathy G62.9 [facility] [id number] [place] [address] 03310- 4934 Nov, Pain in right leg M79.604 [facility] [id number] [place] [address] 89845- 7827 Nov, [facility] [id number] [place] [address] 96381- 2429 Nov, Dysuria R30.0 and Acute cystitis without hematuria N30.00 [facility] [id number] [place] [address] 78519- 4951 Nov, Pain in right leg M79.604 [facility] [id number] [place] [address] 01354- 8356 Sep, [facility] [id number] [place] [address] 56202- 7938 25 Jul, 2017 Neuropathy G62.9 [facility] [id number] [place] [address] 18954- 5035 14 Jul, 2017 Pain in right leg M79.604 [facility] [id number] [place] [address] 24717- 0864 Jul, [facility] [address] 53667- 3533 Apr, [facility] [address] 55265- 6531 Feb, Bronchitis J40 and Chronic kidney disease, stage 4, severely decreased GFR N18.4 [facility] [address] 08075- 0996 Jan, Nausea and vomiting, intractability of vomiting not specified, unspecified vomiting type R11.2 [facility] [address] 42712- 2154 Jan, Pain in right leg M79.604 [facility] [address] 34314- 6731 Jan, Hypothyroidism, unspecified type E03.9 [facility] [address] 64738- 2835 Jan, Pain in right leg M79.604 [facility] [id number] [place] [address] 69481- 3348 Dec, Acute non-recurrent maxillary sinusitis J01.00 [facility] [address] 79085- 6716 Dec, [facility] [id number] [place] [address] 64323- 1611 Dec, Chronic kidney disease, stage 4, severely decreased GFR N18.4 [facility] [id number] [place] [address] 98807- 1321 Oct, [facility] [id number] [place] [address] 17137 -1655 Oct, Shortness of breath R06.02 [facility] [address] [facility] [id number] [address] 2753 Oct, [facility] [id number] [place] [address] 34857- 2002 Oct, [facility] [address] [id number] [address] Sep, Pain in right leg M79.604 and Restrictive lung disease J98.4 [facility] [address] [facility] [id number] [place] [address] 89902- 2145 Sep, [facility] [address] [facility] [id number] [place] [address] 37786- 1373 Aug, Restrictive lung disease J98.4 and Acute left eye pain H57.12 [facility] [id number] [place] [address] 28331- 2869 Aug, [facility] [id number] [place] [address] 03982- 7637 Aug, [facility] [address] [id number] [address]- 5918 Jun, [facility] [address] [address]- 0898 Jun, [facility] [address] [id number] [address]- 8264 Jun, [facility] [address] [address]- 9486 Jun, [facility] [address] [facility] [id number], [place] [address]- 0517 Jun, Restrictive lung disease J98.4 and Pain in right leg M79.604 [facility] [address] [id number] [address]- 3526 Jun, [facility] [address] [id number] [address]- 7465 Jun, [facility] [id number] [address]- 2401 May, 2016 Restrictive lung disease J98.4 and Kidney failure N19 [facility] [address] [id number] [place] [address]- 0230 May, 2015 [facility] [address] [id number] [place] [address]- 7597 May, 2015 [facility] [address] [id number] [place] [address]- 8496 Apr, [facility] [address] [id number] [place] [address]- 3542 Dec, [facility] [address] [id number] [place] [address]- 9479 Dec, [facility] [address] [facility] [id number] [place] [address]- 8362 Aug, [facility] [address] [facility] [id number] [place] [address]- 8510 14 Feb, 2015 [facility] [address] [id number] [place] [address]- 7880 Feb, [facility] [address] [facility] [id number] [place] [address]- 1089 18 Jan, 2015 [facility] [place] [facility] [address] [id number] [place] [address]- 8246 18 Jan, 2015 [facility] [place] [facility] [address] [id number], [place] [address]- 5812 17 Jan, 2015 [facility] [place] [facility] [address] [id number] [place] [address]- 2634 14 Jan, 2015 [facility] [place] [facility] [address] [facility] [id number] [place] [address]- 3216 13 Jan, 2015 [facility] [place] [facility] [address] [facility] [id number] [place] [address]- 0331 13 Jan, 2015 [facility] [place] [facility] [address] [id number] [place] [address]- 5926 11 Jan, 2015 [facility] [place] [facility] [address] [id number] [place] [address]- 2241 11 Jan, 2015 [facility] [place] [facility] [address] [id number] [place] [address]- 0986 Jan, [facility] [place] [facility] [address] [id number] [place] [address]- 5552 Jan, [facility] [place] [facility] [address] [id number] [place] [address]- 6859 Jan, [facility] [place] [facility] [address] [id number] [place] [address]- 9930 Dec, [facility] [place] [facility] [address] [id number] [place] [address]- 6440 Dec, [facility] [place] [facility] [address] [id number] [place] [address]- 7419 Dec, [facility] [place] [facility] [address] [id number] [place] [address]- 1182 Dec, [facility] [place] [facility] [address] [id number] [place] [address]- 2641 Dec, [facility] [place] [facility] [address] [facility] [id number] [place] [address]- 6373 Dec, [facility] [place] [facility] [address] [id number] [place] [address]- 6632 Nov, [facility] [place] [facility] [address] [id number] [place] [address]- 3746 Nov, [facility] [place] [facility] [address] [id number] [place] [address]- 0900 Oct, [facility] [place] [facility] [address] [id number] [place] 2621 Oct, [facility] [place] [facility] [address] [facility] [id number] [place] 2297 Oct, [facility] [place] [facility] [address] [id number] [place] [address]- 6207 Oct, [facility] [place] [facility] [address] [id number] [place] [address]- 6991 Oct, [facility] [place] [facility] [address] [id number] [place] [address]- 7708 Oct, [facility] [place] [facility] [address] [id number] [place] [address]- 2562 Oct, [facility] [place] [facility] [address] [id number] [place] [address]- 4507 Oct, [facility] [place] [facility] [address] [id number] [place] [address]- 7900 Jul, [facility] [place] [facility] [address] [id number] [place] [address]- 1155 Jul, [facility] [place] [facility] [address] [id number] [place] [address]- 1148 Jul, [facility] [place] [facility] [address] [id number] [place] [address]- 8896 Jul, [facility] [place] [facility] [address] [id number] [place] [address]- 4495 Jul, [facility] [place] [facility] [address] [id number] [place] [address]- 1872 Jun, [facility] [place] [facility] [address] [id number] [place] [address]- 9074 May, [facility] [place] [facility] [address] [id number] [place] [address]- 5308 May, [facility] [place] [facility] [address] [id number] [place] [address]- 2913 May, [facility] [place] [facility] [address] [id number] [place] [address]- 7518 Feb, [facility] [place] [facility] [address] [id number], [place] [address]- 4218 Feb, [facility] [place] [facility] [address] [id number] [place] [address]- 0294 Feb, [facility] [place] [facility] [address] [id number] [place] [address]- 6497 Feb, [facility] [place] [facility] [address] [id number] [place] [address]- 1362 Feb, [facility] [place] [facility] [address] [id number] [place] [address]- 8954 Feb, [facility] [place] [facility] [address] [id number] [place] [address]- 3380 Feb, [facility] [place] [facility] [address] [id number] [place] [address]- 6257 Feb, [facility] [place] [facility] [address] [id number] [place] [address]- 2082 Feb, [facility] [place] [facility] [address] [id number] [place] [address]- 9556 Feb, [facility] [place] [facility] [address] [id number] [place] [address]- 0993 Aug, [facility] [place] [facility] [address] [id number] [place] [address]- 6756 Aug, [facility] [place] [facility] [address] [id number], [place] [address]- 0471 Aug, [facility] [place] [facility] [address] [id number], [place] [address]- 8423 Aug, [facility] [place] [facility] [address] [id number] [place] [address]- 8278 Jan, [facility] [place] [facility] [address] [facility] [id number], [place] [address]- 8417 Dec, [facility] [place] [facility] [address] [facility] [id number], [place] [address]- 4102 Aug, [facility] [place] [facility] [address] [id number] [place] [address]- 4242 May, [facility] [place] [facility] [address] [id number] [place] [address]- 7409 Apr, [facility] [place] [facility] [address] [id number] [place] [address]- 4475 Apr, [facility] [place] [facility] [address] [id number] [place] [address]- 9730 Apr, [facility] [place] [facility] [address] [id number] [place] [address]- 1298 Apr, [facility] [place] [facility] [address] [id number] [place] [address]- 4149 Nov, [facility] [place] [facility] [address] [id number] [place] [address]- 8040 Oct, [facility] [place] [facility] [address] [id number] [place] [address]- 8370 Oct, [facility] [place] [facility] [address] [id number] [place] [address]- 5050 Oct, [facility] [place] [facility] [address] [id number] [place] [address]- 5303 Sep, [facility] [place] [facility] [address] [id number] [place] [address]- 2763 Sep, [facility] [place] [facility] [address] [id number] [place] [address]- 7036 Sep, [facility] [place] [facility] [address] [id number] [place] [address]- 7835 17 Apr, 2011 [facility] [place] [facility] [address] [id number] [place] [address]- 0856 Sep, [facility] [place] [facility] [address] [id number] [place] [address]- 2545 Jan, [facility] [place] [facility] [address] [id number] [place] [address]- 8299 Aug, [facility] [address] [facility] [id number] [place] [address]- 6238 Aug, [facility] [address] [facility] [id number] [place] [address]- 0166 May, IMMUNIZATIONS No Known Immunizations SOCIAL HISTORY [...]
--- OUTSIDE RECORDS SUMMARY | 2019-03-18 14:31 | XMS REPORT ---
Author Author WILVER SIMENTAL Organization [facility] Address [address] [place] [address] Care Team Providers Care Road Cutter Name Role Phone WILVER SIMENTAL Unavailable PROBLEMS Type Condition ICD9-CM Code IHC77-WD Code Onset Dates Condition Status SNOMED Code Problem Kidney failure N19 Active 03568131 Problem Essential hypertension I10 Active 27074907 Problem Neuropathy G62.9 Active 544802837 Problem Pain in right leg M79.604 Active 09964065 Problem Restrictive lung disease J98.4 Active 50628599 Problem Hypothyroidism, unspecified type E03.9 Active 64569368 Problem Chronic kidney disease, stage 4, severely decreased GFR N18.4 Active [id number] ALLERGIES No Information ENCOUNTERS Encounter Location Date Diagnosis [facility] [id number] [place] [address] 93175- 4175 Jun, [facility] [address] [address]18- 4295 May, [facility] [id number] [place] [address] 33135- 1810 May, [facility] [id number] [place] [address] 32271- 8057 May, Nausea and vomiting, intractability of vomiting not specified, unspecified vomiting type R11.2 [facility] [id number] [place] [address] 27125- 0423 May, Restrictive lung disease J98.4 [facility] [id number] [place] [address] 73531- 1232 May, [facility] [id number] [place] [address] 34248- 5916 May, [facility] [id number] [place] [address] 21231- 4372 Apr, Chronic kidney disease, stage 4, severely decreased GFR N18.4 and Essential hypertension I10 [facility] [id number] [place] [address] 58818- 6771 March, [facility] [id number] [place] [address] 40022- 4731 March, [facility] [id number] [place] [address] 48389- 2957 March, Medicare annual wellness visit, initial Z00.00 ; Chronic kidney disease, stage 4, severely decreased GFR N18.4 ; Hypothyroidism, unspecified type E03.9 and Neuropathy G62.9 [facility] [id number] [place] [address] 98513- 4486 Feb, Restrictive lung disease J98.4 ; Hypothyroidism, unspecified type E03.9 and Neuropathy G62.9 [facility] [id number] [place] [address] 62124- 7627 Nov, Pain in right leg M79.604 [facility] [id number] [place] [address] 08474- 0433 Nov, [facility] [id number] [place] [address] 91955- 3542 Nov, Dysuria R30.0 and Acute cystitis without hematuria N30.00 [facility] [id number] [place] [address] 19184- 5440 Nov, Pain in right leg M79.604 [facility] [id number] [place] [address] 17329- 8852 Sep, [facility] [id number] [place] [address] 58399- 2036 25 Jul, 2017 Neuropathy G62.9 [facility] [id number] [place] [address] 58228- 7122 14 Jul, 2017 Pain in right leg M79.604 [facility] [id number] [place] [address] 93584- 4270 Jul, [facility] [address] 28178- 9568 Apr, [facility] [address] 99969- 5263 Feb, Bronchitis J40 and Chronic kidney disease, stage 4, severely decreased GFR N18.4 [facility] [address] 53287- 9873 Jan, Nausea and vomiting, intractability of vomiting not specified, unspecified vomiting type R11.2 [facility] [address] 36049- 7983 Jan, Pain in right leg M79.604 [facility] [address] 20659- 6549 Jan, Hypothyroidism, unspecified type E03.9 [facility] [place] [address] 79529- 2307 Jan, Pain in right leg M79.604 [facility] [id number] [place] [address] 29035- 4541 Dec, Acute non-recurrent maxillary sinusitis J01.00 [facility] [address] 87736- 3257 Dec, [facility] [id number] [place] [address] 20405- 6984 Dec, Chronic kidney disease, stage 4, severely decreased GFR N18.4 [facility] [id number] [place] [address] 22119- 3340 Oct, [facility] [id number] [place] [address] 93332 -2353 Oct, Shortness of breath R06.02 [facility] [address] [facility] [id number] [place] [address] 3849 Oct, [facility] [id number] [place] [address] 11010- 5035 Oct, [facility] [address] [id number] [address]- 4267 Sep, Pain in right leg M79.604 and Restrictive lung disease J98.4 [facility] [address] [facility] [id number] [place] [address] 91081- 5424 Sep, [facility] [address] [facility] [id number] [place] [address] 61912- 7678 Aug, Restrictive lung disease J98.4 and Acute left eye pain H57.12 [facility] [id number] [place] [address] 45360- 6078 Aug, [facility] [id number] [place] [address] 98275- 4117 Aug, [facility] [address] [id number] [address]- 9887 Jun, [facility] [id number] [address]- 1400 Jun, [facility] [address] [id number] [address]- 3500 Jun, [facility] [id number] [address]- 0440 Jun, [facility] [address] [facility] [id number] [place] [address]- 5536 Jun, Restrictive lung disease J98.4 and Pain in right leg M79.604 [facility] [address] [id number] [address]- 4914 Jun, [facility] [address] [id number] [address]- 7626 Jun, [facility] [id number] [place] [address]- 0351 May, 2016 Restrictive lung disease J98.4 and Kidney failure N19 [facility] [address] [id number] [place] [address]- 8517 May, 2015 [facility] [address] [id number] [place] [address]- 9241 May, 2015 [facility] [address] [id number] [place] [address]- 8113 Apr, [facility] [address] [id number] [place] [address]- 3832 Dec, [facility] [address] [id number] [place] [address]- 5247 Dec, [facility] [address] [facility] [id number] [place] [address]- 4712 Aug, [facility] [address] [facility] [id number] [place] [address]- 0502 14 Feb, 2015 [facility] [address] [id number] [place] [address]- 9572 Feb, [facility] [address] [facility] [id number] [place] [address]- 8089 18 Jan, 2015 [facility] [place] [facility] [address] [id number] [place] [address]- 3834 18 Jan, 2015 [facility] [place] [facility] [address] [id number] [place] [address]- 9182 17 Jan, 2015 [facility] [place] [facility] [address] [id number] [place] [address]- 8702 14 Jan, 2015 [facility] [place] [facility] [address] [facility] [id number] [place] [address]- 8414 13 Jan, 2015 [facility] [place] [facility] [address] [facility] [id number] [place] [address]- 8599 13 Jan, 2015 [facility] [place] [facility] [address] [id number] [place] [address]- 1757 11 Jan, 2015 [facility] [place] [facility] [address] [id number] [place] [address]- 6282 11 Jan, 2015 [facility] [place] [facility] [address] [id number] [place] [address]- 5572 Jan, [facility] [place] [facility] [address] [id number] [place] [address]- 3571 Jan, [facility] [place] [facility] [address] [id number] [place] [address]- 8264 Jan, [facility] [place] [facility] [address] [id number] [place] [address]- 9852 Dec, [facility] [place] [facility] [address] [id number] [place] [address]- 1542 Dec, [facility] [place] [facility] [address] [id number] [place] [address]- 9615 Dec, [facility] [place] [facility] [address] [id number] [place] [address]- 1927 Dec, [facility] [place] [facility] [address] [id number] [place] [address]- 3279 Dec, [facility] [place] [facility] [address] [facility] [id number] [place] [address]- 6173 Dec, [facility] [place] [facility] [address] [id number] [place] [address]- 9260 Nov, [facility] [place] [facility] [address] [id number] [place] [address]- 5441 Nov, [facility] [place] [facility] [address] [id number] [place] [address]- 4557 Oct, [facility] [place] [facility] [address] [id number] [place] 0043 Oct, [facility] [place] [facility] [address] [facility] [id number] [place] 6614 Oct, [facility] [place] [facility] [address] [id number] [place] [address]- 7587 Oct, [facility] [place] [facility] [address] [id number] [place] [address]- 5220 Oct, [facility] [place] [facility] [address] [id number] [place] [address]- 3404 Oct, [facility] [place] [facility] [address] [id number] [place] [address]- 7525 Oct, [facility] [place] [facility] [address] [id number] [place] [address]- 8740 Oct, [facility] [place] [facility] [address] [id number] [place] [address]- 1532 Jul, [facility] [place] [facility] [address] [id number] [place] [address]- 8596 Jul, [facility] [place] [facility] [address] [id number] [place] [address]- 1838 Jul, [facility] [place] [facility] [address] [id number] [place] [address]- 1365 Jul, [facility] [place] [facility] [address] [id number] [place] [address]- 4057 Jul, [facility] [place] [facility] [address] [id number] [place] [address]- 4391 Jun, [facility] [place] [facility] [address] [id number] [place] [address]- 3025 May, [facility] [place] [facility] [address] [id number] [place] [address]- 6901 May, [facility] [place] [facility] [address] [id number] [place] [address]- 1729 May, [facility] [place] [facility] [address] [id number] [place] [address]- 1562 Feb, [facility] [place] [facility] [address] [id number] [place] [address]- 5378 Feb, [facility] [place] [facility] [address] [id number] [place] [address]- 8256 Feb, [facility] [place] [facility] [address] [id number] [place] [address]- 3830 Feb, [facility] [place] [facility] [address] [id number] [place] [address]- 2583 Feb, [facility] [place] [facility] [address] [id number] [place] [address]- 9076 Feb, [facility] [place] [facility] [address] [id number] [place] [address]- 3691 Feb, [facility] [place] [facility] [address] [id number] [place] [address]- 5456 Feb, [facility] [place] [facility] [address] [id number] [place] [address]- 6677 Feb, [facility] [place] [facility] [address] [id number] [place] [address]- 0831 Feb, [facility] [place] [facility] [address] [id number] [place] [address]- 2287 Aug, [facility] [place] [facility] [address] [id number] [place] [address]- 9001 Aug, [facility] [place] [facility] [address] [id number] [place] [address]- 4594 Aug, [facility] [place] [facility] [address] [id number] [place] [address]- 6994 Aug, [facility] [place] [facility] [address] [id number] [place] [address]- 9817 Jan, [facility] [place] [facility] [address] [facility] [id number] [place] [address]- 3580 Dec, [facility] [place] [facility] [address] [facility] [id number] [place] [address]- 7116 Aug, [facility] [place] [facility] [address] [id number] [place] [address]- 4913 May, [facility] [place] [facility] [address] [id number] [place] [address]- 4328 Apr, [facility] [place] [facility] [address] [id number] [place] [address]- 4864 Apr, [facility] [place] [facility] [address] [id number] [place] [address]- 9783 Apr, [facility] [place] [facility] [address] [id number] [place] [address]- 4687 Apr, [facility] [place] [facility] [address] [id number] [place] [address]- 5198 Nov, [facility] [place] [facility] [address] [id number] [place] [address]- 7358 Oct, [facility] [place] [facility] [address] [id number] [place] [address]- 2220 Oct, [facility] [place] [facility] [address] [id number] [place] [address]- 9836 Oct, [facility] [place] [facility] [address] [id number] [place] [address]- 0556 Sep, [facility] [place] [facility] [address] [id number] [place] [address]- 8588 Sep, [facility] [place] [facility] [address] [id number] [place] [address]- 9217 Sep, [facility] [place] [facility] [address] [id number] [place] [address]- 4956 17 Apr, 2011 [facility] [place] [facility] [address] [id number] [place] [address]- 3583 Sep, [facility] [place] [facility] [address] [id number] [place] [address]- 2543 Jan, [facility] [place] [facility] [address] [id number] [place] [address]- 4185 Aug, [facility] [address] [facility] [id number] [place] [address]- 7593 Aug, [facility] [address] [facility] [id number] [place] [address]- 9015 May, IMMUNIZATIONS No Known Immunizations SOCIAL HISTORY Never Assessed REASON FOR VISIT Follow up Phone Call PLAN OF CARE VITAL SIGNS MEDICATIONS Unknown [...]
--- OUTSIDE RECORDS SUMMARY | 2019-03-18 14:31 | XMS REPORT ---
Author Author WILVER SIMENTAL Organization [facility] Address [address] [place] [address] Care Team Providers Care Forms Builder Name Role Phone WILVER SIMENTAL Unavailable PROBLEMS Type Condition ICD9-CM Code IIS44-IP Code Onset Dates Condition Status SNOMED Code Problem Kidney failure N19 Active 57768989 Problem Essential hypertension I10 Active 09887850 Problem Neuropathy G62.9 Active 298041568 Problem Pain in right leg M79.604 Active 97052215 Problem Restrictive lung disease J98.4 Active 57694735 Problem Hypothyroidism, unspecified type E03.9 Active 92446507 Problem Chronic kidney disease, stage 4, severely decreased GFR N18.4 Active 465662934 ALLERGIES Substance Reaction Event Type Date Status Morphine Sulfate Unknown Drug Allergy Apr, Active ENCOUNTERS Encounter Location Date Diagnosis [facility] [id number] [place] [address] 61695- 0380 Jun, Restrictive lung disease J98.4 [facility] [id number] [place] [address] 08369- 9303 Jun, [facility] [id number] [place] [address] 80964- 3849 Jun, [facility] [id number] [place] [address] 60351- 9050 May, [facility] [id number] [place] [address] 33365- 6088 May, [facility] [id number] [place] [address] 56804- 0956 May, Nausea and vomiting, intractability of vomiting not specified, unspecified vomiting type R11.2 [facility] [id number] [place] [address] 58206- 8045 May, Restrictive lung disease J98.4 [facility] [address] [address] 0941 May, [facility] [address] [address] 4792 May, [facility] [address], [place] [address] 4897 Apr, Chronic kidney disease, stage 4, severely decreased GFR N18.4 and Essential hypertension I10 [facility] [id number] [place] [address] 82852- 9123 March, [facility] [id number] [place] [address] 08472- 7640 March, [facility] [id number] [place] [address] 11820- 5830 March, Medicare annual wellness visit, initial Z00.00 ; Chronic kidney disease, stage 4, severely decreased GFR N18.4 ; Hypothyroidism, unspecified type E03.9 and Neuropathy G62.9 [facility] [id number] [place] [address] 56311- 8599 Feb, Restrictive lung disease J98.4 ; Hypothyroidism, unspecified type E03.9 and Neuropathy G62.9 [address] [address], [place] [address] 9745 Nov, Pain in right leg M79.604 [facility] [id number] [place] [address] 57769- 9017 Nov, [facility] [id number] [place] [address] 85567- 5684 Nov, Dysuria R30.0 and Acute cystitis without hematuria N30.00 [facility] [address], [place] [address] 1690 Nov, Pain in right leg M79.604 [address] [id number] [place] [address] 92165- 9651 Sep, [facility] [id number] [place] [address] 28975- 7512 Jul, Neuropathy G62.9 [facility] [id number] [place] [address] 45754- 1522 14 Jul, 2017 Pain in right leg M79.604 [facility] [id number] [place] [address] 76929- 1512 Jul, [facility] [id number] [place] [address] 41346- 3812 Apr, [facility] [id number] [place] [address] 92384- 4181 Feb, Bronchitis J40 and Chronic kidney disease, stage 4, severely decreased GFR N18.4 [facility] [id number] [place] [address] 67476- 3268 Jan, Nausea and vomiting, intractability of vomiting not specified, unspecified vomiting type R11.2 [facility] [id number] [place] [address] 74798- 2043 Jan, Pain in right leg M79.604 [facility] [id number] [place] [address] 36218- 5884 Jan, Hypothyroidism, unspecified type E03.9 [facility] [id number] [place] [address] 72246- 1413 Jan, Pain in right leg M79.604 [facility] [id number] [place] [address] 68372- 0965 Dec, Acute non-recurrent maxillary sinusitis J01.00 [facility] [id number] [place] [address] 44134- 0340 Dec, [facility] [id number] [place] [address] 46029- 4527 Dec, Chronic kidney disease, stage 4, severely decreased GFR N18.4 [facility] [address], [place] [address]- 0902 Oct, [facility] [id number] [place] [address] 62138 -3256 Oct, Shortness of breath R06.02 [facility] [id number] [place] [address] 24438- 9148 Oct, [facility] [id number] [place] [address] 36889- 2165 Oct, [facility] [id number] [place] [address] 67215- 2308 Sep, Pain in right leg M79.604 and Restrictive lung disease J98.4 [facility] [id number] [place] [address] 26809- 3992 Sep, [facility] [id number] [place] [address] 18040- 2895 Aug, Restrictive lung disease J98.4 and Acute left eye pain H57.12 [facility] [id number] [place] [address] 37000- 8056 Aug, [facility] [id number] [place] [address] 88597- 9740 Aug, [facility] [id number] [place] [address] 77682- 4653 Jun, [facility] [id number] [place] [address] 04486- 4632 Jun, [facility] [id number] [place] [address] 30342- 7789 Jun, [facility] [id number] [place] [address] 57418- 3245 Jun, [facility] [id number] [place] [address] 99170- 6414 Jun, Restrictive lung disease J98.4 and Pain in right leg M79.604 [facility] [address] [facility] [id number] [place] [address]- 3006 Jun, [facility] [address] [facility] [id number] [place] [address] 2546 Jun, [facility] [address] [facility] [id number] [place] [address]- 9781 May, Restrictive lung disease J98.4 and Kidney failure N19 [facility] [address] [facility] [id number] [place] [address] 2546 May, [facility] [address] [facility] [id number] [place] [address]- 7116 May, [facility] [address] [facility] [id number] [place] [address]- 3754 Apr, [facility] [id number] [place] [address]- 3684 Dec, [facility] [address] [facility] [id number] [place] [address]- 7604 Dec, [facility] [id number] [place] [address]- 2318 Aug, [facility] [id number] [place] [address]- 6305 14 Feb, 2015 [facility] [id number] [place] [address]- 6460 13 Feb, 2015 [facility] [address] [facility] [id number] [place] [address]- 8194 18 Jan, 2015 [facility] [address] [facility] [id number] [place] [address] 2546 18 Jan, 2015 [facility] [address] [facility] [id number] [place] [address] 2546 17 Jan, 2015 [facility] [id number] [place] [address]- 0352 14 Jan, 2015 [facility] [place] [facility] [address] [id number] [place] [address]- 2452 13 Jan, 2015 [facility] [place] [facility] [address] [id number] [place] [address]- 4143 13 Jan, 2015 [facility] [place] [facility] [address] [id number] [place] [address]- 4931 11 Jan, 2015 [facility] [place] [facility] [address] [id number] [place] [address]- 9068 11 Jan, 2015 [facility] [place] [facility] [address] [id number] [place] [address]- 5796 10 Jan, 2015 [facility] [place] [facility] [address] [id number] [place] [address]- 6930 10 Jan, 2015 [facility] [place] [facility] [address] [id number] [place] [address]- 0935 Jan, [facility] [place] [facility] [address] [id number] [place] [address]- 4520 Dec, [facility] [place] [facility] [address] [id number] [place] [address]- 4676 Dec, [facility] [place] [facility] [address] [id number] [place] [address]- 0155 Dec, [facility] [place] [facility] [address] [id number] [place] [address]- 8564 Dec, [facility] [place] [facility] [address] [id number] [place] [address]- 1402 Dec, [facility] [place] [facility] [address] [id number] [place] [address]- 1820 Dec, [facility] [place] [facility] [address] [id number] [place] [address]- 5582 Nov, [facility] [place] [facility] [address] [id number] [place] [address]- 5224 Nov, [facility] [place] [facility] [address] [id number] [place] [address]- 2475 Oct, [facility] [place] [facility] [address] [id number] [place] [address]- 5246 Oct, [facility] [place] [facility] [address] [id number] [place] [address]- 1686 Oct, [facility] [place] [facility] [address] [id number] [place] [address]- 9567 Oct, [facility] [place] [facility] [address] [id number] [place] [address]- 6382 Oct, [facility] [place] [facility] [address] [id number] [place] [address]- 0359 Oct, [facility] [place] [facility] [address] [id number] [place] [address]- 1814 Oct, [facility] [place] [facility] [address] [id number] [place] [address]- 9291 Oct, [facility] [place] [facility] [address] [id number] [place] [address]- 8866 Jul, [facility] [place] [facility] [address] [id number] [place] [address]- 0886 Jul, [facility] [place] [facility] [address] [id number] [place] [address]- 7158 Jul, [facility] [place] [facility] [address] [id number] [place] [address] 2543 Jul, [facility] [place] [facility] [address] [id number] [place] [address]- 2544 Jul, [facility] [place] [facility] [address] [id number] [place] [address]- 2915 Jun, [facility] [place] [facility] [address] [id number] [place] [address]- 3686 May, [facility] [place] [facility] [address] [id number] [place] [address]- 4382 May, [facility] [place] [facility] [address] [id number] [place] [address]- 2819 May, [facility] [place] [facility] [address] [id number] [place] [address]- 7940 Feb, [facility] [place] [facility] [address] [id number] [place] [address]- 6224 Feb, [facility] [place] [facility] [address] [id number] [place] [address]- 9428 Feb, [facility] [place] [facility] [address] [id number] [place] [address]- 1181 Feb, [facility] [place] [facility] [address] [id number] [place] [address]- 4688 Feb, [facility] [place] [facility] [address] [id number] [place] [address]- 5630 Feb, [facility] [place] [facility] [address] [id number] [place] [address]- 9634 Feb, [facility] [place] [facility] [address] [id number] [place] [address]- 9528 Feb, [facility] [place] [facility] [address] [id number] [place] [address]- 2692 Feb, [facility] [place] [facility] [address] [id number] [place] [address]- 6106 Feb, [facility] [place] [facility] [address] [id number] [place] [address]- 8335 Aug, [facility] [place] [facility] [address] [id number] [place] [address]- 6524 Aug, [facility] [place] [facility] [address] [id number] [place] [address]- 7865 Aug, [facility] [place] [facility] [address] [id number] [place] 7198 Aug, [facility] [place] [facility] [address] [id number] [place] [address]- 3996 Jan, [facility] [address] [id number] [place] [address]- 3590 Dec, [facility] [place] [facility] [address] [id number] [place] [address]- 4433 Aug, [facility] [place] [facility] [address] [id number] [place] [address]- 6344 May, [facility] [place] [facility] [address] [id number] [place] [address]- 6630 Apr, [facility] [place] [facility] [address] [id number] [place] [address]- 7261 Apr, [facility] [place] [facility] [address] [id number] [place] [address]- 5836 Apr, [facility] [address] [facility] [id number] [place] [address]- 2796 Apr, [facility] [place] [facility] [address] [id number] [place] [address]- 4309 Nov, [facility] [place] [facility] [address] [id number] [place] [address]- 4897 Oct, [facility] [place] [facility] [address] [facility] [id number] [place] [address]- 8796 Oct, [facility] [place] [facility] [address] [id number] [place] [address]- 7017 Oct, [facility] [place] [facility] [address] [id number] [place] [address]- 2717 Sep, [facility] [place] [facility] [address] [id number] [place] [address]- 9792 Sep, [facility] [place] [facility] [address] [facility] [id number] [place] [address]- 4963 Sep, [facility] [place] [facility] [address] [facility] [id number] [place] [address]- 6880 17 Apr, 2011 [facility] [place] [facility] [address] [facility] [id number], [place] [address]- 9436 Sep, [facility] [address] [facility] [id number], [place] [address]- 5721 Jan, [facility] [address] [facility] [id number], [place] [address]- 7076 Aug, [facility] [address] [facility] [id number], [place] [address]- 4315 Aug, [facility] [address] [facility] [id number], [place] [address]- 3865 May, IMMUNIZATIONS No Known Immunizations SOCIAL HISTORY Never Assessed REASON FOR VISIT Zaira f/u, due to pneumonia. PT stayed 04/16-04/17 at [facility] PLAN OF CARE Activity Details Follow Up 3 Months Reason: VITAL SIGNS Height 67 in 2018-04-24 Weight 184 lbs 2018-04-24 Temperature 98.5 degrees Fahrenheit 2018-04-24 Heart Rate 80 bpm 2018-04-24 Respiratory Rate 20 2018-04-24 Oximetry on room air:95 % 2018-04-24 BMI 28.82 kg/m2 2018-04-24 Blood pressure systolic 140 mmHg 2018-04-24 Blood pressure diastolic 65 mmHg 2018-04-24 MEDICATIONS Medication Instructions Dosage Frequency Start Date End Date Duration Status Advair Diskus 250-50 MCG/DOSE Inhalation Twice a day 1 puff 12h Active Levothyroxine Sodium 25 MCG Orally Once a day 1 tablet 24h 30 Active Pravachol 40 mg Orally -MUST SEE DR. SIMENTAL FOR REFILLS Once a day 1 tablet 24h 30 Active Pantoprazole Sodium 40 MG TAKE ONE TABLET BY MOUTH ONCE DAILY BEFORE BREAKFAST 30 Active Amlodipine Besylate 10 TAKE ONE TABLET BY MOUTH DAILY 30 Active Nephro-Karina 0.8 MG Orally Once a day 1 tablet 24h Apr, Active Diazepam & Diet Manage Prod 5 MG Active Symbicort 160-4.5 MCG/ACT Inhalation Twice a day 2 puffs 12h Active Clonidine HCl 0.1 TAKE ONE TABLET BY MOUTH DAILY 30 Active Albuterol Sulfate (2.5 MG/3ML) 0.083% Inhalation Three times a day 3 ml 8h Feb, 0 days Active Oxycodone HCl 20 mg Orally every 6 hrs as needed 1 tablet 15 Jul, 2017 28 days Active Furosemide 80 MG Orally Once a day 2 tablet 24h Active Valium 5 mg Orally Twice a day 1 tablet as needed 12h Apr, 30 days Active HydrOXYzine HCl 25 MG Orally every 6 hr prn itching 1 tablet as needed Active Carvedilol 25 MG TAKE ONE TABLET BY MOUTH TWICE DAILY 30 Active HydrALAZINE HCl 25 MG Orally Three times a day 1 tablet with food 8h Active Oxygen 2 L/NC as directed May, Active Levothyroxine Sodium 25 TAKE ONE TABLET BY MOUTH DAILY 30 Active RESULTS No Results PROCEDURES Procedure Date Ordered Result Body Site [facility] VISIT ESTABLISHED PATIENT April 24, 2018 INSTRUCTIONS MEDICATIONS ADMINISTERED No Known Medications MEDICAL (GENERAL) HISTORY Type Description Date Medical History kidney failure-dialysis Medical History hypertension Medical History Pneumonia 2017 Surgical History tracheotomy Surgical History fistula left wrist Surgical History back surgery Surgical History port right chest Hospitalization History pneumonia Hospitalization History fluid around lungs 2015 Hospitalization History Pneumonia Nikki TIJERINA 04/16-04/17
--- OUTSIDE RECORDS SUMMARY | 2019-03-18 14:32 | XMS REPORT ---
Author Author WILVER SIMENTAL Organization [facility] Address [address] [place] [address] Care Team Providers Care Compensation And Hris Analyst Name Role Phone WILVER SIMENTAL Unavailable PROBLEMS Type Condition ICD9-CM Code EHT14-DS Code Onset Dates Condition Status SNOMED Code Problem Kidney failure N19 Active 72661170 Problem Essential hypertension I10 Active 58605320 Problem Neuropathy G62.9 Active 189422747 Problem Pain in right leg M79.604 Active 73724870 Problem Restrictive lung disease J98.4 Active 01429928 Problem Hypothyroidism, unspecified type E03.9 Active 80160352 Problem Chronic kidney disease, stage 4, severely decreased GFR N18.4 Active 296710061 ALLERGIES Substance Reaction Event Type Date Status Morphine Sulfate Unknown Drug Allergy Feb, Active ENCOUNTERS Encounter Location Date Diagnosis [facility] [id number] [place] [address] 36607- 9287 May, [facility] [id number] [place] [address] 39498- 1813 May, [facility] [id number] [place] [address] 70686- 0418 May, Nausea and vomiting, intractability of vomiting not specified, unspecified vomiting type R11.2 [facility] [id number] [place] [address] 61434- 5516 May, Restrictive lung disease J98.4 [facility] [id number] [place] [address] 04616- 4543 May, [facility] [id number] [place] [address] 89503- 5477 May, [facility] [id number] [place] [address] 25426- 0799 Apr, Chronic kidney disease, stage 4, severely decreased GFR N18.4 and Essential hypertension I10 [facility] [id number] [place] [address] 55452- 1908 March, [facility] [id number] [place] [address] 77946- 8925 March, [place] [id number] [place] [address] 15216- 5866 March, Medicare annual wellness visit, initial Z00.00 ; Chronic kidney disease, stage 4, severely decreased GFR N18.4 ; Hypothyroidism, unspecified type E03.9 and Neuropathy G62.9 [place] [id number] [place] [address] 94701- 0885 Feb, Restrictive lung disease J98.4 ; Hypothyroidism, unspecified type E03.9 and Neuropathy G62.9 [place] [id number] [place] [address] 30672- 1977 Nov, Pain in right leg M79.604 [place] [id number] [place] [address] 91153- 4605 Nov, [place] [id number] [place] [address] 57006- 0921 Nov, Dysuria R30.0 and Acute cystitis without hematuria N30.00 [place] [id number] [place] [address] 59475- 0896 Nov, Pain in right leg M79.604 [place] [id number] [place] [address] 72521- 3465 Sep, [place] [id number] [place] [address] 90677- 1306 25 Jul, 2017 Neuropathy G62.9 [place] [id number] [place] [address] 87346- 8185 14 Jul, 2017 Pain in right leg M79.604 [place] [id number] [place] [address] 0448 Jul, [facility] [id number] [place] [address] 11344- 1473 Apr, [facility] [id number] [place] [address] 55962- 6145 Feb, Bronchitis J40 and Chronic kidney disease, stage 4, severely decreased GFR N18.4 [facility] [address] 42582- 2488 Jan, Nausea and vomiting, intractability of vomiting not specified, unspecified vomiting type R11.2 [place] [address] 00835- 7127 Jan, Pain in right leg M79.604 [place] [address] 87787- 1829 Jan, Hypothyroidism, unspecified type E03.9 [facility] [address] 04199- 7212 Jan, Pain in right leg M79.604 [place] [address] 67926- 0993 Dec, Acute non-recurrent maxillary sinusitis J01.00 [place] [id number] [place] [address] 17852- 5229 Dec, [facility] [id number] [place] [address] 55757- 6261 Dec, Chronic kidney disease, stage 4, severely decreased GFR N18.4 [facility] [id number] [place] [address] 34742- 7350 Oct, [facility] [id number] [place] [address] 18429 -7143 Oct, Shortness of breath R06.02 [facility] [address] 91412- 0041 Oct, [facility] [address] [address] 7284 Oct, [facility] [id number] [place] [address] 55547- 1787 Sep, Pain in right leg M79.604 and Restrictive lung disease J98.4 [facility] [id number] [place] [address] 78809- 4510 Sep, [facility] [id number] [place] [address] 02964- 7205 Aug, Restrictive lung disease J98.4 and Acute left eye pain H57.12 [facility] [id number] [place] [address] 53001- 3398 Aug, [facility] [id number] [place] [address] 73251- 5226 Aug, [facility] [id number] [place] [address] 85217- 5093 Jun, [facility] [id number] [place] [address] 42920- 7289 Jun, [facility] [id number] [place] [address] 72017- 5485 Jun, [facility] [address] [address]- 8281 Jun, [facility] [address] [place] [address] 35263- 2545 Jun, Restrictive lung disease J98.4 and Pain in right leg M79.604 [facility] [id number] [place] [address] 34038- 5749 Jun, [facility] [address] [address]- 1466 Jun, [facility] [id number] [place] [address] 37290- 9025 07 Charles, 2016 Restrictive lung disease J98.4 and Kidney failure N19 [facility] [address] [id number] [place] [address]- 0777 May, 2015 [facility] [place] [facility] [address] [id number] [place] [address]- 7357 May, 2015 [facility] [address] [facility] [id number] [place] [address]- 4680 Apr, [facility] [place] [facility] [address] [id number] [place] [address]- 3898 Dec, [facility] [address] [id number] [place] [address]- 2174 Dec, [facility] [address] [facility] [id number] [place] [address]- 9202 08 Aug, 2015 [facility] [address] [facility] [id number] [place] [address]- 5643 14 Feb, 2015 [facility] [address] [facility] [id number] [place] [address]- 0400 Feb, [facility] [address] [facility] [id number] [place] [address]- 1827 18 Jan, 2015 [facility] [address] [facility] [id number] [place] [address]- 7181 18 Jan, 2015 [facility] [place] [facility] [address] [facility] [id number] [place] [address]- 2858 17 Jan, 2015 [facility] [place] [facility] [address] [facility] [id number] [place] [address]- 8692 14 Jan, 2015 [facility] [place] [facility] [address] [facility] [id number] [place] [address]- 1879 13 Jan, 2015 [facility] [place] [facility] [address] [facility] [id number] [place] [address]- 7712 13 Jan, 2015 [facility] [place] [facility] [address] [facility] [id number] [place] 1345 11 Jan, 2015 [facility] [place] [facility] [address] [id number] [place] [address]- 0757 Jan, [facility] [place] [facility] [address] [id number] [place] [address]- 7638 Jan, [facility] [place] [facility] [address] [id number] [place] [address]- 3778 Jan, [facility] [place] [facility] [address] [id number] [place] [address]- 6673 Jan, [facility] [place] [facility] [address] [id number] [place] [address]- 0125 Dec, [facility] [place] [facility] [address] [id number] [place] [address]- 9479 Dec, [facility] [place] [facility] [address] [id number] [place] [address]- 9276 Dec, [facility] [place] [facility] [address] [id number] [place] [address]- 5132 Dec, [facility] [place] [facility] [address] [id number] [place] [address]- 5918 Dec, [facility] [place] [facility] [address] [id number] [place] [address]- 7204 Dec, [facility] [place] [facility] [address] [id number] [place] [address]- 8123 Nov, [facility] [place] [facility] [address] [id number] [place] [address]- 0985 Nov, [facility] [place] [facility] [address] [id number] [place] [address]- 6849 Oct, [facility] [place] [facility] [address] [id number] [place] [address]- 2807 Oct, [facility] [place] [facility] [address] [id number] [place] [address]- 7472 Oct, [facility] [place] [facility] [address] [id number] [place] [address]- 8951 Oct, [facility] [place] [facility] [address] [id number] [place] [address]- 7262 Oct, [facility] [place] [facility] [address] [id number] [place] [address]- 4592 Oct, [facility] [place] [facility] [address] [id number] [place] [address]- 8384 Oct, [facility] [place] [facility] [address] [id number] [place] [address]- 7394 Oct, [facility] [place] [facility] [address] [id number] [place] [address]- 8234 Jul, [facility] [place] [facility] [address] [id number] [place] [address]- 3257 Jul, [facility] [place] [facility] [address] [id number] [place] [address]- 2484 Jul, [facility] [place] [facility] [address] [id number] [place] [address]- 3755 Jul, [facility] [place] [facility] [address] [id number] [place] [address]- 0715 Jul, [facility] [place] [facility] [address] [id number] [place] [address]- 5656 Jun, [facility] [place] [facility] [address] [id number] [place] [address]- 8183 May, [facility] [place] [facility] [address] [id number] [place] [address]- 0084 May, [facility] [place] [facility] [address] [id number] [place] [address]- 3312 May, [facility] [place] [facility] [address] [id number] [place] [address]- 7090 Feb, [facility] [place] [facility] [address] [id number] [place] [address]- 1778 Feb, [facility] [place] [facility] [address] [id number] [place] [address]- 4391 Feb, [facility] [place] [facility] [address] [id number] [place] [address]- 1043 Feb, [facility] [place] [facility] [address] [id number] [place] [address]- 4241 Feb, [facility] [place] [facility] [address] [id number] [place] [address]- 2813 Feb, [facility] [place] [facility] [address] [id number] [place] [address]- 8270 Feb, [facility] [place] [facility] [address] [id number] [place] [address]- 4720 Feb, [facility] [place] [facility] [address] [id number] [place] [address]- 8143 Feb, [facility] [place] [facility] [address] [id number] [place] [address]- 2885 Feb, [facility] [place] [facility] [address] [id number] [place] [address]- 6283 Aug, [facility] [place] [facility] [address] [id number] [place] [address]- 5719 Aug, [facility] [place] [facility] [address] [id number] [place] [address]- 5901 Aug, [facility] [place] [facility] [address] [id number] [place] [address]- 5807 Aug, [facility] [place] [facility] [address] [id number] [place] [address]- 4699 Jan, [facility] [place] [facility] [address] [id number] [place] [address]- 2922 Dec, [facility] [place] [facility] [address] [id number] [place] [address]- 8375 Aug, [facility] [place] [facility] [address] [id number] [place] [address]- 2756 May, [facility] [place] [facility] [address] [id number] [place] [address]- 8161 Apr, [facility] [place] [facility] [address] [id number] [place] [address]- 0598 Apr, [facility] [place] [facility] [address] [id number] [place] [address]- 5686 Apr, [facility] [place] [facility] [address] [id number] [place] [address]- 1613 Apr, [facility] [place] [facility] [address] [id number] [place] 2946 Nov, [facility] [place] [facility] [address] [id number] [place] [address]- 6116 Oct, [facility] [place] [facility] [address] [id number] [place] [address]- 0375 Oct, [facility] [place] [facility] [address] [id number] [place] [address]- 8304 Oct, [facility] [place] [facility] [address] [id number] [place] [address]- 5847 Sep, [facility] [place] [facility] [address] [id number] [place] [address]- 2099 Sep, [facility] [place] [facility] [address] [id number] [address]- 0607 Sep, [facility] [place] [facility] [address] [id number] [address]- 2708 Apr, [facility] [place] [facility] [address] [id number] [place] [address]- 2509 Sep, [facility] [place] [facility] [address] [id number] [place] [address]- 3035 Jan, [facility] [place] [facility] [address] [id number] [place] [address]- 5037 Aug, [facility] [place] [facility] [address] [facility] [id number] [place] [address] 4735 Aug, [facility] [address] [facility] [id number] [place] [address]- 2276 May, IMMUNIZATIONS No Known Immunizations SOCIAL HISTORY Never Assessed REASON FOR VISIT weight gain- states she can not breathe easily- Asael Joshi RN PLAN OF CARE Activity Details Follow Up 3 Months Reason: VITAL SIGNS Height 67 in 2018-02-26 Weight 184 lbs 2018-02-26 Temperature 98.6 degrees Fahrenheit 2018-02-26 Heart Rate 80 bpm 2018-02-26 Respiratory Rate 24 2018-02-26 BMI 28.82 kg/m2 2018-02-26 Blood pressure systolic 168 mmHg 2018-02-26 Blood pressure diastolic 108 mmHg 2018-02-26 MEDICATIONS Medication Instructions Dosage Frequency Start Date End Date Duration Status Levothyroxine Sodium 25 MCG Orally Once a day 1 tablet 24h 30 Active Clonidine HCl 0.1 TAKE ONE TABLET BY MOUTH DAILY 30 Active HydrOXYzine HCl 25 MG Orally every 6 hr prn itching 1 tablet as needed Active Pantoprazole Sodium 40 MG TAKE ONE TABLET BY MOUTH ONCE DAILY BEFORE BREAKFAST 30 Active Albuterol Sulfate (2.5 MG/3ML) 0.083% Inhalation Three times a day 3 ml 8h Feb, 0 days Active Cefuroxime Axetil 250 MG Orally Twice a day 1 tablet 12h Not- Taking Valium 5 mg Orally Twice a day 1 tablet as needed 12h Apr, 30 days Active Pravachol 40 mg Orally -MUST SEE DR. SIMENTAL FOR REFILLS Once a day 1 tablet 24h 30 Active Zofran ODT 4 MG Orally every 4 hrs 1 tablet on the tongue and allow to dissolve 4h Jan, 30 day(s) Active Oxycodone HCl 20 mg Orally every 6 hrs as needed 1 tablet Jul, 28 days Active Nephro-Karina 0.8 MG Orally Once a day 1 tablet 24h Apr, Active Carvedilol 25 MG TAKE ONE TABLET BY MOUTH TWICE DAILY 30 Active Furosemide 80 MG Orally Once a day 2 tablet 24h Active Amlodipine Besylate 10 TAKE ONE TABLET BY MOUTH DAILY 30 Active Advair Diskus 250-50 MCG/DOSE Inhalation Twice a day 1 puff 12h Active Oxygen 2 L/NC as directed May, Active RESULTS Name Result Date Reference Range TSH w/ FREE T4 2018-02-26 TSH 1.68 0.40-4.50 T4, FREE 1.3 0.8-1.8 PROCEDURES Procedure Date Ordered Result Body [facility] 26, 2018 [facility] VISIT ESTABLISHED PATIENT February 26, 2018 VENIPUNCT, ROUTINE* February 26, 2018 INSTRUCTIONS MEDICATIONS ADMINISTERED No Known Medications MEDICAL (GENERAL) HISTORY Type Description Date Medical History kidney failure-dialysis Medical History hypertension Medical History Pneumonia 2017 Surgical History tracheotomy Surgical History fistula left wrist Surgical History back surgery Surgical History port right chest Hospitalization History pneumonia Hospitalization History fluid around lungs 2015 Hospitalization History [place] 04/16-04/17
--- OUTSIDE RECORDS SUMMARY | 2019-03-18 14:32 | XMS REPORT ---
Author Author WILVER SIMENTAL Organization [facility] Address [address] [place] [address] Care Team Providers Care Photo Equipment Technician Name Role Phone WILVER SIMENTAL Unavailable PROBLEMS Type Condition ICD9-CM Code DPJ04-AR Code Onset Dates Condition Status SNOMED Code Problem Kidney failure N19 Active 16775600 Problem Essential hypertension I10 Active 57063412 Problem Neuropathy G62.9 Active 731056694 Problem Pain in right leg M79.604 Active 52782396 Problem Restrictive lung disease J98.4 Active 56071101 Problem Hypothyroidism, unspecified type E03.9 Active 85046236 Problem Chronic kidney disease, stage 4, severely decreased GFR N18.4 Active 053810535 ALLERGIES Substance Reaction Event Type Date Status Morphine Sulfate Unknown Drug Allergy March, Active ENCOUNTERS Encounter Location Date Diagnosis [facility] [id number] [place] [address] 15342- 4004 Jun, [facility] [id number] [place] [address] 80616- 3603 May, [facility] [id number] [place] [address] 02473- 5499 May, [facility] [id number] [place] [address] 63099- 1021 May, Nausea and vomiting, intractability of vomiting not specified, unspecified vomiting type R11.2 [facility] [id number] [place] [address] 22315- 4174 May, Restrictive lung disease J98.4 [facility] [id number] [place] [address] 75788- 4727 May, [facility] [id number] [place] [address] 66531- 5449 May, [facility] [id number] [place] [address] 02326- 8433 Apr, Chronic kidney disease, stage 4, severely decreased GFR N18.4 and Essential hypertension I10 [facility] [address] [address] March, [facility] [id number] [place] [address] 07511- 9733 March, [facility] [id number] [place] [address] 04259- 0364 March, Medicare annual wellness visit, initial Z00.00 ; Chronic kidney disease, stage 4, severely decreased GFR N18.4 ; Hypothyroidism, unspecified type E03.9 and Neuropathy G62.9 [facility] [id number] [place] [address] 45881- 2451 Feb, Restrictive lung disease J98.4 ; Hypothyroidism, unspecified type E03.9 and Neuropathy G62.9 [facility] [id number] [place] [address] 54504- 4001 Nov, Pain in right leg M79.604 [facility] [id number] [place] [address] 87515- 6932 Nov, [facility] [id number] [place] [address] 72755- 4846 Nov, Dysuria R30.0 and Acute cystitis without hematuria N30.00 [facility] [address] [place] [address] 67617- 2347 Nov, Pain in right leg M79.604 [facility] [id number] [place] [address] 17837- 7430 Sep, [facility] [address] [place] [address] 70233- 7276 Jul, Neuropathy G62.9 [facility] [id number] [place] [address] 66921- 7541 Jul, Pain in right leg M79.604 [facility] [id number] [place] [address] 85608- 0501 Jul, [facility] [id number] [place] [address] 01768- 3072 Apr, [facility] [address] 75103- 3679 Feb, Bronchitis J40 and Chronic kidney disease, stage 4, severely decreased GFR N18.4 [facility] [address] 05390- 4433 Jan, Nausea and vomiting, intractability of vomiting not specified, unspecified vomiting type R11.2 [facility] [address] 56340- 5918 Jan, Pain in right leg M79.604 [facility] [address] 14932- 0197 Jan, Hypothyroidism, unspecified type E03.9 [facility] [address] 15031- 1927 Jan, Pain in right leg M79.604 [facility] [address] 78604- 8045 Dec, Acute non-recurrent maxillary sinusitis J01.00 [facility] [address] 88405- 1592 Dec, [facility] [id number] [place] [address] 72846- 4246 Dec, Chronic kidney disease, stage 4, severely decreased GFR N18.4 [facility] [id number] [place] [address] 98028- 8624 Oct, [facility] [address] [address] -[address]659 Oct, Shortness of breath R06.02 [facility] [address] [facility] [id number] [address] 7047 Oct, [facility] [id number] [place] [address] 73194- 5996 Oct, [facility] [address], [place] [address]- 2810 Sep, Pain in right leg M79.604 and Restrictive lung disease J98.4 [facility] [id number] [address]- 8566 Sep, [facility] [id number] [place] [address] 69478- 6203 Aug, Restrictive lung disease J98.4 and Acute left eye pain H57.12 [facility] [address] [place] [address] 24131- 4737 Aug, [facility] [address] [place] [address] 34941- 6592 Aug, [facility] [id number] [place] [address] 32016- 2658 Jun, [facility] [address], [place] [address]- 6067 Jun, [facility] [address] [address]- 8201 Jun, [facility] [id number] [address]- 254 Jun, [facility] [id number] [address]- 0112 Jun, Restrictive lung disease J98.4 and Pain in right leg M79.604 [facility] [id number] [address]- 2546 Jun, [facility] [id number] [place] [address] 82794- 254 Jun, [facility] [address] [id number] [place] [address] May, 2016 Restrictive lung disease J98.4 and Kidney failure N19 [facility] [address] [id number] [place] [address]- 2269 May, [facility] [address] [facility] [id number] [place] [address]- 9880 May, [facility] [place] [facility] [address] [id number] [place] [address]- 9141 Apr, [facility] [address] [id number] [place] 8133 Dec, [facility] [place] [facility] [address] [facility] [id number] [place] [address]- 8285 Dec, [facility] [id number] [place] [address]- 5136 Aug, [facility] [address] [facility] [id number] [place] [address]- 2172 14 Feb, 2015 [facility] [place] [facility] [address] [facility] [id number] [place] [address]- 3578 Feb, [facility] [address] [facility] [id number] [place] [address]- 1325 18 Jan, 2015 [facility] [place] [facility] [address] [facility] [id number] [place] [address]- 9493 18 Jan, 2015 [facility] [place] [facility] [address] [facility] [id number] [place] [address]- 4382 17 Jan, 2015 [facility] [place] [facility] [address] [facility] [id number] [place] [address]- 9916 14 Jan, 2015 [facility] [place] [facility] [address] [facility] [id number] [place] [address]- 4281 13 Jan, 2015 [facility] [place] [facility] [address] [facility] [id number] [place] [address]- 6757 13 Jan, 2015 [facility] [place] [facility] [address] [id number] [place] [address]- 1512 Jan, [facility] [place] [facility] [address] [id number] [place] [address]- 0426 Jan, [facility] [place] [facility] [address] [id number] [place] [address]- 7884 Jan, [facility] [place] [facility] [address] [id number] [place] [address]- 1771 Jan, [facility] [place] [facility] [address] [id number] [place] [address]- 8750 Jan, [facility] [place] [facility] [address] [id number] [place] [address]- 8732 Dec, [facility] [place] [facility] [address] [id number] [place] [address]- 3986 Dec, [facility] [place] [facility] [address] [id number] [place] [address]- 9909 Dec, [facility] [place] [facility] [address] [id number] [place] [address]- 4357 Dec, [facility] [place] [facility] [address] [id number] [place] [address]- 0185 Dec, [facility] [place] [facility] [address] [id number] [place] [address]- 1979 Dec, [facility] [place] [facility] [address] [id number] [place] [address]- 5880 Nov, [facility] [place] [facility] [address] [id number] [place] [address]- 0712 Nov, [facility] [place] [facility] [address] [id number] [place] [address]- 2026 Oct, [facility] [place] [facility] [address] [id number] [place] [address]- 9122 Oct, [facility] [place] [facility] [address] [id number] [place] [address]- 0273 Oct, [facility] [place] [facility] [address] [id number] [place] [address]- 9190 Oct, [facility] [place] [facility] [address] [id number] [place] [address]- 9393 Oct, [facility] [place] [facility] [address] [id number] [place] [address]- 2946 Oct, [facility] [place] [facility] [address] [id number] [place] [address]- 0919 Oct, [facility] [place] [facility] [address] [id number] [place] [address]- 6709 Oct, [facility] [place] [facility] [address] [id number] [place] [address]- 1448 Jul, [facility] [place] [facility] [address] [id number] [place] [address]- 6139 Jul, [facility] [place] [facility] [address] [id number] [place] [address]- 2684 Jul, [facility] [place] [facility] [address] [id number] [place] [address]- 7908 Jul, [facility] [place] [facility] [address] [id number] [place] [address]- 7426 29 Jul, 2014 [facility] [place] [facility] [address] [id number] [place] [address]- 2556 Jun, [facility] [place] [facility] [address] [id number] [place] [address]- 6612 May, [facility] [place] [facility] [address] [id number] [place] [address]- 1090 May, [facility] [place] [facility] [address] [id number] [place] [address]- 4758 May, [facility] [place] [facility] [address] [id number] [place] [address]- 8697 Feb, [facility] [place] [facility] [address] [id number] [place] [address]- 7733 Feb, [facility] [place] [facility] [address] [id number] [place] [address]- 3802 Feb, [facility] [place] [facility] [address] [id number] [place] [address]- 9470 Feb, [facility] [place] [facility] [address] [id number] [place] [address]- 0248 Feb, [facility] [place] [facility] [address] [id number] [place] [address]- 9434 Feb, [facility] [place] [facility] [address] [id number] [place] [address]- 0365 Feb, [facility] [place] [facility] [address] [id number] [place] [address]- 8848 Feb, [facility] [place] [facility] [address] [id number] [place] [address]- 7784 Feb, [facility] [place] [facility] [address] [id number] [place] [address]- 1243 Feb, [facility] [place] [facility] [address] [id number] [place] [address]- 8101 Aug, [facility] [place] [facility] [address] [id number] [place] [address]- 8226 Aug, [facility] [place] [facility] [address] [id number] [place] [address]- 2688 Aug, [facility] [place] [facility] [address] [id number] [place] [address]- 1571 Aug, [facility] [place] [facility] [address] [id number] [place] [address]- 0590 Jan, [facility] [place] [facility] [address] [id number] [place] [address]- 1521 Dec, [facility] [place] [facility] [address] [id number], [place] [address]- 4316 Aug, [facility] [place] [facility] [address] [id number] [place] [address]- 9394 May, [facility] [place] [facility] [address] [id number] [place] [address]- 2588 Apr, [facility] [place] [facility] [address] [id number] [place] [address]- 6775 Apr, [facility] [place] [facility] [address] [id number] [place] [address]- 2070 Apr, [facility] [place] [facility] [address] [id number] [place] [address]- 9799 Apr, [facility] [place] [facility] [address] [id number] [place] [address]- 9178 Nov, [facility] [place] [facility] [address] [id number] [place] [address]- 3339 Oct, [facility] [place] [facility] [address] [id number] [place] [address]- 0301 Oct, [facility] [place] [facility] [address] [id number] [place] [address]- 9343 Oct, [facility] [place] [facility] [address] [id number] [place] [address]- 5412 Sep, [facility] [place] [facility] [address] [id number] [place] [address]- 8273 Sep, [facility] [place] [facility] [address] [id number], [place] [address]- 7746 Sep, [facility] [place] [facility] [address] [id number] [place] [address]- 5333 Apr, [facility] [place] [facility] [address] [id number] [place] [address]- 1485 Sep, [facility] [place] [facility] [address] [id number] [place] [address]- 5303 Jan, [facility] [place] [facility] [address] [facility] [id number] [place] [address]- 3408 Aug, [facility] [address] [facility] [id number] [place] [address]- 0326 Aug, [facility] [address] [facility] [id number] [place] [address]- 6412 May, IMMUNIZATIONS No Known Immunizations SOCIAL HISTORY Never Assessed REASON FOR VISIT Medicare AWV - Initial Visit -MA PLAN OF CARE Activity Details Follow Up 1 Year Reason: VITAL SIGNS Height 67 in 2018-03-20 Temperature 98.8 degrees Fahrenheit 2018-03-20 Heart Rate 84 bpm 2018-03-20 Respiratory Rate 18 2018-03-20 Oximetry w/ oxygen:93 % 2018-03-20 Blood pressure systolic 150 mmHg 2018-03-20 Blood pressure diastolic 78 mmHg 2018-03-20 MEDICATIONS Medication Instructions Dosage Frequency Start Date End Date Duration Status Oxygen 2 L/NC as directed May, Active Oxycodone HCl 20 mg Orally every 6 hrs as needed 1 tablet Jul, 28 days Active Levothyroxine Sodium 25 MCG Orally Once a day 1 tablet 24h 30 Active Furosemide 80 MG Orally Once a day 2 tablet 24h Active HydrOXYzine HCl 25 MG Orally every 6 hr prn itching 1 tablet as needed Active Nephro-Karina 0.8 MG Orally Once a day 1 tablet 24h Apr, Active Valium 5 mg Orally Twice a day 1 tablet as needed 12h Apr, 30 days Active Amlodipine Besylate 10 TAKE ONE TABLET BY MOUTH DAILY 30 Active Pantoprazole Sodium 40 MG TAKE ONE TABLET BY MOUTH ONCE DAILY BEFORE BREAKFAST 30 Active Symbicort 160-4.5 MCG/ACT Inhalation Twice a day 2 puffs 12h Active Levothyroxine Sodium 25 TAKE ONE TABLET BY MOUTH DAILY 30 Active Advair Diskus 250-50 MCG/DOSE Inhalation Twice a day 1 puff 12h Active HydrALAZINE HCl 25 MG Orally Three times a day 1 tablet with food 8h Active Albuterol Sulfate (2.5 MG/3ML) 0.083% Inhalation Three times a day 3 ml 8h Feb, 0 days Active Carvedilol 25 MG TAKE ONE TABLET BY MOUTH TWICE DAILY 30 Active Clonidine HCl 0.1 TAKE ONE TABLET BY MOUTH DAILY 30 Active Pravachol 40 mg Orally -MUST SEE DR. SIMENTAL FOR REFILLS Once a day 1 tablet 24h 30 Active Diazepam & Diet Manage Prod 5 MG Active RESULTS No Results PROCEDURES Procedure Date Ordered Result Body Site FQ VISIT IPPE/AWV March 20, 2018 ANNUAL JULIA VST; PERSNL PPS INIT March 20, 2018 PT TOBACCO SCREEN RCVD TLK March 20, 2018 FALL RISK ASSESSMENT DOCD March 20, 2018 NEG SCR D PT NOT ELIG F/U/PLN DOC March 20, 2018 INSTRUCTIONS MEDICATIONS ADMINISTERED No Known Medications MEDICAL (GENERAL) HISTORY Type Description Date Medical History kidney failure-dialysis Medical History hypertension Medical History Pneumonia 2017 Surgical History tracheotomy Surgical History fistula left wrist Surgical History back surgery Surgical History port right chest Hospitalization History pneumonia Hospitalization History fluid around lungs 2016 Hospitalization History Pneumonia [place] 04/16-04/17
[2019-03-18] MEDS ORDERED: RT-ALBUTEROL SULF 2.5 MG/3 ML PRE-MIX VIAL INH STA (14:33)
--- OUTSIDE RECORDS SUMMARY | 2019-03-18 14:34 | XMS REPORT ---
Author Author WILVER SIMENTAL Organization [facility] [place] Address [address] [place] [address] Care Team Providers Care Marine Steward Name Role Phone WILVER SIMENTAL Unavailable PROBLEMS Type Condition ICD9-CM Code QSE09-[place] Code Onset Dates Condition Status SNOMED Code Problem Kidney failure N19 Active 31035941 Problem Essential hypertension I10 Active 39978156 Problem Neuropathy G62.9 Active 510589259 Problem Pain in right leg M79.604 Active 03458370 Problem Restrictive lung disease J98.4 Active 45300499 Problem Hypothyroidism, unspecified type E03.9 Active 04797189 Problem Chronic kidney disease, stage 4, severely decreased GFR N18.4 Active [id number] ALLERGIES No Information ENCOUNTERS Encounter Location Date Diagnosis [place] [id number] [place] [address] 97810- 6116 Apr, Chronic kidney disease, stage 4, severely decreased GFR N18.4 and Essential hypertension I10 [facility] [place] [id number] [place] [address] 11072- 8246 March, [facility] [place] [id number] [place] [address] 88794- 8014 March, [facility] [place] [id number] [place] [address] 36923- 9340 March, Medicare annual wellness visit, initial Z00.00 ; Chronic kidney disease, stage 4, severely decreased GFR N18.4 ; Hypothyroidism, unspecified type E03.9 and Neuropathy G62.9 [facility] [place] [id number] [place] [address] 62556- 1027 Feb, Restrictive lung disease J98.4 ; Hypothyroidism, unspecified type E03.9 and Neuropathy G62.9 [facility] [place] [id number] [place] [address] 89181- 6052 Nov, Pain in right leg M79.604 [facility] [place] [id number] [place] [address] 45480- 5604 Nov, [facility] [place] [address] 26048- 6472 Nov, Dysuria R30.0 and Acute cystitis without hematuria N30.00 [facility] [place] [address] 44002- 3670 Nov, Pain in right leg M79.604 [place] [address] 33085- 4115 Sep, [place] [address] 96707- 9871 Jul, Neuropathy G62.9 [place] [address] 69124- 6068 Jul, Pain in right leg M79.604 [place] [address] 16651- 0693 Jul, [place] [address] 42504- 1188 Apr, [place] [address] 36217- 8518 Feb, Bronchitis J40 and Chronic kidney disease, stage 4, severely decreased GFR N18.4 [facility] [place] [id number] [place] [address] 90265- 9967 Jan, Nausea and vomiting, intractability of vomiting not specified, unspecified vomiting type R11.2 [place] [id number] [place] [address] 97670- 9982 Jan, Pain in right leg M79.604 [facility] [place] [address] 50254- 2254 Jan, Hypothyroidism, unspecified type E03.9 [facility] [place] [id number] [place] [address] 87127- 4749 Jan, Pain in right leg M79.604 [facility] [place] [id number] [place] [address] 34457- 4751 Dec, Acute non-recurrent maxillary sinusitis J01.00 [facility] [place] [id number] [place] [address] 70051- 1349 Dec, [facility] [place] [id number] [place] [address] 27099- 6266 Dec, Chronic kidney disease, stage 4, severely decreased GFR N18.4 [facility] [place] [id number] [place] [address] 41962- 4791 Oct, [facility] [id number] [place] [address] 64312 -8995 Oct, Shortness of breath R06.02 [facility] [place] [id number] [place] [address] 16125- 9754 Oct, [facility] [place] [id number] [place] [address] 40741- 7461 Oct, [facility] [place] [id number] [place] [address] 42816- 2517 Sep, Pain in right leg M79.604 and Restrictive lung disease J98.4 [facility] [place] [id number] [place] [address] 27090- 9351 Sep, [facility] [place] [id number] [place] [address] 10054- 9607 Aug, Restrictive lung disease J98.4 and Acute left eye pain H57.12 [facility] [place] [id number] [place] [address] 59584- 2696 Aug, [facility] [place] [id number] [place] [address] 54985- 7984 Aug, [facility] [place] [address] [facility] [id number] [place] [address]- 5186 Jun, [facility] [place] [address] [place] [address]- 4372 Jun, [facility] [place] [id number] [place] [address]- 5045 Jun, [facility] [place] [id number] [place] [address], [place] [address]- 2912 Jun, [facility] [place] [id number] [place] [address], [place] [address]- 3915 Jun, Restrictive lung disease J98.4 and Pain in right leg M79.604 [facility] [place] [address] [place] [address]- 1811 Jun, [facility] [place] [id number] [place] [address] 79598- 5579 Jun, [facility] [place] [address] [address]- 2480 May, Restrictive lung disease J98.4 and Kidney failure N19 [facility] [place] [address] [address]- 0243 May, [facility] [place] [address] [address]- 9760 May, [facility] [place] [address] [address]- 0419 Apr, [facility] [place] [id number] [address]- 6618 Dec, [facility] [place] [id number] [address]- 7558 Dec, [facility] [place] [id number] [address]- 4911 Aug, [facility] [place] [id number] [place] [address] 25883- 0308 14 Feb, 2015 [facility] [place] [facility] [address] [id number] [place] [address]- 4213 13 Feb, 2015 [facility] [place] [facility] [address] [id number] [place] [address]- 1214 18 Jan, 2015 [facility] [place] [facility] [address] [id number] [place] [address]- 0784 18 Jan, 2015 [facility] [place] [facility] [address] [id number] [place] [address]- 7186 17 Jan, 2015 [facility] [place] [facility] [address] [id number] [place] [address]- 5525 14 Jan, 2015 [facility] [place] [facility] [address] [id number] [place] [address]- 1012 13 Jan, 2015 [facility] [place] [facility] [address] [id number] [place] [address]- 7010 13 Jan, 2015 [facility] [place] [facility] [address] [id number] [place] [address]- 4144 11 Jan, 2015 [facility] [place] [facility] [address] [id number] [place] [address]- 8293 11 Jan, 2015 [facility] [place] [facility] [address] [id number] [place] [address]- 9573 10 Jan, 2015 [facility] [place] [facility] [address] [id number] [place] [address]- 3009 10 Jan, 2015 [facility] [place] [facility] [address] [id number] [place] [address]- 8055 03 Jan, 2015 [facility] [place] [facility] [address] [id number] [place] [address]- 9571 Dec, [facility] [place] [facility] [address] [id number] [place] [address]- 6216 Dec, [facility] [place] [facility] [address] [id number] [place] [address]- 0041 Dec, [facility] [place] [facility] [address] [id number] [place] [address]- 1755 Dec, [facility] [place] [facility] [address] [id number] [place] [address]- 1306 Dec, [facility] [place] [facility] [address] [id number] [place] [address]- 9646 Dec, [facility] [place] [facility] [address] [id number] [place] [address]- 1716 Nov, [facility] [place] [facility] [address] [id number] [place] [address]- 5207 Nov, [facility] [place] [facility] [address] [id number] [place] [address]- 1999 Oct, [facility] [place] [facility] [address] [id number] [place] [address]- 3004 Oct, [facility] [place] [facility] [address] [id number] [place] [address]- 8509 Oct, [facility] [place] [facility] [address] [id number] [place] [address]- 4054 Oct, [facility] [place] [facility] [address] [id number] [place] [address]- 9566 Oct, [facility] [place] [facility] [address] [id number] [place] [address]- 1838 Oct, [facility] [place] [facility] [address] [id number] [place] [address]- 2911 Oct, [facility] [place] [facility] [address] [id number] [place] [address]- 4243 Oct, [facility] [place] [facility] [address] [id number] [place] [address]- 9226 Jul, [facility] [place] [facility] [address] [id number] [place] [address]- 8256 Jul, [facility] [place] [facility] [address] [id number] [place] [address]- 8706 Jul, [facility] [place] [facility] [address] [id number] [place] [address]- 4093 Jul, [facility] [place] [facility] [address] [id number] [place] [address]- 4347 Jul, [facility] [place] [facility] [address] [id number] [place] [address]- 2814 Jun, [facility] [place] [facility] [address] [id number] [place] [address]- 1737 May, [facility] [place] [facility] [address] [id number] [place] [address]- 7221 May, [facility] [place] [facility] [address] [id number] [place] [address]- 3326 May, [facility] [place] [facility] [address] [id number] [place] [address]- 7967 Feb, [facility] [place] [facility] [address] [id number] [place] [address]- 8053 Feb, [facility] [place] [facility] [address] [id number] [place] [address]- 8629 Feb, [facility] [place] [facility] [address] [id number] [place] [address]- 3147 Feb, [facility] [place] [facility] [address] [id number] [place] [address]- 1750 Feb, [facility] [place] [facility] [address] [id number] [place] [address]- 5821 Feb, [facility] [place] [facility] [address] [id number] [place] [address]- 5458 Feb, [facility] [place] [facility] [address] [id number] [place] [address]- 3524 Feb, [facility] [place] [facility] [address] [id number] [place] [address]- 7327 Feb, [facility] [place] [facility] [address] [id number] [place] [address]- 1366 Feb, [facility] [place] [facility] [address] [id number] [place] [address]- 8945 Aug, [facility] [place] [facility] [address] [id number] [place] [address]- 5381 Aug, [facility] [place] [facility] [address] [id number] [place] [address]- 0067 Aug, [facility] [place] [facility] [address] [id number] [place] [address]- 7944 Aug, [facility] [place] [facility] [address] [id number] [place] [address]- 3200 Jan, [facility] [place] [facility] [address] [id number] [place] [address]- 2211 Dec, [facility] [place] [facility] [address] [id number] [place] [address]- 8469 Aug, [facility] [place] [facility] [address] [id number] [place] [address]- 8966 May, [facility] [place] [facility] [address] [id number] [place] [address]- 7855 Apr, [facility] [place] [facility] [address] [id number] [place] [address]- 2621 Apr, [facility] [place] [facility] [address] [id number] [place] [address]- 3892 Apr, [facility] [place] [facility] [address] [id number] [place] [address]- 2192 Apr, [facility] [place] [facility] [address] [id number] [place] [address]- 0640 Nov, [facility] [place] [facility] [address] [id number] [place] [address]- 7181 Oct, [facility] [place] [facility] [address] [id number] [place] [address]- 3873 Oct, [facility] [place] [address] [facility] [id number] [address]- 5009 Oct, [facility] [place] [address] [facility] [id number], [place] [address]- 6553 Sep, [facility] [place] [address] [facility] [id number] [address]- 7459 Sep, [facility] [place] [address] [address]- 4797 Sep, [facility] [place] [address] [facility] [id number], [place] [address]- 6853 Apr, [facility] [place] [address] [address]- 6479 Sep, [facility] [place] [address] [address]- 5920 Jan, [facility] [place] [address] [address]- 0658 Aug, [facility] [place] [address] [address]- 8020 Aug, [facility] [place] [id number] [address]- 0487 May, IMMUNIZATIONS No Known Immunizations SOCIAL HISTORY Never Assessed REASON FOR VISIT Requests return call PLAN OF CARE VITAL SIGNS MEDICATIONS No [...]
--- OUTSIDE RECORDS SUMMARY | 2019-03-18 14:34 | XMS REPORT ---
Author Author WILVER SIMENTAL Organization [facility] Address [address] [place] [address] Care Team Providers [employer] Name Role Phone WILVER SIMENTAL Unavailable PROBLEMS Type Condition ICD9-CM Code [id number] Code Onset Dates Condition Status SNOMED Code Problem Kidney failure N19 Active 34209310 Problem Essential hypertension I10 Active 98700413 Problem Neuropathy G62.9 Active 524617906 Problem Pain in right leg M79.604 Active 48637091 Problem Restrictive lung disease J98.4 Active 84533028 Problem Hypothyroidism, unspecified type E03.9 Active 33181249 Problem Chronic kidney disease, stage 4, severely decreased GFR N18.4 Active [id number] ALLERGIES No Information ENCOUNTERS Encounter Location Date Diagnosis [place] [id number] [place] [address] 49094- 1106 Apr, Chronic kidney disease, stage 4, severely decreased GFR N18.4 and Essential hypertension I10 [facility] [id number] [place] [address] 95872- 3434 March, [facility] [id number] [place] [address] 20941- 4829 March, [facility] [id number] [place] [address] 64582- 9307 March, Medicare annual wellness visit, initial Z00.00 ; Chronic kidney disease, stage 4, severely decreased GFR N18.4 ; Hypothyroidism, unspecified type E03.9 and Neuropathy G62.9 [facility] [id number] [place] [address] 57897- 8501 Feb, Restrictive lung disease J98.4 ; Hypothyroidism, unspecified type E03.9 and Neuropathy G62.9 [facility] [id number] [place] [address] 19322- 1241 Nov, Pain in right leg M79.604 [facility] [id number] [place] [address] 27348- 8714 Nov, [facility] [address] 42040- 1393 Nov, Dysuria R30.0 and Acute cystitis without hematuria N30.00 [facility] [address] 91780- 4939 Nov, Pain in right leg M79.604 [place] [address] 78649- 0725 Sep, [place] [address] 61931- 2105 Jul, Neuropathy G62.9 [place] [address] 06492- 8917 Jul, Pain in right leg M79.604 [place] [address] 95318- 6999 Jul, [place] [address] 83821- 2124 Apr, [place] [address] 30495- 1964 Feb, Bronchitis J40 and Chronic kidney disease, stage 4, severely decreased GFR N18.4 [facility] [id number] [place] [address] 62124- 9867 Jan, Nausea and vomiting, intractability of vomiting not specified, unspecified vomiting type R11.2 [place] [id number] [place] [address] 99354- 6675 Jan, Pain in right leg M79.604 [facility] [address] 50259- 5895 Jan, Hypothyroidism, unspecified type E03.9 [facility] [id number] [place] [address] 90315- 5191 Jan, Pain in right leg M79.604 [facility] [id number] [place] [address] 39472- 0182 Dec, Acute non-recurrent maxillary sinusitis J01.00 [facility] [id number] [place] [address] 40882- 6352 Dec, [facility] [id number] [place] [address] 88185- 1378 Dec, Chronic kidney disease, stage 4, severely decreased GFR N18.4 [facility] [id number] [place] [address] 15144- 7203 Oct, [facility] [id number] [place] [address] 41543 -2088 Oct, Shortness of breath R06.02 [facility] [id number] [place] [address] 91302- 6722 Oct, [facility] [id number] [place] [address] 48350- 7131 Oct, [facility] [id number] [place] [address] 41928- 5370 Sep, Pain in right leg M79.604 and Restrictive lung disease J98.4 [facility] [id number] [place] [address] 53636- 9668 Sep, [facility] [id number] [place] [address] 95542- 4988 Aug, Restrictive lung disease J98.4 and Acute left eye pain H57.12 [facility] [id number] [place] [address] 85334- 8973 Aug, [facility] [id number] [place] [address] 51076- 3315 Aug, [facility] [address] [facility] [id number] [place] [address]- 2577 Jun, [facility] [id number] [place] [address]- 5290 Jun, [facility] [id number] [place] [address]- 5461 Jun, [facility] [id number] [place] [address], [place] [address]- 4155 Jun, [facility] [id number] [place] [address], [place] [address]- 1917 Jun, Restrictive lung disease J98.4 and Pain in right leg M79.604 [facility] [id number] [place] [address]- 1270 Jun, [facility] [id number] [place] [address] 64187- 9574 Jun, [facility] [address] [address]- 0500 May, Restrictive lung disease J98.4 and Kidney failure N19 [facility] [address] [address]- 0399 May, [facility] [address] [address]- 8670 May, [facility] [address] [address]- 9000 Apr, [facility] [address] [address]- 7072 Dec, [facility] [address] [address]- 9013 Dec, [facility] [address] [address]- 6587 Aug, [facility] [id number] [place] [address] 46447- 2966 14 Feb, 2015 [facility] [place] [facility] [address] [id number] [place] [address]- 0472 13 Feb, 2015 [facility] [place] [facility] [address] [id number] [place] [address]- 4531 18 Jan, 2015 [facility] [place] [facility] [address] [id number] [place] [address]- 9608 18 Jan, 2015 [facility] [place] [facility] [address] [id number] [place] [address]- 4449 17 Jan, 2015 [facility] [place] [facility] [address] [id number] [place] [address]- 3839 14 Jan, 2015 [facility] [place] [facility] [address] [id number] [place] [address]- 3104 13 Jan, 2015 [facility] [place] [facility] [address] [id number] [place] [address]- 8448 13 Jan, 2015 [facility] [place] [facility] [address] [id number] [place] [address]- 4819 11 Jan, 2015 [facility] [place] [facility] [address] [id number] [place] [address]- 5506 11 Jan, 2015 [facility] [place] [facility] [address] [id number] [place] [address]- 6175 10 Jan, 2015 [facility] [place] [facility] [address] [id number] [place] [address]- 8804 10 Jan, 2015 [facility] [place] [facility] [address] [id number] [place] [address]- 4608 03 Jan, 2015 [facility] [place] [facility] [address] [id number] [place] [address]- 6344 Dec, [facility] [place] [facility] [address] [id number] [place] [address]- 1292 Dec, [facility] [place] [facility] [address] [id number] [place] [address]- 7796 Dec, [facility] [place] [facility] [address] [id number] [place] [address]- 4150 Dec, [facility] [place] [facility] [address] [id number] [place] [address]- 6096 Dec, [facility] [place] [facility] [address] [id number] [place] [address]- 0336 Dec, [facility] [place] [facility] [address] [id number] [place] [address]- 0346 Nov, [facility] [place] [facility] [address] [id number] [place] [address]- 0439 Nov, [facility] [place] [facility] [address] [id number] [place] [address]- 2423 Oct, [facility] [place] [facility] [address] [id number] [place] [address]- 6940 Oct, [facility] [place] [facility] [address] [id number] [place] [address]- 2825 Oct, [facility] [place] [facility] [address] [id number] [place] [address]- 1188 Oct, [facility] [place] [facility] [address] [id number] [place] [address]- 8678 Oct, [facility] [place] [facility] [address] [id number] [place] [address]- 8925 Oct, [facility] [place] [facility] [address] [id number] [place] [address]- 5735 Oct, [facility] [place] [facility] [address] [id number] [place] [address]- 3423 Oct, [facility] [place] [facility] [address] [id number] [place] [address]- 6766 Jul, [facility] [place] [facility] [address] [id number] [place] [address]- 3866 Jul, [facility] [place] [facility] [address] [id number] [place] [address]- 3236 Jul, [facility] [place] [facility] [address] [id number] [place] [address]- 8416 Jul, [facility] [place] [facility] [address] [id number] [place] [address]- 3254 Jul, [facility] [place] [facility] [address] [id number] [place] [address]- 9646 Jun, [facility] [place] [facility] [address] [id number] [place] [address]- 9129 May, [facility] [place] [facility] [address] [id number] [place] [address]- 7393 May, [facility] [place] [facility] [address] [id number] [place] [address]- 0890 May, [facility] [place] [facility] [address] [id number] [place] [address]- 5769 Feb, [facility] [place] [facility] [address] [id number] [place] [address]- 7201 Feb, [facility] [place] [facility] [address] [id number] [place] [address]- 6818 Feb, [facility] [place] [facility] [address] [id number] [place] [address]- 7738 Feb, [facility] [place] [facility] [address] [id number] [place] [address]- 1789 Feb, [facility] [place] [facility] [address] [id number] [place] [address]- 1332 Feb, [facility] [place] [facility] [address] [id number] [place] [address]- 7110 Feb, [facility] [place] [facility] [address] [id number] [place] [address]- 3253 Feb, [facility] [place] [facility] [address] [id number] [place] [address]- 3897 Feb, [facility] [place] [facility] [address] [id number] [place] [address]- 8732 Feb, [facility] [place] [facility] [address] [id number] [place] [address]- 9586 Aug, [facility] [place] [facility] [address] [id number] [place] [address]- 9213 Aug, [facility] [place] [facility] [address] [id number] [place] [address]- 7534 Aug, [facility] [place] [facility] [address] [id number] [place] [address]- 5617 Aug, [facility] [place] [facility] [address] [id number] [place] [address]- 0648 Jan, [facility] [place] [facility] [address] [id number] [place] [address]- 0471 Dec, [facility] [place] [facility] [address] [id number] [place] [address]- 4397 Aug, [facility] [place] [facility] [address] [id number] [place] [address]- 7394 May, [facility] [place] [facility] [address] [id number] [place] [address]- 7874 Apr, [facility] [place] [facility] [address] [id number] [place] [address]- 5624 Apr, [facility] [place] [facility] [address] [id number] [place] [address]- 8879 Apr, [facility] [place] [facility] [address] [id number] [place] [address]- 7370 Apr, [facility] [place] [facility] [address] [id number] [place] [address]- 9475 Nov, [facility] [place] [facility] [address] [id number] [place] [address]- 8748 Oct, [facility] [place] [facility] [address] [id number] [place] [address]- 7543 Oct, [facility] [address] [facility] [id number] [address]- 7136 Oct, [facility] [address] [facility] [id number] [address]- 8186 Sep, [facility] [address] [facility] [id number], [place] [address]- 8196 Sep, [facility] [address] [facility] [id number] [address]- 2546 Sep, [facility] [address] [facility] [id number], [place] [address]- 0380 Apr, [facility] [address] [facility] [id number], [place] [address]- 5996 Sep, [facility] [address] [address]- 9590 Jan, [facility] [address] [address]- 5326 Aug, [facility] [address] [address]- 5523 Aug, [facility] [id number] [address]- 7925 May, IMMUNIZATIONS No Known Immunizations SOCIAL HISTORY Never Assessed REASON FOR VISIT Valium PLAN OF CARE VITAL SIGNS MEDICATIONS Medication Instructions Dosage Frequency Start Date End Date Duration Status Valium 5 mg Orally Twice a day 1 tablet as needed 12h 23 Apr, 2016 30 days Active RESULTS No Results PROCEDURES [...]
--- OUTSIDE RECORDS SUMMARY | 2019-03-18 14:34 | XMS REPORT ---
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 Name Role Phone WILVER SIMENTAL Unavailable PROBLEMS Type Condition ICD9-CM Code KML05-OI Code Onset Dates Condition Status SNOMED Code Problem Kidney failure N19 Active 74183141 Problem Essential hypertension I10 Active 60241464 Problem Neuropathy G62.9 Active 143612210 Problem Pain in right leg M79.604 Active 73922421 Problem Restrictive lung disease J98.4 Active 62156224 Problem Hypothyroidism, unspecified type E03.9 Active 46476827 Problem Chronic kidney disease, stage 4, severely decreased GFR N18.4 Active 822368843 ALLERGIES Substance Reaction Event Type Date Status Morphine Sulfate Unknown Drug Allergy Nov, Active ENCOUNTERS Encounter Location Date Diagnosis [facility] [id number] [place] [address] 59515- 3474 Apr, Chronic kidney disease, stage 4, severely decreased GFR N18.4 and Essential hypertension I10 [facility] [id number] [place] [address] 84341- 5757 March, [facility] [id number] [place] [address] 59156- 4427 March, [facility] [id number] [place] [address] 00469- 9520 March, Medicare annual wellness visit, initial Z00.00 ; Chronic kidney disease, stage 4, severely decreased GFR N18.4 ; Hypothyroidism, unspecified type E03.9 and Neuropathy G62.9 [facility] [id number] [place] [address] 08850- 1922 Feb, Restrictive lung disease J98.4 ; Hypothyroidism, unspecified type E03.9 and Neuropathy G62.9 [facility] [id number] [place] [address] 25808- 1879 Nov, Pain in right leg M79.604 [facility] [id number] [place] [address] 53317- 3837 Nov, [facility] [id number] [place] [address] 58309- 1412 Nov, Dysuria R30.0 and Acute cystitis without hematuria N30.00 [facility] [id number] [place] [address] 92860- 8959 Nov, Pain in right leg M79.604 [facility] [address] 89781- 0560 Sep, [place] [address] 04792- 7038 Jul, Neuropathy G62.9 [facility] [address] 75094- 5212 14 Jul, 2017 Pain in right leg M79.604 [facility] [id number] [place] [address] 07736- 1549 Jul, [facility] [id number] [place] [address] 14816- 9550 Apr, [facility] [id number] [place] [address] 01037- 1732 Feb, Bronchitis J40 and Chronic kidney disease, stage 4, severely decreased GFR N18.4 [facility] [id number] [place] [address] 68423- 9231 Jan, Nausea and vomiting, intractability of vomiting not specified, unspecified vomiting type R11.2 [facility] [id number] [place] [address] 24976- 5545 Jan, Pain in right leg M79.604 [facility] [address] 74941- 8141 Jan, Hypothyroidism, unspecified type E03.9 [facility] [id number] [place] [address] 24942- 9644 Jan, Pain in right leg M79.604 [facility] [id number] [place] [address] 41102- 3167 Dec, Acute non-recurrent maxillary sinusitis J01.00 [facility] [address] 74135- 2559 Dec, [facility] [address] 72795- 0457 Dec, Chronic kidney disease, stage 4, severely decreased GFR N18.4 [facility] [id number] [place] [address] 16864- 8878 Oct, [facility] [address] 85882 -4730 Oct, Shortness of breath R06.02 [facility] [id number] [place] [address] 09064- 7709 Oct, [facility] [id number] [place] [address] 23584- 1423 Oct, [facility] [id number] [place] [address] 48436- 5316 Sep, Pain in right leg M79.604 and Restrictive lung disease J98.4 [facility] [id number] [place] [address] 77601- 9188 Sep, [facility] [address] 59773- 0757 Aug, Restrictive lung disease J98.4 and Acute left eye pain H57.12 [facility] [id number] [place] [address] 00527- 6321 Aug, [facility] [address] 30671- 3094 Aug, [facility] [address] [facility] [id number], [place] [address] Jun, [facility] [address] [address] 1153 Jun, [facility] [id number] [address] 5980 Jun, [facility] [id number] [place] [address] 45788- 6536 Jun, [facility] [id number] [address] 7360 Jun, Restrictive lung disease J98.4 and Pain in right leg M79.604 [facility] [address] [address]- 5300 Jun, [facility] [address] [address]- 0510 Jun, [facility] [id number] [address]- 9980 May, Restrictive lung disease J98.4 and Kidney failure N19 [facility] [address], [place] [address]- 4869 May, [facility] [address], [place] [address]- 5996 May, [facility] [address], [place] [address]- 1603 Apr, [facility] [id number], [place] [address]- 6420 Dec, [facility] [address], [place] [address]- 1811 Dec, [facility] [address], [place] [address]- 6041 Aug, [facility] [id number] [place] [address]- 4135 14 Feb, 2014 [facility] [place] [facility] [address] [id number] [place] [address]- 9942 13 Feb, 2015 [facility] [place] [facility] [address] [id number] [place] [address]- 7776 18 Jan, 2015 [facility] [place] [facility] [address] [id number] [place] [address]- 8341 18 Jan, 2015 [facility] [place] [facility] [address] [id number] [place] [address]- 1232 17 Jan, 2015 [facility] [place] [facility] [address] [id number] [place] [address]- 2839 14 Jan, 2015 [facility] [place] [facility] [address] [id number] [place] [address]- 3906 13 Jan, 2015 [facility] [place] [facility] [address] [id number] [place] [address]- 9013 13 Jan, 2015 [facility] [place] [facility] [address] [id number] [place] [address]- 9185 11 Jan, 2015 [facility] [place] [facility] [address] [id number] [place] [address]- 8319 11 Jan, 2015 [facility] [place] [facility] [address] [id number] [place] [address]- 7564 10 Jan, 2015 [facility] [place] [facility] [address] [id number] [place] [address]- 6346 10 Jan, 2015 [facility] [place] [facility] [address] [id number] [place] [address]- 3876 03 Jan, 2015 [facility] [place] [facility] [address] [id number] [place] [address]- 5655 26 Dec, 2014 [facility] [place] [facility] [address] [id number] [place] [address]- 0326 Dec, [facility] [place] [facility] [address] [id number] [place] [address]- 8788 Dec, [facility] [place] [facility] [address] [id number] [place] [address]- 1853 Dec, [facility] [place] [facility] [address] [id number] [place] [address]- 6806 Dec, [facility] [place] [facility] [address] [id number] [place] [address]- 1406 Dec, [facility] [place] [facility] [address] [id number] [place] [address]- 5618 Nov, [facility] [place] [facility] [address] [id number] [place] [address]- 0806 Nov, [facility] [place] [facility] [address] [id number] [place] [address]- 4746 Oct, [facility] [place] [facility] [address] [id number] [place] [address]- 7439 Oct, [facility] [place] [facility] [address] [id number] [place] [address]- 2151 Oct, [facility] [place] [facility] [address] [id number] [place] [address]- 3410 Oct, [facility] [place] [facility] [address] [id number] [place] [address]- 3613 Oct, [facility] [place] [facility] [address] [id number] [place] [address]- 7349 Oct, [facility] [place] [facility] [address] [id number] [place] [address]- 1427 Oct, [facility] [place] [facility] [address] [id number] [place]27 Oct, [facility] [place] [facility] [address] [id number] [place] [address]65 Jul, [facility] [place] [facility] [address] [id number] [place] [address]- 4137 Jul, [facility] [place] [facility] [address] [id number] [place] [address]- 6065 29 Jul, 2014 [facility] [address] [id number] [place] [address]- 5238 29 Jul, 2014 [facility] [place] [facility] [address] [id number] [place] [address]- 7556 29 Jul, 2014 [facility] [address] [id number] [place] [address]- 0727 Jun, [facility] [place] [facility] [address] [id number] [place] [address]- 0141 May, [facility] [place] [facility] [address] [id number] [place] [address]- 9167 May, [facility] [place] [facility] [address] [id number] [place] [address]- 0855 May, [facility] [address] [id number] [place] [address]- 4815 Feb, [facility] [address] [id number] [place] [address]- 2112 Feb, [facility] [place] [facility] [address] [id number] [place] [address]- 2279 Feb, [facility] [address] [id number] [place] [address]- 7377 Feb, [facility] [place] [facility] [address] [id number] [place] [address]- 3820 Feb, [facility] [place] [facility] [address] [id number] [place] [address]- 7769 Feb, [facility] [place] [facility] [address] [id number] [place] [address]- 1802 Feb, [facility] [place] [facility] [address] [id number] [place] [address]- 2272 Feb, [facility] [place] [facility] [address] [id number] [place] [address]- 5097 Feb, [facility] [place] [facility] [address] [id number] [place] [address]- 3479 Feb, [facility] [place] [facility] [address] [id number] [place] [address]- 5108 Aug, [facility] [place] [facility] [address] [id number] [place] [address]- 6916 Aug, [facility] [place] [facility] [address] [id number] [place] [address]- 5111 Aug, [facility] [place] [facility] [address] [id number] [place] [address]- 3989 Aug, [facility] [place] [facility] [address] [id number] [place] [address]- 7157 Jan, [facility] [place] [facility] [address] [facility] [id number] [place] [address]- 3161 Dec, [facility] [place] [facility] [address] [id number] [place] [address]- 0758 Aug, [facility] [place] [facility] [address] [id number] [place] [address]- 7046 May, [facility] [place] [facility] [address] [id number], [place] [address]- 9183 Apr, [facility] [place] [facility] [address] [id number], [place] [address]- 1755 Apr, [facility] [place] [facility] [address] [id number], [place] [address]- 8063 Apr, [facility] [place] [facility] [address] [id number] [place] [address]- 4508 Apr, [facility] [place] [facility] [address] [id number], [place] [address]- 4151 Nov, [facility] [place] [facility] [address] [facility] [id number], [place] [address]- 7326 Oct, [facility] [place] [facility] [address] [id number], [place] [address]- 7036 Oct, [facility] [address], [place] [address]- 1490 Oct, [facility] [address], [place] [address]- 6194 Sep, [facility] [address], [place] [address]- 9145 Sep, [facility] [address], [place] [address]- 4615 Sep, [facility] [address], [place] [address]- 8122 Apr, [facility] [address], [place] [address]- 9744 Sep, [facility] [address], [place] [address]- 9396 Jan, [facility] [address], [place] [address]- 5300 Aug, [facility] [address], [place] [address]- 4765 Aug, [facility] [address], [place] [address]- 5157 May, IMMUNIZATIONS No Known Immunizations SOCIAL HISTORY Never Assessed REASON FOR VISIT UTI for a few weeks-Maria Elena FERREIRA PLAN OF CARE Activity Details Follow Up prn Reason: VITAL SIGNS Height 67 in 2017-12-05 Weight 180.0 lbs 2017-12-05 Temperature 98.1 degrees Fahrenheit 2017-12-05 Heart Rate 62 bpm 2017-12-05 Respiratory Rate 18 2017-12-05 BMI 28.19 kg/m2 2017-12-05 Blood pressure systolic 134 mmHg 2017-12-05 Blood pressure diastolic 62 mmHg 2017-12-05 MEDICATIONS Medication Instructions Dosage Frequency Start Date End Date Duration Status Levothyroxine Sodium 25 Orally Once a day 1 tablet 24h 30 Active Oxycodone HCl 20 mg Orally every 6 hrs as needed 1 tablet 15 Jul, 2017 28 days Active Oxygen 2 L/NC as directed May, Active Amlodipine Besylate 10 TAKE ONE TABLET BY MOUTH DAILY 30 Active Pantoprazole Sodium 40 MG TAKE ONE TABLET BY MOUTH ONCE DAILY BEFORE BREAKFAST 30 Active Clonidine HCl 0.1 TAKE ONE TABLET BY MOUTH DAILY 30 Active Nephro-Karina 0.8 MG Orally Once a day 1 tablet 24h Apr, Active Albuterol Sulfate (2.5 MG/3ML) 0.083% Inhalation Three times a day 3 ml 8h Feb, 0 days Active Advair Diskus 250-50 MCG/DOSE Inhalation Twice a day 1 puff 12h Active Levothyroxine Sodium 25 MCG Orally Once a day 1 tablet 24h 30 Active Renvela 800 MG Orally Three times a day 1 tablet with meals 8h Active tramadol 50 mg take 1 tablet (50 mg) by oral route every 4-6 hours as needed PRN pain Jan, Not-Taking Bactrim DS 800-160 MG Orally Twice a day 1 tablet 12h Nov,Nov 03 days Active Furosemide 80 MG Orally Once a day 1 tablet 24h Active Valium 5 mg Orally Twice a day 1 tablet as needed 12h Apr, 30 days Active Carvedilol 25 MG TAKE ONE TABLET BY MOUTH TWICE DAILY 30 Active Pravastatin Sodium 40 TAKE ONE TABLET BY MOUTH DAILY 90 Active Carvedilol 25 TAKE ONE TABLET BY MOUTH TWICE A DAY 30 Active Cefuroxime Axetil 250 MG Orally Twice a day 1 tablet 12h Active HydrALAZINE HCl 25 TAKE ONE TABLET BY MOUTH EVERY 8 HOURS 30 Active Zofran ODT 4 MG Orally every 4 hrs 1 tablet on the tongue and allow to dissolve 4h Jan, 30 day(s) Active HydrOXYzine HCl 25 MG Orally every 6 hr prn itching 1 tablet as needed Active Pravachol 40 mg Orally -MUST SEE DR. SIMENTAL FOR REFILLS Once a day 1 tablet 24h 30 Active RESULTS Name Result Date Reference Range UA LONG DIP (IN HOUSE) 2017-12-05 Lot # [id number] Exp date 08/2018 Clarity cloudy Color orange Odor strong GLU negative LEEROY negative KET negative SG 1.020 BLO negative pH 6.5 Protein 1+ URO 0.2 NIT negative SABINA 1+ Lot # Exp date PROCEDURES Procedure Date Ordered Result Body Site URINALYSIS, AUTO, W/O SCOPE Dec 05, 2017 [facility] VISIT ESTABLISHED PATIENT Dec 05, 2017 INSTRUCTIONS MEDICATIONS ADMINISTERED No Known Medications MEDICAL (GENERAL) HISTORY Type Description Date Medical History kidney failure-dialysis Medical History hypertension Medical History Pneumonia 2018 Surgical History tracheotomy Surgical History fistula left wrist Surgical History back surgery Surgical History port right chest Hospitalization History pneumonia Hospitalization History fluid around lungs 2016 Hospitalization History [place] 04/16-04/17
--- OUTSIDE RECORDS SUMMARY | 2019-03-18 14:35 | XMS REPORT ---
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 Name Role Phone WILVER SIMENTAL Unavailable PROBLEMS Type Condition ICD9-CM Code NQF29-CG Code Onset Dates Condition Status SNOMED Code Problem Kidney failure N19 Active 30171523 Problem Essential hypertension I10 Active 99780484 Problem Neuropathy G62.9 Active 633559085 Problem Pain in right leg M79.604 Active 71173552 Problem Restrictive lung disease J98.4 Active 42693267 Problem Hypothyroidism, unspecified type E03.9 Active 77190910 Problem Chronic kidney disease, stage 4, severely decreased GFR N18.4 Active 215367180 ALLERGIES No Information ENCOUNTERS Encounter Location Date Diagnosis [place] [id number] [place] [address] 43692- 1803 Apr, Chronic kidney disease, stage 4, severely decreased GFR N18.4 and Essential hypertension I10 [facility] [id number] [place] [address] 30266- 5185 March, [facility] [id number] [place] [address] 47323- 2415 March, [facility] [id number] [place] [address] 00620- 5967 March, Medicare annual wellness visit, initial Z00.00 ; Chronic kidney disease, stage 4, severely decreased GFR N18.4 ; Hypothyroidism, unspecified type E03.9 and Neuropathy G62.9 [facility] [id number] [place] [address] 60615- 7601 Feb, Restrictive lung disease J98.4 ; Hypothyroidism, unspecified type E03.9 and Neuropathy G62.9 [facility] [id number] [place] [address] 56481- 0524 Nov, Pain in right leg M79.604 [facility] [id number] [place] [address] 41458- 6779 Nov, [facility] [address] 91543- 9263 Nov, Dysuria R30.0 and Acute cystitis without hematuria N30.00 [facility] [address] 25762- 5779 Nov, Pain in right leg M79.604 [place] [address] 92525- 4729 Sep, [place] [address] 65691- 9538 Jul, Neuropathy G62.9 [place] [address] 67435- 9778 Jul, Pain in right leg M79.604 [place] [address] 22948- 5425 Jul, [place] [address] 76591- 6013 Apr, [place] [address] 73045- 6997 Feb, Bronchitis J40 and Chronic kidney disease, stage 4, severely decreased GFR N18.4 [facility] [id number] [place] [address] 80123- 0417 Jan, Nausea and vomiting, intractability of vomiting not specified, unspecified vomiting type R11.2 [place] [id number] [place] [address] 51352- 2125 Jan, Pain in right leg M79.604 [facility] [address] 65749- 6631 Jan, Hypothyroidism, unspecified type E03.9 [facility] [id number] [place] [address] 32780- 8312 Jan, Pain in right leg M79.604 [facility] [id number] [place] [address] 25647- 4341 Dec, Acute non-recurrent maxillary sinusitis J01.00 [facility] [id number] [place] [address] 10290- 8595 Dec, [facility] [id number] [place] [address] 95426- 7686 Dec, Chronic kidney disease, stage 4, severely decreased GFR N18.4 [facility] [id number] [place] [address] 54464- 9056 Oct, [facility] [id number] [place] [address] 78680 -8057 Oct, Shortness of breath R06.02 [facility] [id number] [place] [address] 27324- 7829 Oct, [facility] [id number] [place] [address] 42444- 1600 Oct, [facility] [id number] [place] [address] 94569- 4561 Sep, Pain in right leg M79.604 and Restrictive lung disease J98.4 [facility] [id number] [place] [address] 85437- 8417 Sep, [facility] [id number] [place] [address] 56025- 8961 Aug, Restrictive lung disease J98.4 and Acute left eye pain H57.12 [facility] [id number] [place] [address] 12016- 2846 Aug, [facility] [id number] [place] [address] 47942- 9483 Aug, [facility] [address] [facility] [id number] [place] [address]- 1928 Jun, [facility] [id number] [place] [address]- 1274 Jun, [facility] [id number] [address]- 0916 Jun, [facility] [id number] [place] [address], [place] [address]- 5815 Jun, [facility] [id number] [place] [address], [place] [address]- 9527 Jun, Restrictive lung disease J98.4 and Pain in right leg M79.604 [facility] [id number] [place] [address]- 9351 Jun, [facility] [id number] [place] [address] 96009- 2976 Jun, [facility] [address] [address]- 5401 May, Restrictive lung disease J98.4 and Kidney failure N19 [facility] [address] [address]- 1087 May, [facility] [address] [address]- 2435 May, [facility] [address] [address]- 1346 Apr, [facility] [address] [address]- 6017 Dec, [facility] [address] [address]- 9022 Dec, [facility] [address] [address]- 1593 Aug, [facility] [id number] [place] [address] 11784- 5406 14 Feb, 2015 [facility] [place] [facility] [address] [id number] [place] [address]- 4473 13 Feb, 2015 [facility] [place] [facility] [address] [id number] [place] [address]- 9364 18 Jan, 2015 [facility] [place] [facility] [address] [id number] [place] [address]- 3409 18 Jan, 2015 [facility] [place] [facility] [address] [id number] [place] [address]- 0173 17 Jan, 2015 [facility] [place] [facility] [address] [id number] [place] [address]- 8151 14 Jan, 2015 [facility] [place] [facility] [address] [id number] [place] [address]- 0289 13 Jan, 2015 [facility] [place] [facility] [address] [id number] [place] [address]- 6460 13 Jan, 2015 [facility] [place] [facility] [address] [id number] [place] [address]- 0659 11 Jan, 2015 [facility] [place] [facility] [address] [id number] [place] [address]- 7768 11 Jan, 2015 [facility] [place] [facility] [address] [id number] [place] [address]- 5127 10 Jan, 2015 [facility] [place] [facility] [address] [id number] [place] [address]- 7472 10 Jan, 2015 [facility] [place] [facility] [address] [id number] [place] [address]- 0698 03 Jan, 2015 [facility] [place] [facility] [address] [id number] [place] [address]- 4407 Dec, [facility] [place] [facility] [address] [id number] [place] [address]- 3724 Dec, [facility] [place] [facility] [address] [id number] [place] [address]- 0283 Dec, [facility] [place] [facility] [address] [id number] [place] [address]- 9997 Dec, [facility] [place] [facility] [address] [id number] [place] [address]- 8916 Dec, [facility] [place] [facility] [address] [id number] [place] [address]- 3086 Dec, [facility] [place] [facility] [address] [id number] [place] [address]- 9166 Nov, [facility] [place] [facility] [address] [id number] [place] [address]- 3441 Nov, [facility] [place] [facility] [address] [id number] [place] [address]- 1182 Oct, [facility] [place] [facility] [address] [id number] [place] [address]- 1335 Oct, [facility] [place] [facility] [address] [id number] [place] [address]- 2147 Oct, [facility] [place] [facility] [address] [id number] [place] [address]- 6051 Oct, [facility] [place] [facility] [address] [id number] [place] [address]- 3782 Oct, [facility] [place] [facility] [address] [id number] [place] [address]- 9498 Oct, [facility] [place] [facility] [address] [id number] [place] [address]- 6096 Oct, [facility] [place] [facility] [address] [id number] [place] [address]- 4818 Oct, [facility] [place] [facility] [address] [id number] [place] [address]- 9536 Jul, [facility] [place] [facility] [address] [id number] [place] [address]- 1696 Jul, [facility] [place] [facility] [address] [id number] [place] [address]- 3124 Jul, [facility] [place] [facility] [address] [id number] [place] [address]- 2289 Jul, [facility] [place] [facility] [address] [id number] [place] [address]- 0385 Jul, [facility] [place] [facility] [address] [id number] [place] [address]- 1672 Jun, [facility] [place] [facility] [address] [id number] [place] [address]- 6376 May, [facility] [place] [facility] [address] [id number] [place] [address]- 4323 May, [facility] [place] [facility] [address] [id number] [place] [address]- 9003 May, [facility] [place] [facility] [address] [id number] [place] [address]- 0067 Feb, [facility] [place] [facility] [address] [id number] [place] [address]- 5242 Feb, [facility] [place] [facility] [address] [id number] [place] [address]- 0238 Feb, [facility] [place] [facility] [address] [id number] [place] [address]- 6688 Feb, [facility] [place] [facility] [address] [id number] [place] [address]- 4797 Feb, [facility] [place] [facility] [address] [id number] [place] [address]- 3033 Feb, [facility] [place] [facility] [address] [id number] [place] [address]- 8884 Feb, [facility] [place] [facility] [address] [id number] [place] [address]- 2991 Feb, [facility] [place] [facility] [address] [id number] [place] [address]- 1343 Feb, [facility] [place] [facility] [address] [id number] [place] [address]- 2855 Feb, [facility] [place] [facility] [address] [id number] [place] [address]- 1343 Aug, [facility] [place] [facility] [address] [id number] [place] [address]- 0121 Aug, [facility] [place] [facility] [address] [id number] [place] [address]- 8372 Aug, [facility] [place] [facility] [address] [id number] [place] [address]- 2964 Aug, [facility] [place] [facility] [address] [id number] [place] [address]- 4653 Jan, [facility] [place] [facility] [address] [id number] [place] [address]- 6796 Dec, [facility] [place] [facility] [address] [id number] [place] [address]- 9655 Aug, [facility] [place] [facility] [address] [id number] [place] [address]- 1560 May, [facility] [place] [facility] [address] [id number] [place] [address]- 9546 Apr, [facility] [place] [facility] [address] [id number] [place] [address]- 4375 Apr, [facility] [place] [facility] [address] [id number] [place] [address]- 3948 Apr, [facility] [place] [facility] [address] [id number] [place] [address]- 1971 Apr, [facility] [place] [facility] [address] [id number] [place] [address]- 5994 Nov, [facility] [place] [facility] [address] [id number] [place] [address]- 7077 Oct, [facility] [place] [facility] [address] [id number] [place] [address]- 4481 Oct, [facility] [address] [facility] [id number], [place] [address]- 0626 Oct, [facility] [address] [facility] [id number], [place] [address]- 9006 Sep, [facility] [address] [facility] [id number], [place] [address]- 7716 Sep, [facility] [address] [facility] [id number], [place] [address]- 2546 Sep, [facility] [address] [facility] [id number], [place] [address]- 9842 Apr, [facility] [address] [facility] [id number], [place] [address]- 6086 Sep, [facility] [address] [place] [address]- 1492 Jan, [facility] [address] [place] [address]- 7826 Aug, [facility] [address] [address]- 6520 Aug, [facility] [id number] [address]- 6946 May, IMMUNIZATIONS No Known Immunizations SOCIAL HISTORY [...]
--- OUTSIDE RECORDS SUMMARY | 2019-03-18 14:37 | XMS REPORT | Continuity of Care Document ---
Author Organization Unknown Address Unknown Allergies Active Description Code Type Severity Reaction Onset Reported/Identified Relationship to Patient Clinical Status Yes doxycycline Drug Allergy 10/18/2011 Yes doxycycline Drug Allergy N/A N/A 10/18/2011 Yes No Known Drug Allergies [id number] Drug Allergy Unknown N/A 05/25/2014 Yes morphine [id number] Drug Allergy Severe swelling 01/11/2016 Medications There is no data. Problems Date Dx Coded Attending Type Code Diagnosis Diagnosed By 05/15/2009 788.1 DYSURIA 05/15/2009 NESS URBAN APRN 788.1 DYSURIA 05/15/2009 WILVER SIMENTAL MD 788.1 DYSURIA 05/15/2009 WILVER SIMENTAL MD 788.1 DYSURIA 05/15/2009 WILVER SIMENTAL MD 788.1 DYSURIA 05/15/2009 FITO MONSALVE APRN 788.1 DYSURIA 05/15/2009 SEFERINO EGAN DO 788.1 DYSURIA 05/15/2009 WILVER SIMENTAL MD 788.1 DYSURIA 05/22/2009 272.4 HYPERLIPIDEMIA HYPERLIPOPROTEINEMIAS (Old Classification) 05/22/2009 NESS URBAN APRN 272.4 HYPERLIPIDEMIA HYPERLIPOPROTEINEMIAS (Old Classification) 05/22/2009 WILVER SIMENTAL MD 272.4 HYPERLIPIDEMIA HYPERLIPOPROTEINEMIAS (Old Classification) 05/22/2009 WILVER SIMENTAL MD 272.4 HYPERLIPIDEMIA HYPERLIPOPROTEINEMIAS (Old Classification) 05/22/2009 WILVER SIMENTAL MD 272.4 HYPERLIPIDEMIA HYPERLIPOPROTEINEMIAS (Old Classification) 05/22/2009 FITO MONSALVE APRN 272.4 HYPERLIPIDEMIA HYPERLIPOPROTEINEMIAS (Old Classification) 05/22/2009 SEFERINO EGAN DO K 272.4 HYPERLIPIDEMIA HYPERLIPOPROTEINEMIAS (Old Classification) 05/22/2009 WILVER SIMENTAL MD 272.4 HYPERLIPIDEMIA HYPERLIPOPROTEINEMIAS (Old Classification) 08/17/2009 401.1 ESSENTIAL HYPERTENSION BENIGN 08/17/2009 785.9 Right Carotid Bruit 08/17/2009 NESS URBAN APRN R 401.1 ESSENTIAL HYPERTENSION BENIGN 08/17/2009 NESS URBAN APRN R 785.9 Right Carotid Bruit 08/17/2009 WILVER SIMENTAL MD 401.1 ESSENTIAL HYPERTENSION BENIGN 08/17/2009 WILVER SIMENTAL MD 785.9 Right Carotid Bruit 08/17/2009 WILVER SIMENTAL MD 401.1 ESSENTIAL HYPERTENSION BENIGN 08/17/2009 WILVER SIMENTAL MD 785.9 Right Carotid Bruit 08/17/2009 WILVER SIMENTAL MD 401.1 ESSENTIAL HYPERTENSION BENIGN 08/17/2009 WILVER SIMENTAL MD 785.9 Right Carotid Bruit 08/17/2009 PAULA MONSALVE APRNNYA L 401.1 ESSENTIAL HYPERTENSION BENIGN 08/17/2009 GRICEL JOSUE FITO L 785.9 Right Carotid Bruit 08/17/2009 EGAN DO, SEFERINO K 401.1 ESSENTIAL HYPERTENSION BENIGN 08/17/2009 EGAN DO, SEFERINO K 785.9 Right Carotid Bruit 08/17/2009 WILVER SIMENTAL MD 401.1 ESSENTIAL HYPERTENSION BENIGN 08/17/2009 WILVER SIMENTAL MD 785.9 Right Carotid Bruit 08/24/2009 272.2 HYPERLIPIDEMIA , MIXED 08/24/2009 NESS URBAN APRN R 272.2 HYPERLIPIDEMIA, MIXED 08/24/2009 WILVER SIMENTAL MD 272.2 HYPERLIPIDEMIA, MIXED 08/24/2009 WILVER SIMENTAL MD 272.2 HYPERLIPIDEMIA, MIXED 08/24/2009 WILVER SIMENTAL MD 272.2 HYPERLIPIDEMIA, MIXED 08/24/2009 FITO MONSALVE APRN L 272.2 HYPERLIPIDEMIA, MIXED 08/24/2009 JIGNESH DO, SEFERINO K 272.2 HYPERLIPIDEMIA, MIXED 08/24/2009 WILVER SIMENTAL MD 272.2 HYPERLIPIDEMIA, MIXED 01/26/2010 461.9 SINUSITIS ACUTE 01/26/2010 NESS URBAN APRN R 461.9 SINUSITIS ACUTE 01/26/2010 WILVER SIMENTAL MD 461.9 SINUSITIS ACUTE 01/26/2010 WILVER SIMENTAL MD 461.9 SINUSITIS ACUTE 01/26/2010 WILVER SIMENTAL MD 461.9 SINUSITIS ACUTE 01/26/2010 FITO MONSALVE APRN L 461.9 SINUSITIS ACUTE 01/26/2010 SEFERINO EGAN DO K 461.9 SINUSITIS ACUTE 01/26/2010 WILVER SIMENTAL MD 461.9 SINUSITIS ACUTE 05/06/2010 786.2 Cough 05/06/2010 NESS URBAN APRN R 786.2 Cough 05/06/2010 WILVER SIMENTAL MD 786.2 Cough 05/06/2010 WILVER SIMENTAL MD 786.2 Cough 05/06/2010 WILVER SIMENTAL MD 786.2 Cough 05/06/2010 FITO MONSALVE APRN L 786.2 Cough 05/06/2010 SEFERINO EGAN DO K 786.2 Cough 05/06/2010 WILVER SIMENTAL MD 786.2 Cough 10/10/2011 784.0 Headache 10/10/2011 NESS URBAN APRN R 784.0 Headache 10/10/2011 WILVER SIMENTAL MD 784.0 Headache 10/10/2011 WILVER SIMENTAL MD 784.0 Headache 10/10/2011 WILVER SIMENTAL MD 784.0 Headache 10/10/2011 FITO MONSALVE APRN L 784.0 Headache 10/10/2011 SEFERINO EGAN DO K 784.0 Headache 10/10/2011 WILVER SIMENTAL MD 784.0 Headache 09/02/2013 NESS URBAN APRN R 381.01 ACUTE SEROUS OTITIS MEDIA 09/02/2013 NESS URBAN APRN R 382.9 OTITIS MEDIA 09/02/2013 NESS URBAN APRN R 780.4 DIZZINESS AND GIDDINESS 09/02/2013 WILVER SIMENTAL MD 381.01 ACUTE SEROUS OTITIS MEDIA 09/02/2013 WILVER SIMENTAL MD 382.9 OTITIS MEDIA 09/02/2013 WILVER SIMENTAL MD 780.4 DIZZINESS AND GIDDINESS 09/02/2013 WILVER SIMENTAL MD 381.01 ACUTE SEROUS OTITIS MEDIA 09/02/2013 WILVER SIMENTAL MD 382.9 OTITIS MEDIA 09/02/2013 WILVER SIMENTAL MD 780.4 DIZZINESS AND GIDDINESS 09/02/2013 WILVER SIMENTAL MD 381.01 ACUTE SEROUS OTITIS MEDIA 09/02/2013 WILVER SIMENTAL MD 382.9 OTITIS MEDIA 09/02/2013 WILVER SIMENTAL MD 780.4 DIZZINESS AND GIDDINESS 09/02/2013 MELBA MONSALVE APRNA L 381.01 ACUTE SEROUS OTITIS MEDIA 09/02/2013 GRICEL ADOLESCENT MEDICINE SPECIALISTIGNACIO LirianoFITO L 382.9 OTITIS MEDIA 09/02/2013 IGNACIO MONSALVE APRNWNYA L 780.4 DIZZINESS AND GIDDINESS 09/02/2013 JIGNESH NOVOA SEFERINO K 381.01 ACUTE SEROUS OTITIS MEDIA 09/02/2013 EGAN DO SEFERINO K 382.9 OTITIS MEDIA 09/02/2013 EGAN DO SEFERINO K 780.4 DIZZINESS AND GIDDINESS 09/02/2013 WILVER SIMENTAL MD 381.01 ACUTE SEROUS OTITIS MEDIA 09/02/2013 WILVER SIMENTAL MD 382.9 OTITIS MEDIA 09/02/2013 WILVER SIMENTAL MD 780.4 DIZZINESS AND GIDDINESS 09/09/2013 WILVER SIMENTAL MD 381.81 DYSFUNCTION OF EUSTACHIAN TUBE 09/09/2013 WILVER SIMENTAL MD 381.81 DYSFUNCTION OF EUSTACHIAN TUBE 09/09/2013 WILVER SIMENTAL MD 381.81 DYSFUNCTION OF EUSTACHIAN TUBE 09/09/2013 MELBA MONSALVE APRNA L 381.81 DYSFUNCTION OF EUSTACHIAN TUBE 09/09/2013 JIGNESH NOVOA SEFERINO K 381.81 DYSFUNCTION OF EUSTACHIAN TUBE 09/09/2013 WILVER SIMENTAL MD 381.81 DYSFUNCTION OF EUSTACHIAN TUBE 05/25/2014 Ot 401.9 HYPERTENSION NOS 05/25/2014 Ot 786.05 SHORTNESS OF BREATH 05/25/2014 Ot 786.50 CHEST PAIN NOS 05/25/2014 Ot V12.51 HX-VENOUS THROMBOSIS EMBOLISM 08/11/2014 FITO MONSALVE APRN L V70.5 HEALTH EXAMINATION OF DEFINED SUBPOPULATIONS 08/11/2014 FITO MONSALVE APRN L V74.1 TB SCREENING 08/11/2014 JIGNESH NOVOA SEFERINO K V70.5 HEALTH EXAMINATION OF DEFINED SUBPOPULATIONS 08/11/2014 JIGNESH NOVOA SEFERINO K V74.1 TB SCREENING 08/11/2014 WILVER SIMENTAL MD V70.5 HEALTH EXAMINATION OF DEFINED SUBPOPULATIONS 08/11/2014 WILVER SIMENTAL MD V74.1 TB SCREENING 11/03/2014 JIGNESH SEFERINO NOVOA Travis 729.5 PAIN IN LIMB 11/03/2014 HOLA SWANSON, WILVER 729.5 PAIN IN LIMB 01/03/2015 HOLA SWANSON, WILVER 787.01 NAUSEA WITH VOMITING 01/03/2015 HOLA SWANSON, WILVER 787.91 DIARRHEA 01/08/2016 HOLA SWANSON, WILVER Hopson Ot F17.210 01/08/2016 HOLA SWANSON, WILVER Hopson Ot I12.9 01/08/2016 HOLA SWANSON, WILVER Hopson Ot J18.9 01/08/2016 HOLA SWANSON, WILVER Hopson Ot J96.01 01/08/2016 HOLA SWANSON, WILVER Hopson Ot N17.9 01/08/2016 HOLA SWANSON, WILVER Hopson Ot N18.9 01/08/2016 HOLA SWANSON, WILVER Hopson Ot F17.210 01/08/2016 HOLA SWANSON, WILVER Hopson Ot I12.9 01/08/2016 HOLA SWANSON, WILVER Hopson Ot J18.9 01/08/2016 HOLA SWANSON, WILVER Hopson Ot J96.01 01/08/2016 HOLA SWANSON, WILVER Hopson Ot N17.9 01/08/2016 HOLA SWANSON, WILVER Hopson Ot N18.9 01/11/2016 HOLA SWANSON, WILVER Hopson Ot F17.210 01/11/2016 HOLA SWANSON, WILVER Hopson Ot I12.9 01/11/2016 HOLA SWANSON, WILVER Hopson Ot J18.9 01/11/2016 HOLA SWANSON, WILVER Hopson Ot J96.01 01/11/2016 HOLA SWANSON, WILVER Hopson Ot N17.9 01/11/2016 HOLA SWANSON, WILVER Hopson Ot N18.9 01/11/2016 HOLA SWANSON, WILVER Hopson Ot F17.210 01/11/2016 HOLA SWANSON, WILVER Hopson Ot I12.9 01/11/2016 HOLA SWANSON, WILVER Hopson Ot J18.9 01/11/2016 HOLA SWANSON, WILVER Hopson Ot J96.01 01/11/2016 HOLA SWANSON, WILVER Hopson Ot N17.9 01/11/2016 HOLA SWANSON, WILVER Hopson Ot N18.9 01/12/2016 HOLA SWANSON, WILVER Hopson Ot A41.9 01/12/2016 WILVER SIMENTAL MD, Ot D72.829 ELEVATED WHITE BLOOD CELL COUNT, UNSPECI 01/12/2016 WILVER SIMENTAL MD, Ot E83.42 HYPOMAGNESEMIA 01/12/2016 WILVER SIMENTAL MD, Ot E87.1 HYPO-OSMOLALITY AND HYPONATREMIA 01/12/2016 WILVER SIMENTAL MD, Ot E87.70 FLUID OVERLOAD, UNSPECIFIED 01/12/2016 WILVER SIMENTAL MD Ot F17.210 NICOTINE DEPENDENCE, CIGARETTES, UNCOMPL 01/12/2016 WILVER SIMENTAL MD, Ot F41.9 ANXIETY DISORDER, UNSPECIFIED 01/12/2016 WILVER SIMENTAL MD, Ot I12.9 HYPERTENSIVE CHRONIC KIDNEY DISEASE W ST 01/12/2016 WILVER SIMENTAL MD, Ot J18.9 PNEUMONIA, UNSPECIFIED ORGANISM 01/12/2016 WILVER SIMENTAL MD, Ot J96.01 ACUTE RESPIRATORY FAILURE WITH HYPOXIA 01/12/2016 WILVER SIMENTAL MD, Ot N17.9 ACUTE KIDNEY FAILURE, UNSPECIFIED 01/12/2016 WILVER SIMENTAL MD, Ot N18.4 CHRONIC KIDNEY DISEASE, STAGE 4 (SEVERE) 01/12/2016 WILVER SIMENTAL MD Ot N18.9 01/12/2016 WILVER SIMENTAL MD Ot R65.20 01/12/2016 WILVER SIMENTAL MD Ot T38.0X5A ADVERSE EFFECT OF GLUCOCORT/SYNTH ANALOG 01/12/2016 WILVER SIMENTAL MD Ot Z91.19 PATIENT'S NONCOMPLIANCE W [facility] MEDICAL TR 06/05/2016 AKASH PINEDA MD Ot I12.0 HYP CHR KIDNEY DISEASE W STAGE 5 CHR KID 06/05/2016 AKASH PINEDA MD Ot J90 PLEURAL EFFUSION, NOT ELSEWHERE CLASSIFI 06/05/2016 AKASH PINEDA MD Ot N18.6 END STAGE RENAL DISEASE 06/05/2016 AKASH PINEDA MD Ot R06.00 DYSPNEA, UNSPECIFIED 06/05/2016 AKASH PINEDA MD Ot Z99.2 DEPENDENCE ON RENAL DIALYSIS 06/07/2016 AKASH PINEDA MD Ot I12.0 HYP CHR KIDNEY DISEASE W STAGE 5 CHR KID 06/07/2016 AKASH PINEDA MD Ot J90 PLEURAL EFFUSION, NOT ELSEWHERE CLASSIFI 06/07/2016 AKASH PINEDA MD Ot N18.6 END STAGE RENAL DISEASE 06/07/2016 AKASH PINEDA MD Ot R06.00 DYSPNEA, UNSPECIFIED 06/07/2016 AKASH PINEDA MD Ot Z99.2 DEPENDENCE ON RENAL DIALYSIS 07/01/2016 WILVER SIMENTAL MD Ot J98.4 OTHER DISORDERS OF LUNG 07/19/2016 WILVER SIMENTAL MD Ot J98.4 OTHER DISORDERS OF LUNG 07/29/2016 WILVER SIMENTAL MD Ot J98.4 OTHER DISORDERS OF LUNG 07/29/2016 WILVER SIMENTAL MD Ot J98.4 OTHER DISORDERS OF LUNG 08/02/2016 AKASH PINEDA MD Ot I12.0 HYP CHR KIDNEY DISEASE W STAGE 5 CHR KID 08/02/2016 AKASH PINEDA MD Ot J90 PLEURAL EFFUSION, NOT ELSEWHERE CLASSIFI 08/02/2016 AKASH PINEDA MD Ot N18.6 END STAGE RENAL DISEASE 08/02/2016 AKASH PINEDA MD Ot R06.00 DYSPNEA, UNSPECIFIED 08/02/2016 AKASH PINEDA MD Ot Z99.2 DEPENDENCE ON RENAL DIALYSIS 08/02/2016 WILVER SIMENTAL MD Ot J98.4 OTHER DISORDERS OF LUNG 08/02/2016 WILVER SIMENTAL MD Ot J98.4 OTHER DISORDERS OF LUNG 08/07/2016 KATIE GRANDA DO Ot I12.0 HYP CHR KIDNEY DISEASE W STAGE 5 CHR KID 08/07/2016 KATIE GRANDA DO Ot I50.33 ACUTE ON CHRONIC DIASTOLIC (CONGESTIVE) 08/07/2016 KATIE GRANDA DO Ot N18.6 END STAGE RENAL DISEASE 08/07/2016 KATIE GRANDA DO Ot R42 DIZZINESS AND GIDDINESS 08/07/2016 KATIE GRANDA DO Ot Z99.2 DEPENDENCE ON RENAL DIALYSIS 08/12/2016 INGE SWANSON, EDUIN Roman Ot I12.0 HYP CHR KIDNEY DISEASE W STAGE 5 CHR KID 08/12/2016 EDUIN ALCAZAR MD Ot I77.811 ABDOMINAL AORTIC ECTASIA 08/12/2016 BRUEGGEMANN MD, EDUIN T Ot M46.1 SACROILIITIS, NOT ELSEWHERE CLASSIFIED 08/12/2016 EDUIN ALCAZAR MD Ot M48.06 SPINAL STENOSIS, LUMBAR REGION 08/12/2016 EDUIN ALCAZAR MD Ot M51.17 INTVRT DISC DISORDERS W RADICULOPATHY, L 08/12/2016 EDUNI ALCAZAR MD Ot M54.5 LOW BACK PAIN 08/12/2016 EDUIN ALCAZAR MD Ot M62.830 MUSCLE SPASM OF BACK 08/12/2016 EDUIN ALCAZAR MD Ot N18.6 END STAGE RENAL DISEASE 08/12/2016 EDUIN ALCAZAR MD Ot Z79.899 OTHER SENIOR LIVING (CURRENT) DRUG THERAPY 08/12/2016 EDUIN ALCAZAR MD Ot Z99.2 DEPENDENCE ON RENAL DIALYSIS 08/12/2016 EDUIN ALCAZAR MD Ot I12.0 HYP CHR KIDNEY DISEASE W STAGE 5 CHR KID 08/12/2016 EDUIN ALCAZAR MD Ot I77.811 ABDOMINAL AORTIC ECTASIA 08/12/2016 EDUIN ALCAZAR MD Ot M46.1 SACROILIITIS, NOT ELSEWHERE CLASSIFIED 08/12/2016 EDUIN ALCAZAR MD Ot M48.06 SPINAL STENOSIS, LUMBAR REGION 08/12/2016 EDUIN ALCAZAR MD Ot M51.17 INTVRT DISC DISORDERS W RADICULOPATHY, L 08/12/2016 EDUIN ALCAZAR MD Ot M54.5 LOW BACK PAIN 08/12/2016 EDUIN ALCAZAR MD Ot M62.830 MUSCLE SPASM OF BACK 08/12/2016 EDUIN ALCAZAR MD Ot N18.6 END STAGE RENAL DISEASE 08/12/2016 EDUIN ALCAZAR MD Ot Z79.899 OTHER SENIOR LIVING (CURRENT) DRUG THERAPY 08/12/2016 EDUIN ALCAZAR MD Ot Z99.2 DEPENDENCE ON RENAL DIALYSIS 08/14/2016 KATIE GRANDA DO Ot I12.0 HYP CHR KIDNEY DISEASE W STAGE 5 CHR KID 08/14/2016 KATIE GRANDA DO Ot I50.33 ACUTE ON CHRONIC DIASTOLIC (CONGESTIVE) 08/14/2016 KATIE GRANDA DO Ot N18.6 END STAGE RENAL DISEASE 08/14/2016 KATIE GRANDA DO Ot R42 DIZZINESS AND GIDDINESS 08/14/2016 KATIE GRANDA DO Ot Z99.2 DEPENDENCE ON RENAL DIALYSIS 08/15/2016 WILVER SIMENTAL MD Ot J98.4 OTHER DISORDERS OF LUNG 08/18/2016 WILVER SIMENTAL MD Ot J98.4 OTHER DISORDERS OF LUNG 08/18/2016 WILVER SIMENTAL MD Ot J98.4 OTHER DISORDERS OF LUNG 11/01/2016 WILVER SIMENTAL MD Ot J98.4 OTHER DISORDERS OF LUNG 11/01/2016 WILVER SIMENTAL MD Ot J98.4 OTHER DISORDERS OF LUNG 11/02/2016 VAIBHAV WHITLEY DO M Ot J18.9 PNEUMONIA, UNSPECIFIED ORGANISM 11/02/2016 VAIBHAV WHITLEY DO M Ot J98.4 OTHER DISORDERS OF LUNG 11/02/2016 VAIBHAV WHITLEY DO M Ot N19 UNSPECIFIED KIDNEY FAILURE 11/02/2016 FLACO WHITLEY DOSON M Ot J18.9 PNEUMONIA, UNSPECIFIED ORGANISM 11/02/2016 FLACO WHITLEY DOSON M Ot J98.4 OTHER DISORDERS OF LUNG 11/02/2016 VAIBHAV WHITLEY DO M Ot N19 UNSPECIFIED KIDNEY FAILURE 11/23/2016 FLACO WHITLEY DOSON M Ot J18.9 PNEUMONIA, UNSPECIFIED ORGANISM 11/23/2016 FLACO WHITLEY DOSON M Ot J98.4 OTHER DISORDERS OF LUNG 11/23/2016 VAIBHAV WHITLEY DO M Ot N19 UNSPECIFIED KIDNEY FAILURE 12/06/2016 VAIBHAV WHITLEY DO M Ot J18.9 PNEUMONIA, UNSPECIFIED ORGANISM 12/06/2016 FLACO WHITLEY DOSON M Ot J98.4 OTHER DISORDERS OF LUNG 12/06/2016 VAIBHAV WHITLEY DO M Ot N19 UNSPECIFIED KIDNEY FAILURE 03/09/2017 WILVER SIMENTAL MD Ot J98.4 OTHER DISORDERS OF LUNG 03/09/2017 WILVER SIMENTAL MD Ot J98.4 OTHER DISORDERS OF LUNG 03/09/2017 VAIBHAV WHITLEY DO M Ot J18.9 PNEUMONIA, UNSPECIFIED ORGANISM 03/09/2017 VAIBHAV WHITLEY DO M Ot J98.4 OTHER DISORDERS OF LUNG 03/09/2017 VAIBHAV WHITLEY DO Ot N19 UNSPECIFIED KIDNEY FAILURE 03/09/2017 AKASH PINEDA MD Ot F17.210 NICOTINE DEPENDENCE, CIGARETTES, UNCOMPL 03/09/2017 AKASH PINEDA MD Ot I12.0 HYP CHR KIDNEY DISEASE W STAGE 5 CHR KID 03/09/2017 AKASH PINEDA MD Ot J44.1 CHRONIC OBSTRUCTIVE PULMONARY DISEASE W 03/09/2017 AKASH PINEDA MD Ot N18.6 END STAGE RENAL DISEASE 03/09/2017 AKASH PINEDA MD Ot R06.00 DYSPNEA, UNSPECIFIED 03/09/2017 AKASH PINEDA MD Ot Z99.81 DEPENDENCE ON SUPPLEMENTAL OXYGEN 07/21/2017 WILVER SIMENTAL MD Ot J98.4 OTHER DISORDERS OF LUNG 07/21/2017 WILVER SIMENTAL MD Ot J98.4 OTHER DISORDERS OF LUNG 07/21/2017 VAIBHAV WHITLEY DO Ot J18.9 PNEUMONIA, UNSPECIFIED ORGANISM 07/21/2017 VAIBHAV WHITLEY DO Ot J98.4 OTHER DISORDERS OF LUNG 07/21/2017 VAIBHAV WHITLEY DO Ot N19 UNSPECIFIED KIDNEY FAILURE 07/27/2017 TERESITA GALARZA ADOLESCENT MEDICINE SPECIALIST Ot I51.7 CARDIOMEGALY 07/27/2017 TERESITA GALARZA ADOLESCENT MEDICINE SPECIALIST Ot I70.0 ATHEROSCLEROSIS OF AORTA 07/27/2017 TERESITA GALARZA ADOLESCENT MEDICINE SPECIALIST Ot J90 PLEURAL EFFUSION, NOT ELSEWHERE CLASSIFI 07/27/2017 TERESITA GALARZA ADOLESCENT MEDICINE SPECIALIST Ot N19 UNSPECIFIED KIDNEY FAILURE 08/11/2017 TERESITA GALARZA ADOLESCENT MEDICINE SPECIALIST Ot I51.7 CARDIOMEGALY 08/11/2017 TERESITA GALARZA ADOLESCENT MEDICINE SPECIALIST Ot I70.0 ATHEROSCLEROSIS OF AORTA 08/11/2017 TERESITA GALARZA APRN Ot J90 PLEURAL EFFUSION, NOT ELSEWHERE CLASSIFI 08/11/2017 TERESITA GALARZA ADOLESCENT MEDICINE SPECIALIST Ot N19 UNSPECIFIED KIDNEY FAILURE 08/23/2017 TERESITA GALARZA ADOLESCENT MEDICINE SPECIALIST Ot I51.7 CARDIOMEGALY 08/23/2017 TERESITA GALARZA ADOLESCENT MEDICINE SPECIALIST Ot I70.0 ATHEROSCLEROSIS OF AORTA 08/23/2017 TERESITA GALARZA ADOLESCENT MEDICINE SPECIALIST Ot J90 PLEURAL EFFUSION, NOT ELSEWHERE CLASSIFI 08/23/2017 TERESITA GALARZA ADOLESCENT MEDICINE SPECIALIST Ot N19 UNSPECIFIED KIDNEY FAILURE 04/08/2018 ZIGGY NIX DO Ot F32.9 MAJOR DEPRESSIVE DISORDER, SINGLE EPISOD 04/08/2018 ZIGGY NIX DO Ot I12.0 HYP CHR KIDNEY DISEASE W STAGE 5 CHR KID 04/08/2018 KAYE NIX DOA K Ot N18.6 END STAGE RENAL DISEASE 04/08/2018 BOYD NOVOA ZIGGY K Ot R06.02 SHORTNESS OF BREATH 04/08/2018 BOYD NOVOA ZIGGY K Ot Z79.52 DIRECTOR AGENCY & STRATEGIC PARTNERSHIPS (CURRENT) USE OF SYSTEMIC STER 04/08/2018 BOYD NOVOA ZIGGY K Ot Z87.891 PERSONAL HISTORY OF NICOTINE DEPENDENCE 04/08/2018 BOYD DO ZIGGY Travis Ot Z88.5 ALLERGY STATUS TO NARCOTIC AGENT STATUS 04/08/2018 BOYD DO ZIGGY K Ot Z99.2 DEPENDENCE ON RENAL DIALYSIS 07/13/2018 HOLA SWANSON, WILVER Hopson Ot J98.4 OTHER DISORDERS OF LUNG 07/13/2018 WILVER SIMENTAL MD Ot J98.4 OTHER DISORDERS OF LUNG 07/13/2018 VAIBHAV WHITLEY DO Ot J18.9 PNEUMONIA, UNSPECIFIED ORGANISM 07/13/2018 VAIBHAV WHITLEY DO Ot J98.4 OTHER DISORDERS OF LUNG 07/13/2018 VAIBHAV WHITLEY DO Ot N19 UNSPECIFIED KIDNEY FAILURE 07/13/2018 TERESITA GALARZA ADOLESCENT MEDICINE SPECIALIST Ot I51.7 CARDIOMEGALY 07/13/2018 TERESITA GALARZA ADOLESCENT MEDICINE SPECIALIST Ot I70.0 ATHEROSCLEROSIS OF AORTA 07/13/2018 TERESITA GALARZA ADOLESCENT MEDICINE SPECIALIST Ot J90 PLEURAL EFFUSION, NOT ELSEWHERE CLASSIFI 07/13/2018 TERESITA GALARZA ADOLESCENT MEDICINE SPECIALIST Ot N19 UNSPECIFIED KIDNEY FAILURE 07/19/2018 TERESITA GALARZA ADOLESCENT MEDICINE SPECIALIST Ot I70.0 ATHEROSCLEROSIS OF AORTA 07/19/2018 TERESITA GALARZA ADOLESCENT MEDICINE SPECIALIST Ot J43.9 EMPHYSEMA, UNSPECIFIED 07/19/2018 TERESITA GALARZA ADOLESCENT MEDICINE SPECIALIST Ot J98.4 OTHER DISORDERS OF LUNG 07/19/2018 TERESITA GALARZA ADOLESCENT MEDICINE SPECIALIST Ot J43.9 EMPHYSEMA, UNSPECIFIED 08/10/2018 TERESITA GALARZA ADOLESCENT MEDICINE SPECIALIST Ot I70.0 ATHEROSCLEROSIS OF AORTA 08/10/2018 TERESITA GALARZA ADOLESCENT MEDICINE SPECIALIST Ot J43.9 EMPHYSEMA, UNSPECIFIED 08/10/2018 OFELIA GALARZAINE E ADOLESCENT MEDICINE SPECIALIST Ot J98.4 OTHER DISORDERS OF LUNG 10/25/2018 TERESITA GALARZA ADOLESCENT MEDICINE SPECIALIST Ot J18.9 PNEUMONIA, UNSPECIFIED ORGANISM 10/25/2018 TERESITA GALARZA E ADOLESCENT MEDICINE SPECIALIST Ot J43.9 EMPHYSEMA, UNSPECIFIED 10/25/2018 MICHELLOFELIA RODRIGUEZINE E ADOLESCENT MEDICINE SPECIALIST Ot J98.4 OTHER DISORDERS OF LUNG 10/25/2018 OFELIA GALARZAINE E ADOLESCENT MEDICINE SPECIALIST Ot N19 UNSPECIFIED KIDNEY FAILURE 11/01/2018 TERESITA GALARZA ADOLESCENT MEDICINE SPECIALIST Ot J18.9 PNEUMONIA, UNSPECIFIED ORGANISM 11/01/2018 TERESITA GALARZA ADOLESCENT MEDICINE SPECIALIST Ot J43.9 EMPHYSEMA, UNSPECIFIED 11/01/2018 OFELIA GALARZAINE Reji ADOLESCENT MEDICINE SPECIALIST Ot J98.4 OTHER DISORDERS OF LUNG 11/01/2018 TERESITA GALARZA ADOLESCENT MEDICINE SPECIALIST Ot N19 UNSPECIFIED KIDNEY FAILURE 11/01/2018 TERESITA GALARZA ADOLESCENT MEDICINE SPECIALIST Ot R06.00 DYSPNEA, UNSPECIFIED 11/01/2018 OFELIA GALARZAINE Reji ADOLESCENT MEDICINE SPECIALIST Ot R09.02 HYPOXEMIA 11/15/2018 TERESITA GALARZA ADOLESCENT MEDICINE SPECIALIST Ot J18.9 PNEUMONIA, UNSPECIFIED ORGANISM 11/15/2018 TERESITA GALARZA ADOLESCENT MEDICINE SPECIALIST Ot J43.9 EMPHYSEMA, UNSPECIFIED 11/15/2018 OFELIA GALARZAINE E ADOLESCENT MEDICINE SPECIALIST Ot J98.4 OTHER DISORDERS OF LUNG 11/15/2018 TERESITA GALARZA ADOLESCENT MEDICINE SPECIALIST Ot N19 UNSPECIFIED KIDNEY FAILURE 11/15/2018 OFELIA GALARZAINE Reji ADOLESCENT MEDICINE SPECIALIST Ot R06.00 DYSPNEA, UNSPECIFIED 11/15/2018 OFELIA GALARZAINE E ADOLESCENT MEDICINE SPECIALIST Ot R09.02 HYPOXEMIA 11/27/2018 TERESITA GALARZA ADOLESCENT MEDICINE SPECIALIST Ot J18.9 PNEUMONIA, UNSPECIFIED ORGANISM 11/27/2018 TERESITA GALARZA ADOLESCENT MEDICINE SPECIALIST Ot J43.9 EMPHYSEMA, UNSPECIFIED 11/27/2018 OFELIA GALARZAINE E ADOLESCENT MEDICINE SPECIALIST Ot J98.4 OTHER DISORDERS OF LUNG 11/27/2018 TERESITA GALARZA ADOLESCENT MEDICINE SPECIALIST Ot N19 UNSPECIFIED KIDNEY FAILURE 11/27/2018 TREESITA GALARZA ADOLESCENT MEDICINE SPECIALIST Ot R06.00 DYSPNEA, UNSPECIFIED 11/27/2018 TERESITA GALARZA ADOLESCENT MEDICINE SPECIALIST Ot R09.02 HYPOXEMIA 12/10/2018 TERESITA GALARZA ADOLESCENT MEDICINE SPECIALIST Ot J18.9 PNEUMONIA, UNSPECIFIED ORGANISM 12/10/2018 TERESITA GALARZA ADOLESCENT MEDICINE SPECIALIST Ot J43.9 EMPHYSEMA, UNSPECIFIED 12/10/2018 TERESITA GALARZA ADOLESCENT MEDICINE SPECIALIST Ot J98.4 OTHER DISORDERS OF LUNG 12/10/2018 TERESITA GALARZA ADOLESCENT MEDICINE SPECIALIST Ot N19 UNSPECIFIED KIDNEY FAILURE 12/10/2018 TERESITA GALARZA ADOLESCENT MEDICINE SPECIALIST Ot R06.00 DYSPNEA, UNSPECIFIED 12/10/2018 TERESITA GALARZA ADOLESCENT MEDICINE SPECIALIST Ot R09.02 HYPOXEMIA 12/30/2018 TERESITA GALARZA ADOLESCENT MEDICINE SPECIALIST Ot J18.9 PNEUMONIA, UNSPECIFIED ORGANISM 12/30/2018 TERESIAT GALARZA ADOLESCENT MEDICINE SPECIALIST Ot J43.9 EMPHYSEMA, UNSPECIFIED 12/30/2018 TERESITA GALARZA ADOLESCENT MEDICINE SPECIALIST Ot J98.4 OTHER DISORDERS OF LUNG 12/30/2018 TERESITA GALARZA ADOLESCENT MEDICINE SPECIALIST Ot N19 UNSPECIFIED KIDNEY FAILURE 12/30/2018 TERESITA GALARZA ADOLESCENT MEDICINE SPECIALIST Ot R06.00 DYSPNEA, UNSPECIFIED 12/30/2018 TERESITA GALARZA ADOLESCENT MEDICINE SPECIALIST Ot R09.02 HYPOXEMIA 12/31/2018 TERESITA GALARZA ADOLESCENT MEDICINE SPECIALIST Ot J18.9 PNEUMONIA, UNSPECIFIED ORGANISM 12/31/2018 TERESITA GALARZA ADOLESCENT MEDICINE SPECIALIST Ot J43.9 EMPHYSEMA, UNSPECIFIED 12/31/2018 TERESITA GALARZA ADOLESCENT MEDICINE SPECIALIST Ot J98.4 OTHER DISORDERS OF LUNG 12/31/2018 TERESITA GALARZA ADOLESCENT MEDICINE SPECIALIST Ot N19 UNSPECIFIED KIDNEY FAILURE 12/31/2018 TERESITA GALARZA ADOLESCENT MEDICINE SPECIALIST Ot R06.00 DYSPNEA, UNSPECIFIED 12/31/2018 TERESITA GALARZA ADOLESCENT MEDICINE SPECIALIST Ot R09.02 HYPOXEMIA Procedures Code [place] [address] THERAPUTIC INJ SQ/IM 09/02/2013 J2550 PHENERGAN INJECTION UP TO 50 MG 09/02/2013 85238 ROUTINE VENIPUNCTURE 02/14/2014 69907 CMP 02/14/2014 3426007 GFR CALC (RESULT ONLY) 02/14/2014 98492 TB TEST INTRADERMAL 08/11/2014 47801 US VENOUS DOPPLER (DVT EVAL ) 11/03/2014 34813 ROUTINE VENIPUNCTURE 01/23/2015 96505 UA LONG DIP 01/23/2015 37153 CBC 01/23/2015 30406 CRP 01/23/2015 ANAANA KEITH ANALYZER (SCREEN) 01/24/2015 [id number] INSERTION OF ENDOTRACHEAL AIRWAY INTO TR 01/12/2016 [id number] RESPIRATORY VENTILATION, LESS THAN 24 CO 01/12/2016 Results Test Result Range Complete blood count (CBC) with automated white blood cell (WBC) differential - 08/07/16 13:25 Blood leukocytes automated count (number/volume) 12.7 10*3/uL 4.3-11.0 Blood erythrocytes automated count (number/volume) 4.02 10*6/uL 4.35-5.85 Venous blood hemoglobin measurement (mass/volume) 11.6 g/dL 11.5-16.0 Blood hematocrit (volume fraction) 35 % 35-52 Automated erythrocyte mean corpuscular volume 87 [foz_us] 80-99 Automated erythrocyte mean corpuscular hemoglobin (mass per erythrocyte) 29 pg 25-34 Automated erythrocyte mean corpuscular hemoglobin concentration measurement ( mass/volume) 33 g/dL 32-36 Automated erythrocyte distribution width ratio 19.6 % 10.0-14.5 Automated blood platelet count (count/volume) 296 10*3/uL 130-400 Automated blood platelet mean volume measurement 11.0 [foz_us] 7.4-10.4 Automated blood neutrophils/100 leukocytes 74 % 42-75 Automated blood lymphocytes/100 leukocytes 19 % 12-44 Blood monocytes/100 leukocytes 6 % 0-12 Automated blood eosinophils/100 leukocytes 1 % 0-10 Automated blood basophils/100 leukocytes 0 % 0-10 Blood neutrophils automated count (number/volume) 9.4 10*3 1.8-7.8 Blood lymphocytes automated count (number/volume) 2.4 10*3 1.0-4.0 Blood monocytes automated count (number/volume) 0.8 10*3 0.0-1.0 Automated eosinophil count 0.1 10*3/uL 0.0-0.3 Automated blood basophil count (count/volume) 0.1 10*3/uL 0.0-0.1 PT panel in platelet poor plasma by coagulation assay - 08/07/16 13:25 Prothrombin time (PT) in platelet poor plasma by coagulation assay 12.4 s 12.2-14.7 INR in platelet poor plasma or blood by coagulation assay 1.0 0.8-1.4 Activated partial thromboplastin time (aPTT) in platelet poor plasma bycoagulation assay - 08/07/16 13:25 Activated partial thromboplastin time (aPTT) in platelet poor plasma bycoagulation assay 26 s 24-35 Comprehensive metabolic panel - 08/07/16 13:25 Serum or plasma sodium measurement (moles/volume) 143 mmol/L 135-145 Serum or plasma potassium measurement (moles/volume) 3.4 mmol/L 3.6-5.0 Serum or plasma chloride measurement (moles/volume) 104 mmol/L 98-107 Carbon dioxide 26 mmol/L 21-32 Serum or plasma anion gap determination (moles/volume) 13 mmol/L 5-14 Serum or plasma urea nitrogen measurement (mass/volume) 28 mg/dL 7-18 Serum or plasma creatinine measurement (mass/volume) 2.39 mg/dL 0.60-1.30 Serum or plasma urea nitrogen/creatinine mass ratio 12 NRG Serum or plasma creatinine measurement with calculation of estimated glomerular filtration rate 21 NRG Serum or plasma glucose measurement (mass/volume) 113 mg/dL 70-105 Serum or plasma calcium measurement (mass/volume) 10.3 mg/dL 8.5-10.1 Serum or plasma total bilirubin measurement (mass/volume) 1.0 mg/dL 0.1-1.0 Serum or plasma alkaline phosphatase measurement (enzymatic activity/volume) 141 U/L 40-136 Serum or plasma aspartate aminotransferase measurement (enzymatic activity/ volume) 31 U/L 5-34 Serum or plasma alanine aminotransferase measurement (enzymatic activity/volume ) 19 U/L 0-55 Serum or plasma protein measurement (mass/volume) 7.5 g/dL 6.4-8.2 Serum or plasma albumin measurement (mass/volume) 4.0 g/dL 3.2-4.5 Serum or plasma troponin i.cardiac measurement (mass/volume) - 08/07/16 13:25 Serum or plasma troponin i.cardiac measurement (mass/volume) < ng/ mL <0.30 Complete urinalysis with reflex to culture - 08/07/16 14:30 Urine color determination YELLOW NRG Urine clarity determination CLEAR NRG Urine pH measurement by test strip 8 5-9 Specific gravity of urine by test strip 1.010 1.016- 1.022 Urine protein assay by test strip, semi-quantitative 2+ NEGATIVE Urine glucose detection by automated test strip NEGATIVE NEGATIVE Erythrocytes detection in urine sediment by light microscopy NEGATIVE NEGATIVE Urine ketones detection by automated test strip NEGATIVE NEGATIVE Urine nitrite detection by test strip NEGATIVE NEGATIVE Urine total bilirubin detection by test strip NEGATIVE NEGATIVE Urine urobilinogen measurement by automated test strip (mass/volume) NORMAL NORMAL Urine leukocyte esterase detection by dipstick NEGATIVE NEGATIVE Automated urine sediment erythrocyte count by microscopy (number/high power field) NONE NRG Automated urine sediment leukocyte count by microscopy (number/high power field ) NONE NRG Bacteria detection in urine sediment by light microscopy NEGATIVE NRG Squamous epithelial cells detection in urine sediment by light microscopy NONE NRG Crystals detection in urine sediment by light microscopy NONE NRG Casts detection in urine sediment by light microscopy NONE NRG Mucus detection in urine sediment by light microscopy NEGATIVE NRG Complete urinalysis with reflex to culture NO NRG Automated blood complete blood count (hemogram) panel - 08/12/16 07:20 Blood leukocytes automated count (number/volume) 12.8 10*3/uL 4.3-11.0 Blood erythrocytes automated count (number/volume) 3.54 10*6/uL 4.35-5.85 Venous blood hemoglobin measurement (mass/volume) 10.3 g/dL 11.5-16.0 Blood hematocrit (volume fraction) 31 % 35-52 Automated erythrocyte mean corpuscular volume 87 [foz_us] 80-99 Automated erythrocyte mean corpuscular hemoglobin (mass per erythrocyte) 29 pg 25-34 Automated erythrocyte mean corpuscular hemoglobin concentration measurement ( mass/volume) 33 g/dL 32-36 Automated erythrocyte distribution width ratio 17.5 % 10.0-14.5 Automated blood platelet count (count/volume) 239 10*3/uL 130-400 Automated blood platelet mean volume measurement 11.7 [foz_us] 7.4-10.4 Whole blood basic metabolic panel - 08/12/16 07:20 Serum or plasma sodium measurement (moles/volume) 131 mmol/L 135-145 Serum or plasma potassium measurement (moles/volume) 3.6 mmol/L 3.6-5.0 Serum or plasma chloride measurement (moles/volume) 97 mmol/L 98-107 Carbon dioxide 18 mmol/L 21-32 Serum or plasma anion gap determination (moles/volume) 16 mmol/L 5-14 Serum or plasma urea nitrogen measurement (mass/volume) 45 mg/dL 7-18 Serum or plasma creatinine measurement (mass/volume) 4.13 mg/dL 0.60-1.30 Serum or plasma urea nitrogen/creatinine mass ratio 11 NRG Serum or plasma creatinine measurement with calculation of estimated glomerular filtration rate 11 NRG Serum or plasma glucose measurement (mass/volume) 95 mg/dL 70-105 Serum or plasma calcium measurement (mass/volume) 9.3 mg/dL 8.5-10.1 Magnesium - 08/12/16 07:20 Magnesium 1.7 mg/dL 1.8-2.4 Blood lactic acid measurement (moles/volume) - 03/09/17 17:25 Blood lactic acid measurement (moles/volume) 0.61 mmol/L 0.50-2.00 Comprehensive metabolic panel - 03/09/17 17:25 Serum or plasma sodium measurement (moles/volume) 136 mmol/L 135-145 Serum or plasma potassium measurement (moles/volume) 4.5 mmol/L 3.6-5.0 Serum or plasma chloride measurement (moles/volume) 97 mmol/L 98-107 Carbon dioxide 26 mmol/L -32 Serum or plasma anion gap determination (moles/volume) 13 mmol/L 5-14 Serum or plasma urea nitrogen measurement (mass/volume) 35 mg/dL 7-18 Serum or plasma creatinine measurement (mass/volume) 3.16 mg/dL 0.60-1.30 Serum or plasma urea nitrogen/creatinine mass ratio 11 NRG Serum or plasma creatinine measurement with calculation of estimated glomerular filtration rate 15 NRG Serum or plasma glucose measurement (mass/volume) 92 mg/dL 70-105 Serum or plasma calcium measurement (mass/volume) 8.8 mg/dL 8.5-10.1 Serum or plasma total bilirubin measurement (mass/volume) 1.0 mg/dL 0.1-1.0 Serum or plasma alkaline phosphatase measurement (enzymatic activity/volume) 188 U/L 40-136 Serum or plasma aspartate aminotransferase measurement (enzymatic activity/ volume) 54 U/L 5-34 Serum or plasma alanine aminotransferase measurement (enzymatic activity/volume ) 36 U/L 0-55 Serum or plasma protein measurement (mass/volume) 6.9 g/dL 6.4-8.2 Serum or plasma albumin measurement (mass/volume) 3.8 g/dL 3.2-4.5 Complete blood count (CBC) with automated white blood cell (WBC) differential - 03/09/17 17:25 Blood leukocytes automated count (number/volume) 6.5 10*3/uL 4.3-11.0 Blood erythrocytes automated count (number/volume) 3.96 10*6/uL 4.35-5.85 Venous blood hemoglobin measurement (mass/volume) 11.9 g/dL 11.5-16.0 Blood hematocrit (volume fraction) 37 % 35-52 Automated erythrocyte mean corpuscular volume 93 [foz_us] 80-99 Automated erythrocyte mean corpuscular hemoglobin (mass per erythrocyte) 30 pg 25-34 Automated erythrocyte mean corpuscular hemoglobin concentration measurement ( mass/volume) 32 g/dL 32-36 Automated erythrocyte distribution width ratio 15.5 % 10.0-14.5 Automated blood platelet count (count/volume) 205 10*3/uL 130-400 Automated blood platelet mean volume measurement 11.4 [foz_us] 7.4-10.4 Automated blood neutrophils/100 leukocytes 61 % 42-75 Automated blood lymphocytes/100 leukocytes 18 % 12-44 Blood monocytes/100 leukocytes 19 % 0-12 Automated blood eosinophils/100 leukocytes 1 % 0-10 Automated blood basophils/100 leukocytes 1 % 0-10 Blood neutrophils automated count (number/volume) 3.9 10*3 1.8-7.8 Blood lymphocytes automated count (number/volume) 1.2 10*3 1.0-4.0 Blood monocytes automated count (number/volume) 1.3 10*3 0.0-1.0 Automated eosinophil count 0.1 10*3/uL 0.0-0.3 Automated blood basophil count (count/volume) 0.0 10*3/uL 0.0-0.1 Blood manual differential performed detection - 03/09/17 17:25 Blood monocytes/100 leukocytes 2 % NRG Manual blood segmented neutrophils/100 leukocytes 65 % NRG Blood band neutrophils/100 leukocytes 1 % NRG Manual blood lymphocytes/100 leukocytes 30 % NRG Manual eosinophils/100 leukocytes in nose 1 % NRG Manual blood basophils/100 leukocytes 1 % NRG Blood erythrocyte morphology finding identification NORMAL NRG PT panel in platelet poor plasma by coagulation assay - 03/09/17 17:25 Prothrombin time (PT) in platelet poor plasma by coagulation assay 18.3 s 12.2-14.7 INR in platelet poor plasma or blood by coagulation assay 1.6 0.8-1.4 Activated partial thromboplastin time (aPTT) in platelet poor plasma bycoagulation assay - 03/09/17 17:25 Activated partial thromboplastin time (aPTT) in platelet poor plasma bycoagulation assay 38 s 24-35 Bacterial blood culture - 03/09/17 17:25 Bacterial blood culture NG NRG Encounters ACCT No. Visit Date/Time Discharge Status Pt. Type Provider Facility Loc./Unit Complaint [id number] 01/23/2015 12:23:00 01/23/2015 23:59:59 CLS Outpatient WILVER SIMENTAL MD [id number] 11/03/2014 18:21:00 11/03/2014 23:59:59 CLS Outpatient JIGNESH NOVOASEFERINO [id number] 08/11/2014 13:35:00 08/11/2014 23:59:59 CLS Outpatient FITO MONSALVE APRN [id number] 06/09/2014 15:42:00 06/09/2014 23:59:59 CLS Outpatient WILVER SIMENTAL MD [id number] 02/14/2014 13:36:00 02/14/2014 23:59:59 CLS Outpatient WILVER SIMENTAL MD [id number] 09/09/2013 16:26:00 09/09/2013 23:59:59 CLS Outpatient WILVER SIMENTAL MD [id number] 09/02/2013 11:32:00 09/02/2013 23:59:59 CLS Outpatient NESS URBAN APRN [id number] 01/14/2013 14:06:00 01/14/2013 23:59:59 CLS Outpatient [id number] 03/06/2019 08:50:00 03/06/2019 23:59:59 CLS Preadmit TERESITA GALARZA APRN [facility] RAD SMOKING HISTORY, COPD [id number] 03/04/2019 11:14:00 03/04/2019 23:59:59 CLS Outpatient TERESITA GALARZA APRN [facility] RT RESTRICTIVE LUNG DISEASDE,KIDNEY FAILURE [id number] 01/30/2019 08:10:00 01/30/2019 23:59:59 CLS Preadmit MICHELL, TERESITA E ADOLESCENT MEDICINE SPECIALIST [facility] RAD RESTRICTIVE LUNG DISEASE,KIDNEY FAILURE [id number] 12/31/2018 10:45:00 12/31/2018 23:59:59 CLS Preadmit MICHELL, TERESITA E ADOLESCENT MEDICINE SPECIALIST [facility] PULM EMPHYSEMA [id number] 10/01/2018 10:21:00 12/30/2018 00:01:00 DIS Outpatient MICHELL, TERESITA E ADOLESCENT MEDICINE SPECIALIST [facility] PULM EMPHYSEMA [id number] 10/01/2018 10:27:00 10/01/2018 23:59:59 CLS Outpatient MICHELL, TERESITA E ADOLESCENT MEDICINE SPECIALIST [facility] RAD J18.9,J43.9,R06.00, R09.02,J98.4 [id number] 07/30/2018 09:30:00 07/30/2018 23:59:59 CLS Preadmit MICHELL, TERESITA E ADOLESCENT MEDICINE SPECIALIST [facility] PULM N19 KIDNEY FAILURE [id number] 07/18/2018 11:24:00 07/18/2018 23:59:59 CLS Outpatient MICHELL, TERESITA E ADOLESCENT MEDICINE SPECIALIST [facility] RAD SYSPNEA,EMPHYSEMA LUNG,HYPOXEMIA REQUIRING OXYGEN [id number] 07/13/2018 09:52:00 07/13/2018 23:59:59 CLS Outpatient MICHELL, TERESITA E ADOLESCENT MEDICINE SPECIALIST [facility] PULM J43.9 [id number] 04/08/2018 18:24:00 04/08/2018 18:34:00 DIS Emergency BOYD DO, ZIGGY K [facility] ER SOA [id number] 08/09/2017 13:00:00 08/09/2017 23:59:59 CLS Preadmit MICHELL, TERESITA E ADOLESCENT MEDICINE SPECIALIST [facility] CARD PLEURAL EFFUISON [id number] 07/21/2017 11:28:00 07/21/2017 23:59:59 CLS Outpatient MICHELL, TERESITA E ADOLESCENT MEDICINE SPECIALIST [facility] RAD RESTRIVTIVE LUNG DISEASE [id number] 03/09/2017 17:24:00 03/09/2017 19:00:00 DIS Emergency AKASH PINEDA MD [facility] ER SOA [id number] 11/01/2016 13:53:00 11/01/2016 23:59:59 CLS Outpatient GUTIERREZ DO VAIBHAV Yaquelin [facility] RAD RESTRICTIVE LUNG DISEASE, PNEUMONIA,KIDNEY FAILURE [id number] 08/12/2016 06:45:00 08/12/2016 11:08:00 DIS Emergency EDUIN ALCAZAR MD [facility] ER BACK PAIN [id number] 08/07/2016 13:27:00 08/07/2016 16:36:00 DIS Emergency KATIE GRANDA DO [facility] ER STROKE SYMPTOMS [id number] 07/14/2016 16:21:00 07/14/2016 23:59:59 CLS Outpatient WILVER SIMENTAL MD [facility] RT RESTRICTIVE LUNG DISEASE [id number] 06/29/2016 11:43:00 06/29/2016 23:59:59 CLS Outpatient WILVER SIMENTAL MD [facility] RT RESTRICTIVE LUNG DISEASE [id number] 06/05/2016 19:17:00 06/05/2016 23:29:00 DIS Emergency AKASH PINEDA MD [facility] ER SOA [id number] 01/07/2016 01:37:00 01/12/2016 17:50:00 DIS Inpatient WILVER SIMENTAL MD [facility] ICU PNEUMONIA,HYPOXIA,ARF [id number] 05/25/2014 15:12:00 Document Registration [id number] 02/22/2019 11:20:00 02/22/2019 23:59:59 CLS Outpatient WILVER SIMENTAL MD [facility]
--- NOTE | 2019-03-18 14:40 | NUR ---
PT REFUSES IV AND BLOOD DRAW AT THIS TIME. DR PINEDA INFORMED.
[2019-03-18] MEDS ORDERED: RT-ALBUTEROL/IPRATROPIUM 3 ML (DUONEB) VIAL INH ONE (14:45)
--- NOTE | 2019-03-18 14:45 | NUR ---
RT AT BEDSIDE.
--- NOTE | 2019-03-18 14:46 | ED Respiratory ---
General Chief Complaint: Respiratory Problems Stated Complaint: CONGESTION;TROUBLE BREATHING Source: patient Exam Limitations: no limitations History of Present Illness Date Seen by Provider: March 18, 2019 Time Seen by Provider: 14:26 Initial Comments Here with report of shortness of breath and cough. She states that she is unable to cough anything up. She is a dialysis patient and had last dialysis this morning. The tick 2.5 L off and she is apparently at base weight. Denies recent fever or vomiting. States that the shortness of breath is been going on for a few days. She is not happy on arrival and will answer questions but does not want labs or IV. Currently she is on 8 L/m via nasal cannula which is the highest that her tank we'll go. She is satting 88% on her 8 L. Timing/Duration: getting worse, other (few days) Severity: moderate, severe Prior Episodes/Possible Cause: frequent episodes Modifying Factors: Worse With Activity; Improves With Albuterol Nebulizer; Worse With Coughing; Improves With Oxygen Associated Symptoms: No chest pain/soreness; cough; No earache, No facial pain , No fever/chills, No muscle aches; shortness of breath; No sinus infection; sore throat; No wheezing Allergies and Home Medications Allergies Coded Allergies: morphine (Verified Allergy, Severe, swelling, 01/11/16) Home Medications Amlodipine Besylate 10 Mg Tablet, 10 MG PO DAILY, (Reported) Carvedilol 25 Mg Tablet, 25 MG PO BID, (Reported) Clonidine HCl 0.1 Mg Tablet, 0.1 MG PO DAILY, (Reported) Furosemide 80 Mg Tablet, 80 MG PO BID, (Reported) Hydralazine HCl 25 Mg Tablet, 25 MG PO TID, (Reported) Levofloxacin 500 Mg Tablet, 500 MG PO Q48H, (Reported) Levothyroxine Sodium 25 Mcg Tablet, 25 MCG PO DAILY, (Reported) Oxycodone HCl/Acetaminophen 1 Each Tablet, 1-2 EACH PO Q4H PRN for PAIN Prescribed by: EDUIN BIRD on 08/12/16 1048 Pravastatin Sodium 40 Mg Tablet, 40 MG PO DAILY, (Reported) Prednisone 20 Mg Tab, 40 MG PO DAILY Prescribed by: AKASH PINEDA on 03/09/17 1827 Vitamin B Comp W-C/FA/Zn Cit 1 Each Tablet, 1 EACH PO DAILY, (Reported) Patient Home Medication List Home Medication List Reviewed: Yes Review of Systems Review of Systems Constitutional: see HPI; No chills, No fever EENTM: see HPI; No ear pain Respiratory: cough, short of breath, wheezing Cardiovascular: No chest pain; edema Gastrointestinal: No abdominal pain, No nausea, No vomiting Musculoskeletal: no symptoms reported Skin: no symptoms reported Psychiatric/Neurological: See HPI; Denies Headache, Denies Tingling, Denies Tremors Past Sxliube-Mvsbcx-Ihsvpg Hx Past Med/Social Hx: Reviewed Nursing Past Med/Soc Hx Patient Social History Alcohol Use: Denies Use Recreational Drug Use: No Smoking Status: Former Smoker Type Used: Cigarettes Former Smoker, Quit: Oct 01, 2016 Recent Foreign Travel: No Contact w/Someone Who Travel: No Recent Hopitalizations: Yes (at [facility] in [place]) Physical Abuse: No Sexual Abuse: No Mistreated: No Fear: No Immunizations Up To Date Tetanus Booster (TDap): Unknown Seasonal Allergies Seasonal Allergies: No Past Medical History Surgeries: Yes (BACK) Tracheostomy Respiratory: Yes (tobaccoism, chronic hypoxia on 2 L by nasal cannula) Pneumonia, COPD Cardiac: Yes Hypertension Neurological: No Reproductive Disorders: No Sexually Transmitted Disease: No HIV/AIDS: No Renal Failure, Dialysis Gastrointestinal: No Musculoskeletal: Yes Back Injury, Chronic Back Pain Endocrine: No Cancer: No Psychosocial: Yes Depression Integumentary: No Blood Disorders: No Adverse Reaction/Blood Tranf: No Family Medical History Reviewed Nursing Family Hx Cardiovascular disease 19 MOTHER, Onset:Unknown Diabetes mellitus 19 MOTHER, Onset:Unknown FH: COPD (chronic obstructive pulmonary disease) G8 SISTER, Onset:Unknown No Pertinent Family Hx Physical Exam Vital Signs - First Documented 03/18/19 14:30 Temp 100.0 Pulse 80 Resp 26 Pulse Ox 88 O2 Delivery Nasal Cannula O2 Flow Rate 8.00 Capillary Refill : Height: 5'3.00" Weight: 140lbs. 5.0oz. 63.483153yh; 27.60 BMI Method:Estimated General Appearance: WD/WN, no apparent distress HEENT: normal ENT inspection, TMs normal Neck: full range of motion, supple Respiratory: respiratory distress, accessory muscle use, wheezing, expiration Cardiovascular: regular rate, rhythm, no murmur Gastrointestinal: non tender, soft Extremities: non-tender, normal inspection Neurologic/Psychiatric: alert, oriented x 3 Skin: normal color, warm/dry Progress/Results/Core Measures Suspected Sepsis SIRS Temperature: Pulse: Respiratory Rate: Blood Pressure / Mean: Results/Orders My Orders Orders - AKASH PINEDA MD Albuterol Pre-Mix Nebs (Rt) (Proventil (03/18/19 14:33) Albuterol/Ipra Inhalation Soln (Duoneb I (03/18/19 14:45) Svn Small Volume Nebulizer (03/18/19 14:33) Svn Small Volume Nebulizer (03/18/19 14:33) Chest 1 View, Ap/Pa Only (03/18/19 14:33) Albuterol Pre-Mix Nebs (Rt) (Proventil (03/18/19 14:30) Albuterol/Ipra Inhalation Soln (Duoneb I (03/18/19 14:30) Medications Given in ED Current Medications Medications Dose Ordered Sig/Martin Route Start Time Stop Time Status Last Admin Dose Admin Albuterol/ Ipratropium 3 ml STK-MED ONCE .ROUTE 03/18/19 14:30 03/18/19 14:35 DC 03/18/19 14:40 3 ML Vital Signs/I&O 03/18/19 03/18/19 14:30 14:41 Temp 100.0 Pulse 80 Resp 26 B/P (MAP) Pulse Ox 88 98 O2 Delivery Nasal Cannula Nasal Cannula O2 Flow Rate 8.00 8.00 Capillary Refill : Progress Note : Progress Note Seen and evaluated. Patient refusing IV and lab draw. I did discuss with her that this limits evaluation. And she verbalized agreement and understanding. She does have history of COPD. Last steroid use was last week. She was on tapering dose. Despite patient's limitations on our evaluation, we will go ahead and treat with nebulizer treatments. DuoNeb and 2 albuterol treatments ordered. chest x-ray. Prednisone 40 mg by mouth initiated. Monitor patient. 1515 : Patient is improved overall and back to baseline with respect to O2 requirement at 7 L and satting 93%. She wants to go home. We will go ahead and continue outpatient steroid 40 mg daily for 5 more days. She did have mild fever at 100 day. Chest x-ray shows congestion. Given her history I will go ahead and initiate treatment with doxycycline for 7 days. This is discussed with the patient and family who agree. Discharged home with return precautions. Patient verbalized understanding of instructions and agreement with plan. Diagnostic Imaging Diagonstic Imaging: Xray Plain Films/CT/US/NM/MRI: chest Comments [facility] [place], [place] NAME: ABRIL [facility] REC#: [id number] PT STATUS: REG ER : 1955 PHYSICIAN: AKASH PINEDA MD ADMIT DATE: 03/18/19/ER Draft Date of Exam:03/18/19 CHEST 1 VIEW, AP/PA ONLY INDICATION: Congestion, difficulty breathing. TIME OF EXAM: 02:43 p.m. Correlation is made with prior study of 10/01/2018. FINDINGS: Heart is enlarged. There are prominent interstitial markings throughout both lungs as well as perihilar infiltrates consistent with CHF. There is a small left effusion. No pneumothorax is seen. IMPRESSION: Findings consistent with congestive failure. Dictated on workstation # [id number] Dict: 03/18/19 1451 Trans: 03/18/19 1501 [id number] Interpreted by: VANIA BRO MD Electronically signed by: Departure Impression Primary Impression: Acute exacerbation of chronic bronchitis Disposition: 01 HOME, SELF-CARE Condition: Stable Departure-Patient Inst. Decision time for Depature: 15:18 Referrals: WILVER SIMENTAL MD (PCP/Family) Primary Care Physician Patient Instructions: Chronic Bronchitis (DC) Add. Discharge Instructions: All discharge instructions reviewed with patient and/or family. Voiced understanding. Take medications as directed. Follow up with your DrProsper in a few days for recheck. Return for worse pain, fever, vomiting, weakness, breathing problems or other concerns as needed. You should use your albuterol nebulizer treatments every 4 hours as needed while awake for the next couple of days to help with your breathing. Scripts Prednisone (Prednisone) 20 Mg Tab 40 MG PO DAILY, #10 TAB 0 Refills Prov: AKASH PINEDA MD 03/18/19 Doxycycline Hyclate (Doxycycline Hyclate) 100 Mg Tablet 100 MG PO BID, #20 TAB 0 Refills Prov: AKASH PINEDA MD 03/18/19 AKASH PINEDA MD March 18, 2019 14:46
--- NOTE | 2019-03-18 15:02 | Diagnostic Imaging Report ---
INDICATION: Congestion, difficulty breathing. TIME OF EXAM: 02:43 p.m. Correlation is made with prior study of 10/01/2018. FINDINGS: Heart is enlarged. There are prominent interstitial markings throughout both lungs as well as perihilar infiltrates consistent with CHF. There is a small left effusion. No pneumothorax is seen. IMPRESSION: Findings consistent with congestive failure. Dictated by: Dictated on workstation # [id number]
[2019-03-18] MEDS ORDERED: DOXY100T2 PO (15:20)
[2019-03-18] MEDS ORDERED: PRD20T PO (15:20)
[2019-03-18 15:30] VITALS: BP 140/60
[2019-03-18] MEDS ORDERED: predniSONE 20 MG TAB PO ONE (15:30)
== END 2019-03-18 15:30 | disposition home or self-care (01) ==
LOC: ER 14:21
DX: J44.0 Chronic obstructive pulmonary disease with (acute) lower respiratory infection (principal); J20.9 Acute bronchitis, unspecified; I12.0 Hypertensive chronic kidney disease with stage 5 chronic kidney disease or end stage renal disease; N18.6 End stage renal disease; F32.9 Major depressive disorder, single episode, unspecified; Z99.2 Dependence on renal dialysis; Z99.81 Dependence on supplemental oxygen; Z82.49 Family history of ischemic heart disease and other diseases of the circulatory system; Z88.5 Allergy status to narcotic agent; Z79.52 Long term (current) use of systemic steroids; Z87.891 Personal history of nicotine dependence; Z93.0 Tracheostomy status; Z87.01 Personal history of pneumonia (recurrent)
CPT/HCPCS: 71045; 94640

== ENCOUNTER 2019-03-28 14:07 | Emergency (ER) | payer MEDICARE, MEDICAID ==
[~2019-03-28] VITALS: Ht 165.1 cm; Wt 81.6 kg
[~2019-03-28 14:07] MED LIST changes: +DOXY100T2 PO
[2019-03-28] MEDS ORDERED: RT-ALBUTEROL SULF 2.5 MG/3 ML PRE-MIX VIAL ONE (14:11)
[2019-03-28] MEDS ORDERED: RT-ALBUTEROL SULF 2.5 MG/3 ML PRE-MIX VIAL INH STA (14:13)
--- OUTSIDE RECORDS SUMMARY | 2019-03-28 14:14 | XMS REPORT | Clinical Summary ---
Author Author [facility] Organization [facility] Address Unknown Phone Unavailable Care Team Providers Care Cloth Dye Range Operator Name Role Phone Fermín Salmon MD PCP [...] ingested to allow adequate absorption. Trash foot ([facility]) 03/07/2016 Last Assessment & [...] ESRD (end stage renal disease) on dialysis ([facility]) 02/28/2016 Last Assessment & Plan: - Temp hemodialysis cath placed 03/19 and she received dialysis since then. - Continue HD per nephro, planning to continue routine dialysis - AV fistula has been placed an will need the TDC till it matures Acute urinary retention 02/26/2016 Left rib fracture 02/25/2016 Cardiac arrest ([facility]) 02/24/2016 Acute pain due to injury 02/24/2016 Herpes simplex of eye 02/24/2016 Azotemia 02/09/2016 Bilateral pleural effusion 01/17/2016 Last Assessment & Plan: Pulmonary signed off Anemia 01/13/2016 Last Assessment & Plan: Hemoglobin stable. Continue epo per nephrology Acute respiratory failure with hypoxia ([facility]) 01/12/2016 Last Assessment & Plan: Her Tracheostomy is off, she was On trach shield and later on Nasal Canula Resolved Problems Problem Noted Date Resolved Date G tube feedings ([facility]) 04/08/2016 04/18/2016 VAP (ventilator-associated pneumonia) ([facility]) 03/18/2016 04/11/2016 Last Assessment [...] UTI 02/24/2016 03/12/2016 Hypotension 02/24/2016 02/25/2016 Sepsis ([facility]) 02/24/2016 04/12/2016 Lactic acidosis 02/24/2016 02/25/2016 Hyperglycemia 02/24/2016 02/25/2016 Leukocytosis 02/21/2016 04/18/2016 Last Assessment & Plan: Encephalopathy, metabolic 02/09/2016 03/07/2016 Last Assessment & Plan: Continue Zypexa nightly improving Influenza, pneumonia 01/13/2016 02/24/2016 Hypervolemia 01/13/2016 02/24/2016 Oliguria 01/13/2016 02/24/2016 ARDS (adult respiratory distress syndrome) ([facility]) 01/13/2016 02/24/2016 Sepsis ([facility]) 01/13/2016 02/20/2016 Last Assessment & Plan: Finish 10 day course of vanc / zosyn D 10 today Thrombocytopenia ([facility]) 01/13/2016 02/24/2016 Community acquired [...] Taken Blood Pressure 155/72 11/28/2017 10:02 AM FLAKE MILLER HELPER Pulse 70 11/28/2017 10:02 AM FLAKE MILLER HELPER Temperature 36.1 C (97 F) 11/28/2017 10:02 AM FLAKE MILLER HELPER Respiratory Rate 18 11/28/2017 10:02 AM FLAKE MILLER HELPER Oxygen Saturation 95% 11/28/2017 10:02 AM FLAKE MILLER HELPER Inhaled Oxygen - - Concentration Weight 82.1 kg (181 lb) 11/28/2017 10:02 AM FLAKE MILLER HELPER Height 168.9 cm (5' 6.5") 11/28/2017 10:02 AM FLAKE MILLER HELPER Body Mass Index 28.78 11/28/2017 10:02 AM FLAKE MILLER HELPER Plan of Treatment Health Maintenance Due Date Last Done Comments Medicare Annual Wellness 1955 Td # 1955 Cervical Cancer Screening 1976 via Pap Smear Colorectal Screening via 2005 Colonoscopy Mammogram Screening 2005 Zoster Vaccine# (1 of 2) 2005 Influenza Vaccine (Season 09/13/2019 Ended) Hepatitis C Screen Completed 03/08/2016 Implants Implanted Type Area Facility Maintenance Mechanic Device Expiration Model / Identifier Date Serial / Lot Implant Tube Trach 8.0mm Cuffed Low Non-Tissue COVIDIEN 07/12/2020 8DCT / Pressure Disp Cannula Zacarias (Bx/1) Implant MALLINCKRODT / 8dct - [id number] [id number] Implanted: Qty: 1 on 01/28/2016 by Dayana Mathew MD Implant Catheter Dialysis Dl Non-Tissue COVIDIEN [id number] Palindrome Precision Sapphire Implant P / 14.5fr 19cm [id number] - [id number] / Implanted: Qty: 1 on 02/04/2016 Peg Ponsky Kit Safety 20fr Pull Non-Tissue BARD 05/12/2017 [id number] / Method W/Snare [id number] - [id number] Implant PERIPHERIAL [id number] / Implanted: Qty: 1 on 02/15/2016 by VASCULAR [id number] Brittni Mcneil MD Implant Catheter Dialysis Dl Non-Tissue COVIDIEN [id number] Palindrome Precision Sapphire Implant P / 14.5fr 19cm [id number] - [id number] / Implanted: Qty: 1 on 04/12/2016 Results Not on filefrom Last 3 Months
--- OUTSIDE RECORDS SUMMARY | 2019-03-28 14:23 | XMS REPORT | Continuity of Care Document ---
Author Organization Unknown Address Unknown Allergies Active Description Code Type Severity Reaction Onset Reported/Identified Relationship to Patient Clinical Status Yes doxycycline Drug Allergy 10/18/2011 Yes doxycycline Drug Allergy N/A N/A 10/18/2011 Yes No Known Drug Allergies [id number] Drug Allergy Unknown N/A 05/25/2014 Yes morphine [id number] Drug Allergy Severe swelling 01/11/2016 Medications There [...] 381.01 ACUTE SEROUS OTITIS MEDIA 09/02/2013 GRICEL PHYSICIAN PRESIDENTIGNACIO LirianoFITO L 382.9 OTITIS MEDIA 09/02/2013 IGNACIO [...] HOLA SWANSON, WILVER Hopson Ot I12.9 01/11/2016 OHLA SWANSON, WILVER Hopson Ot J18.9 01/11/2016 HOLA [...] SIMENTAL MD Ot Z91.19 PATIENT'S NONCOMPLIANCE W [facility] 06/05/2016 AKASH PINEDA MD Ot [...] 08/12/2016 EDUIN ALCAZAR MD Ot Z79.899 OTHER [facility] (CURRENT) DRUG THERAPY 08/12/2016 EDUIN ALCAZAR MD [...] 08/12/2016 EDUIN ALCAZAR MD Ot Z79.899 OTHER [facility] (CURRENT) DRUG THERAPY 08/12/2016 EDUIN ALCAZAR MD [...] N19 UNSPECIFIED KIDNEY FAILURE 07/27/2017 TERESITA GALARZA PHYSICIAN PRESIDENT Ot I51.7 CARDIOMEGALY 07/27/2017 TERESITA GALARZA PHYSICIAN PRESIDENT Ot I70.0 ATHEROSCLEROSIS OF AORTA 07/27/2017 TERESITA GALARZA PHYSICIAN PRESIDENT Ot J90 PLEURAL EFFUSION, NOT ELSEWHERE CLASSIFI 07/27/2017 TERESITA GALARZA PHYSICIAN PRESIDENT Ot N19 UNSPECIFIED KIDNEY FAILURE 08/11/2017 TERESITA GALARZA PHYSICIAN PRESIDENT Ot I51.7 CARDIOMEGALY 08/11/2017 TERESITA GALARZA PHYSICIAN PRESIDENT Ot I70.0 ATHEROSCLEROSIS OF AORTA 08/11/2017 TERESITA GALARZA APRN Ot J90 PLEURAL EFFUSION, NOT ELSEWHERE CLASSIFI 08/11/2017 TERESITA GALARZA PHYSICIAN PRESIDENT Ot N19 UNSPECIFIED KIDNEY FAILURE 08/23/2017 TERESITA GALARZA PHYSICIAN PRESIDENT Ot I51.7 CARDIOMEGALY 08/23/2017 TERESITA GALARZA PHYSICIAN PRESIDENT Ot I70.0 ATHEROSCLEROSIS OF AORTA 08/23/2017 TERESITA GALARZA PHYSICIAN PRESIDENT Ot J90 PLEURAL EFFUSION, NOT ELSEWHERE CLASSIFI 08/23/2017 TERESITA GALARZA PHYSICIAN PRESIDENT Ot N19 UNSPECIFIED KIDNEY FAILURE 04/08/2018 ZIGGY NIX DO Ot F32.9 MAJOR DEPRESSIVE DISORDER, SINGLE EPISOD 04/08/2018 ZIGGY NIX DO Ot I12.0 HYP CHR KIDNEY DISEASE W STAGE 5 CHR KID 04/08/2018 KAYE NIX DOA K Ot N18.6 END STAGE RENAL DISEASE 04/08/2018 BOYD NOVOA ZIGGY K Ot R06.02 SHORTNESS OF BREATH 04/08/2018 BOYD NOVOA ZIGGY K Ot Z79.52 BALLISTIC EXPERT (CURRENT) USE OF SYSTEMIC STER 04/08/2018 BOYD NOVOA ZIGGY K Ot Z87.891 PERSONAL HISTORY OF NICOTINE DEPENDENCE 04/08/2018 BOYD DO ZIGGY Trvais Ot Z88.5 ALLERGY STATUS TO NARCOTIC AGENT [...] N19 UNSPECIFIED KIDNEY FAILURE 07/13/2018 TERESITA GALARZA PHYSICIAN PRESIDENT Ot I51.7 CARDIOMEGALY 07/13/2018 TERESITA GALARZA PHYSICIAN PRESIDENT Ot I70.0 ATHEROSCLEROSIS OF AORTA 07/13/2018 TERESITA GALARZA PHYSICIAN PRESIDENT Ot J90 PLEURAL EFFUSION, NOT ELSEWHERE CLASSIFI 07/13/2018 TERESITA GALARZA PHYSICIAN PRESIDENT Ot N19 UNSPECIFIED KIDNEY FAILURE 07/19/2018 TERESITA GALARZA PHYSICIAN PRESIDENT Ot I70.0 ATHEROSCLEROSIS OF AORTA 07/19/2018 TERESITA GALARZA PHYSICIAN PRESIDENT Ot J43.9 EMPHYSEMA, UNSPECIFIED 07/19/2018 TERESITA GALARZA PHYSICIAN PRESIDENT Ot J98.4 OTHER DISORDERS OF LUNG 07/19/2018 TERESITA GALARZA PHYSICIAN PRESIDENT Ot J43.9 EMPHYSEMA, UNSPECIFIED 08/10/2018 TERESITA GALARZA PHYSICIAN PRESIDENT Ot I70.0 ATHEROSCLEROSIS OF AORTA 08/10/2018 TERESITA GALARZA PHYSICIAN PRESIDENT Ot J43.9 EMPHYSEMA, UNSPECIFIED 08/10/2018 OFELIA GALARZAINE E PHYSICIAN PRESIDENT Ot J98.4 OTHER DISORDERS OF LUNG 10/25/2018 TERESITA GALARZA PHYSICIAN PRESIDENT Ot J18.9 PNEUMONIA, UNSPECIFIED ORGANISM 10/25/2018 TERESITA GALARZA E PHYSICIAN PRESIDENT Ot J43.9 EMPHYSEMA, UNSPECIFIED 10/25/2018 MICHELLOFELIA RODRIGUEZINE E PHYSICIAN PRESIDENT Ot J98.4 OTHER DISORDERS OF LUNG 10/25/2018 OFELIA GALARZAINE E PHYSICIAN PRESIDENT Ot N19 UNSPECIFIED KIDNEY FAILURE 11/01/2018 TERESITA GALARZA PHYSICIAN PRESIDENT Ot J18.9 PNEUMONIA, UNSPECIFIED ORGANISM 11/01/2018 TERESITA GALARZA PHYSICIAN PRESIDENT Ot J43.9 EMPHYSEMA, UNSPECIFIED 11/01/2018 OFELIA GALARZAINE Reji PHYSICIAN PRESIDENT Ot J98.4 OTHER DISORDERS OF LUNG 11/01/2018 TERESITA GALARZA PHYSICIAN PRESIDENT Ot N19 UNSPECIFIED KIDNEY FAILURE 11/01/2018 TERESITA GALARZA PHYSICIAN PRESIDENT Ot R06.00 DYSPNEA, UNSPECIFIED 11/01/2018 OFELIA GALARZAINE Reji PHYSICIAN PRESIDENT Ot R09.02 HYPOXEMIA 11/15/2018 TERESITA GALARZA PHYSICIAN PRESIDENT Ot J18.9 PNEUMONIA, UNSPECIFIED ORGANISM 11/15/2018 TERESITA GALARZA PHYSICIAN PRESIDENT Ot J43.9 EMPHYSEMA, UNSPECIFIED 11/15/2018 OFELIA GALARZAINE E PHYSICIAN PRESIDENT Ot J98.4 OTHER DISORDERS OF LUNG 11/15/2018 TERESITA GALARZA PHYSICIAN PRESIDENT Ot N19 UNSPECIFIED KIDNEY FAILURE 11/15/2018 OFELIA GALARZAINE Reji PHYSICIAN PRESIDENT Ot R06.00 DYSPNEA, UNSPECIFIED 11/15/2018 OFELIA GALARZAINE E PHYSICIAN PRESIDENT Ot R09.02 HYPOXEMIA 11/27/2018 TERESITA GALARZA PHYSICIAN PRESIDENT Ot J18.9 PNEUMONIA, UNSPECIFIED ORGANISM 11/27/2018 TERESITA GALARZA PHYSICIAN PRESIDENT Ot J43.9 EMPHYSEMA, UNSPECIFIED 11/27/2018 OFELIA GALARZAINE E PHYSICIAN PRESIDENT Ot J98.4 OTHER DISORDERS OF LUNG 11/27/2018 TERESITA GALARZA PHYSICIAN PRESIDENT Ot N19 UNSPECIFIED KIDNEY FAILURE 11/27/2018 MICHELL, TERESITA E PHYSICIAN PRESIDENT Ot R06.00 DYSPNEA, UNSPECIFIED 11/27/2018 OFELIA GALARZAINE Reji PHYSICIAN PRESIDENT Ot R09.02 HYPOXEMIA 12/10/2018 TERESITA GALARZA PHYSICIAN PRESIDENT Ot J18.9 PNEUMONIA, UNSPECIFIED ORGANISM 12/10/2018 OFELIA GALARZAINE E PHYSICIAN PRESIDENT Ot J43.9 EMPHYSEMA, UNSPECIFIED 12/10/2018 TERESITA GALARZA PHYSICIAN PRESIDENT Ot J98.4 OTHER DISORDERS OF LUNG 12/10/2018 TERESITA GALARZA PHYSICIAN PRESIDENT Ot N19 UNSPECIFIED KIDNEY FAILURE 12/10/2018 TERESITA GALARZA PHYSICIAN PRESIDENT Ot R06.00 DYSPNEA, UNSPECIFIED 12/10/2018 OFELIA GALARZAINE E PHYSICIAN PRESIDENT Ot R09.02 HYPOXEMIA 12/30/2018 TERESITA GALARZA PHYSICIAN PRESIDENT Ot J18.9 PNEUMONIA, UNSPECIFIED ORGANISM 12/30/2018 TERESITA GALARZA PHYSICIAN PRESIDENT Ot J43.9 EMPHYSEMA, UNSPECIFIED 12/30/2018 TERESITA GALARZA E PHYSICIAN PRESIDENT Ot J98.4 OTHER DISORDERS OF LUNG 12/30/2018 TERESITA GALARZA PHYSICIAN PRESIDENT Ot N19 UNSPECIFIED KIDNEY FAILURE 12/30/2018 TERESITA GALARZA PHYSICIAN PRESIDENT Ot R06.00 DYSPNEA, UNSPECIFIED 12/30/2018 TERESITA GALARZA PHYSICIAN PRESIDENT Ot R09.02 HYPOXEMIA 12/31/2018 TERESITA GALARZA PHYSICIAN PRESIDENT Ot J18.9 PNEUMONIA, UNSPECIFIED ORGANISM 12/31/2018 TERESITA GALARZA PHYSICIAN PRESIDENT Ot J43.9 EMPHYSEMA, UNSPECIFIED 12/31/2018 TERESITA GALARZA PHYSICIAN PRESIDENT Ot J98.4 OTHER DISORDERS OF LUNG 12/31/2018 TERESITA GALARZA PHYSICIAN PRESIDENT Ot N19 UNSPECIFIED KIDNEY FAILURE 12/31/2018 TERESITA GALARZA PHYSICIAN PRESIDENT Ot R06.00 DYSPNEA, UNSPECIFIED 12/31/2018 TERESITA GALARZA PHYSICIAN PRESIDENT Ot R09.02 HYPOXEMIA 03/21/2019 EDWIN SWANSON, AKASH Cabrera Ot F32.9 MAJOR DEPRESSIVE DISORDER, SINGLE EPISOD 03/21/2019 AKASH PINEDA MD Ot I12.0 HYP CHR KIDNEY DISEASE W STAGE 5 CHR KID 03/21/2019 AKASH PINEDA MD Ot J20.9 ACUTE BRONCHITIS, UNSPECIFIED 03/21/2019 AKASH PINEDA MD Ot J44.0 CHRONIC OBSTRUCTIVE PULMON DISEASE W ACU 03/21/2019 AKASH PINEDA MD, Ot N18.6 END STAGE RENAL DISEASE 03/21/2019 AKASH PINEDA MD, Ot R06.02 SHORTNESS OF BREATH 03/21/2019 AKASH PINEDA MD, Ot Z79.52 BALLISTIC EXPERT (CURRENT) USE OF SYSTEMIC STER 03/21/2019 AKASH PINEDA MD, Ot Z82.49 FAMILY HX OF ISCHEM HEART DIS AND OTH DI 03/21/2019 AKASH PINEDA MD, Ot Z87.01 PERSONAL HISTORY OF PNEUMONIA (RECURRENT 03/21/2019 AKASH PINEDA MD, Ot Z87.891 PERSONAL HISTORY OF NICOTINE DEPENDENCE 03/21/2019 AKASH PINEDA MD, Ot Z88.5 ALLERGY STATUS TO NARCOTIC AGENT STATUS 03/21/2019 AKASH PINEDA MD, Ot Z93.0 TRACHEOSTOMY STATUS 03/21/2019 AKASH PINEDA MD, Ot Z99.2 DEPENDENCE ON RENAL DIALYSIS 03/21/2019 AKASH PINEDA MD, Ot Z99.81 DEPENDENCE ON SUPPLEMENTAL OXYGEN 03/26/2019 TERESITA GALARZA APRN Ot J43.9 EMPHYSEMA, UNSPECIFIED 03/26/2019 TERESITA GALARZA APRN Ot J98.4 OTHER DISORDERS OF LUNG 03/26/2019 TERESITA GALARZA APRN Ot N19 UNSPECIFIED KIDNEY FAILURE 03/26/2019 TERESITA GALARZA APRN Ot R06.00 DYSPNEA, UNSPECIFIED 03/26/2019 TERESITA GALARZA APRN Ot R09.02 HYPOXEMIA Procedures Code [place] [address] THERAPUTIC INJ SQ/IM 09/02/2013 J2550 PHENERGAN INJECTION UP TO 50 MG 09/02/2013 14169 ROUTINE VENIPUNCTURE 02/14/2014 10864 CMP 02/14/2014 [id number] GFR CALC (RESULT ONLY) 02/14/2014 15766 TB TEST INTRADERMAL 08/11/2014 41457 US VENOUS DOPPLER (DVT EVAL ) 11/03/2014 74903 ROUTINE VENIPUNCTURE 01/23/2015 87056 UA LONG DIP 01/23/2015 37280 CBC 01/23/2015 25032 CRP 01/23/2015 ANAANA KEITH ANALYZER (SCREEN) 01/24/2015 [id number] INSERTION OF ENDOTRACHEAL AIRWAY INTO TR 01/12/2016 [id number] RESPIRATORY VENTILATION, LESS THAN 24 CO 01/12/2016 [...] 97 mmol/L 98-107 Carbon dioxide 26 mmol/L 21-32 [...] Status Pt. Type Provider Facility Loc./Unit Complaint [id number] 01/23/2015 12:23:00 01/23/2015 23:59:59 CLS Outpatient WILVER SIMENTAL MD [id number] 11/03/2014 18:21:00 11/03/2014 23:59:59 CLS Outpatient EGAN SEFERINO NOVOA [id number] 08/11/2014 13:35:00 08/11/2014 23:59:59 CLS Outpatient GRICEL JOSUE FITO Rhona [id number] 06/09/2014 15:42:00 06/09/2014 23:59:59 CLS Outpatient WILVER SIMENTAL MD [id number] 02/14/2014 13:36:00 02/14/2014 23:59:59 CLS Outpatient WILVER SIMENTAL MD [id number] 09/09/2013 16:26:00 09/09/2013 23:59:59 CLS Outpatient WILVER SIMENTAL MD [id number] 09/02/2013 11:32:00 09/02/2013 23:59:59 CLS Outpatient DEBORAH URBAN APRNRICSELENE Bailey [id number] 01/14/2013 14:06:00 01/14/2013 23:59:59 CLS Outpatient [id number] 03/18/2019 14:21:00 03/18/2019 15:30:00 DIS Outpatient AKASH PINEDA MD [facility] ER CONGESTION;TROUBLE BREATHING [id number] 03/06/2019 08:50:00 03/06/2019 23:59:59 CLS Preadmit TERESITA GALARZA APRN [facility] RAD SMOKING HISTORY, COPD [id number] 03/04/2019 11:14:00 03/04/2019 23:59:59 CLS Outpatient TERESITA GALARZA APRN [facility] RT RESTRICTIVE LUNG DISEASDE,KIDNEY FAILURE [id number] 01/30/2019 08:10:00 01/30/2019 23:59:59 CLS Preadmit MICHELL, TERESITA E PHYSICIAN PRESIDENT [facility] RAD RESTRICTIVE LUNG DISEASE,KIDNEY FAILURE [id number] 12/31/2018 10:45:00 12/31/2018 23:59:59 CLS Preadmit MICHELL, TERESITA E PHYSICIAN PRESIDENT [facility] PULM EMPHYSEMA [id number] 10/01/2018 10:21:00 12/30/2018 00:01:00 DIS Outpatient MICHELL, TERESITA E PHYSICIAN PRESIDENT [facility] PULM EMPHYSEMA [id number] 10/01/2018 10:27:00 10/01/2018 23:59:59 CLS Outpatient MICHELL, TERESITA E PHYSICIAN PRESIDENT [facility] RAD J18.9,J43.9,R06.00, R09.02,J98.4 [id number] 07/30/2018 09:30:00 07/30/2018 23:59:59 CLS Preadmit MICHELL, TERESITA E PHYSICIAN PRESIDENT [facility] PULM N19 KIDNEY FAILURE [id number] 07/18/2018 11:24:00 07/18/2018 23:59:59 CLS Outpatient MICHELL, TERESITA E PHYSICIAN PRESIDENT [facility] RAD SYSPNEA,EMPHYSEMA LUNG,HYPOXEMIA REQUIRING OXYGEN [id number] 07/13/2018 09:52:00 07/13/2018 23:59:59 CLS Outpatient MICHELL, TERESITA E PHYSICIAN PRESIDENT [facility] PULM J43.9 [id number] 04/08/2018 18:24:00 04/08/2018 18:34:00 DIS Emergency BOYD DOAKYEA K [facility] ER SOA [id number] 08/09/2017 13:00:00 08/09/2017 23:59:59 CLS Preadmit MICHELL, TERESITA E PHYSICIAN PRESIDENT [facility] CARD PLEURAL EFFUISON [id number] 07/21/2017 11:28:00 07/21/2017 23:59:59 CLS Outpatient MICHELL, TERESITA E PHYSICIAN PRESIDENT [facility] RAD RESTRIVTIVE LUNG DISEASE [id number] 03/09/2017 17:24:00 03/09/2017 19:00:00 DIS Emergency AKASH PINEDA MD [facility] ER SOA [id number] 11/01/2016 13:53:00 11/01/2016 23:59:59 CLS Outpatient GUTIERREZ NOVOA VAIBHAV M [facility] RAD RESTRICTIVE LUNG DISEASE, PNEUMONIA,KIDNEY FAILURE [id number] 08/12/2016 06:45:00 08/12/2016 11:08:00 DIS Emergency EDUIN ALCAZAR MD [facility] ER BACK PAIN [id number] 08/07/2016 13:27:00 08/07/2016 16:36:00 DIS Emergency KATIE GRANDA DO [facility] ER STROKE SYMPTOMS [id number] 07/14/2016 16:21:00 07/14/2016 23:59:59 CLS Outpatient WILVER SIMENTAL MD [facility] RT RESTRICTIVE LUNG DISEASE [id number] 06/29/2016 11:43:00 06/29/2016 23:59:59 CLS Outpatient WILVER SIMENTAL MD [facility] RT RESTRICTIVE LUNG DISEASE [id number] 06/05/2016 19:17:00 06/05/2016 23:29:00 DIS Emergency AKASH PINEDA MD [facility] ER SOA [id number] 01/07/2016 01:37:00 01/12/2016 17:50:00 DIS Inpatient WILVER SIMENTAL MD [facility] ICU PNEUMONIA,HYPOXIA,ARF [id number] 05/25/2014 15:12:00 Document Registration [id number] 03/26/2019 13:20:00 ACT Outpatient WILVER SIMENTAL MD [facility]
[2019-03-28 14:26] LABS: BASOPHILS % (AUTO) 0 % (0-10); EOSINOPHILS # (AUTO) 0.2 10^3/uL (0.0-0.3); EOSINOPHILS % (AUTO) 3 % (0-10); HEMATOCRIT 33 % (35-52); HEMOGLOBIN 10.3 G/DL (11.5-16.0); LYMPHOCYTES # (AUTO) 1.1 X 10^3 (1.0-4.0); LYMPHOCYTES % (AUTO) 13 % (12-44); MEAN CORPUSCULAR HEMOGLOBIN 29 PG (25-34); MEAN CORPUSCULAR HGB CONC 31 G/DL (32-36); MEAN CORPUSCULAR VOLUME 91 FL (80-99); MEAN PLATELET VOLUME 10.7 FL (7.4-10.4); MONOCYTES # (AUTO) 0.9 X 10^3 (0.0-1.0); MONOCYTES % (AUTO) 10 % (0-12); NEUTROPHILS # (AUTO) 6.6 X 10^3 (1.8-7.8); NEUTROPHILS % (AUTO) 75 % (42-75); PLATELET COUNT 152 10^3/uL (130-400); RED CELL DISTRIBUTION WIDTH 19.4 % (10.0-14.5); WHITE BLOOD COUNT 8.8 10^3/uL (4.3-11.0)
--- NOTE | 2019-03-28 14:50 | Diagnostic Imaging Report ---
Indication: Shortness of air. Time of exam 2:40 PM Correlation to a prior study from 03/18/2019. The heart is enlarged. There is bilateral perihilar as well as generalized interstitial infiltrates suggestive of congestive failure. No effusion or pneumothorax. Impression: Findings most suggestive of congestive failure. Dictated by: Dictated on workstation # [id number]
[2019-03-28 14:52] LABS: ALBUMIN 3.5 GM/DL (3.2-4.5); BILIRUBIN,TOTAL 0.9 MG/DL (0.1-1.0); CALCIUM 9.1 MG/DL (8.5-10.1); CREATININE SERUM 5.86 MG/DL (0.60-1.30); POTASSIUM 5.6 MMOL/L (3.6-5.0); TOTAL PROTEIN 6.5 GM/DL (6.4-8.2)
--- NOTE | 2019-03-28 15:26 | NUR ---
[facility] NOTIFIED OF POSSIBLE TRANSFER
--- NOTE | 2019-03-28 15:28 | ED Respiratory ---
General Chief Complaint: Respiratory Problems Stated Complaint: SOA Nursing Triage Note: PT ARRIVED PER EMS, PT CO OF SOA, PT SAT 86% ON 4L O2. PT IS A DIALYSIS PT Source: patient Exam Limitations: no limitations History of Present Illness Date Seen by Provider: March 28, 2019 Time Seen by Provider: 14:13 Initial Comments Here by EMS with report of shortness of air and initial O2 sat of 86% on 4 L. Patient is on dialysis and last had dialysis yesterday. They took off 2.5 L which is over her normal amount of 1.5 L. She states that she feels like she still is fluid overloaded. She is here by EMS who did give DuoNeb. That did improve her oxygen saturation some but patient reports that she is still significantly short of breath and coughing. She reports coughing up clear fluid. Denies recent fever or chills. Denies chest pain. She is having around her home O2 at 10 L to keep enough oxygen going. Timing/Duration: week, getting worse Severity: moderate Prior Episodes/Possible Cause: occasional episodes Modifying Factors: Worse With Activity; Improves With Oxygen, Improves With Rest Associated Symptoms: No chest pain/soreness; cough; No fever/chills, No nasal congestion; shortness of breath; No wheezing Allergies and Home Medications Allergies Coded Allergies: morphine (Verified Allergy, Severe, swelling, 01/11/16) Home Medications Amlodipine Besylate 10 Mg Tablet, 10 MG PO DAILY, (Reported) Carvedilol 25 Mg Tablet, 25 MG PO BID, (Reported) Clonidine HCl 0.1 Mg Tablet, 0.1 MG PO DAILY, (Reported) Doxycycline Hyclate 100 Mg Tablet, 100 MG PO BID Prescribed by: AKASH PINEDA on 03/18/19 1520 Furosemide 80 Mg Tablet, 80 MG PO BID, (Reported) Hydralazine HCl 25 Mg Tablet, 25 MG PO TID, (Reported) Levofloxacin 500 Mg Tablet, 500 MG PO Q48H, (Reported) Levothyroxine Sodium 25 Mcg Tablet, 25 MCG PO DAILY, (Reported) Oxycodone HCl/Acetaminophen 1 Each Tablet, 1-2 EACH PO Q4H PRN for PAIN Prescribed by: EDUIN BIRD on 08/12/16 1048 Pravastatin Sodium 40 Mg Tablet, 40 MG PO DAILY, (Reported) Prednisone 20 Mg Tab, 40 MG PO DAILY Prescribed by: AKASH PINEDA on 03/09/17 1827 Prednisone 20 Mg Tab, 40 MG PO DAILY Prescribed by: AKASH PINEDA on 03/18/19 1520 Vitamin B Comp W-C/FA/Zn Cit 1 Each Tablet, 1 EACH PO DAILY, (Reported) Patient Home Medication List Home Medication List Reviewed: Yes Review of Systems Review of Systems Constitutional: see HPI; No chills, No fever EENTM: no symptoms reported Respiratory: see HPI, dyspnea on exertion, orthopnea, short of breath, wheezing Cardiovascular: No chest pain; edema; No palpitations Gastrointestinal: No abdominal pain, No nausea, No vomiting Genitourinary: no symptoms reported Musculoskeletal: no symptoms reported Skin: no symptoms reported Psychiatric/Neurological: No Symptoms Reported All Other Systems Reviewed Negative Unless Noted: Yes Past Dwkvhld-Eboqma-Yvgqrm Hx Past Med/Social Hx: Reviewed Nursing Past Med/Soc Hx Patient Social History Alcohol Use: Denies Use Recreational Drug Use: No Smoking Status: Former Smoker Type Used: Cigarettes Former Smoker, Quit: Oct 01, 2016 Recent Foreign Travel: No Contact w/Someone Who Travel: No Recent Infectious Disease Expo: No Recent Hopitalizations: Yes (at [facility]) Physical Abuse: No Sexual Abuse: No Immunizations Up To Date Tetanus Booster (TDap): Unknown Seasonal Allergies Seasonal Allergies: No Past Medical History Surgeries: Yes (BACK) Tracheostomy Respiratory: Yes (tobaccoism, chronic hypoxia on 2 L by nasal cannula) Pneumonia, COPD Cardiac: Yes Hypertension Neurological: No Reproductive Disorders: No Sexually Transmitted Disease: No HIV/AIDS: No Renal Failure, Dialysis Gastrointestinal: No Musculoskeletal: Yes Back Injury, Chronic Back Pain Endocrine: No Cancer: No Psychosocial: Yes Depression Integumentary: No Blood Disorders: No Adverse Reaction/Blood Tranf: No Family Medical History Reviewed Nursing Family Hx Cardiovascular disease 19 MOTHER, Onset:Unknown Diabetes mellitus 19 MOTHER, Onset:Unknown FH: COPD (chronic obstructive pulmonary disease) G8 SISTER, Onset:Unknown No Pertinent Family Hx Physical Exam Vital Signs - First Documented Capillary Refill : Less Than 3 Seconds Height: 5'5.00" Weight: 180lbs. 5.0oz. 81.092773yp; 27.60 BMI Method:Stated General Appearance: WD/WN, mild distress (respiratory) HEENT: PERRL/EOMI, pharynx normal Neck: full range of motion, supple Respiratory: decreased breath sounds, crackles, wheezing Cardiovascular: regular rate, rhythm, no murmur Gastrointestinal: non tender, soft Extremities: non-tender, normal inspection Neurologic/Psychiatric: alert, oriented x 3 Skin: normal color, warm/dry Progress/Results/Core Measures Suspected Sepsis Recent Fever Within 48 Hours: No Infection Criteria Present: None New/Unexplained Altered Menta: No Sepsis Screen: No Definite Risk SIRS Temperature:97.8 Pulse: 75 Respiratory Rate: 19 Laboratory Tests 03/28/19 14:15: White Blood Count 8.8 Blood Pressure 144 /69 Mean: 94 Laboratory Tests 03/28/19 14:15: Creatinine 5.86H, Platelet Count 152, Total Bilirubin 0.9 Results/Orders Lab Results Laboratory Tests Test 03/28/19 14:15 Range/Units White Blood Count 8.8 4.3-11.0 10^3/uL Red Blood Count 3.62 L 4.35-5.85 10^6/uL Hemoglobin 10.3 L 11.5-16.0 G/DL Hematocrit 33 L 35-52 % Mean Corpuscular Volume 91 80-99 FL Mean Corpuscular Hemoglobin 29 25-34 PG Mean Corpuscular Hemoglobin Concent 31 L 32-36 G/DL Red Cell Distribution Width 19.4 H 10.0-14.5 % Platelet Count 152 130-400 10^3/uL Mean Platelet Volume 10.7 H 7.4-10.4 FL Neutrophils (%) (Auto) 75 42-75 % Lymphocytes (%) (Auto) 13 12-44 % Monocytes (%) (Auto) 10 0-12 % Eosinophils (%) (Auto) 3 0-10 % Basophils (%) (Auto) 0 0-10 % Neutrophils # (Auto) 6.6 1.8-7.8 X 10^3 Lymphocytes # (Auto) 1.1 1.0-4.0 X 10^3 Monocytes # (Auto) 0.9 0.0-1.0 X 10^3 Eosinophils # (Auto) 0.2 0.0-0.3 10^3/uL Basophils # (Auto) 0.0 0.0-0.1 10^3/uL Sodium Level 137 135-145 MMOL/L Potassium Level 5.6 H 3.6-5.0 MMOL/L Chloride Level 98 98-107 MMOL/L Carbon Dioxide Level 27 21-32 MMOL/L Anion Gap 12 5-14 MMOL/L Blood Urea Nitrogen 43 H 7-18 MG/DL Creatinine 5.86 H 0.60-1.30 MG/DL Estimat Glomerular Filtration Rate 7 BUN/Creatinine Ratio 7 Glucose Level 92 70-105 MG/DL Calcium Level 9.1 8.5-10.1 MG/DL Corrected Calcium 9.5 8.5-10.1 MG/DL Total Bilirubin 0.9 0.1-1.0 MG/DL Aspartate Amino Transf (AST/SGOT) 25 5-34 U/L Alanine Aminotransferase (ALT/SGPT) 21 0-55 U/L Alkaline Phosphatase 70 40-136 U/L C-Reactive Protein High Sensitivity 8.00 H 0.00-0.50 MG/DL B-Type Natriuretic Peptide 895.9 H <100.0 PG/ML Total Protein 6.5 6.4-8.2 GM/DL Albumin 3.5 3.2-4.5 GM/DL My Orders Orders - AKASH PINEDA MD BNP (03/28/19 14:13) Cbc With Automated Diff (03/28/19 14:13) Comprehensive Metabolic Panel (03/28/19 14:13) Hs C Reactive Protein (03/28/19 14:13) Chest 1 View, Ap/Pa Only (03/28/19 14:13) Ekg Tracing (03/28/19 14:13) O2 (03/28/19 14:13) Monitor-Rhythm Ecg Trace Only (03/28/19 14:13) Albuterol Pre-Mix Nebs (Rt) (Proventil (03/28/19 14:13) Svn Small Volume Nebulizer (03/28/19 14:13) Albuterol Pre-Mix Nebs (Rt) (Proventil (03/28/19 14:11) Lorazepam Injection (Ativan Injection) (03/28/19 15:34) Medications Given in ED Current Medications Medications Dose Ordered Sig/Martin Route Start Time Stop Time Status Last Admin Dose Admin Lorazepam 2 mg STK-MED ONCE .ROUTE 03/28/19 15:34 03/28/19 15:38 DC 03/28/19 15:40 0.5 MG Vital Signs/I&O 03/28/19 03/28/19 03/28/19 03/28/19 14:10 14:10 14:17 14:25 Temp 97.8 Pulse 75 Resp 19 B/P (MAP) 144/69 (94) Pulse Ox 86 86 91 97 O2 Delivery Nasal Cannula Nasal Cannula Simple Mask Simple Mask O2 Flow Rate 4.00 4.00 10.00 10.00 03/28/19 03/28/19 14:29 16:16 Pulse 89 Resp 28 B/P (MAP) 177/66 (103) Pulse Ox 91 97 O2 Delivery High Flow N/C OxyMask O2 Flow Rate 5.00 9.00 Capillary Refill : Less Than 3 Seconds Blood Pressure Mean: 94 Progress Note : Progress Note Seen and evaluated. IV, labs, chest x-ray, EKG and albuterol neb 3 ordered. Monitor patient. After albuterol nebs, patient has decreased wheezes but increased crackles. She is still requiring additional oxygen at 4-6 L/m via nasal cannula to keep O2 saturations greater than 92%. She subjectively still feels significantly short of breath. Chest x-ray does show significant pulmonary vascular congestion concerning for volume overload. BNP is elevated as well. Patient normally goes to [facility] in [place], [place] if she has any problems. We will initiate transfer proceedings. 1528: Initiated contact with [facility] in [place] and an pending call back from the hospitalist. 1600: I did discuss the case with nurse Practitioner for Dr. Rhoades from [facility]. She accepts patient for admission on behalf of him to their service. Pending bed assignment. Patient to go by EMS. Currently on oxygen 8 L via mask and satting 94%. Blood pressure remaining 160s over 50s to 60s with heart rate in the 80s. I did discuss with the patient regarding BiPAP and she states that she does not want to do that. Patient will go by [facility] EMS. 1638: Patient now is having increased respiratory distress. We have re-discussed with her regarding BiPAP as she is becoming more tachypnea. Now patient states that she will except for that which I think will help her greatly and possibly avoid intubation. This does change the plan with [facility]. I have recalled them and they are trying to determine if they have an ICU bed available and will call us back. EMS updated now as well. Monitor patient. 1651: Patient on BiPAP and oxygen saturation improved to 96% and she has been less extremis. 1710: I did discuss the case with Dr. George and he has accepted the patient for transfer to their TCU. Pending bed assignment. Patient much more comfortable on BiPAP at 15/5 and 40%. O2 sat 95% with heart rate of 91. ECG Initial ECG Impression Date: March 28, 2019 Initial ECG Impression Time: 14:17 Initial ECG Rate: 77 Comment Sinus rhythm with normal axis. No evidence of ST elevation NE. Similar to previous of 08/07/16. Interpreted by me. Departure Impression Primary Impression: End-stage renal disease needing dialysis Additional Impression: Volume overload Qualified Codes: E87.70 - Fluid overload, unspecified Disposition: 02 XFER SHT-TRM HOSP Condition: Stable Transfer Time Spoke to Accepting Phy: 15:28 Transfer Time: 17:10 Transfer Facility: [place], [place], Dr. George accepting Method of Transfer: EMS Departure-Patient Inst. Referrals: WILVER SIMENTAL MD (PCP/Family) Primary Care Physician AKASH PINEDA MD March 28, 2019 15:28
[2019-03-28] MEDS ORDERED: LORazepam INJ 2 MG/ML (ATIVAN) VIAL ONE (15:34)
--- NOTE | 2019-03-28 15:40 | NUR ---
ATIVAN GIVEN FOR ANXIETY
--- NOTE | 2019-03-28 15:44 | NUR ---
1540 OXYGEN AT 9L PER OXYMASK, PT REFUSING BIPAP AT THIS X
--- NOTE | 2019-03-28 16:11 | NUR ---
[facility] NOTIFIED OF TRANSFER AND ROOM #3102
[2019-03-28 16:16] VITALS: BP 177/66
--- NOTE | 2019-03-28 16:22 | NUR ---
CONSENT FOR TRANSFER SIGNED BY PT
--- NOTE | 2019-03-28 16:41 | NUR ---
SPOKE W PT CO BIPAP. PT CO OF SOA AND NOT GETTING ENOUGH AIR, RT NOTIFIED OF NEED FOR BIPAP
--- NOTE | 2019-03-28 16:50 | NUR ---
PT ON BIPAP SAT UP TO 95%
--- NOTE | 2019-03-28 17:28 | NUR ---
REPORT TO RAYMUNDO TERMINAL OPERATOR GIVEN, EMS NOTIFIED OF CHANGE OF ROOM TO ICU BED
== END 2019-03-28 18:13 | disposition short-term general hospital (02) ==
LOC: EDUNIT# 14:07 → ER 14:08
DX: I12.0 Hypertensive chronic kidney disease with stage 5 chronic kidney disease or end stage renal disease (principal); N18.6 End stage renal disease; E87.70 Fluid overload, unspecified; J44.9 Chronic obstructive pulmonary disease, unspecified; F32.9 Major depressive disorder, single episode, unspecified; Z99.2 Dependence on renal dialysis; Z99.81 Dependence on supplemental oxygen; Z82.49 Family history of ischemic heart disease and other diseases of the circulatory system; Z88.5 Allergy status to narcotic agent; Z79.52 Long term (current) use of systemic steroids; Z87.891 Personal history of nicotine dependence; Z93.0 Tracheostomy status; Z87.01 Personal history of pneumonia (recurrent)
CPT/HCPCS: 36415; 71045; 80053; 83880; 85025; 86141; 93041; 94640

== ENCOUNTER 2019-05-18 15:39 | Emergency (ER) | payer MEDICARE, MEDICAID ==
[~2019-05-18] VITALS: Ht 165.1 cm; Wt 80.7 kg
[2019-05-18] MEDS ORDERED: methylPREDNISolone 125 MG (Solu-MEDROL) VIAL IV STA (15:41)
[2019-05-18] MEDS ORDERED: DEXAMETHASONE 4 MG/ML SDV (DECADRON) IH ONE (15:45)
[2019-05-18] MEDS ORDERED: RT-ALBUTEROL/IPRATROPIUM 3 ML (DUONEB) VIAL INH ONE (15:45)
--- OUTSIDE RECORDS SUMMARY | 2019-05-18 15:45 | XMS REPORT | Clinical Summary ---
Author Author [facility] Organization [facility] Address Unknown Phone Unavailable Care Team Providers Care Customer Marketing Manager Name Role Phone Fermín Salmon MD PCP [...] status requiring being placed in prone position. Gradually, oxygenation status improved and V-V ECMO not [...] ingested to allow adequate absorption. Trash foot ([facility]) 03/07/2016 Last Assessment & Plan: Small necrotic [...] ESRD (end stage renal disease) on dialysis ([facility]) 02/28/2016 Last Assessment & Plan: - Temp hemodialysis cath placed 03/19 and she received dialysis since then. 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 Continue epo per nephrology Acute respiratory failure with hypoxia ([facility]) 01/12/2016 Last Assessment & Plan: Her Tracheostomy is off, she was On trach shield and later on Nasal Canula Resolved Problems Problem Noted Date Resolved Date G tube feedings ([facility]) 04/08/2016 04/18/2016 VAP (ventilator-associated pneumonia) ([facility]) 03/18/2016 04/11/2016 Last Assessment & Plan: improving [...] UTI 02/24/2016 03/12/2016 Hypotension 02/24/2016 02/25/2016 Sepsis ([facility]) 02/24/2016 04/12/2016 Lactic acidosis 02/24/2016 02/25/2016 Hyperglycemia 02/24/2016 02/25/2016 Leukocytosis 02/21/2016 04/18/2016 Last Assessment & Plan: Encephalopathy, metabolic 02/09/2016 03/07/2016 Last Assessment & Plan: Continue Zypexa nightly improving Influenza, pneumonia 01/13/2016 02/24/2016 Hypervolemia 01/13/2016 02/24/2016 Oliguria 01/13/2016 02/24/2016 ARDS (adult respiratory distress syndrome) ([facility]) 01/13/2016 02/24/2016 Sepsis ([facility]) 01/13/2016 02/20/2016 Last Assessment & Plan: Finish 10 day course of vanc / zosyn D 10 today Thrombocytopenia ([facility]) 01/13/2016 02/24/2016 Community acquired pneumonia 01/12/2016 02/21/2016 [...] Taken Blood Pressure 155/72 11/28/2017 10: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 Pulse 70 11/28/2017 10: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 Temperature 36.1 C (97 F) 11/28/2017 10: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 Respiratory Rate 18 11/28/2017 10: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 Oxygen Saturation 95% 11/28/2017 10: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 Inhaled Oxygen - - Concentration Weight 82.1 kg (181 lb) 11/28/2017 10: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 Height 168.9 cm (5' 6.5") 11/28/2017 10: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 Body Mass Index 28.78 11/28/2017 10: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 Plan of Treatment Health Maintenance Due Date Last Done Comments Medicare Annual Wellness 1955 Td # 1955 Cervical Cancer Screening 1976 via Pap Smear Colorectal Screening via 2005 Colonoscopy Mammogram Screening 2005 Zoster Vaccine# (1 of 2) 2005 Influenza Vaccine (#1) 2019 Hepatitis C Screen Completed 03/08/2016 Implants Implanted Type Area [employer] Professor Device Expiration Model / Identifier Date Serial / Lot Implant Tube Trach 8.0mm Cuffed Low Non-Tissue COVIDIEN 07/12/2020 8DCT / Pressure Disp Cannula Zacarias (Bx/1) Implant MALLINCKRODT / 8dct - [id number] [id number] Implanted: Qty: 1 on 01/28/2016 by Daayna Mathew MD Implant Catheter Dialysis Dl Non-Tissue COVIDIEN [id number] Palindrome Precision Sapphire Implant P / 14.5fr 19cm [id number] - [id number] / Implanted: Qty: 1 on 02/04/2016 Peg Ponsky Kit Safety 20fr Pull Non-Tissue BARD 05/12/2017 [id number] / Method W/Snare [id number] - [id number] Implant PERIPHERIAL [id number] / Implanted: Qty: 1 on 02/15/2016 by VASCULAR [id number] Brittni Mcneil MD Implant Catheter Dialysis Dl Non-Tissue COVIDIEN [id number] Palindrome Precision Sapphire Implant P / 14.5fr 19cm [id number] - [id number] / Implanted: Qty: 1 on 04/12/2016 Results Not on filefrom Last 3 Months
--- OUTSIDE RECORDS SUMMARY | 2019-05-18 15:45 | XMS REPORT ---
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 Name Role Phone Migration, Doctor Unavailable Unavailable PROBLEMS Type Condition ICD9-CM Code KNE30-UO Code Onset Dates Condition Status SNOMED Code Problem Kidney failure N19 Active 87994921 Problem Restrictive lung disease J98.4 Active 64850470 Problem Essential hypertension I10 Active 99502767 Problem Dependence on renal dialysis Z99.2 Active 498877526 Problem Pain in right leg M79.604 Active 49014744 Problem Chronic kidney disease, stage 4, severely decreased GFR N18.4 Active 294965859 Problem Hypothyroidism, unspecified type E03.9 Active 04685327 Problem Neuropathy G62.9 Active 561830834 ALLERGIES No Information ENCOUNTERS Encounter Location Date Diagnosis [place] [id number] [place] [address] March, Encounter for Medicare annual wellness exam Z00.00 ; Chronic kidney disease, stage 4, severely decreased GFR N18.4 ; Hypothyroidism, unspecified type E03.9 ; Dependence on renal dialysis Z99.2 and Neuropathy G62.9 [facility] [id number] [place] [address] March, [facility] [id number] [place] [address] March, [facility] [id number] [place] [address] Feb, [facility] [id number] [place] [address] Feb, [facility] [id number] [place] [address] Feb, Neuropathy G62.9 [facility] [id number] [place] [address] Feb, Neuropathy G62.9 and Dependence on renal dialysis Z99.2 [facility] [id number] [place] [address] Jan, [facility] [id number] [place] [address] Jan, Neuropathy G62.9 [facility] [id number] [place] [address] Nov, Neuropathy G62.9 [facility] [id number] [place] [address] Oct, Neuropathy G62.9 [facility] [id number] [place] [address] Sep, [facility] [id number] [place] [address] Aug, [facility] [id number] [place] [address] Aug, Kidney failure N19 [facility] [id number] [place] [address] Jul, Kidney failure N19 ; Restrictive lung disease J98.4 ; Neuropathy G62.9 and Essential hypertension I10 [facility] [id number] [place] [address] Jun, Restrictive lung disease J98.4 [facility] [id number] [place] [address] Jun, [facility] [id number] [place] [address] Jun, [facility] [id number] [place] [address] May, [facility] [id number] [place] [address] May, [facility] [id number] [place] [address] May, Nausea and vomiting, intractability of vomiting not specified, unspecified vomiting type R11.2 [place] [id number] [place] [address] May, Restrictive lung disease J98.4 [facility] [id number] [place] [address] May, [facility] [id number] [place] [address] May, [facility] [id number] [place] [address] Apr, Chronic kidney disease, stage 4, severely decreased GFR N18.4 and Essential hypertension I10 [place] [id number] [place] [address] March, [place] [id number] [place] [address] March, [place] [id number] [place] [address] March, Medicare annual wellness visit, initial Z00.00 ; Chronic kidney disease, stage 4, severely decreased GFR N18.4 ; Hypothyroidism, unspecified type E03.9 and Neuropathy G62.9 [place] [id number] [place] [address] Feb, Restrictive lung disease J98.4 ; Hypothyroidism, unspecified type E03.9 and Neuropathy G62.9 [place] [id number] [place] [address] Nov, Pain in right leg M79.604 [place] [id number] [place] [address] Nov, [facility] [address] [place] [address] Nov, Dysuria R30.0 and Acute cystitis without hematuria N30.00 [facility] [address] [place] [address] Nov, Pain in right leg M79.604 [facility] [id number] [place] [address] Sep, [facility] [id number] [place] [address] Jul, Neuropathy G62.9 [facility] [id number] [place] [address] 14 Jul, 2017 Pain in right leg M79.604 [facility] [id number] [place] [address] Jul, [facility] [id number] [place] [address] Apr, [facility] [address] [address] Feb, Bronchitis J40 and Chronic kidney disease, stage 4, severely decreased GFR N18.4 [facility] [id number] [place] [address] Jan, Nausea and vomiting, intractability of vomiting not specified, unspecified vomiting type R11.2 [facility] [address] [place] [address] Jan, Pain in right leg M79.604 [facility] [id number] [place] [address] Jan, Hypothyroidism, unspecified type E03.9 [facility] [id number] [place] [address] Jan, Pain in right leg M79.604 [facility] [id number] [place] [address] Dec, Acute non-recurrent maxillary sinusitis J01.00 [facility] [id number] [place] [address] Dec, [facility] [id number] [place] [address] Dec, Chronic kidney disease, stage 4, severely decreased GFR N18.4 [facility] [address] [place] [address] Oct, [facility] [id number] [place] [address] Oct, Shortness of breath R06.02 [facility] [id number] [place] [address] Oct, [facility] [id number] [place] [address] Oct, [facility] [id number] [place] [address] Sep, Pain in right leg M79.604 and Restrictive lung disease J98.4 [facility] [id number] [place] [address] Sep, [facility] [id number] [place] [address] Aug, Restrictive lung disease J98.4 and Acute left eye pain H57.12 [facility] [id number] [place] [address] Aug, [facility] [address] [place] [address] Aug, [facility] [id number] [place] [address] Jun, [facility] [id number] [place] [address] Jun, [facility] [address] [place] [address] Jun, [facility] [address] [facility] [id number] [place] [address] Jun, [facility] [address] [facility] [id number] [place] [address] Jun, Restrictive lung disease J98.4 and Pain in right leg M79.604 [facility] [address] [facility] [id number] [place] [address] Jun, [facility] [address] [facility] [id number] [place] [address] Jun, [facility] [address] [facility] [id number] [place] [address] May, Restrictive lung disease J98.4 and Kidney failure N19 [facility] [id number] [address] May, [facility] [id number] [place] [address] May, [facility] [id number] [place] [address] Apr, [facility] [address] [place] [address] Dec, [facility] [id number] [place] [address] Dec, [facility] [id number] [place] [address] Aug, [facility] [address] [facility] [id number] [place] [address] Feb, [facility] [id number] [place] [address] Feb, [facility] [address] [facility] [id number] [address] Jan, [facility] [id number] [place] [address] 18 Jan, 2015 [facility] [place] [facility] [address] [id number] [place] [address] 17 Jan, 2015 [facility] [place] [facility] [address] [id number] [place] [address] 14 Jan, 2015 [facility] [place] [facility] [address] [id number] [place] [address] 13 Jan, 2015 [facility] [place] [facility] [address] [id number] [place] [address] 13 Jan, 2015 [facility] [place] [facility] [address] [id number] [place] [address] 11 Jan, 2015 [facility] [place] [facility] [address] [id number] [place] [address] 11 Jan, 2015 [facility] [place] [facility] [address] [id number] [place] [address] 10 Jan, 2015 [facility] [place] [facility] [address] [id number] [place] [address] 10 Jan, 2015 [facility] [place] [facility] [address] [id number] [place] [address] 03 Jan, 2015 [facility] [place] [facility] [address] [id number] [place] [address] 26 Dec, 2014 [facility] [place] [facility] [address] [id number] [place] [address] Dec, 2014 [facility] [place] [facility] [address] [id number] [place] [address] Dec, 2014 [facility] [place] [facility] [address] [id number] [place] [address] Dec, 2014 [facility] [place] [facility] [address] [id number] [place] [address] Dec, 2014 [facility] [place] [facility] [address] [id number] [place] [address] Dec, 2014 [facility] [place] [facility] [address] [id number] [place] [address] Nov, [facility] [place] [facility] [address] [id number] [place] [address] Nov, [facility] [place] [facility] [address] [id number] [place] [address] Oct, [facility] [place] [facility] [address] [id number] [place] [address] Oct, [facility] [place] [facility] [address] [id number] [place] [address] Oct, [facility] [place] [facility] [address] [id number] [place] [address] Oct, [facility] [place] [facility] [address] [id number] [place] [address] Oct, [facility] [place] [facility] [address] [id number] [place] [address] Oct, [facility] [place] [facility] [address] [id number] [place] [address] Oct, [facility] [place] [facility] [address] [id number] [place] [address] Oct, [facility] [place] [facility] [address] [id number] [place] [address] Jul, [facility] [place] [facility] [address] [id number] [place] [address] Jul, [facility] [place] [facility] [address] [id number] [place] [address] Jul, [facility] [place] [facility] [address] [id number] [place] [address] Jul, [facility] [place] [facility] [address] [id number] [place] [address] Jul, [facility] [place] [facility] [address] [id number] [place] [address] Jun, [facility] [place] [facility] [address] [id number] [place] [address] May, [facility] [place] [facility] [address] [id number] [place] [address] May, [facility] [place] [facility] [address] [id number] [place] [address] May, [facility] [place] [facility] [address] [id number] [place] [address] Feb, [facility] [place] [facility] [address] [id number] [place] [address] Feb, [facility] [place] [facility] [address] [id number] [place] [address] Feb, [facility] [place] [facility] [address] [id number] [place] [address] Feb, [facility] [place] [facility] [address] [id number] [place] [address] Feb, [facility] [place] [facility] [address] [id number] [place] [address] Feb, [facility] [place] [facility] [address] [id number] [place] [address] Feb, [facility] [place] [facility] [address] [id number] [place] [address] Feb, [facility] [place] [facility] [address] [id number], [place] [address] Feb, [facility] [place] [facility] [address] [id number] [place] [address] Feb, [facility] [place] [facility] [address] [id number] [place] [address] Aug, [facility] [place] [facility] [address] [id number] [place] [address] Aug, [facility] [place] [facility] [address] [id number] [place] [address] Aug, [facility] [place] [facility] [address] [id number] [place] [address] Aug, [facility] [place] [facility] [address] [id number] [place] [address] Jan, [facility] [place] [facility] [address] [id number] [place] [address] Dec, [facility] [place] [facility] [address] [id number] [place] [address] Aug, [facility] [place] [facility] [address] [id number] [place] [address] May, [facility] [place] [facility] [address] [id number] [place] [address] Apr, [facility] [place] [facility] [address] [id number] [place] [address] Apr, [facility] [place] [facility] [address] [id number] [place] [address] Apr, [facility] [place] [facility] [address] [id number] [place] [address] Apr, [facility] [place] [facility] [address] [facility] [id number] [place] [address] Nov, [facility] [place] [facility] [address] [id number] [place] [address] Oct, [facility] [place] [facility] [address] [id number] [place] [address] Oct, [facility] [place] [facility] [address] [id number] [place] [address] Oct, [facility] [place] [facility] [address] [id number] [place] [address] Sep, [facility] [place] [facility] [address] [id number] [place] [address] Sep, [facility] [address] [id number] [address] Sep, [facility] [id number] [address] Apr, [facility] [address] [address] Sep, [facility] [address] [address] Jan, [facility] [address] [address] Aug, [facility] [id number] [address] Aug, [facility] [address] [id number] [address] May, IMMUNIZATIONS No Known Immunizations SOCIAL HISTORY Never Assessed REASON FOR VISIT EMR-[facility] [place] PLAN OF CARE VITAL SIGNS MEDICATIONS Unknown [...] fluid around lungs 2015 Hospitalization History [place]neum[place] 04/16-04/17 Hospitalization History pneumomia and infection 07/31
[2019-05-18 15:52] VITALS: BP 182/75
--- OUTSIDE RECORDS SUMMARY | 2019-05-18 15:56 | XMS REPORT | Continuity of Care Document ---
Author Organization Unknown Address Unknown Allergies Active Description Code Type Severity Reaction Onset Reported/Identified Relationship to Patient Clinical Status Yes doxycycline Drug Allergy 10/18/2011 Yes doxycycline Drug Allergy N/A N/A 10/18/2011 Yes No Known Drug Allergies [id number] Drug Allergy Unknown N/A 05/25/2014 Yes morphine [id number] Drug Allergy Severe swelling 01/11/2016 Medications There [...] MD 785.9 Right Carotid Bruit 08/24/2009 272.2 HYPERLIPIDEMIA, MIXED 08/24/2009 NESS URBAN APRN R 272.2 [...] 381.01 ACUTE SEROUS OTITIS MEDIA 09/02/2013 GRICEL SWITCH REPAIRERIGNACIO LirianoFITO L 382.9 OTITIS MEDIA 09/02/2013 IGNACIO [...] SWANSON, WILVER Hopson Ot J96.01 01/08/2016 HOLA SWNASON, WILVER Hopson Ot N17.9 01/08/2016 HOLA SWANSON, [...] SIMENTAL MD Ot Z91.19 PATIENT'S NONCOMPLIANCE W [facility] 06/05/2016 AKASH PINEDA MD [...] 08/12/2016 EDUIN ALCAZAR MD Ot Z79.899 OTHER ADULT CAREGIVER (CURRENT) DRUG THERAPY 08/12/2016 EDUIN ALCAZAR MD [...] 08/12/2016 EDUIN ALCAZAR MD Ot Z79.899 OTHER ADULT CAREGIVER (CURRENT) DRUG THERAPY 08/12/2016 EDUIN ALCAZAR MD [...] N19 UNSPECIFIED KIDNEY FAILURE 07/27/2017 TERESITA GALARZA SWITCH REPAIRER Ot I51.7 CARDIOMEGALY 07/27/2017 TERESITA GALARZA SWITCH REPAIRER Ot I70.0 ATHEROSCLEROSIS OF AORTA 07/27/2017 TERESITA GALARZA SWITCH REPAIRER Ot J90 PLEURAL EFFUSION, NOT ELSEWHERE CLASSIFI 07/27/2017 TERESITA GALARZA SWITCH REPAIRER Ot N19 UNSPECIFIED KIDNEY FAILURE 08/11/2017 TERESITA GALARZA SWITCH REPAIRER Ot I51.7 CARDIOMEGALY 08/11/2017 TERESITA GALARZA SWITCH REPAIRER Ot I70.0 ATHEROSCLEROSIS OF AORTA 08/11/2017 TERESITA GALARZA APRN Ot J90 PLEURAL EFFUSION, NOT ELSEWHERE CLASSIFI 08/11/2017 TERESITA GALARZA SWITCH REPAIRER Ot N19 UNSPECIFIED KIDNEY FAILURE 08/23/2017 TERESITA GALARZA SWITCH REPAIRER Ot I51.7 CARDIOMEGALY 08/23/2017 TERESITA GALARZA SWITCH REPAIRER Ot I70.0 ATHEROSCLEROSIS OF AORTA 08/23/2017 TERESITA GALARZA SWITCH REPAIRER Ot J90 PLEURAL EFFUSION, NOT ELSEWHERE CLASSIFI 08/23/2017 TERESITA GALARZA SWITCH REPAIRER Ot N19 UNSPECIFIED KIDNEY FAILURE 04/08/2018 ZIGGY NIX DO Ot F32.9 MAJOR DEPRESSIVE DISORDER, SINGLE EPISOD 04/08/2018 ZIGGY NIX DO Ot I12.0 HYP CHR KIDNEY DISEASE W STAGE 5 CHR KID 04/08/2018 KAYE NIX DOA K Ot N18.6 END STAGE RENAL DISEASE 04/08/2018 BOYD NOVOA ZIGGY K Ot R06.02 SHORTNESS OF BREATH 04/08/2018 BOYD NOVOA ZIGGY K Ot Z79.52 GROUP HOME (CURRENT) USE OF SYSTEMIC STER 04/08/2018 BOYD [...] N19 UNSPECIFIED KIDNEY FAILURE 07/13/2018 TERESITA GALARZA SWITCH REPAIRER Ot I51.7 CARDIOMEGALY 07/13/2018 TERESITA GALARZA SWITCH REPAIRER Ot I70.0 ATHEROSCLEROSIS OF AORTA 07/13/2018 TERESITA GALARZA SWITCH REPAIRER Ot J90 PLEURAL EFFUSION, NOT ELSEWHERE CLASSIFI 07/13/2018 TERESITA GALARZA SWITCH REPAIRER Ot N19 UNSPECIFIED KIDNEY FAILURE 07/19/2018 TERESITA GALARZA SWITCH REPAIRER Ot I70.0 ATHEROSCLEROSIS OF [place]ORTA 07/19/2018 TERESITA GALARZA SWITCH REPAIRER Ot J43.9 EMPHYSEMA, UNSPECIFIED 07/19/2018 TERESITA GALARZA SWITCH REPAIRER Ot J98.4 OTHER DISORDERS OF LUNG 07/19/2018 TERESITA GALARZA SWITCH REPAIRER Ot J43.9 EMPHYSEMA, UNSPECIFIED 08/10/2018 TERESITA GALARZA SWITCH REPAIRER Ot I70.0 ATHEROSCLEROSIS OF AORTA 08/10/2018 TERESITA GALARZA SWITCH REPAIRER Ot J43.9 EMPHYSEMA, UNSPECIFIED 08/10/2018 OFELIA GALARZAINE E SWITCH REPAIRER Ot J98.4 OTHER DISORDERS OF LUNG 10/25/2018 TERESITA GALARZA SWITCH REPAIRER Ot J18.9 PNEUMONIA, UNSPECIFIED ORGANISM 10/25/2018 TERESITA GALARZA E SWITCH REPAIRER Ot J43.9 EMPHYSEMA, UNSPECIFIED 10/25/2018 MICHELLOFELIA RODRIGUEZINE E SWITCH REPAIRER Ot J98.4 OTHER DISORDERS OF LUNG 10/25/2018 OFELIA GALARZAINE E SWITCH REPAIRER Ot N19 UNSPECIFIED KIDNEY FAILURE 11/01/2018 TERESITA GALARZA SWITCH REPAIRER Ot J18.9 PNEUMONIA, UNSPECIFIED ORGANISM 11/01/2018 TERESITA GALARZA SWITCH REPAIRER Ot J43.9 EMPHYSEMA, UNSPECIFIED 11/01/2018 OFELIA GALARZAINE Reji SWITCH REPAIRER Ot J98.4 OTHER DISORDERS OF LUNG 11/01/2018 TERESITA GALARZA SWITCH REPAIRER Ot N19 UNSPECIFIED KIDNEY FAILURE 11/01/2018 TERESITA GALARZA SWITCH REPAIRER Ot R06.00 DYSPNEA, UNSPECIFIED 11/01/2018 OFELIA GALARZAINE Reji SWITCH REPAIRER Ot R09.02 HYPOXEMIA 11/15/2018 TERESITA GALARZA SWITCH REPAIRER Ot J18.9 PNEUMONIA, UNSPECIFIED ORGANISM 11/15/2018 TERESITA GALARZA SWITCH REPAIRER Ot J43.9 EMPHYSEMA, UNSPECIFIED 11/15/2018 OFELIA GALARZAINE E SWITCH REPAIRER Ot J98.4 OTHER DISORDERS OF LUNG 11/15/2018 TERESITA GALARZA SWITCH REPAIRER Ot N19 UNSPECIFIED KIDNEY FAILURE 11/15/2018 OFELIA GALARZAINE Reji SWITCH REPAIRER Ot R06.00 DYSPNEA, UNSPECIFIED 11/15/2018 OFELIA GALARZAINE E SWITCH REPAIRER Ot R09.02 HYPOXEMIA 11/27/2018 TERESITA GALARZA SWITCH REPAIRER Ot J18.9 PNEUMONIA, UNSPECIFIED ORGANISM 11/27/2018 TERESITA GALARZA SWITCH REPAIRER Ot J43.9 EMPHYSEMA, UNSPECIFIED 11/27/2018 OFELIA GALARZAINE E SWITCH REPAIRER Ot J98.4 OTHER DISORDERS OF LUNG 11/27/2018 TERESITA GALARZA SWITCH REPAIRER Ot N19 UNSPECIFIED KIDNEY FAILURE 11/27/2018 MICHELL, TERESITA E SWITCH REPAIRER Ot R06.00 DYSPNEA, UNSPECIFIED 11/27/2018 OFELIA GALARZAINE Reji SWITCH REPAIRER Ot R09.02 HYPOXEMIA 12/10/2018 TERESITA GALARZA SWITCH REPAIRER Ot J18.9 PNEUMONIA, UNSPECIFIED ORGANISM 12/10/2018 OFELIA GALARZAINE E SWITCH REPAIRER Ot J43.9 EMPHYSEMA, UNSPECIFIED 12/10/2018 TERESITA GALARZA SWITCH REPAIRER Ot J98.4 OTHER DISORDERS OF LUNG 12/10/2018 TERESITA GALARZA SWITCH REPAIRER Ot N19 UNSPECIFIED KIDNEY FAILURE 12/10/2018 TERESITA GALARZA SWITCH REPAIRER Ot R06.00 DYSPNEA, UNSPECIFIED 12/10/2018 OFELIA GALARZAINE E SWITCH REPAIRER Ot R09.02 HYPOXEMIA 12/30/2018 TERESITA GALARZA SWITCH REPAIRER Ot J18.9 PNEUMONIA, UNSPECIFIED ORGANISM 12/30/2018 TERESITA GALARZA SWITCH REPAIRER Ot J43.9 EMPHYSEMA, UNSPECIFIED 12/30/2018 TERESITA GALARZA E SWITCH REPAIRER Ot J98.4 OTHER DISORDERS OF LUNG 12/30/2018 TERESITA GALARZA SWITCH REPAIRER Ot N19 UNSPECIFIED KIDNEY FAILURE 12/30/2018 TERESITA GALARZA SWITCH REPAIRER Ot R06.00 DYSPNEA, UNSPECIFIED 12/30/2018 TERESITA GALARZA SWITCH REPAIRER Ot R09.02 HYPOXEMIA 12/31/2018 TERESITA GALARZA SWITCH REPAIRER Ot J18.9 PNEUMONIA, UNSPECIFIED ORGANISM 12/31/2018 TERESITA GALARZA SWITCH REPAIRER Ot J43.9 EMPHYSEMA, UNSPECIFIED 12/31/2018 TERESITA GALARZA SWITCH REPAIRER Ot J98.4 OTHER DISORDERS OF LUNG 12/31/2018 TERESITA GALARZA SWITCH REPAIRER Ot N19 UNSPECIFIED KIDNEY FAILURE 12/31/2018 TERESITA GALARZA SWITCH REPAIRER Ot R06.00 DYSPNEA, UNSPECIFIED 12/31/2018 TERESITA GALARZA SWITCH REPAIRER Ot R09.02 HYPOXEMIA 03/18/2019 EDWIN SWANSON, AKASH Cabrera Ot F32.9 MAJOR DEPRESSIVE DISORDER, SINGLE EPISOD 03/18/2019 AKAHS PINEDA MD Ot I12.0 HYP CHR KIDNEY DISEASE W STAGE 5 CHR KID 03/18/2019 AKASH PINEDA MD Ot J20.9 ACUTE BRONCHITIS, UNSPECIFIED 03/18/2019 AKASH PINEDA MD Ot J44.0 CHRONIC OBSTRUCTIVE PULMON DISEASE W ACU 03/18/2019 AKASH PINEDA MD Ot N18.6 END STAGE RENAL DISEASE 03/18/2019 AKASH PINEDA MD Ot R06.02 SHORTNESS OF BREATH 03/18/2019 AKASH PINEDA MD Ot Z79.52 GROUP HOME (CURRENT) USE OF SYSTEMIC STER 03/18/2019 AKASH PINEDA MD Ot Z82.49 FAMILY HX OF ISCHEM HEART DIS AND OTH DI 03/18/2019 AKASH PINEDA MD Ot Z87.01 PERSONAL HISTORY OF PNEUMONIA (RECURRENT 03/18/2019 AKASH PINEDA MD Ot Z87.891 PERSONAL HISTORY OF NICOTINE DEPENDENCE 03/18/2019 AKASH PINEDA MD Ot Z88.5 ALLERGY STATUS TO NARCOTIC AGENT STATUS 03/18/2019 AKASH PINEDA MD Ot Z93.0 TRACHEOSTOMY STATUS 03/18/2019 AKASH PINEDA MD Ot Z99.2 DEPENDENCE ON RENAL DIALYSIS 03/18/2019 AKASH PINEDA MD Ot Z99.81 DEPENDENCE ON SUPPLEMENTAL OXYGEN 03/21/2019 AKASH PINEDA MD Ot F32.9 MAJOR DEPRESSIVE DISORDER, SINGLE EPISOD 03/21/2019 AKASH PINEDA MD Ot I12.0 HYP CHR KIDNEY DISEASE W STAGE 5 CHR KID 03/21/2019 AKASH PINEDA MD Ot J20.9 ACUTE BRONCHITIS, UNSPECIFIED 03/21/2019 AKASH PINEDA MD Ot J44.0 CHRONIC OBSTRUCTIVE PULMON DISEASE W ACU 03/21/2019 AKASH PINEDA MD Ot N18.6 END STAGE RENAL DISEASE 03/21/2019 AKASH PINEDA MD Ot R06.02 SHORTNESS OF BREATH 03/21/2019 AKASH PINEDA MD Ot Z79.52 GROUP HOME (CURRENT) USE OF SYSTEMIC STER 03/21/2019 AKASH PINEDA MD Ot Z82.49 FAMILY HX OF ISCHEM HEART DIS AND OTH DI 03/21/2019 AKASH PINEDA MD Ot Z87.01 PERSONAL HISTORY OF PNEUMONIA (RECURRENT 03/21/2019 AKASH PINEDA MD Ot Z87.891 PERSONAL HISTORY OF NICOTINE DEPENDENCE 03/21/2019 AKASH PINEDA MD, Ot Z88.5 ALLERGY STATUS TO NARCOTIC AGENT STATUS 03/21/2019 AKASH PINEDA MD, Ot Z93.0 TRACHEOSTOMY STATUS 03/21/2019 AKASH PINEDA MD, Ot Z99.2 DEPENDENCE ON RENAL DIALYSIS 03/21/2019 AKASH PINEDA MD Ot Z99.81 DEPENDENCE ON SUPPLEMENTAL OXYGEN 03/26/2019 TERESITA GALARZA APRN Ot J43.9 EMPHYSEMA, UNSPECIFIED 03/26/2019 TERESITA GALARZA APRN Ot J98.4 OTHER DISORDERS OF LUNG 03/26/2019 TERESITA GALARZA APRN Ot N19 UNSPECIFIED KIDNEY FAILURE 03/26/2019 TERESITA GALARZA APRN Ot R06.00 DYSPNEA, UNSPECIFIED 03/26/2019 TERESITA GALARZA APRN Ot R09.02 HYPOXEMIA 03/28/2019 AKASH PINEDA MD Ot E87.70 FLUID OVERLOAD, UNSPECIFIED 03/28/2019 AKASH PINEDA MD Ot F32.9 MAJOR DEPRESSIVE DISORDER, SINGLE EPISOD 03/28/2019 AKASH PINEDA MD, Ot I12.0 HYP CHR KIDNEY DISEASE W STAGE 5 CHR KID 03/28/2019 AKASH PINEDA MD, Ot J44.9 CHRONIC OBSTRUCTIVE PULMONARY DISEASE, U 03/28/2019 AKASH PINEDA MD, Ot N18.6 END STAGE RENAL DISEASE 03/28/2019 AKASH PINEDA MD Ot R06.02 SHORTNESS OF BREATH 03/28/2019 AKASH PINEDA MD, Ot Z79.52 GROUP HOME (CURRENT) USE OF SYSTEMIC STER 03/28/2019 AKASH PINEDA MD Ot Z82.49 FAMILY HX OF ISCHEM HEART DIS AND OTH DI 03/28/2019 AKASH PINEDA MD, Ot Z87.01 PERSONAL HISTORY OF PNEUMONIA (RECURRENT 03/28/2019 AKASH PINEDA MD, Ot Z87.891 PERSONAL HISTORY OF NICOTINE DEPENDENCE 03/28/2019 AKASH PINEDA MD, Ot Z88.5 ALLERGY STATUS TO NARCOTIC AGENT STATUS 03/28/2019 AKASH PINEDA MD, Ot Z93.0 TRACHEOSTOMY STATUS 03/28/2019 AKASH PINEDA MD, Ot Z99.2 DEPENDENCE ON RENAL DIALYSIS 03/28/2019 AKASH PINEDA MD, Ot Z99.81 DEPENDENCE ON SUPPLEMENTAL OXYGEN 04/01/2019 AKASH PINEDA MD, Ot E87.70 FLUID OVERLOAD, UNSPECIFIED 04/01/2019 AKASH PINEDA MD, Ot F32.9 MAJOR DEPRESSIVE DISORDER, SINGLE EPISOD 04/01/2019 AKASH PINEDA MD Ot I12.0 HYP CHR KIDNEY DISEASE W STAGE 5 CHR KID 04/01/2019 AKASH PINEDA MD, Ot J44.9 CHRONIC OBSTRUCTIVE PULMONARY DISEASE, U 04/01/2019 AKASH PINEDA MD, Ot N18.6 END STAGE RENAL DISEASE 04/01/2019 AKASH PINEDA MD, Ot R06.02 SHORTNESS OF BREATH 04/01/2019 AKASH PINEDA MD, Ot Z79.52 ADULT CAREGIVER (CURRENT) USE OF SYSTEMIC STER 04/01/2019 AKASH PINEDA MD, Ot Z82.49 FAMILY HX OF ISCHEM HEART DIS AND OTH DI 04/01/2019 AKASH PINEDA MD, Ot Z87.01 PERSONAL HISTORY OF PNEUMONIA (RECURRENT 04/01/2019 AKASH PINEDA MD, Ot Z87.891 PERSONAL HISTORY OF NICOTINE DEPENDENCE 04/01/2019 AKASH PINEDA MD, Ot Z88.5 ALLERGY STATUS TO NARCOTIC AGENT STATUS 04/01/2019 AKASH PINEDA MD, Ot Z93.0 TRACHEOSTOMY STATUS 04/01/2019 AKASH PINEDA MD, Ot Z99.2 DEPENDENCE ON RENAL DIALYSIS 04/01/2019 AKASH PINEDA MD, Ot Z99.81 DEPENDENCE ON SUPPLEMENTAL OXYGEN 04/11/2019 TERESITA GALARZA APRN Ot J43.9 EMPHYSEMA, UNSPECIFIED 04/11/2019 TERESITA GALARZA APRN Ot J98.4 OTHER DISORDERS OF LUNG 04/11/2019 TERESITA GALARZA APRN Ot N19 UNSPECIFIED KIDNEY FAILURE 04/11/2019 TERESITA GALARZA APRN Ot R06.00 DYSPNEA, UNSPECIFIED 04/11/2019 TERESITA GALARZA APRN Ot R09.02 HYPOXEMIA 04/25/2019 HOLA SWANSON, WILVER Hopson Ot M81.0 AGE-RELATED OSTEOPOROSIS W/O CURRENT PAT Procedures Code Description [place] [address] THERAPUTIC INJ SQ/IM 09/02/2013 J2550 PHENERGAN INJECTION UP TO 50 MG 09/02/2013 35403 ROUTINE VENIPUNCTURE 02/14/2014 52377 CMP 02/14/2014 1306581 GFR CALC (RESULT ONLY) 02/14/2014 94088 TB TEST INTRADERMAL 08/11/2014 00296 US VENOUS DOPPLER (DVT EVAL) 11/03/2014 25957 ROUTINE VENIPUNCTURE 01/23/2015 56711 UA LONG DIP 01/23/2015 66767 CBC 01/23/2015 76840 CRP 01/23/2015 ANAANA KEITH ANALYZER (SCREEN) 01/24/2015 [id number] INSERTION OF ENDOTRACHEAL AIRWAY INTO TR 01/12/2016 [id number] RESPIRATORY VENTILATION, LESS THAN 24 CO 01/12/2016 [...] Automated erythrocyte mean corpuscular hemoglobin concentration measurement (mass/volume) 33 g/dL 32-36 Automated erythrocyte distribution width ratio 19.6 % 10.0- 14.5 Automated blood platelet count (count/volume) 296 10*3/uL [...] Blood monocytes automated count (number/volume) 0.8 10*3 0.0- 1.0 Automated eosinophil count 0.1 10*3/uL 0.0-0.3 Automated [...] Serum or plasma aspartate aminotransferase measurement (enzymatic activity/volume) 31 U/L 5-34 Serum or plasma alanine aminotransferase measurement (enzymatic activity/volume) 19 U/L 0-55 Serum or plasma protein measurement (mass/volume) 7.5 g/dL 6.4-8.2 Serum or plasma albumin measurement (mass/volume) 4.0 g/dL 3.2-4.5 Serum or plasma troponin i.cardiac measurement (mass/volume) - 08/07/16 13:25 Serum or plasma troponin i.cardiac measurement (mass/volume) < ng/mL <0.30 Complete urinalysis with reflex to culture - 08/07/16 14:30 Urine color determination YELLOW NRG Urine clarity determination CLEAR NRG Urine pH measurement by test strip 8 5-9 Specific gravity of urine by test strip 1.010 1.016-1.022 Urine protein assay by test strip, semi-quantitative [...] sediment leukocyte count by microscopy (number/high power field) NONE NRG Bacteria detection in urine sediment [...] Automated erythrocyte mean corpuscular hemoglobin concentration measurement (mass/volume) 33 g/dL 32-36 Automated erythrocyte distribution width ratio 17.5 % 10.0- 14.5 Automated blood platelet count (count/volume) 239 10*3/uL [...] Blood lactic acid measurement (moles/volume) 0.61 mmol/L 0.50- 2.00 Comprehensive metabolic panel - 03/09/17 17:25 Serum [...] Serum or plasma aspartate aminotransferase measurement (enzymatic activity/volume) 54 U/L 5-34 Serum or plasma alanine aminotransferase measurement (enzymatic activity/volume) 36 U/L 0-55 Serum or plasma protein [...] Automated erythrocyte mean corpuscular hemoglobin concentration measurement (mass/volume) 32 g/dL 32-36 Automated erythrocyte distribution width ratio 15.5 % 10.0- 14.5 Automated blood platelet count (count/volume) 205 10*3/uL [...] Blood monocytes automated count (number/volume) 1.3 10*3 0.0- 1.0 Automated eosinophil count 0.1 10*3/uL 0.0-0.3 Automated [...] 03/09/17 17:25 Bacterial blood culture NG NRG Complete blood count (CBC) with automated white blood cell (WBC) differential - 03/28/19 14:15 Blood leukocytes automated count (number/volume) 8.8 10*3/uL 4.3-11.0 Blood erythrocytes automated count (number/volume) 3.62 10*6/uL 4.35-5.85 Venous blood hemoglobin measurement (mass/volume) 10.3 g/dL 11.5-16.0 Blood hematocrit (volume fraction) 33 % 35-52 Automated erythrocyte mean corpuscular volume 91 [foz_us] 80-99 Automated erythrocyte mean corpuscular hemoglobin (mass per erythrocyte) 29 pg 25-34 Automated erythrocyte mean corpuscular hemoglobin concentration measurement (mass/volume) 31 g/dL 32-36 Automated erythrocyte distribution width ratio 19.4 % 10.0- 14.5 Automated blood platelet count (count/volume) 152 10*3/uL 130-400 Automated blood platelet mean volume measurement 10.7 [foz_us] 7.4-10.4 Automated blood neutrophils/100 leukocytes 75 % 42-75 Automated blood lymphocytes/100 leukocytes 13 % 12-44 Blood monocytes/100 leukocytes 10 % 0-12 Automated blood eosinophils/100 leukocytes 3 % 0-10 Automated blood basophils/100 leukocytes 0 % 0-10 Blood neutrophils automated count (number/volume) 6.6 10*3 1.8-7.8 Blood lymphocytes automated count (number/volume) 1.1 10*3 1.0-4.0 Blood monocytes automated count (number/volume) 0.9 10*3 0.0- 1.0 Automated eosinophil count 0.2 10*3/uL 0.0-0.3 Automated blood basophil count (count/volume) 0.0 10*3/uL 0.0-0.1 Comprehensive metabolic panel - 03/28/19 14:15 Serum or plasma sodium measurement (moles/volume) 137 mmol/L 135-145 Serum or plasma potassium measurement (moles/volume) 5.6 mmol/L 3.6-5.0 Serum or plasma chloride measurement (moles/volume) 98 mmol/L 98-107 Carbon dioxide 27 mmol/L 21-32 Serum or plasma anion gap determination (moles/volume) 12 mmol/L 5-14 Serum or plasma urea nitrogen measurement (mass/volume) 43 mg/dL 7-18 Serum or plasma creatinine measurement (mass/volume) 5.86 mg/dL 0.60-1.30 Serum or plasma urea nitrogen/creatinine mass ratio 7 NRG Serum or plasma creatinine measurement with calculation of estimated glomerular filtration rate 7 NRG Serum or plasma glucose measurement (mass/volume) 92 mg/dL 70-105 Serum or plasma calcium measurement (mass/volume) 9.1 mg/dL 8.5-10.1 Serum or plasma total bilirubin measurement (mass/volume) 0.9 mg/dL 0.1-1.0 Serum or plasma alkaline phosphatase measurement (enzymatic activity/volume) 70 U/L 40-136 Serum or plasma aspartate aminotransferase measurement (enzymatic activity/volume) 25 U/L 5-34 Serum or plasma alanine aminotransferase measurement (enzymatic activity/volume) 21 U/L 0-55 Serum or plasma protein measurement (mass/volume) 6.5 g/dL 6.4-8.2 Serum or plasma albumin measurement (mass/volume) 3.5 g/dL 3.2-4.5 CALCIUM CORRECTED 9.5 mg/dL 8.5-10.1 Serum or plasma C reactive protein measurement (mass/volume) - 03/28/19 14:15 Serum or plasma C reactive protein measurement (mass/volume) 8.00 mg/dL 0.00-0.50 Serum or plasma lithium measurement (moles/volume) - 03/28/19 14:15 BNP level 895.9 pg/mL <100.0 Encounters ACCT No. Visit Date/Time Discharge Status Pt. Type Provider Facility Loc./Unit Complaint [id number] 01/23/2015 12:23:00 01/23/2015 23:59:59 CLS Outpatient WILVER SIMENTAL MD [id number] 11/03/2014 18:21:00 11/03/2014 23:59:59 CLS Outpatient SEFERINO EGAN DO [id number] 08/11/2014 13:35:00 08/11/2014 23:59:59 CLS Outpatient GRICEL CALIXTOFITO Liriano [id number] 06/09/2014 15:42:00 06/09/2014 23:59:59 CLS Outpatient WILVER SIMENTAL MD [id number] 02/14/2014 13:36:00 02/14/2014 23:59:59 CLS Outpatient WILVER SIMENTAL MD [id number] 09/09/2013 16:26:00 09/09/2013 23:59:59 CLS Outpatient WILVER SIMENTAL MD [id number] 09/02/2013 11:32:00 09/02/2013 23:59:59 CLS Outpatient WILMAR JOSUE NESS Leo [id number] 01/14/2013 14:06:00 01/14/2013 23:59:59 CLS Outpatient [id number] 04/16/2019 14:56:00 04/16/2019 23:59:59 CLS Preadmit WILVER SIMENTAL MD [facility] RAD CHRONIC KIDNEY DISEASE STAGE 4. [id number] 03/28/2019 14:08:00 03/28/2019 18:13:00 DIS Emergency AKASH PINEDA MD [facility] ER SOA [id number] 03/18/2019 14:21:00 03/18/2019 15:30:00 DIS Emergency AKASH PINEDA MD [facility] ER CONGESTION;TROUBLE BREATHING [id number] 03/06/2019 08:50:00 03/06/2019 23:59:59 CLS Preadmit TERESITA GALARZA APRN [facility] RAD SMOKING HISTORY, COPD [id number] 03/04/2019 11:14:00 03/04/2019 23:59:59 CLS Outpatient MICHELL, TERESITA E SWITCH REPAIRER [facility] RT RESTRICTIVE LUNG DISEASDE,KIDNEY FAILURE [id number] 01/30/2019 08:10:00 01/30/2019 23:59:59 CLS Preadmit MICHELL, TERESITA E SWITCH REPAIRER [facility] RAD RESTRICTIVE LUNG DISEASE,KIDNEY FAILURE [id number] 12/31/2018 10:45:00 12/31/2018 23:59:59 CLS Preadmit MICHELL, TERESITA E SWITCH REPAIRER [facility] PULM EMPHYSEMA [id number] 10/01/2018 10:21:00 12/30/2018 00:01:00 DIS Outpatient MICHELL, TERESITA E SWITCH REPAIRER [facility] PULM EMPHYSEMA [id number] 10/01/2018 10:27:00 10/01/2018 23:59:59 CLS Outpatient MICHELL, TERESITA E SWITCH REPAIRER [facility] RAD J18.9,J43.9,R06.00,R09.02,J98.4 [id number] 07/30/2018 09:30:00 07/30/2018 23:59:59 CLS Preadmit MICHELL, TERESITA E SWITCH REPAIRER [facility] PULM N19 KIDNEY FAILURE [id number] 07/18/2018 11:24:00 07/18/2018 23:59:59 CLS Outpatient MICHELL, TERESITA E SWITCH REPAIRER [facility] RAD SYSPNEA,EMPHYSEMA LUNG,HYPOXEMIA REQUIRING OXYGEN [id number] 07/13/2018 09:52:00 07/13/2018 23:59:59 CLS Outpatient MICHELL, TERESITA E SWITCH REPAIRER [facility] PULM J43.9 [id number] 04/08/2018 18:24:00 04/08/2018 18:34:00 DIS Emergency ZIGGY NIX DO [facility] ER SOA [id number] 08/09/2017 13:00:00 08/09/2017 23:59:59 CLS Preadmit MICHELL, TERESITA E SWITCH REPAIRER [facility] CARD PLEURAL EFFUISON [id number] 07/21/2017 11:28:00 07/21/2017 23:59:59 CLS Outpatient MICHELL TERESITASAHRA Mendoza APRN [facility] RAD RESTRIVTIVE LUNG DISEASE [id number] 03/09/2017 17:24:00 03/09/2017 19:00:00 DIS Emergency AKASH PINEDA MD [facility] ER SOA [id number] 11/01/2016 13:53:00 11/01/2016 23:59:59 CLS Outpatient VAIBHAV WHITLEY DO [facility] RAD RESTRICTIVE LUNG DISEASE,PNEUMONIA,KIDNEY FAILURE [id number] 08/12/2016 06:45:00 08/12/2016 11:08:00 DIS Emergency EDUIN ALCAZAR MD [facility] ER BACK PAIN [id number] 08/07/2016 13:27:00 08/07/2016 16:36:00 DIS Emergency KATIE GRANDA DO [facility] ER STROKE SYMPTOMS [id number] 07/14/2016 16:21:00 07/14/2016 23:59:59 CLS Outpatient WILVER SIMENTAL MD [facility] RT RESTRICTIVE LUNG DISEASE [id number] 06/29/2016 11:43:00 06/29/2016 23:59:59 CLS Outpatient WILVER SIMENTAL MD [facility] RT RESTRICTIVE LUNG DISEASE [id number] 06/05/2016 19:17:00 06/05/2016 23:29:00 DIS Emergency AKASH PINEDA MD [facility] ER SOA [id number] 01/07/2016 01:37:00 01/12/2016 17:50:00 DIS Inpatient WILVER SIMENTAL MD [facility] ICU PNEUMONIA,HYPOXIA,ARF [id number] 05/25/2014 15:12:00 Document Registration [id number] 04/16/2019 13:20:00 04/16/2019 23:59:59 CLS Outpatient WILVER SIMENTAL MD [facility] [place]
--- NOTE | 2019-05-18 16:00 | NUR ---
Pt arrived per EMS on CPAP. RT applied BiPap. Approx 5 minutes after BiPap was started the pt removed the BiPap. Rt started a breathing tx. Once finished pt was placed on an oxymask.
[2019-05-18 16:03] LABS: BASOPHILS # (AUTO) 0.1 10^3/uL (0.0-0.1); BASOPHILS % (AUTO) 1 % (0-10); EOSINOPHILS # (AUTO) 0.2 10^3/uL (0.0-0.3); EOSINOPHILS % (AUTO) 2 % (0-10); HEMATOCRIT 34 % (35-52); HEMOGLOBIN 10.6 G/DL (11.5-16.0); LYMPHOCYTES # (AUTO) 2.2 X 10^3 (1.0-4.0); LYMPHOCYTES % (AUTO) 17 % (12-44); MEAN CORPUSCULAR HEMOGLOBIN 28 PG (25-34); MEAN CORPUSCULAR HGB CONC 31 G/DL (32-36); MEAN CORPUSCULAR VOLUME 91 FL (80-99); MEAN PLATELET VOLUME 11.7 FL (7.4-10.4); MONOCYTES # (AUTO) 1.4 X 10^3 (0.0-1.0); MONOCYTES % (AUTO) 11 % (0-12); NEUTROPHILS # (AUTO) 9.3 X 10^3 (1.8-7.8); NEUTROPHILS % (AUTO) 70 % (42-75); PLATELET COUNT 260 10^3/uL (130-400); RED CELL DISTRIBUTION WIDTH 18.5 % (10.0-14.5); WHITE BLOOD COUNT 13.3 10^3/uL (4.3-11.0)
[2019-05-18 16:19] LABS: INR 0.9 (0.8-1.4); PROTHROMBIN TIME PATIENT 12.7 SEC (12.2-14.7)
--- NOTE | 2019-05-18 16:22 | NUR ---
Pt refused ABG stating "that ain't gonna happen". Dr Hill notified.
[2019-05-18 16:25] LABS: ALBUMIN 3.5 GM/DL (3.2-4.5); BILIRUBIN,TOTAL 0.7 MG/DL (0.1-1.0); CALCIUM 9.7 MG/DL (8.5-10.1); CREATININE SERUM 5.05 MG/DL (0.60-1.30); MAGNESIUM 1.6 MG/DL (1.8-2.4); POTASSIUM 6.2 MMOL/L (3.6-5.0); TOTAL PROTEIN 6.7 GM/DL (6.4-8.2)
[2019-05-18 16:31] LABS: CREATINE KINASE MB 1.2 NG/ML (<6.6)
--- NOTE | 2019-05-18 16:35 | Diagnostic Imaging Report ---
Indication: Dyspnea. Comparison: 03/28/2019. Discussion: Single portable upright view of the chest was obtained. Cardiomegaly is again noted. Bilateral mixed interstitial and alveolar opacities are nonspecific and could be seen with failure, less likely pneumonia. Small left pleural effusion. No pneumothorax. No osseous abnormality. Impression: Cardiomegaly with suspected failure. Dictated by: Dictated on workstation # [id number]
--- NOTE | 2019-05-18 16:52 | NUR ---
Pt refused EKG. Dr Hill notified.
--- NOTE | 2019-05-18 17:12 | ED Respiratory ---
General Chief Complaint: Respiratory Problems Stated Complaint: SOA Nursing Triage Note: Pt arrived via EMS with SOA. Source: patient (VERY HOSTILE AND GIVES MINIMAL INFORMATION, NOT WANTING TO ANSWER QUESTIONS; EMS REPORT THAT PT WAS EXTREMELY HOSTILE TO THEM FROM THEIR ARRIVAL AT THE SCENE, WELL. ), EMS, old records History of Present Illness Date Seen by Provider: May 18, 2019 Time Seen by Provider: 15:42 Initial Comments PT ARRIVES VIA EMS FROM HOME C/O SHORTNESS OF BREATH ON WAKING TODAY AT 0530 STATES SHE FELT FINE WHEN SHE WENT TO BED LAST NIGHT PT HAS ESRD ON DIALYSIS [id number], AND HAD DIALYSIS YESTERDAY (MONDAY) PT WEARS HOME O2 AT 10 LITERS/NC CONTINUOUSLY EMS REPORT THAT PT'S O2 SAT WAS 87% ON 8L/NC AT THE SCENE. EMS PLACED PT ON CPAP AND O2 SATS UP TO 99-100% EMS GAVE PT SOLU-MEDROL 125 MG IV PRIOR TO ARRIVAL PT ALSO HAS HISTORY OF COPD PT DENIES CHEST PAIN DENIES FEVER DENIES COUGH DENIES LEG SWELLING PT WITH SAME THING A MONTH AGO--WAS TRANSFERRED TO [facility] PT STATES SHE WAS ON PREDNISONE A WEEK AGO DENIES ANY RECENT ANTIBIOTICS PT WITH LONG HISTORY OF NONCOMPLIANCE PCP: DR. SIMENTAL, [facility]: DR. Bender" Allergies and Home Medications Allergies Coded Allergies: morphine (Verified Allergy, Severe, swelling, 01/11/16) Home Medications Amlodipine Besylate 10 Mg Tablet, 10 MG PO DAILY, (Reported) Carvedilol 25 Mg Tablet, 25 MG PO BID, (Reported) Clonidine HCl 0.1 Mg Tablet, 0.1 MG PO DAILY, (Reported) Doxycycline Hyclate 100 Mg Tablet, 100 MG PO BID Prescribed by: AKASH PINEDA on 03/18/19 1520 Furosemide 80 Mg Tablet, 80 MG PO BID, (Reported) Hydralazine HCl 25 Mg Tablet, 25 MG PO TID, (Reported) Levofloxacin 500 Mg Tablet, 500 MG PO Q48H, (Reported) Levothyroxine Sodium 25 Mcg Tablet, 25 MCG PO DAILY, (Reported) Oxycodone HCl/Acetaminophen 1 Each Tablet, 1-2 EACH PO Q4H PRN for PAIN Prescribed by: EDUIN BIRD on 08/12/16 1048 Pravastatin Sodium 40 Mg Tablet, 40 MG PO DAILY, (Reported) Prednisone 20 Mg Tab, 40 MG PO DAILY Prescribed by: AKASH PINEDA on 03/09/171826 Prednisone 20 Mg Tab, 40 MG PO DAILY Prescribed by: AKASH PINEDA on 03/18/19 1520 Vitamin B Comp W-C/FA/Zn Cit 1 Each Tablet, 1 EACH PO DAILY, (Reported) Patient Home Medication List Home Medication List Reviewed: Yes Review of Systems Review of Systems Constitutional: No fever Respiratory: short of breath Cardiovascular: No chest pain Past Nxcbclf-Hfssii-Gwfamg Hx Patient Social History Alcohol Use: Denies Use Recreational Drug Use: No Smoking Status: Former Smoker (/2 PPD) Type Used: Cigarettes Former Smoker, Quit: Oct 01, 2016 Recent Foreign Travel: No Contact w/Someone Who Travel: No Recent Infectious Disease Expo: No Recent Hopitalizations: Yes ([facility] 04/2019) Immunizations Up To Date Tetanus Booster (TDap): Unknown Seasonal Allergies Seasonal Allergies: No Past Medical History Surgeries: Yes (BACK SURGERY; AV FISTULA/DIALYSIS GRAFT LEFT ARM. ) Dialysis, Orthopedic, Tracheostomy, Vascular Surgery Respiratory: Yes (TOBACCOISM, ARDS 01/2016 AND INTUBATED / TRACH; CHRONIC HYPOXIA--WEARS HOME O2 AT 8-10L/NC ; CHF/FLUID OVERLOAD) Pneumonia, COPD Cardiac: Yes (CHF/FLUID OVERLOAD) Hypertension Neurological: No Reproductive Disorders: No Sexually Transmitted Disease: No HIV/AIDS: No Genitourinary: Yes Renal Failure, Dialysis Gastrointestinal: No Musculoskeletal: Yes (BACK SURGERY) Back Injury, Chronic Back Pain Endocrine: No Cancer: No Psychosocial: Yes Depression Integumentary: No Blood Disorders: No Adverse Reaction/Blood Tranf: No Family Medical History Cardiovascular disease 19 MOTHER, Onset:Unknown Diabetes mellitus 19 MOTHER, Onset:Unknown FH: COPD (chronic obstructive pulmonary disease) G8 SISTER, Onset:Unknown No Pertinent Family Hx Physical Exam Vital Signs - First Documented 05/18/19 05/18/19 05/18/19 15:52 16:11 17:42 Temp 96.6 Pulse 83 Resp 28 B/P (MAP) 182/75 (110) Pulse Ox 95 O2 Delivery NIV/Bilevel O2 Flow Rate 40.00 FiO2 93 Capillary Refill : Less Than 3 Seconds Height: 5'5.00" Weight: 178lbs. 5.0oz. 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, no motor/sensory deficits, alert, oriented x 3 Skin: normal color, warm/dry Progress/Results/Core Measures Suspected Sepsis Recent Fever Within 48 Hours: No Infection Criteria Present: None New/Unexplained Altered Menta: No Sepsis Screen: No Definite Risk SIRS Temperature:96.6 Pulse: 76 Respiratory Rate: 18 Laboratory Tests 05/18/19 15:50: White Blood Count 13.3H Blood Pressure 182 /75 Mean: 110 Laboratory Tests 05/18/19 15:50: Creatinine 5.05H, INR Comment 0.9, Platelet Count 260, Total Bilirubin 0.7 Results/Orders Lab Results Laboratory Tests Test 05/18/19 15:50 Range/Units White Blood Count 13.3 H 4.3-11.0 10^3/uL Red Blood Count 3.75 L 4.35-5.85 10^6/uL Hemoglobin 10.6 L 11.5-16.0 G/DL Hematocrit 34 L 35-52 % Mean Corpuscular Volume 91 80-99 FL Mean Corpuscular Hemoglobin 28 25-34 PG Mean Corpuscular Hemoglobin Concent 31 L 32-36 G/DL Red Cell Distribution Width 18.5 H 10.0-14.5 % Platelet Count 260 130-400 10^3/uL Mean Platelet Volume 11.7 H 7.4-10.4 FL Neutrophils (%) (Auto) 70 42-75 % Lymphocytes (%) (Auto) 17 12-44 % Monocytes (%) (Auto) 11 0-12 % Eosinophils (%) (Auto) 2 0-10 % Basophils (%) (Auto) 1 0-10 % Neutrophils # (Auto) 9.3 H 1.8-7.8 X 10^3 Lymphocytes # (Auto) 2.2 1.0-4.0 X 10^3 Monocytes # (Auto) 1.4 H 0.0-1.0 X 10^3 Eosinophils # (Auto) 0.2 0.0-0.3 10^3/uL Basophils # (Auto) 0.1 0.0-0.1 10^3/uL Prothrombin Time 12.7 12.2-14.7 SEC INR Comment 0.9 0.8-1.4 Activated Partial Thromboplast Time 25 24-35 SEC Sodium Level 139 135-145 MMOL/L Potassium Level 6.2 H 3.6-5.0 MMOL/L Chloride Level 98 98-107 MMOL/L Carbon Dioxide Level 27 21-32 MMOL/L Anion Gap 14 5-14 MMOL/L Blood Urea Nitrogen 29 H 7-18 MG/DL Creatinine 5.05 H 0.60-1.30 MG/DL Estimat Glomerular Filtration Rate 9 BUN/Creatinine Ratio 6 Glucose Level 95 70-105 MG/DL Calcium Level 9.7 8.5-10.1 MG/DL Corrected Calcium 10.1 8.5-10.1 MG/DL Magnesium Level 1.6 L 1.8-2.4 MG/DL Total Bilirubin 0.7 0.1-1.0 MG/DL Aspartate Amino Transf (AST/SGOT) 22 5-34 U/L Alanine Aminotransferase (ALT/SGPT) 11 0-55 U/L Alkaline Phosphatase 73 40-136 U/L Total Creatine Kinase 27 L 29-168 U/L Creatine Kinase MB 1.2 <6.6 NG/ML Troponin I 0.034 H <0.028 NG/ML B-Type Natriuretic Peptide 1149.2 H <100.0 PG/ML Total Protein 6.7 6.4-8.2 GM/DL Albumin 3.5 3.2-4.5 GM/DL My Orders Orders - ZIGGY NIX DO Ed Iv/Invasive Line Start (05/18/19 15:41) Ekg Tracing (05/18/19 15:41) O2 (05/18/19 15:41) Monitor-Rhythm Ecg Trace Only (05/18/19 15:41) Chest 1 View, Ap/Pa Only (05/18/19 15:41) BNP (05/18/19 15:41) Cbc With Automated Diff (05/18/19 15:41) Comprehensive Metabolic Panel (05/18/19 15:41) Creatine Kinase (05/18/19 15:41) Creatine Kinase Mb (05/18/19 15:41) Magnesium (05/18/19 15:41) Protime With Inr (05/18/19 15:41) Partial Thromboplastin Time (05/18/19 15:41) Troponin I (05/18/19 15:41) Albuterol/Ipra Inhalation Soln (Duoneb I (05/18/19 15:45) Dexamethasone Injection (Decadron Inject (05/18/19 15:45) Rt Request For Service (05/18/19 15:41) Methylprednisolone Sod Succ (Solu-Medrol (05/18/19 15:41) Svn Small Volume Nebulizer (05/18/19 15:41) Arterial Blood Gas (05/18/19 15:43) Medications Given in ED Current Medications Medications Dose Ordered Sig/Martin Route Start Time Stop Time Status Last Admin Dose Admin Albuterol/ Ipratropium 3 ml ONCE ONCE INH 05/18/19 15:45 05/18/19 15:46 DC 05/18/19 15:58 3 ML Dexamethasone Sodium Phosphate 20 mg ONCE ONCE IH 05/18/19 15:45 05/18/19 15:46 DC 05/18/19 15:57 20 MG Vital Signs/I&O 05/18/19 05/18/19 05/18/19 15:52 16:11 17:42 Temp 96.6 Pulse 83 76 Resp 28 18 B/P (MAP) 182/75 (110) Pulse Ox 95 97 93 O2 Delivery NIV/Bilevel OxyMask O2 Flow Rate 40.00 10.00 FiO2 93 Capillary Refill : Less Than 3 Seconds Blood Pressure Mean: 110 Progress Note : Progress Note PT REMAINED VERY HOSTILE THROUGHOUT ER STAY PT REFUSED TO BE ON MONITOR OR HAVE ANY MORE BP READINGS PT REFUSED EKG REFUSED ABG'S AND DID NOT WANT LAB DONE PT REFUSED MEDICATIONS FOR ELEVATED POTASSIUM PT INITIALLY PLACED ON BIPAP AND O2 SATS 99-100% AND RESPIRATIONS WERE IMPROVED PT RIPPED BIPAP OFF AT 1600 AND STATES SHE WASN'T GOING TO WEAR IT ANY MORE PT PLACED ON OXIMASK AT 8L AND O2 SATS REMAINED IN THE 90'S PT STATES "I'M NOT GOING TO DO ANY OF THIS" PT STATES "I'M NOT GOING TO BE HERE VERY LONG ANYWAY BECAUSE YOU'RE JUST GOING TO TRANSFER ME TO [facility]" "IF THEY THINK I NEED IT, THEN THEY CAN DO IT WHEN I GET DOWN THERE" NO DETERIORATION IN PT'S CONDITION DURING ER STAY Diagnostic Imaging Comments CXR--CARDIOMEGALY, CHF--PER RADIOLOGIST REPORT AT 1645 Reviewed: Reviewed by Me Departure Communication (Admissions) 1646--CALLED [facility] [phone]--SPOKE WITH DR. LENNON, HOSPITALIST, ACCEPTS PT FOR ADMIT. Impression Primary Impression: Acute on chronic diastolic CHF (congestive heart failure) Additional Impressions: End-stage renal disease needing dialysis Acute and chronic respiratory failure Non-compliance Hyperkalemia Disposition: XFER SHT-TRM HOSP Condition: Stable Transfer Transfer Facility: [facility] Method of Transfer: EMS Departure-Patient Inst. Referrals: WILVER SIMENTAL MD (PCP/Family) Primary Care Physician ZIGGY NIX DO May 18, 2019 17:12
--- NOTE | 2019-05-18 17:43 | NUR ---
Pt continues to remove BP cuff as soon as staff leaves the room.
[2019-05-18 18:26] VITALS: BP 180/75
== END 2019-05-18 18:28 | disposition short-term general hospital (02) ==
LOC: EDUNIT# 15:39 → ER 15:40
DX: I13.2 Hypertensive heart and chronic kidney disease with heart failure and with stage 5 chronic kidney disease, or end stage renal disease (principal); I50.33 Acute on chronic diastolic (congestive) heart failure; N18.6 End stage renal disease; E87.6 Hypokalemia; J96.20 Acute and chronic respiratory failure, unspecified whether with hypoxia or hypercapnia; F32.9 Major depressive disorder, single episode, unspecified; Z91.14 Patient's other noncompliance with medication regimen; Z88.5 Allergy status to narcotic agent; Z87.891 Personal history of nicotine dependence; Z93.0 Tracheostomy status; Z99.2 Dependence on renal dialysis; Z82.49 Family history of ischemic heart disease and other diseases of the circulatory system; Z99.81 Dependence on supplemental oxygen
CPT/HCPCS: 36415; 71045; 80053; 82550; 82553; 83735; 83880; 84484; 85025; 85610; 85730; 93041; 94640; 96374

== ENCOUNTER 2019-07-02 13:42 | Outpatient (RCR) | payer MEDICARE, MEDICAID ==
[~2019-07-02 13:42] MED LIST changes: -BUME2TAB3 PO; +BUME2TAB7 PO
[2019-07-19] MEDS ORDERED: LANT10005 (23:05)
[2019-07-19] MEDS ORDERED: PANT40TA3 (23:05)
[2019-07-19] MEDS ORDERED: LOSA100T57 (23:05)
[2019-07-19] MEDS ORDERED: CHOL4PAC2 (23:05)
[2019-07-19] MEDS ORDERED: CHOL378P3 (23:05)
== END 2019-08-12 | disposition home or self-care (01) ==
LOC: LAB 13:42
PROVIDERS: ATTEND Internal Medicine
DX: R19.7 Diarrhea, unspecified (principal)
CPT/HCPCS: 87015; 87045; 87046; 87324; 87328; 87329; 87449; 87493; 87899; 89055

== ENCOUNTER 2019-07-19 22:56 | Emergency (ER) | payer MEDICARE, MEDICAID ==
[~2019-07-19] VITALS: Ht 165.1 cm; Wt 80.7 kg
--- NOTE | 2019-07-19 23:00 | NUR ---
pt here via [facility] c/o chest pain. 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 complains of nausea.
[2019-07-19] MEDS ORDERED: LOSA100T57 (23:05)
[2019-07-19] MEDS ORDERED: CHOL4PAC2 (23:05)
[2019-07-19] MEDS ORDERED: PANT40TA3 (23:05)
[2019-07-19] MEDS ORDERED: CHOL378P3 (23:05)
[2019-07-19] MEDS ORDERED: LANT10005 (23:05)
[2019-07-19 23:08] LABS: BASOPHILS % (AUTO) 0 % (0-10); EOSINOPHILS # (AUTO) 0.2 10^3/uL (0.0-0.3); EOSINOPHILS % (AUTO) 2 % (0-10); HEMATOCRIT 37 % (35-52); HEMOGLOBIN 11.8 G/DL (11.5-16.0); LYMPHOCYTES # (AUTO) 1.7 X 10^3 (1.0-4.0); LYMPHOCYTES % (AUTO) 14 % (12-44); MEAN CORPUSCULAR HEMOGLOBIN 27 PG (25-34); MEAN CORPUSCULAR HGB CONC 32 G/DL (32-36); MEAN CORPUSCULAR VOLUME 87 FL (80-99); MEAN PLATELET VOLUME 11.4 FL (7.4-10.4); MONOCYTES # (AUTO) 1.5 X 10^3 (0.0-1.0); MONOCYTES % (AUTO) 12 % (0-12); NEUTROPHILS # (AUTO) 8.5 X 10^3 (1.8-7.8); NEUTROPHILS % (AUTO) 71 % (42-75); PLATELET COUNT 280 10^3/uL (130-400); RED CELL DISTRIBUTION WIDTH 19.2 % (10.0-14.5)
[2019-07-19] MEDS ORDERED: SCOPOLAMINE 1.5 MG (TRANSDERM-SCOP) PATCH TD ONE (23:15)
[2019-07-19] MEDS ORDERED: ONDANSETRON 4 MG/2 ML (SDV) Z0FRAN IVP ONE (23:15)
[2019-07-19 23:18] LABS: PROTHROMBIN TIME PATIENT 13.6 SEC (12.2-14.7)
[2019-07-19 23:26] LABS: ALBUMIN 3.7 GM/DL (3.2-4.5); BILIRUBIN,TOTAL 0.8 MG/DL (0.1-1.0); CALCIUM 9.9 MG/DL (8.5-10.1); CREATININE SERUM 5.81 MG/DL (0.60-1.30); MAGNESIUM 1.8 MG/DL (1.6-2.4); POTASSIUM 5.7 MMOL/L (3.6-5.0); TOTAL PROTEIN 7.6 GM/DL (6.4-8.2)
[2019-07-19 23:33] LABS: CREATINE KINASE MB 0.9 NG/ML (<6.6)
--- NOTE | 2019-07-20 00:08 | ED Chest Pain ---
General Chief Complaint: Chest Pain Stated Complaint: CHEST PAIN Nursing Triage Note: brought in by [facility] c/o chest pain x1hr denies pain at this time. Nursing Sepsis Screen: No Definite Risk Source: patient (PT EXTREMELY HOSTILE AND NOT WANTING TO ANSWER QUESTIONS, FROM ARRIVAL), EMS, old records History of Present Illness Date Seen by Provider: Jul 19, 2019 Time Seen by Provider: 22:59 Initial Comments PT ARRIVES VIA EMS FROM HOME C/O CHEST PAIN--BEGAN AROUND 2200 WHEN SHE WAS TRYING TO GO TO SLEEP EMS GAVE 4 BABY ASPIRIN AND NTG X 2 AND PAIN IS GONE C/O SHORTNESS OF BREATH--PT WEARS HOME O2 AT "8 LITERS" PER PT PT HAS ESRD ON DIALYSIS [id number], AND HAD FULL DIALYSIS TODAY PT WAS HOSPITALIZED FROM MONDAY TO MONDAY OF THIS WEEK AT [facility] "FOR THE SAME THING--I HAD FLUID ON MY LUNGS AND YOU NEED TO SEND ME THERE NOW" Allergies and Home Medications Allergies Coded Allergies: morphine (Verified Allergy, Severe, swelling, 01/11/16) Home Medications Furosemide 80 Mg Tablet, 80 MG PO BID, (Reported) Levothyroxine Sodium 25 Mcg Tablet, 25 MCG PO DAILY, (Reported) Past Cmjzocl-Phzdyp-Obvwyv Hx Patient Social History Alcohol Use: Denies Use Recreational Drug Use: No Smoking Status: Former Smoker Type Used: Cigarettes Former Smoker, Quit: Oct 01, 2016 Recent Foreign Travel: No Contact w/Someone Who Travel: No Recent Infectious Disease Expo: No Recent Hopitalizations: Yes ([facility] 07/16/2019) Immunizations Up To Date Tetanus Booster (TDap): Unknown Seasonal Allergies Seasonal Allergies: No Past Medical History Surgeries: Yes (BACK SURGERY; AV FISTULA/DIALYSIS GRAFT LEFT ARM. ) Dialysis, Orthopedic, Tracheostomy, Vascular Surgery Respiratory: Yes Pneumonia, COPD Cardiac: Yes (CHF/FLUID OVERLOAD) Hypertension Neurological: No Reproductive Disorders: No Sexually Transmitted Disease: No HIV/AIDS: No Genitourinary: Yes Renal Failure, Dialysis Gastrointestinal: No Musculoskeletal: Yes (BACK SURGERY) Back Injury, Chronic Back Pain Endocrine: No HEENT: No Cancer: No Psychosocial: Yes Depression Integumentary: No Blood Disorders: No Adverse Reaction/Blood Tranf: No Family Medical History Cardiovascular disease 19 MOTHER, Onset:Unknown Diabetes mellitus 19 MOTHER, Onset:Unknown FH: COPD (chronic obstructive pulmonary disease) G8 SISTER, Onset:Unknown No Pertinent Family Hx Physical Exam Vital Signs Vital Signs - First Documented 07/19/19 23:16 FiO2 45 Capillary Refill : Less Than 3 Seconds Height, Weight, BMI Height: 5'5.00" Weight: 178lbs. 0.2oz. 80.456243dz; 30.5 BMI Method:Stated Progress/Results/Core Measures Results/Orders Lab Results Laboratory Tests Test 07/19/19 23:02 Range/Units White Blood Count 12.0 H 4.3-11.0 10^3/uL Red Blood Count 4.30 L 4.35-5.85 10^6/uL Hemoglobin 11.8 11.5-16.0 G/DL Hematocrit 37 35-52 % Mean Corpuscular Volume 87 80-99 FL Mean Corpuscular Hemoglobin 27 25-34 PG Mean Corpuscular Hemoglobin Concent 32 32-36 G/DL Red Cell Distribution Width 19.2 H 10.0-14.5 % Platelet Count 280 130-400 10^3/uL Mean Platelet Volume 11.4 H 7.4-10.4 FL Neutrophils (%) (Auto) 71 42-75 % Lymphocytes (%) (Auto) 14 12-44 % Monocytes (%) (Auto) 12 0-12 % Eosinophils (%) (Auto) 2 0-10 % Basophils (%) (Auto) 0 0-10 % Neutrophils # (Auto) 8.5 H 1.8-7.8 X 10^3 Lymphocytes # (Auto) 1.7 1.0-4.0 X 10^3 Monocytes # (Auto) 1.5 H 0.0-1.0 X 10^3 Eosinophils # (Auto) 0.2 0.0-0.3 10^3/uL Basophils # (Auto) 0.0 0.0-0.1 10^3/uL Prothrombin Time 13.6 12.2-14.7 SEC INR Comment 1.0 0.8-1.4 Activated Partial Thromboplast Time 30 24-35 SEC Sodium Level 137 135-145 MMOL/L Potassium Level 5.7 H 3.6-5.0 MMOL/L Chloride Level 93 L 98-107 MMOL/L Carbon Dioxide Level 30 21-32 MMOL/L Anion Gap 14 5-14 MMOL/L Blood Urea Nitrogen 31 H 7-18 MG/DL Creatinine 5.81 H 0.60-1.30 MG/DL Estimat Glomerular Filtration Rate 7 BUN/Creatinine Ratio 5 Glucose Level 106 H 70-105 MG/DL Calcium Level 9.9 8.5-10.1 MG/DL Corrected Calcium 10.1 8.5-10.1 MG/DL Magnesium Level 1.8 1.6-2.4 MG/DL Total Bilirubin 0.8 0.1-1.0 MG/DL Aspartate Amino Transf (AST/SGOT) 21 5-34 U/L Alanine Aminotransferase (ALT/SGPT) 12 0-55 U/L Alkaline Phosphatase 96 40-136 U/L Total Creatine Kinase 19 L 29-168 U/L Creatine Kinase MB 0.9 <6.6 NG/ML Myoglobin 131.7 H 10.0-92.0 NG/ML Troponin I 0.030 H <0.028 NG/ML Total Protein 7.6 6.4-8.2 GM/DL Albumin 3.7 3.2-4.5 GM/DL Amylase Level 116 25-125 U/L Lipase 55 8-78 U/L My Orders Orders - ZIGGY NIX DO Cbc With Automated Diff (07/19/19 22:59) Magnesium (07/19/19 22:59) Chest 1 View, Ap/Pa Only (07/19/19 22:59) Ekg Tracing (07/19/19 22:59) Cardiac Profile 1 (07/19/19 22:59) Comprehensive Metabolic Panel (07/19/19 22:59) Myoglobin Serum (07/19/19 22:59) Protime With Inr (07/19/19 22:59) Partial Thromboplastin Time (07/19/19 22:59) O2 (07/19/19 22:59) Monitor-Rhythm Ecg Trace Only (07/19/19 22:59) Ed Iv/Invasive Line Start (07/19/19 22:59) Creatine Kinase (07/19/19 22:59) Creatine Kinase Mb (07/19/19 22:59) Lipase (07/19/19 22:59) Amylase (07/19/19 22:59) Ondansetron Injection (Zofran Injectio (07/19/19 23:15) Scopolamine Patch (Transderm-Scop Patch) (07/19/19 23:15) Medications Given in ED Current Medications Medications Dose Ordered Sig/Martin Route Start Time Stop Time Status Last Admin Dose Admin Ondansetron HCl 8 mg ONCE ONCE IVP 07/19/19 23:15 07/19/19 23:16 DC 07/19/19 23:16 8 MG Scopolamine 1.5 mg ONCE ONCE TD 07/19/19 23:15 07/19/19 23:16 DC 07/19/19 23:16 1.5 MG Vital Signs/I&O 07/19/19 07/19/19 07/19/19 07/19/19 22:57 22:57 22:57 23:16 Temp 97.9 Pulse 88 Resp 26 B/P (MAP) 205/95 (131) Pulse Ox 88 88 O2 Delivery Nasal Cannula Nasal Cannula Nasal Cannula Vapotherm O2 Flow Rate 6.00 6.0 6.0 20.00 FiO2 45 07/19/19 23:17 Pulse Ox 97 O2 Delivery Vapotherm O2 Flow Rate 20.00 FiO2 30 Blood Pressure Mean: 131 Progress Progress Note : Progress Note O2 SATS 88-92% ON O2 AT 2L/NC--PLACED ON VAPOTHERM, AND O2 SATS UP TO 95-96% ON 15L/NC NO COMPLAINTS OF CHEST PAIN OR DYSPNEA FOR ENTIRE ER STAY BP DOWN TO 160'S/70'S WITHOUT TREATMENT NO DETERIORATION IN PT'S CONDITION DURING ER STAY Initial ECG Impression Date: Jul 19, 2019 Initial ECG Impression Time: 23:05 Initial ECG Rate: 84 Initial ECG Rhythm: Normal Sinus (INFERIOR ST DEPRESSION AND T WAVE INVERSION, CHANGED FROM PREVIOUS) Initial ECG Comparisson: Changed Diagnostic Imaging Comments CXR--CHF/FLUID OVERLOAD, PENDING RADIOLOGIST REVIEW Reviewed: Reviewed by Ky Departure Communication (Admissions) [id number]--CALLED [facility] HOSPITALIST [phone]--SPOKE WITH DR. RIVERO, ADVISES TO CONTACT CAR REPOSSESSOR. [phone]--SPOKE WITH DR. BARON, CAR REPOSSESSOR, ACCEPTS PT FOR ADMIT/TRANSFER Impression Primary Impression: Chest pain Additional Impressions: Elevated troponin Abnormal EKG ESRD on dialysis CHF/FLUID OVERLOAD HTN (hypertension) Hypoxia Disposition: XFER SHT-TRM HOSP Condition: Improved Departure-Patient Inst. Referrals: WILVER SIMENTAL MD (PCP/Family) Primary Care Physician ZIGGY NIX DO Jul 20, 2019 00:08
--- NOTE | 2019-07-20 00:30 | NUR ---
bed assignment [id number] recieved from [facility] [place]. ems shift capt. notified of patient transfer. [facility] notified of pt transfer.
[2019-07-20 01:11] VITALS: BP 162/63
--- NOTE | 2019-07-20 06:19 | Diagnostic Imaging Report ---
INDICATION: Chest pain. COMPARISON: 05/18/2019 FINDINGS: Single frontal radiographic view of the chest was obtained and demonstrates persistent moderate cardiomegaly and moderate pulmonary vascular congestion. There is diffuse prominence of the interstitium. Few Lenore B-lines are noted. There may be trace left effusion. There is no large effusion on the right. No pneumothorax seen on either side. Osseous structures show no gross acute abnormalities. IMPRESSION: 1. Moderate cardiomegaly with sequela of CHF likely including interstitial pulmonary edema and small left effusion. Dictated by: Dictated on workstation # [id number]
== END 2019-07-20 01:14 | disposition short-term general hospital (02) ==
LOC: EDUNIT# 22:56 → ER 22:57
DX: I13.2 Hypertensive heart and chronic kidney disease with heart failure and with stage 5 chronic kidney disease, or end stage renal disease (principal); I50.9 Heart failure, unspecified; N18.6 End stage renal disease; R09.02 Hypoxemia; E87.70 Fluid overload, unspecified; R79.89 Other specified abnormal findings of blood chemistry; R94.31 Abnormal electrocardiogram [ECG] [EKG]; J44.9 Chronic obstructive pulmonary disease, unspecified; F32.9 Major depressive disorder, single episode, unspecified; Z87.01 Personal history of pneumonia (recurrent); Z99.2 Dependence on renal dialysis; Z79.82 Long term (current) use of aspirin; Z88.5 Allergy status to narcotic agent; Z87.891 Personal history of nicotine dependence; Z93.0 Tracheostomy status; Z82.49 Family history of ischemic heart disease and other diseases of the circulatory system
CPT/HCPCS: 36415; 71045; 80053; 82150; 82550; 82553; 83690; 83735; 83874; 84484; 85025; 85610; 85730; 93005; 93041; 96374

== ENCOUNTER 2019-08-07 18:46 | Emergency (ER) | payer MEDICARE, MEDICAID ==
[~2019-08-07] VITALS: Ht 154.9 cm; Wt 78.6 kg
[~2019-08-07 18:46] MED LIST changes: +CHOL378P3; +CHOL4PAC2; +LANT10005; +LOSA100T57; +PANT40TA3
[2019-08-07] MEDS ORDERED: RT-ALBUTEROL/IPRATROPIUM 3 ML (DUONEB) VIAL ONE (20:11)
[2019-08-07 20:21] LABS: BASOPHILS # (AUTO) 0.1 10^3/uL (0.0-0.1); BASOPHILS % (AUTO) 1 % (0-10); EOSINOPHILS # (AUTO) 0.1 10^3/uL (0.0-0.3); EOSINOPHILS % (AUTO) 1 % (0-10); HEMATOCRIT 38 % (35-52); HEMOGLOBIN 11.8 G/DL (11.5-16.0); LYMPHOCYTES # (AUTO) 1.3 X 10^3 (1.0-4.0); LYMPHOCYTES % (AUTO) 12 % (12-44); MEAN CORPUSCULAR HEMOGLOBIN 27 PG (25-34); MEAN CORPUSCULAR HGB CONC 31 G/DL (32-36); MEAN CORPUSCULAR VOLUME 86 FL (80-99); MEAN PLATELET VOLUME 10.8 FL (7.4-10.4); MONOCYTES # (AUTO) 1.3 X 10^3 (0.0-1.0); MONOCYTES % (AUTO) 11 % (0-12); NEUTROPHILS # (AUTO) 8.7 X 10^3 (1.8-7.8); NEUTROPHILS % (AUTO) 75 % (42-75); PLATELET COUNT 274 10^3/uL (130-400); RED CELL DISTRIBUTION WIDTH 20.1 % (10.0-14.5); WHITE BLOOD COUNT 11.6 10^3/uL (4.3-11.0)
[2019-08-07 20:34] LABS: INR 0.9 (0.8-1.4); PROTHROMBIN TIME PATIENT 12.6 SEC (12.2-14.7)
[2019-08-07] MEDS ORDERED: OXYMETAZOLINE (AFRIN) 0.05% NA 15 ML BTL SCH (21:00)
[2019-08-07] MEDS ORDERED: TRANEXAMIC ACID INJECTION 1,000 MG in NS (IVPB) 100 ML IV ONE (21:00)
--- NOTE | 2019-08-07 21:30 | NUR ---
Provider attempted to place Rapid Rhino (size 5.5) to Rt nare. Pt did not tolerate and removed.
[2019-08-07] MEDS ORDERED: HURRICAINE EXT TUBE (BENZOCAINE) ONE (21:36)
[2019-08-07] MEDS ORDERED: HURRICAINE EXT TUBE (BENZOCAINE) XX ONE (21:45)
--- NOTE | 2019-08-07 21:50 | NUR ---
Rt posterior nare bleed visualized by Dr. Ho. Packing placed to Rt nare.
--- NOTE | 2019-08-07 22:14 | ED EENT ---
History of Present Illness General Chief Complaint: Nasal Problems Stated Complaint: BLOODY NOSE, WILL NOT STOP BLEEDING Nursing Triage Note: Pt to room #4 via ED w/c by ED staff with c/o rt nare nose bleed. Pt reports @ approx 1400 on this day, she blew her nose, resulting in nose bleed. Pt reports she has been unable to stop bleed since. Reports weakness and SOA. Initial 02 sat via 8L nc (worn @ all times), 81%. Oxymask applied @15L and O2 sat jeannette to 99%. Source: patient Exam Limitations: no limitations History of Present Illness Date Seen by Provider: Aug 07, 2019 Time Seen by Provider: 19:47 Initial Comments This 63-year-old woman presents to the emergency room with complaints of intermittent epistaxis over the past 2 days. She had significant epistaxis on the . Bleeding stopped yesterday but then resume today at 14:00 when she blew her nose. She has not been able to get it to stop. She has COPD and uses supplemental oxygen at 8 L/m by nasal cannula at home. Her oxygen is humidified. She uses aspirin daily but denies any other antiplatelet or anticoagulant use. She is a dialysis patient and was dialyzed this morning. Allergies and Home Medications Allergies Coded Allergies: morphine (Verified Allergy, Severe, swelling, 01/11/16) Home Medications Furosemide 80 Mg Tablet, 80 MG PO BID, (Reported) Levothyroxine Sodium 25 Mcg Tablet, 25 MCG PO DAILY, (Reported) Patient Home Medication List Home Medication List Reviewed: Yes Review of Systems Review of Systems Constitutional: no symptoms reported Eyes: No Symptoms Reported Ears: No Symptoms Reported Nose: see HPI Mouth: no symptoms reported Throat: no symptoms reported Respiratory: see HPI Cardiovascular: no symptoms reported Gastrointestinal: no symptoms reported Musculoskeletal: no symptoms reported Skin: no symptoms reported Neurological: No Symptoms Reported Hematologic/Lymphatic: No Symptoms Reported Immunological/Allergic: no symptoms reported Past Kxxjwoi-Fjdkpe-Infwih Hx Past Med/Social Hx: Reviewed and Corrections made Patient Social History Alcohol Use: Denies Use Recreational Drug Use: No Smoking Status: Former Smoker Type Used: Cigarettes Former Smoker, Quit: Oct 01, 2016 Recent Foreign Travel: No Contact w/Someone Who Travel: No Recent Infectious Disease Expo: No Recent Hopitalizations: Yes (RAYMUNDO LESTER 07/16/2019) Immunizations Up To Date Tetanus Booster (TDap): Unknown Seasonal Allergies Seasonal Allergies: No Past Medical History Surgeries: Yes (BACK SURGERY; AV FISTULA/DIALYSIS GRAFT LEFT ARM. ) Dialysis, Orthopedic, Tracheostomy, Vascular Surgery Respiratory: Yes Pneumonia, COPD (chronic hypoxia, uses supplemental oxygen at 8 L/m by nasal cannula) Cardiac: Yes (CHF/FLUID OVERLOAD) Hypertension Neurological: No Reproductive Disorders: No Sexually Transmitted Disease: No HIV/AIDS: No Genitourinary: Yes Renal Failure, Dialysis Gastrointestinal: No Musculoskeletal: Yes (BACK SURGERY) Back Injury, Chronic Back Pain Endocrine: No HEENT: No Cancer: No Psychosocial: Yes Depression Integumentary: No Blood Disorders: No Adverse Reaction/Blood Tranf: No Family Medical History Cardiovascular disease 19 MOTHER, Onset:Unknown Diabetes mellitus 19 MOTHER, Onset:Unknown FH: COPD (chronic obstructive pulmonary disease) G8 SISTER, Onset:Unknown No Pertinent Family Hx Physical Exam Vital Signs Vital Signs - First Documented 08/07/19 19:17 Temp 36.6 Pulse 94 Resp 19 B/P (MAP) 172/90 (117) Pulse Ox 93 O2 Delivery OxyMask O2 Flow Rate 15.00 Height, Weight, BMI Height: 5'5.00" Weight: 178lbs. 0.2oz. [id number]; 32.00 BMI Method:Stated General Appearance: WD/WN, no apparent distress Nose: active bleeding, other (epistaxis appears to be posterior) Mouth/Throat: normal mouth inspection, other (fresh blood in the posterior pharynx) Neck: normal inspection Cardiovascular: regular rate, rhythm, no edema, tachycardia (slight) Respiratory: lungs clear, decreased breath sounds (diminished) Neurologic/Psychiatric: general matcher II-XII nml as tested, no motor/sensory deficits, alert, other (irritable mood) Skin: normal color, warm/dry Progress/Results/Core Measures Results/Orders Lab Results Laboratory Tests Test 08/07/19 20:15 Range/Units White Blood Count 11.6 H 4.3-11.0 10^3/uL Red Blood Count 4.45 4.35-5.85 10^6/uL Hemoglobin 11.8 11.5-16.0 G/DL Hematocrit 38 35-52 % Mean Corpuscular Volume 86 80-99 FL Mean Corpuscular Hemoglobin 27 25-34 PG Mean Corpuscular Hemoglobin Concent 31 L 32-36 G/DL Red Cell Distribution Width 20.1 H 10.0-14.5 % Platelet Count 274 130-400 10^3/uL Mean Platelet Volume 10.8 H 7.4-10.4 FL Neutrophils (%) (Auto) 75 42-75 % Lymphocytes (%) (Auto) 12 12-44 % Monocytes (%) (Auto) 11 0-12 % Eosinophils (%) (Auto) 1 0-10 % Basophils (%) (Auto) 1 0-10 % Neutrophils # (Auto) 8.7 H 1.8-7.8 X 10^3 Lymphocytes # (Auto) 1.3 1.0-4.0 X 10^3 Monocytes # (Auto) 1.3 H 0.0-1.0 X 10^3 Eosinophils # (Auto) 0.1 0.0-0.3 10^3/uL Basophils # (Auto) 0.1 0.0-0.1 10^3/uL Prothrombin Time 12.6 12.2-14.7 SEC INR Comment 0.9 0.8-1.4 Activated Partial Thromboplast Time 28 24-35 SEC My Orders Orders - EDUIN ALCAZAR MD Oxymetazoline 0.05% Nasal [place] (Afrin 0. (08/07/19 21:00) Cbc With Automated Diff (08/07/19 20:03) Protime With Inr (08/07/19 20:03) Partial Thromboplastin Time (08/07/19 20:03) Albuterol/Ipra Inhalation Soln (Duoneb I (08/07/19 20:11) Tranexamic Acid Injection (Cyklokapron I (08/07/19 21:00) Benzocaine Extension Tube (Hurricaine Ex (08/07/19 21:36) Benzocaine Extension Tube (Hurricaine Ex (08/07/19 21:45) Amlodipine Tablet (Norvasc Tablet) (08/07/19 22:15) Medications Given in ED Current Medications Medications Dose Ordered Sig/Martin Route Start Time Stop Time Status Last Admin Dose Admin Albuterol/ Ipratropium 3 ml STK-MED ONCE .ROUTE 08/07/19 20:11 08/07/19 20:12 DC 08/07/19 20:15 3 ML Amlodipine Besylate 10 mg ONCE ONCE PO 08/07/19 22:15 08/07/19 22:16 DC 08/07/19 22:11 10 MG Benzocaine 1 ea ONCE ONCE XX 08/07/19 21:45 08/07/19 21:46 DC 08/07/19 21:40 1 EA Tranexamic Acid 1000 mg/Sodium Chloride 110 ml @ 330 mls/hr ONCE ONCE IV 08/07/19 21:00 08/07/19 21:19 DC 08/07/19 21:00 330 MLS/HR Vital Signs/I&O 08/07/19 08/07/19 08/07/19 08/07/19 19:17 19:17 20:15 22:23 Temp 36.6 36.6 Pulse 94 100 Resp 19 19 B/P (MAP) 172/90 (117) 201/98 (117) Pulse Ox 93 99 92 93 O2 Delivery OxyMask OxyMask OxyMask OxyMask O2 Flow Rate 15.00 15.00 15.00 8.00 Blood Pressure Mean: 117 Progress Progress Note : Progress Note Patient's care was complicated due to her severe chronic hypoxia. She did not tolerate much time off of her oxygen supplementation. She would quickly dropped into the upper 70s when oxygen was removed. Patient was given a DuoNeb treatment to maximize her respiratory status. Treatment of epistaxis was then provided initially with Afrin for sprays in each nostril. This did not stop her bleeding. We then attempted a short Merocel packing. The packing was soaked with TXA after application. Patient continued to bleed posteriorly. CBC and coag panel were obtained and were unremarkable. The short Merocel was removed. Patient was pretreated with Hurricaine spray to numb the nose. She has history of nasal fracture and has a narrow nasal passage and pain when packing is inserted. Rapid Rhino was attempted. She would not tolerate passage beyond about 2 cm. There is much resistance and this caused significant pain. A longer Merocel packing was trimmed down to about half its with. Again insertion of Merocel failed as she did not tolerate insertion past about 2 cm. I did suction the right nostril and attempt to determine where the bleed was coming from. The bleed appeared to be significantly posterior. ENT consult is not available at [facility] this evening. Patient wishes to be transferred to [facility]. I contacted Dr. Krishnamurthy (ER physician) and ENT sonoscope operator. Case was accepted. ENT sonoscope operator requested we treat her blood pressure before departure. Norvasc 10 mg orally was given. Patient was offered transfer via EMS. She elected to go by private vehicle since she was able to maintain oxygen saturations around 90 percent on 8 L with the OxiMax. Departure Impression Primary Impression: Epistaxis Additional Impressions: COPD (chronic obstructive pulmonary disease) Qualified Codes: J44.9 - Chronic obstructive pulmonary disease, unspecified Chronic respiratory failure with hypoxia Uncontrolled hypertension Disposition: XFER SHT-TRM HOSP Condition: Stable Transfer Time Spoke to Accepting Phy: 21:55 Transfer Progress Notes Transfer accepted by Dr. Krishnamurthy, ER physician, [facility]. She was allowed to transfer by private vehicle. Transfer Time: 22:23 Transfer Facility: [facility] Method of Transfer: Private Vehicle Departure-Patient Inst. Referrals: WILVER SIMENTAL MD (PCP/Family) Primary Care Physician Patient Instructions: Nosebleeds (DC) Add. Discharge Instructions: Continue your supplemental oxygen at 8 L/m with the OxiMax. Please go directly to [facility] and check into the ER. Dr. Krishnamurthy is expecting your arrival. Leave the existing packing in the right nostril until you are evaluated by the ER physician. All discharge instructions reviewed with patient and/or family. Voiced understanding. EDUIN ALCAZAR MD Aug 07, 2019 22:14
[2019-08-07] MEDS ORDERED: amLODIPine 5 MG (NORVASC) TAB PO ONE (22:15)
[2019-08-07 22:23] VITALS: BP 201/98
--- NOTE | 2019-08-07 22:23 | NUR ---
Unable to print pt VS. 1918: BP 182/110 P 98 1924: BP 172/90 P 91 2153: BP 194/90 P 103 2218: BP 201/98 P 100
== END 2019-08-07 22:23 | disposition short-term general hospital (02) ==
LOC: EDUNIT# 18:46 → ER 18:47
DX: R04.0 Epistaxis (principal); J96.11 Chronic respiratory failure with hypoxia; J44.9 Chronic obstructive pulmonary disease, unspecified; I10 Essential (primary) hypertension; F32.9 Major depressive disorder, single episode, unspecified; Z99.2 Dependence on renal dialysis; Z99.81 Dependence on supplemental oxygen; Z88.5 Allergy status to narcotic agent; Z87.891 Personal history of nicotine dependence; Z93.0 Tracheostomy status; Z82.49 Family history of ischemic heart disease and other diseases of the circulatory system
CPT/HCPCS: 36415; 85025; 85610; 85730; 94640

== ENCOUNTER 2019-08-12 02:28 | Emergency (ER) | payer MEDICARE, MEDICAID ==
[~2019-08-12] VITALS: Ht 172 cm; Wt 78.6 kg
[2019-08-12] MEDS ORDERED: EPINEPHrine INJECTION 1 MG/ML AMP IM/IV/SC ONE (02:31)
[2019-08-12] MEDS ORDERED: SODIUM BICARB 8.4% 50 MEQ/50 ML VIAL IV ONE (02:31)
--- NOTE | 2019-08-12 02:32 | NUR ---
0232- PT ARRIVES TO ED. CPR IN PROGRESS. 0234- PULSE CHECK. PEA, CPR RESUMED 0234- 1MG EPI GIVEN IO 0238- PULSE CHECK, PEA, CPR RESUMED 0238- 1 LITER NS BOLUS INITIATED 0239- 1MG EPI GIVEN IO 0240- PULSE CHECK, PEA, CPR CONTINUED 0243- PEA, CPR RESUMED 0244- LABS DRAWN FROM SECOND IO SITE, INSERTED BY DR. JONES INTO THE R TIBIA, 15GA, 45MM 0245- PULSE CHECK, PEA, HR OF 30BPM
--- NOTE | 2019-08-12 02:47 | NUR ---
0247- 1 MG EPI GIVEN, 1 AMP BICARB GIVEN IO
--- NOTE | 2019-08-12 02:50 | NUR ---
0250- PULSE CHECK, PEA,, CPR RESUMED. 0252- PULSE CHECK, FAINT PULSE DETECTED ON DOPPLER, NO SIGNS OF ROSC ON MONITOR, CPR RESUMED. 0252- 1MG EPI GIVEN IO 0257- PULSE CHECK, PEA. 1MG EPI GIVEN, CPR RESUMED 0258-L LUNG NOTED DIMINISHED PER DR JONES ON AUSCULTATION 0302-PULSE CHECK, V -FIB ON MONITOR, SHOCK DELIVERED AT 120J, CPR RESUMED. 0303- 1MG EPI GIVEN 0304- 1 LITER NS SALINE BOLUS INITIATED. 0305- PERIPHERAL PULSES PRESENT. 0303- EKG 0320- PT'S PERIPHERAL PULSES
[2019-08-12] MEDS ORDERED: NS (IVPB) 250 ML ONE (03:06)
[2019-08-12] MEDS ORDERED: NOREPINEPHRINE 4 MG/4 ML (LEVOPHED) AMP IV ONE (03:07)
[2019-08-12 03:11] LABS: BASOPHILS # (AUTO) 0.1 10^3/uL (0.0-0.1); BASOPHILS % (AUTO) 1 % (0-10); EOSINOPHILS # (AUTO) 0.2 10^3/uL (0.0-0.3); EOSINOPHILS % (AUTO) 1 % (0-10); HEMATOCRIT 32 % (35-52); HEMOGLOBIN 9.7 G/DL (11.5-16.0); LYMPHOCYTES # (AUTO) 5.5 X 10^3 (1.0-4.0); LYMPHOCYTES % (AUTO) 38 % (12-44); MEAN CORPUSCULAR HEMOGLOBIN 27 PG (25-34); MEAN CORPUSCULAR HGB CONC 30 G/DL (32-36); MEAN CORPUSCULAR VOLUME 89 FL (80-99); MEAN PLATELET VOLUME 11.7 FL (7.4-10.4); MONOCYTES # (AUTO) 0.9 X 10^3 (0.0-1.0); MONOCYTES % (AUTO) 7 % (0-12); NEUTROPHILS # (AUTO) 7.8 X 10^3 (1.8-7.8); NEUTROPHILS % (AUTO) 54 % (42-75); PLATELET COUNT 218 10^3/uL (130-400); RED CELL DISTRIBUTION WIDTH 19.8 % (10.0-14.5); WHITE BLOOD COUNT 14.5 10^3/uL (4.3-11.0)
[2019-08-12] MEDS ORDERED: NS IV 1000 ML 1,000 ML IV SCH ×2 (03:13→03:15)
[2019-08-12] MEDS ORDERED: NOREPINEPHRINE 4 MG in NS (IVPB) 250 ML IV SCH (03:15)
[2019-08-12 03:17] LABS: INR 1.3 (0.8-1.4); PROTHROMBIN TIME PATIENT 16.9 SEC (12.2-14.7)
--- NOTE | 2019-08-12 03:23 | NUR ---
0323- 1MG EPI GIVEN IO 0327- PULSE CHECK, PEA 033- CPR EFFORTS CEASED PER DR. JONES, TIME OF 329
[2019-08-12 03:24] LABS: ALBUMIN 2.9 GM/DL (3.2-4.5); BILIRUBIN,TOTAL 0.5 MG/DL (0.1-1.0); CALCIUM 8.6 MG/DL (8.5-10.1); CREATININE SERUM 8.21 MG/DL (0.60-1.30); POTASSIUM 5.2 MMOL/L (3.6-5.0); TOTAL PROTEIN 6.3 GM/DL (6.4-8.2)
--- NOTE | 2019-08-12 03:36 | NUR ---
D/T MONITOR MALFUNCTION ALL VITALS LOST WHEN SECONDARY NURSE ATTEMPTED TO PRINT.
--- NOTE | 2019-08-12 03:55 | NUR ---
CONTACTED [facility] TO ALERT STAFF TO POSSIBLE TISSUE DONATION
--- NOTE | 2019-08-12 04:19 | ED CPR ---
HPI-CPR General Chief Complaint: Code Blue Stated Complaint: RESPIRATORY Source of Information: EMS, Family (knee since) Exam Limitations: No Limitations History of Present Illness Date Seen by Provider: Aug 12, 2019 Time Seen by Provider: 02:32 Initial Comments Patient presents by EMS from home with chief complaint of respiratory failure and cardiac arrest. They administered 2 rounds of epinephrine. They had PEA on the monitor no shocks were administered. Patient had multiple attempts at intubation and then vomited in the middle of intubation and coded on the scene. Family notes the patient over the weekend was being very short of breath and had went through 12 oxygen bottles on a trip to [place] and back. She was extremely short of breath but refused came to the ER. She finally decided she needed to come to the family called EMS and when they arrived and essentially bradycardic, as well as short of breath. The family said that the patient had to be coded and intubated and sent to [facility] and spent 3 or 4 months on a ventilator and had a trach at that time. After that she said she never wanted to live on a ventilator again. She also had told family she wanted to be a DO NOT RESUSCITATE but they could not find the paperwork to match that so EMS intervened. Allergies and Home Medications Allergies Coded Allergies: morphine (Verified Allergy, Severe, swelling, 01/11/16) Home Medications Furosemide 80 Mg Tablet, 80 MG PO BID, (Reported) Levothyroxine Sodium 25 Mcg Tablet, 25 MCG PO DAILY, (Reported) Patient Home Medication List Home Medication List Reviewed: Yes Review of Systems Review of Systems Constitutional: see HPI (history of present illness per niece and son); No fever Respiratory: Shortness of Air Cardiovascular: Chest Pain Gastrointestinal: Denies Abdominal Pain Past Yiojrcw-Gpvbea-Zvxmca Hx Patient Social History Smoking Status: Former Smoker Type Used: Cigarettes Former Smoker, Quit: Oct 01, 2016 Recent Hopitalizations: Yes (RAYMUNDO LESTER 07/16/2019) Immunizations Up To Date Tetanus Booster (TDap): Unknown Seasonal Allergies Seasonal Allergies: No Past Medical History Surgeries: Yes (BACK SURGERY; AV FISTULA/DIALYSIS GRAFT LEFT ARM. ) Dialysis, Orthopedic, Tracheostomy, Vascular Surgery Respiratory: Yes Pneumonia, COPD Cardiac: Yes (CHF/FLUID OVERLOAD) Hypertension Neurological: No Reproductive Disorders: No Sexually Transmitted Disease: No HIV/AIDS: No Genitourinary: Yes Renal Failure, Dialysis Gastrointestinal: No Musculoskeletal: Yes (BACK SURGERY) Back Injury, Chronic Back Pain Endocrine: No HEENT: No Cancer: No Psychosocial: Yes Depression Integumentary: No Blood Disorders: No Adverse Reaction/Blood Tranf: No Family Medical History Cardiovascular disease 19 MOTHER, Onset:Unknown Diabetes mellitus 19 MOTHER, Onset:Unknown FH: COPD (chronic obstructive pulmonary disease) G8 SISTER, Onset:Unknown No Pertinent Family Hx Physical Exam Vital Signs Vital Signs - First Documented 08/12/19 02:32 Temp 36.0 Pulse 0 Resp 0 Capillary Refill : Height, Weight, BMI Height: 5'5.00" Weight: 178lbs. 0.2oz. 80.101361fp; 32.00 BMI Method:Stated General Appearance: Chronically ill, Severe Distress HEENT: Pharynx Normal (orotracheally intubated with a 7.0 at 22 at the teeth), Other (pupils 3 mm bilateral nonreactive) Respiratory: Lungs Clear (bilateral) Cardiovascular: Other (CPR) Extremity: Slow Capillary Refill Neurologic/Psychiatric: Other (GCS 3T) Skin: Cool, Cyanosis (extremities), Mottled Progress/Results/Core Measures Results/Orders Lab Results Laboratory Tests Test 08/12/19 02:55 Range/Units White Blood Count 14.5 H 4.3-11.0 10^3/uL Red Blood Count 3.58 L 4.35-5.85 10^6/uL Hemoglobin 9.7 L 11.5-16.0 G/DL Hematocrit 32 L 35-52 % Mean Corpuscular Volume 89 80-99 FL Mean Corpuscular Hemoglobin 27 25-34 PG Mean Corpuscular Hemoglobin Concent 30 L 32-36 G/DL Red Cell Distribution Width 19.8 H 10.0-14.5 % Platelet Count 218 130-400 10^3/uL Mean Platelet Volume 11.7 H 7.4-10.4 FL Neutrophils (%) (Auto) 54 42-75 % Lymphocytes (%) (Auto) 38 12-44 % Monocytes (%) (Auto) 7 0-12 % Eosinophils (%) (Auto) 1 0-10 % Basophils (%) (Auto) 1 0-10 % Neutrophils # (Auto) 7.8 1.8-7.8 X 10^3 Lymphocytes # (Auto) 5.5 H 1.0-4.0 X 10^3 Monocytes # (Auto) 0.9 0.0-1.0 X 10^3 Eosinophils # (Auto) 0.2 0.0-0.3 10^3/uL Basophils # (Auto) 0.1 0.0-0.1 10^3/uL Neutrophils % (Manual) 51 % Lymphocytes % (Manual) 43 % Monocytes % (Manual) 2 % Eosinophils % (Manual) 3 % Atypical Lymphocytes 1 % Anisocytosis MODERATE Prothrombin Time 16.9 H 12.2-14.7 SEC INR Comment 1.3 0.8-1.4 Activated Partial Thromboplast Time 49 H 24-35 SEC Sodium Level 130 L 135-145 MMOL/L Potassium Level 5.2 H 3.6-5.0 MMOL/L Chloride Level 93 L 98-107 MMOL/L Carbon Dioxide Level 16 L 21-32 MMOL/L Anion Gap 21 H 5-14 MMOL/L Blood Urea Nitrogen 50 H 7-18 MG/DL Creatinine 8.21 H 0.60-1.30 MG/DL Estimat Glomerular Filtration Rate 5 BUN/Creatinine Ratio 6 Glucose Level 270 H 70-105 MG/DL Calcium Level 8.6 8.5-10.1 MG/DL Corrected Calcium 9.5 8.5-10.1 MG/DL Total Bilirubin 0.5 0.1-1.0 MG/DL Aspartate Amino Transf (AST/SGOT) 31 5-34 U/L Alanine Aminotransferase (ALT/SGPT) 16 0-55 U/L Alkaline Phosphatase 104 40-136 U/L Troponin I 6.522 *H <0.028 NG/ML Total Protein 6.3 L 6.4-8.2 GM/DL Albumin 2.9 L 3.2-4.5 GM/DL My Orders Orders - SHARITA JONES Protime With Inr (08/12/19 03:05) Partial Thromboplastin Time (08/12/19 03:05) Cbc With Automated Diff (08/12/19 03:05) Troponin I (08/12/19 03:05) Comprehensive Metabolic Panel (08/12/19 03:05) Ua Culture If Indicated (08/12/19 03:05) Ns (Ivpb) (Sodium Chloride 0.9%) (08/12/19 03:06) Norepinephrine (Levophed) (08/12/19 03:07) Manual Differential (08/12/19 02:55) Blood Culture (08/12/19 03:13) Lactic Acid Analyzer (08/12/19 03:13) Norepinephrine (Levophed) (08/12/19 03:15) Ed Iv/Invasive Line Start (08/12/19 03:13) Ns Iv 1000 Ml (Sodium Chloride 0.9%) (08/12/19 03:13) Ns Iv 1000 Ml (Sodium Chloride 0.9%) (08/12/19 03:15) Accucheck Stat ONCE (08/12/19 03:13) Vital Signs/I&O 08/12/19 02:32 Temp 36.0 Pulse 0 Resp 0 B/P (MAP) Initial ECG Impression Date: Aug 12, 2019 Initial ECG Impression Time: 03:03 Initial ECG Rate: 111 Initial ECG Rhythm: S.Tach Initial ECG Intervals: QT (484) Comment Anterior lateral ischemia with ST depression but no ST elevation. Critical Care Note Critical Care Start Time: 02:32 Stop Time: 03:30 Total Time (minutes) 58 mins Date of : Aug 12, 2019 Time of : 03:30 Progress Patient arrives at 2 doses of epinephrine in PEA. She has one IO in her left tibia in good condition. She is mottled, cool and with extremity cyanosis. We continued compressions gave epinephrine continue to get pulseless electrical activity. See the nursing note for times and doses. At some point we got the patient to have a faint dopplerable pulse around 30-40 which was inadequate so we continued another round of compressions. On the next check she had a V. tach rate of around 190s so we gave 120 joules defibrillating shock. We will resume compressions for another 2 minutes and on re-check a pulse she had a heart rate around 120-130 with a palpable pulse. She had a blood pressure of 140 systolic. Levophed was ordered. She received 2 L of fluid, and amp of bicarbonate. Within about 10 minutes the patient had lost her circulation and CPR was resumed. We did spoken at length with the family the son and niece and other family had come in and spent some time with the patient. We discussed the patient's goals and wishes and decided to discontinue further interventions at this time. The patient had an EKG obtained an Accu-Chek was ordered but had not been obtained. A Moreno catheter was placed but did not obtain urine. NG was placed and stomach contents were aspirated. A chest x-ray was ordered but did not get obtained before the patient . We discontinued resuscitative efforts at 0330. Lev jeanette is at the bedside and agreed with the plan. The patient had no audible heart tones PALPABLE or dopplerable and end-tidal CO2 was back down to nil. Departure Impression Primary Impression: Cardiac arrest due to respiratory disorder Disposition: 20 Condition: Departure-Patient Inst. Referrals: WILVER SIMENTAL MD (PCP/Family) Primary Care Physician Copy Copies To 1: SEFERINO EGAN TITUS J Aug 12, 2019 04:19
[2019-08-12 04:43] LABS: ATYPICAL LYMPHOCYTES 1 %; EOSINOPHILS % (MANUAL) 3 %; LYMPHOCYTES % (MANUAL) 43 %; MONOCYTES % (MANUAL) 2 %; NEUTROPHILS % (MANUAL) 51 %
[2019-08-12 04:44] LABS: ANISOCYTOSIS MODERATE
--- NOTE | 2019-08-12 06:18 | NUR ---
PT AUTHORIZED FOR [employer]
[2019-08-12 06:38] VITALS: BP 0/0
--- NOTE | 2019-08-12 06:38 | NUR ---
PT MOVED TO ROOM 401 AWAITING [employer] [place] TEAM
== END 2019-08-12 06:38 | disposition expired ==
LOC: EDUNIT# 02:28 → ER 02:30
DX: J96.90 Respiratory failure, unspecified, unspecified whether with hypoxia or hypercapnia (principal); I46.8 Cardiac arrest due to other underlying condition; I11.0 Hypertensive heart disease with heart failure; I50.9 Heart failure, unspecified; J44.9 Chronic obstructive pulmonary disease, unspecified; F32.9 Major depressive disorder, single episode, unspecified; Z88.5 Allergy status to narcotic agent; Z87.891 Personal history of nicotine dependence; Z93.0 Tracheostomy status; Z99.2 Dependence on renal dialysis; Z82.49 Family history of ischemic heart disease and other diseases of the circulatory system
CPT/HCPCS: 31500; 36415; 36680; 51702; 80053; 84484; 85007; 85027; 85610; 85730; 93005; 96361; 96374